=== PATIENT | female | born 1955 | race Caucasian/White ===

== ENCOUNTER 2016-10-03 09:49 | Day surgery (SDC) | payer MEDICARE ==
[2016-09-29 15:56] VITALS: BMI 49.2
[~2016-10-03 09:49] MED LIST: SODIUM CHLORIDE 0.9% 1,000 ML IV SCH
[2016-10-03 10:26] VITALS: TEMP 97.7
[2016-10-03 10:49] LABS: Glucose,Whole Blood 124 mg/dL (75-99)
[2016-10-03] MEDS ORDERED: MIDAZOLAM 2 MG/2 ML VIAL IVP ONE (12:18)
[2016-10-03] MEDS ORDERED: LIDOCAINE 2% INJ 20 MG/ML SQ ONE (12:20)
[2016-10-03] MEDS: ceFAZolin 2 GM in SODIUM CHLORIDE 0.9% 100 ML IVPB ONE ×2 (12:20→12:21)
--- NOTE | 2016-10-03 12:38 | P.PCN ---
Preoperative Diagnosis: Loop explant under sedation and local anesthesia. Loop was originally implanted 4 years back in the [facility] Patient was brought to the EP lab in a fasting state. Written informed consent was obtained prior to the procedure. The subcutaneous device was successfully explanted under local anesthesia. Preoperative antibiotics were administered. The wound was closed in layers and dressed per protocol. Result: Successful loop monitor explantation. Conscious sedation procedure Patient underwent EP procedure under conscious sedation/moderate sedation, monitoring of the level of consciousness and physiologic parameters including but not limited to vital signs and oxygenation. Patient tolerated the procedure well without any acute complications. Start time: 1218 Stop time: 1235 Condition: stable Disposition: same day
[2016-10-03 12:58] VITALS: RESP 16
[2016-10-03 14:28] VITALS: BP 106/56; PULSE 60
== END 2016-10-03 13:35 | disposition home or self-care (01) ==
LOC: CATHEP 09:49
PROVIDERS: ATTEND Internal Medicine Clinical Cardiac Electrophysiology
DX: I47.1 Supraventricular tachycardia (principal); I10 Essential (primary) hypertension; E78.2 Mixed hyperlipidemia; R00.1 Bradycardia, unspecified; E11.9 Type 2 diabetes mellitus without complications; Z79.84 Long term (current) use of oral hypoglycemic drugs; Z79.82 Long term (current) use of aspirin; Z79.1 Long term (current) use of non-steroidal anti-inflammatories (NSAID); Z79.899 Other long term (current) drug therapy
CPT/HCPCS: 33284; 99152; J2001; J2250; J0690

== ENCOUNTER → 2017-06-22 | Outpatient (CLI) | payer MEDICARE ==
[2017-06-21 14:11] VITALS: BMI 49.2
[2017-06-22 14:07] VITALS: BP 126/72; PULSE 61; RESP 18
--- NOTE | 2017-06-23 11:20 | P.HPIM ---
History of Present Illness H&P Date: 06/22/17 Chief Complaint: low back and right leg pain The patient is a 62-year-old female who presents today for chronic pain in low back with radiation to RLE. Patient states that pain is in primarily these areas and is of numbness/tingling quality, and began several years ago after patient fell on a trampoline at a young age, and she has had persistent back pain and problems since that time. Patient is currently prescribed no regular opioid medication, as prescribed by PCP/surgeon. Patient denies any adverse effects to medications. There are no signs of narcotic diversion/misuse/overuse and patient denies new- onset weakness, bowel/bladder incontinence, saddle anesthesia, or other signs or symptoms of cauda equina syndrome. Pain is improved by rest and medication and worsened by standing and walking long distances. Patient HAS NOT had surgery in the affected area. Patient HAS NOT had injections in the affected area previously. Patient HAS NOT had physical therapy recently. In terms of medications, patient has previously tried Tylenol, NSAIDs, tramadol , opioids. Review of systems is negative for chest pain, shortness of breath, visual changes, dizziness, seizures, fever, nausea/vomiting, suicidal or homicidal ideation, and is positive as indicated in HPI above. Allergies: Full list of medications reviewed in electronic record. Physical Exam: Vital Signs: reviewed in EMR General: well-developed, well-nourished, no acute distress HEENT: Normocephalic, atraumatic, no tenderness over occipital ridges. Neck: supple, trachea midline Pulm: respirations unlabored Abdomen: soft, nontender, nondistended, obese ROM flexion of lumbar spine: reduced ROM extension of lumbar spine: reduced Lumbar paravertebral tenderness: + Lumbar facet loading: bilateral, L > R Straight leg raise test: + R side SI joint tenderness: neg Foster's test: + R side Lower extremity: decreased strength due to pain Neurologic: CN II-XII grossly intact, no focal deficits Past Medical History Past Medical History: Heart Failure, Diabetes Mellitus, GERD/Reflux, Hyperlipidemia, Hypertension, Renal Disease, Thyroid Disorder Additional Past Medical History / Comment(s): See Dr Glaser H&P,kidney function 30%, HERNIA History of Any Multi-Drug Resistant Organisms: MRSA Date of last positivie culture/infection: approx 1996 or 1997 MDRO Source:: stomach area Past Surgical History: Adenoidectomy, Breast Surgery, Cholecystectomy, Heart Catheterization, Joint Replacement, Orthopedic Surgery, Tonsillectomy Additional Past Surgical History / Comment(s): ORIF rt wrist-hardware later removed,mult procedures to betsy legs for wounds/cellulitis,BILAT TKA, see Dr. Glaser's H&P. RT CTR, LT ELBOW TENDON SX, COLONOSCOPY, LOOP RECORDER INSERTED AND REMOVED, RT BREAST BX, CYST REMOVED FROM LT CHEEK, RT BUNIOMECTOMY , BILAT CATARACTS Past Anesthesia/Blood Transfusion Reactions: Previous Problems w/ Anesthesia Additional Past Anesthesia/Blood Transfusion Reaction / Comment(s): nightmares during anesthesia.no complications with prior blood transfusion Type of Cardiac Device: Loop Device Placement Date:: 2011 Smoking Status: Former smoker - Past Family History Mother Family Medical History: No Reported History Father Family Medical History: No Reported History Sister(s) Additional Family Medical History / Comment(s): niece had non-hodgkin's lymphoma. Medications and Allergies Home Medications Medication Instructions Recorded Confirmed Type Aspirin 81 mg PO DAILY 06/15/16 06/22/17 History Atorvastatin Calcium [Lipitor] 20 mg PO HS 06/15/16 06/22/17 History Carvedilol [Coreg] 3.125 mg PO BID 06/15/16 06/22/17 History Escitalopram Oxalate [Lexapro] 10 mg PO DAILY 06/15/16 06/22/17 History Furosemide [Lasix] 40 mg PO DAILY 06/15/16 06/22/17 History Levothyroxine Sodium [Synthroid] 150 mcg PO DAILY 06/15/16 06/22/17 History Losartan Potassium [Cozaar] 100 mg PO DAILY 06/15/16 06/22/17 History Pramipexole [Mirapex] 0.5 mg PO HS 06/15/16 06/22/17 History lamoTRIgine [LaMICtal] 200 mg PO DAILY 06/15/16 06/22/17 History Allopurinol [Zyloprim] 100 mg PO DAILY 06/21/17 06/22/17 History Escitalopram [Lexapro] 5 mg PO DAILY 06/21/17 06/22/17 History Insulin Glargine [Lantus] 14 units INJ HS 06/21/17 06/22/17 History Metolazone [Zaroxolyn] 5 mg PO DAILY 06/21/17 06/22/17 History Paricalcitol 2 mcg PO MOWEFR 06/21/17 06/22/17 History glipiZIDE [Glucotrol] 10 mg PO AC-BID 06/21/17 06/22/17 History Allergies Allergy/AdvReac Type Severity Reaction Status Date / Time ibuprofen [From Motrin] Allergy Swelling Verified 06/22/17 13:56 lisinopril Allergy Rash/Hives, Verified 06/22/17 13:56 swelling verapamil [From Calan] Allergy Rash/Hives, Verified 06/22/17 13:56 swelling Physical Exam Vitals: Vital Signs Pulse Resp BP Pulse Ox 06/22/17 13:59 61 18 126/72 97 Results Comments: MRI lumbar spine without contrast dated 05/03/2017 demonstrates severe degenerative disc disease at multiple levels in the lumbar spine including L3-L4 , L4-L5, and L5-S1. There is a small focal disc herniation centrally and paracentrally at the L5-S1 level with mild effacement of the thecal sac. At the L4-L5 level there is mild to moderate degenerative changes with diffuse disc circumferential bulging, facet arthropathy, and ligamentum flavum hypertrophy with borderline to mild AP canal stenosis. At the L5-S1 level there is also facet arthropathy noted; this is also true at the L3-L4 level which also has ligamentum flavum hypertrophy but no significant canal stenosis. Assessment and Plan (1) Obesity Current Visit: Yes Status: Chronic Code(s): E66.9 - OBESITY, UNSPECIFIED SNOMED Code(s): 038984791 (2) Lumbar spinal stenosis Current Visit: Yes Status: Chronic Code(s): M48.061 - SPINAL STENOSIS, LUMBAR REGION WITHOUT NEUROGENIC SAILAJA SNOMED Code(s): 86079409 (3) Lumbar facet arthropathy Current Visit: Yes Status: Chronic Code(s): M46.96 - UNSPECIFIED INFLAMMATORY SPONDYLOPATHY, LUMBAR REGION SNOMED Code(s): 456457099 Plan: 1. Opioid and psychological risk tools and scores were reviewed. Diagnoses, prognoses, and multiple treatment options including but not limited to physical therapy, interventional therapies, adjunct medical therapies, narcotic medication therapies, and surgery were discussed with the patient and all questions were answered to the patients satisfaction. 2. Opioid agreement: no opioids prescribed today 3. The patient was counseled extensively on tobacco abuse, body mass index, and exercise and the importance of smoking cessation, weight control, and regular exercise both in the context of chronic pain and also in terms of overall health. 4. Consultations: none 5. Interventional: LESI series L5-S1 6. Investigations: MAPS appropriate 7. Medications: none prescribed 8. Disposition: f/u for procedure as scheduled Time with Patient: Greater than 30
== END | disposition home or self-care (01) ==
LOC: PNWHC3 12:45
PROVIDERS: ATTEND Anesthesiology
DX: G89.29 Other chronic pain (principal); M54.9 Dorsalgia, unspecified; M48.061 Spinal stenosis, lumbar region without neurogenic claudication; M46.86 Other specified inflammatory spondylopathies, lumbar region; E66.9 Obesity, unspecified; Y93.44 Activity, trampolining; I11.0 Hypertensive heart disease with heart failure; I50.9 Heart failure, unspecified; E11.9 Type 2 diabetes mellitus without complications; K21.9 Gastro-esophageal reflux disease without esophagitis; E78.5 Hyperlipidemia, unspecified; E07.9 Disorder of thyroid, unspecified; Z79.1 Long term (current) use of non-steroidal anti-inflammatories (NSAID); Z79.899 Other long term (current) drug therapy; Z90.49 Acquired absence of other specified parts of digestive tract; Z79.891 Long term (current) use of opiate analgesic; Z98.61 Coronary angioplasty status; Z96.653 Presence of artificial knee joint, bilateral; Z87.891 Personal history of nicotine dependence; Z79.82 Long term (current) use of aspirin; Z79.4 Long term (current) use of insulin; Z79.84 Long term (current) use of oral hypoglycemic drugs; Z88.6 Allergy status to analgesic agent; Z88.8 Allergy status to other drugs, medicaments and biological substances; Z71.6 Tobacco abuse counseling
CPT/HCPCS: 99211

== ENCOUNTER → 2017-08-08 | Outpatient (CLI) | payer MEDICARE ==
[2017-08-08 14:21] LABS: Basophils % (A) 0 %; Eosinophils # (A) 0.1 k/uL (0-0.7); Eosinophils % (A) 2 %; HCT 36.2 % (34.0-46.0); Lymphocytes # (A) 1.7 k/uL (1.0-4.8); Lymphocytes % (A) 27 %; MCH 28.4 pg (25.0-35.0); MCHC 30.2 g/dL (31.0-37.0); Mean Platelet Volume 7.3; Monocytes # (A) 0.3 k/uL (0-1.0); Monocytes % (A) 4 %; Neutrophils # (A) 4.1 k/uL (1.3-7.7); Neutrophils % (A) 65 %; Platelet Count 262 k/uL (150-450); RBC 3.86 m/uL (3.80-5.40); RDW 13.3 % (11.5-15.5); WBC 6.4 k/uL (3.8-10.6)
[2017-08-08 14:35] LABS: Calcium 9.9 mg/dL (8.4-10.2); Magnesium 2.2 mg/dL (1.6-2.3); Phosphorus 4.2 mg/dL (2.5-4.5); Potassium 4.6 mmol/L (3.5-5.1)
[2017-08-08 17:47] LABS: Uric Acid 6.4 mg/dL (3.7-7.4)
[2017-08-08 19:20] LABS: Vitamin D 25 Hydroxy 60.6 ng/mL (30.0-100.0)
[2017-08-08 20:03] LABS: Parathyroid Hormone Intact 195.6 pg/mL (14.0-72.0)
== END | disposition home or self-care (01) ==
LOC: LABWHC1 13:09
PROVIDERS: ATTEND Family Medicine
DX: E79.0 Hyperuricemia without signs of inflammatory arthritis and tophaceous disease (principal); N18.3 Chronic kidney disease, stage 3 (moderate); E11.22 Type 2 diabetes mellitus with diabetic chronic kidney disease; E55.9 Vitamin D deficiency, unspecified; N25.81 Secondary hyperparathyroidism of renal origin
CPT/HCPCS: 36415; 80048; 82043; 82306; 82570; 83036; 83735; 83970; 84100; 84540; 84550; 85025

== ENCOUNTER 2017-08-12 08:34 | Emergency (ER) | payer MEDICARE ==
[2017-08-12 08:39] VITALS: BP 138/60; PULSE 65; RESP 18; TEMP 97.1
--- NOTE | 2017-08-12 09:33 | XR ---
EXAMINATION TYPE: XR Hip RT and AP Pelvis , 3 VIEWS DATE OF EXAM ORDERED: 08/12/2017 HISTORY: Pain. COMPARISON: None. FINDINGS: There are mild degenerative changes in the right hip. No fracture is seen. Osseous structu res about the pelvis are normal. There are degenerative changes in the lower lumbar spine. IMPRESSION: 1. NO ACUTE OSSEOUS LESION. 2. MILD DEGENERATIVE CHANGE.
[2017-08-12] MEDS ORDERED: MORPHINE SULFATE 4 MG/ML SYRINGE IM STA (09:47)
--- NOTE | 2017-08-12 09:49 | ED ---
General Adult HPI - General Chief complaint: Back Pain/Injury Stated complaint: RT SIDE HIP, LEG AND BACK PAIN Time Seen by Provider: 08/12/17 08:44 Source: patient, RN notes reviewed Mode of arrival: wheelchair Limitations: no limitations - History of Present Illness Initial comments: Patient 62-year-old female who presents emergency room today with a chief complaint of lower back pain, right hip pain radiating down the right leg. Patient doesn't that she's had symptoms similar to this in the past as post see pain management. She states there is a problem with her insurance and she did not get into pain management at the end of June which was supposed to. She denies any injury or trauma to the area. States she's had increased pain in the last few days. States that it is similar to symptoms that she's had in the past. Denies any bowel or bladder incontinence retention. Denies any saddle anesthesia. Patient states she tried [place] at home with little relief. Patient denies any recent fever, chills, shortness of breath, chest pain, abdominal pain , nausea or vomiting, dysuria or hematuria, constipation or diarrhea, headaches or visual changes, or any other complaints. - Related Data Home Medications Medication Instructions Recorded Confirmed Aspirin 81 mg PO DAILY 06/15/16 07/20/17 Atorvastatin Calcium [Lipitor] 20 mg PO HS 06/15/16 07/20/17 Carvedilol [Coreg] 3.125 mg PO BID 06/15/16 07/20/17 Furosemide [Lasix] 40 mg PO DAILY 06/15/16 07/20/17 Levothyroxine Sodium [Synthroid] 150 mcg PO DAILY 06/15/16 07/20/17 Losartan Potassium [Cozaar] 100 mg PO DAILY 06/15/16 07/20/17 Pramipexole [Mirapex] 0.5 mg PO HS 06/15/16 07/20/17 lamoTRIgine [LaMICtal] 200 mg PO DAILY 06/15/16 07/20/17 Allopurinol [Zyloprim] 100 mg PO DAILY 06/21/17 07/20/17 Escitalopram [Lexapro] 15 mg PO DAILY 06/21/17 07/20/17 Insulin Glargine [Lantus] 14 units INJ HS 06/21/17 07/20/17 Metolazone [Zaroxolyn] 5 mg PO DAILY 06/21/17 07/20/17 Paricalcitol 2 mcg PO MOWEFR 06/21/17 07/20/17 glipiZIDE [Glucotrol] 10 mg PO AC-BID 06/21/17 07/20/17 Allergies Allergy/AdvReac Type Severity Reaction Status Date / Time ibuprofen [From Motrin] Allergy Swelling Verified 08/12/17 08:35 lisinopril Allergy Rash/Hives, Verified 08/12/17 08:35 swelling verapamil [From Calan] Allergy Rash/Hives, Verified 08/12/17 08:35 swelling Review of Systems ROS Statement: Those systems with pertinent positive or pertinent negative responses have been documented in the HPI. ROS Other: All systems not noted in ROS Statement are negative. Past Medical History Past Medical History: Diabetes Mellitus, GERD/Reflux, Renal Disease, Thyroid Disorder Additional Past Medical History / Comment(s): See Dr Glaser H&P,kidney function 30%,steroid May 2016 History of Any Multi-Drug Resistant Organisms: MRSA Date of last positivie culture/infection: approx 1996 or 1997 MDRO Source:: stomach area Past Surgical History: Cholecystectomy, Joint Replacement, Orthopedic Surgery Additional Past Surgical History / Comment(s): ORIF rt wrist-hardware later removed,mult procedures to betsy legs for wounds/cellulitis,betsy knee replacement, see Dr. Glaser's H&P. Past Anesthesia/Blood Transfusion Reactions: Previous Problems w/ Anesthesia Additional Past Anesthesia/Blood Transfusion Reaction / Comment(s): nightmares during anesthesia.no complications with prior blood transfusion Type of Cardiac Device: Loop Device Placement Date:: 2011 Past Psychological History: Anxiety, Bipolar, Depression Smoking Status: Former smoker Past Alcohol Use History: None Reported Past Drug Use History: None Reported - Past Family History Mother Family Medical History: No Reported History Father Family Medical History: No Reported History Sister(s) Additional Family Medical History / Comment(s): niece had non-hodgkin's lymphoma. General Exam - General Exam Comments Initial Comments: General: The patient is awake and alert, in no distress, and does not appear acutely ill. Eye: Pupils are equal, round and reactive to light, extra-ocular movements are intact. No nystagmus. There is normal conjunctiva bilaterally. No signs of icterus. Ears, nose, mouth and throat: There are moist mucous membranes and no oral lesions. Neck: The neck is supple, there is no tenderness or JVD. Cardiovascular: There is a regular rate and rhythm. No murmur, rub or gallop is appreciated. Respiratory: Lungs are clear to auscultation, respirations are non-labored, breath sounds are equal. No wheezes, stridor, rales, or rhonchi. Musculoskeletal: Patient has normal appearance of the right hip no obvious deformity. No shortening or rotation. Does have mild tenderness over the lateral aspect. Strength 5/5. Sensation intact. Pulses equal bilaterally 2+. Neurological: A&O x 3. CN II-XII intact, There are no obvious motor or sensory deficits. Coordination appears grossly intact. Speech is normal. Skin: Skin is warm and dry and no rashes or lesions are noted. Psychiatric: Cooperative, appropriate mood & affect, normal judgment. Limitations: no limitations Course Vital Signs 08/12/17 08:35 Temperature 97.1 F L Pulse Rate 65 Respiratory 18 Rate Blood Pressure 138/60 O2 Sat by Pulse 99 Oximetry Medical Decision Making - Medical Decision Making X-rays reviewed does show degenerative changes. Patient's post follow-up pain management for this. She states this is not new symptoms today. There is no new injury or trauma. Patient given dose of pain medication here advised that she should continue her [place] at home and follow up with pain management or family doctor Monday. Disposition Clinical Impression: Lumbar radiculopathy Disposition: HOME SELF-CARE Condition: Good Instructions: Chronic Back Pain (ED) Additional Instructions: Please use medication as discussed. Please follow-up with family doctor in the next 2 days of symptoms have not improved. Please return to emergency room if the symptoms increase or worsen or for any other concerns. Referrals: Carlita Ramos MD [Primary Care Provider] - 1-2 days Time of Disposition: 09:49
== END 2017-08-12 10:16 | disposition home or self-care (01) ==
LOC: EC 08:34
DX: M54.16 Radiculopathy, lumbar region (principal); K21.9 Gastro-esophageal reflux disease without esophagitis; E07.9 Disorder of thyroid, unspecified; E11.22 Type 2 diabetes mellitus with diabetic chronic kidney disease; F31.9 Bipolar disorder, unspecified; F41.9 Anxiety disorder, unspecified; Z86.14 Personal history of Methicillin resistant Staphylococcus aureus infection; Z87.891 Personal history of nicotine dependence; Z79.82 Long term (current) use of aspirin; Z79.4 Long term (current) use of insulin; Z79.899 Other long term (current) drug therapy; Z88.6 Allergy status to analgesic agent; Z88.8 Allergy status to other drugs, medicaments and biological substances
CPT/HCPCS: 99283 ×2; 96372 ×2; 73502; J2270

== ENCOUNTER 2017-08-28 08:19 | Day surgery (SDC) | payer MEDICARE ==
[2017-08-22 15:28] VITALS: BMI 51.8
[~2017-08-28 08:19] MED LIST changes: +LACTATED RINGERS 1,000 ML IV SCH; -SODIUM CHLORIDE 0.9% 1,000 ML IV SCH
[2017-08-28 10:04] VITALS: TEMP 97.9
[2017-08-28] MEDS ORDERED: LIDOCAINE 1% 20 ML VIAL (10MG/ML) FOR IV START INTRADERMA ONE (10:10)
[2017-08-28 10:33] LABS: Glucose,Whole Blood 98 mg/dL (75-99)
--- NOTE | 2017-08-28 10:48 | P.PCN ---
Date of Procedure: 08/28/17 Procedure(s) Performed: PREOPERATIVE DIAGNOSIS: 1- Lumbar Degenerative Disc Diseases 2-Lumbar spondylosis with Facet arthropathy without myelopathy. 3-lumbar spinal stenosis. POSTOPERATIVE DIAGNOSIS: 1-Lumber Degenerative Disc Diseases 2-Lumbar spondylosis with Facet arthropathy without myelopathy. 3-lumbar spinal stenosis. PROCEDURE 1. Lumbar epidural steroid injection under fluoroscopic guidance at the L5-S1 level. 2. Lumbar epidurogram. ANESTHESIA: Local with 1% lidocaine 3 ml and , moderate sedation with intravenous Versed 2 mg ,and fentanyle 100 Mcg EBL: Minimal PROCEDURE INDICATION: The patient with low back pain and radiculitis symptoms unresponsive to conservative treatment. Fluoroscopy was used to optimize visualization of the needle placement and to maximize safety. PROCEDURE DESCRIPTION / TECHNIQUE: The patient was seen and identified in the preoperative area. Risks, benefits , complications including but not limited to infections ,bleeding ,allergic reaction to the medications ,nerve damage and not complete pain releife , and alternatives were discussed with the patient. The patient agreed to proceed with the procedure and signed the consent. IV was started, and vital signs were stable. Patient was taken to the OR and time out was completed. The patient was placed in the prone position on procedure table and a pillow was placed under the abdomen to reduce lumbar lordosis. The lumbosacral area was prepped and draped in the usual sterile fashion.ere closely monitored during the procedure. Conscious sedation was used during the procedure to decrease patients anxiety. Vital signs was monitered during the entire procedure. Using anterior-posterior fluoroscopy, the L5-S1 interlaminar space was identified and the skin over this site was marked and then infiltrated with 1% lidocaine subcutaneously. Subsequently, a 18-gauge 6 inches long ,Tuohy epidural needle was inserted and advanced toward the epidural space using the `` Loss of resistance technique and guided by AP and lateral fluoroscopy. The correct needle position in the epidural space was verified with the injection of 2 mL of the water soluble contrast dye Isovue 200 contrast and observing an excellent epidurogram with the epidural spread of the dye, after negative aspiration for blood and CSF and in the absence of paresthesias. Again after negative aspiration, a 6 ml mixture containing 80 mg Kenalog , and 2 ml of preservative free Normal Saline, and 2 ml of preservative free lidocaine 1% solution was injected and a washout of epidurogram was seen. Needle was withdrawn intact, skin was cleansed, and bandages were applied. COMPLICATIONS: None DISPOSITION / PLANS: The patient was placed in a supine position and transferred to the recovery area in a stable condition for observation. There was no evidence of lower extremity motor or sensory deficit after the procedure. Patient was discharged from the recovery room after meeting discharge criteria. Home discharge instructions were given to the patient by the staff. The patient was reexamined prior to discharge. The patient will schedule a follow up in the clinic in 2-4 weeks.
[2017-08-28] MEDS ORDERED: IV FLUID CONTINUATION 900 ML IV ONE (10:50)
[2017-08-28 11:02] LABS: Glucose,Whole Blood 104 mg/dL (75-99)
--- NOTE | 2017-08-28 11:02 | FL ---
EXAMINATION TYPE: FL guided pain mgmt statistic DATE OF EXAM: 08/28/2017 COMPARISON: NONE HISTORY: Back pain TECHNIQUE: Fluoroscopy. FINDINGS/IMPRESSION Fluoroscopic guidance was provided during procedure performed by Dr. Soto. A total of 7 seconds of fluoroscopic time was utilized during the procedure and 1 spot images was acqu ired demonstrating localization of the lower lumbar spine.
[2017-08-28 11:16] VITALS: BP 100/49; PULSE 61; RESP 18
== END 2017-08-28 11:55 | disposition home or self-care (01) ==
LOC: ORPAIN 08:19
PROVIDERS: ATTEND Specialist
DX: M51.16 Intervertebral disc disorders with radiculopathy, lumbar region (principal); M48.061 Spinal stenosis, lumbar region without neurogenic claudication; E11.9 Type 2 diabetes mellitus without complications; E66.01 Morbid (severe) obesity due to excess calories; E07.9 Disorder of thyroid, unspecified; Z79.1 Long term (current) use of non-steroidal anti-inflammatories (NSAID); Z79.899 Other long term (current) drug therapy; Z68.43 Body mass index [BMI] 50.0-59.9, adult; Z88.8 Allergy status to other drugs, medicaments and biological substances; Z88.6 Allergy status to analgesic agent
CPT/HCPCS: 62323; J2250; J3301; J3010; Q9966

== ENCOUNTER 2017-09-26 07:35 | Day surgery (SDC) | payer MEDICARE ==
[2017-09-20 15:02] VITALS: BMI 49.2
[2017-09-26 08:47] VITALS: RESP 16; TEMP 97.6
[2017-09-26] MEDS ORDERED: LACTATED RINGERS 1,000 ML IV ONE (08:47)
[2017-09-26] MEDS ORDERED: LIDOCAINE 1% 20 ML VIAL (10MG/ML) FOR IV START INTRADERMA ONE (08:47)
[2017-09-26 08:51] LABS: Glucose,Whole Blood 71 mg/dL (75-99)
--- NOTE | 2017-09-26 09:35 | P.PCN ---
Date of Procedure: 09/26/17 Procedure(s) Performed: PREOPERATIVE DIAGNOSIS: 1- Lumbar Degenerative Disc Diseases 2-Lumbar spondylosis with Facet arthropathy without myelopathy. 3-lumbar spinal stenosis. POSTOPERATIVE DIAGNOSIS: Same as preop diagnosis. PROCEDURE 1. Lumbar epidural steroid injection under fluoroscopic guidance at the L5-S1 level. 2. Lumbar epidurogram. ANESTHESIA: Local with 1% lidocaine 3 ml and , moderate sedation with intravenous Versed 2 mg ,and fentanyle 100 Mcg EBL: Minimal PROCEDURE INDICATION: The patient with low back pain and radiculitis symptoms unresponsive to conservative treatment. Fluoroscopy was used to optimize visualization of the needle placement and to maximize safety. PROCEDURE DESCRIPTION / TECHNIQUE: The patient was seen and identified in the preoperative area. Risks, benefits , complications including but not limited to infections ,bleeding ,allergic reaction to the medications ,nerve damage and not complete pain releife , and alternatives were discussed with the patient. The patient agreed to proceed with the procedure and signed the consent. IV was started, and vital signs were stable. Patient was taken to the OR and time out was completed. The patient was placed in the prone position on procedure table and a pillow was placed under the abdomen to reduce lumbar lordosis. The lumbosacral area was prepped and draped in the usual sterile fashion.ere closely monitored during the procedure. Conscious sedation was used during the procedure to decrease patients anxiety. Vital signs was monitered during the entire procedure. Using anterior-posterior fluoroscopy, the L5-S1 interlaminar space was identified and the skin over this site was marked and then infiltrated with 1% lidocaine subcutaneously. Subsequently, a 18 -gauge 6 inches long ,Tuohy epidural needle was inserted and advanced toward the epidural space using the `` Loss of resistance technique and guided by AP and lateral fluoroscopy. The correct needle position in the epidural space was verified with the injection of 2 mL of the water soluble contrast dye Isovue 200 contrast and observing an excellent epidurogram with the epidural spread of the dye, after negative aspiration for blood and CSF and in the absence of paresthesias. Again after negative aspiration, a 6 ml mixture containing 80 mg Kenalog , and 2 ml of preservative free Normal Saline, and 2 ml of preservative free lidocaine 1% solution was injected and a washout of epidurogram was seen. Needle was withdrawn intact, skin was cleansed, and bandages were applied. COMPLICATIONS: None DISPOSITION / PLANS: The patient was placed in a supine position and transferred to the recovery area in a stable condition for observation. There was no evidence of lower extremity motor or sensory deficit after the procedure. Patient was discharged from the recovery room after meeting discharge criteria. Home discharge instructions were given to the patient by the staff. The patient was reexamined prior to discharge. The patient will schedule a follow up in the clinic in 2-4 weeks.
[2017-09-26] MEDS ORDERED: IV FLUID CONTINUATION 1,000 ML IV ONE (09:39)
[2017-09-26 09:45] LABS: Glucose,Whole Blood 68 mg/dL (75-99)
[2017-09-26 09:59] VITALS: BP 115/71; PULSE 65
[2017-09-26 10:09] LABS: Glucose,Whole Blood 67 mg/dL (75-99)
[2017-09-26 10:35] LABS: Glucose,Whole Blood 117 mg/dL (75-99)
[2017-09-26] MEDS ORDERED: LACTATED RINGERS 1,000 ML IV SCH (10:50)
--- NOTE | 2017-09-26 11:11 | FL ---
EXAMINATION TYPE: FL guided pain mgmt statistic DATE OF EXAM: 09/26/2017 FLUOROSCOPY Fluoroscopy time of 1 seconds was used during lumbar epidural injection. 1 image/s document/s the pr stephen.
== END 2017-09-26 10:51 | disposition home or self-care (01) ==
LOC: ORPAIN 07:35
PROVIDERS: ATTEND Specialist
DX: M47.26 Other spondylosis with radiculopathy, lumbar region (principal); M51.16 Intervertebral disc disorders with radiculopathy, lumbar region; M48.061 Spinal stenosis, lumbar region without neurogenic claudication; I10 Essential (primary) hypertension; E11.9 Type 2 diabetes mellitus without complications; E03.9 Hypothyroidism, unspecified; Z88.6 Allergy status to analgesic agent; Z88.8 Allergy status to other drugs, medicaments and biological substances
CPT/HCPCS: 62323; J2250; J3301; J3010; Q9966

== ENCOUNTER 2017-10-19 08:05 | Day surgery (SDC) | payer MEDICARE ==
[2017-10-13 14:48] VITALS: BMI 49.2
[2017-10-19 08:43] VITALS: RESP 18; TEMP 97.8
[2017-10-19 09:03] LABS: Glucose,Whole Blood 156 mg/dL (75-99)
--- NOTE | 2017-10-19 09:45 | FL ---
EXAMINATION TYPE: FL guided pain mgmt statistic DATE OF EXAM: 10/19/2017 HISTORY: Pain 1 sec of fluoro. 1 image scanned.
[2017-10-19 10:01] VITALS: BP 110/70; PULSE 77
--- NOTE | 2017-10-26 13:50 | P.PCN ---
Date of Procedure: 10/19/17 Surgeon: Markos Greene Description of Procedure: PREOPERATIVE DIAGNOSIS: 1- Lumbar Degenerative Disc Diseases 2-Lumbar spondylosis with Facet arthropathy without myelopathy POSTOPERATIVE DIAGNOSIS: 1-Lumber Degenerative Disc Diseases 2-Lumbar spondylosis with Facet arthropathy without myelopathy PROCEDURE Lumbar epidural steroid injection under fluoroscopic guidance at the L5-S1 level. ANESTHESIA: Local with 1% lidocaine 3 ml and IV sedation with Versed 2 mg EBL: Minimal PROCEDURE INDICATION: The patient with low back pain and radiculitis symptoms unresponsive to conservative treatment. Fluoroscopy was used to optimize visualization of the needle placement and to maximize safety. PROCEDURE DESCRIPTION / TECHNIQUE: The patient was seen and identified in the preoperative area. Risks, benefits , complications including but not limited to infections ,bleeding ,allergic reaction to the medications ,nerve damage and not complete pain relief , and alternatives were discussed with the patient. The patient agreed to proceed with the procedure and signed the consent. IV was started, and vital signs were stable. Patient was taken to the OR and time out was completed. The patient was placed in the prone position on procedure table and a pillow was placed under the abdomen to reduce lumbar lordosis. The lumbosacral area was prepped and draped in the usual sterile fashion.ere closely monitored during the procedure. Conscious sedation was used during the procedure to decrease patients anxiety. Vital signs was monitered during the entire procedure. Using anterior-posterior fluoroscopy, the L5-S1 interlaminar space was identified and the skin over this site was marked and then infiltrated with 1% lidocaine subcutaneously. Subsequently, a 20-gauge Tuohy epidural needle was inserted and advanced toward the epidural space using the Loss of resistance technique and guided by AP and lateral fluoroscopy. The correct needle position in the epidural space was verified with the injection of contrast and observing an excellent epidurogram with the epidural spread of the dye, after negative aspiration for blood and CSF and in the absence of paresthesias. Again after negative aspiration, a 6 ml mixture containing 20 mg of Dexamethasone was injected and a washout of epidurogram was seen. Needle was withdrawn intact , skin was cleansed, and bandages were applied. COMPLICATIONS: None DISPOSITION / PLANS: The patient was placed in a supine position and transferred to the recovery area in a stable condition for observation. There was no evidence of lower extremity motor or sensory deficit after the procedure. Patient was discharged from the recovery room after meeting discharge criteria. Home discharge instructions were given to the patient by the staff. The patient was reexamined prior to discharge. The patient will schedule a follow up in the clinic in 2-4 weeks.
== END 2017-10-19 10:16 | disposition home or self-care (01) ==
LOC: ORPAIN 08:05
PROVIDERS: ATTEND Pain Medicine Pain Medicine
DX: M51.16 Intervertebral disc disorders with radiculopathy, lumbar region (principal); M47.816 Spondylosis without myelopathy or radiculopathy, lumbar region; E03.9 Hypothyroidism, unspecified; I10 Essential (primary) hypertension; M19.90 Unspecified osteoarthritis, unspecified site; F31.9 Bipolar disorder, unspecified; Z88.6 Allergy status to analgesic agent; Z88.8 Allergy status to other drugs, medicaments and biological substances
CPT/HCPCS: 62323; J1030

== ENCOUNTER → 2017-11-21 | Outpatient (CLI) | payer MEDICARE ==
--- NOTE | 2017-11-21 15:28 | XR ---
EXAMINATION TYPE: XR chest 2V DATE OF EXAM: 11/21/2017 COMPARISON: NONE HISTORY: Cough. TECHNIQUE: Frontal and lateral views of the chest are obtained. FINDINGS: There is chronic parenchymal changes without suspicious no focal air space opacity, pleura l effusion, or pneumothorax seen. The cardiac silhouette size is mildly enlarged with atheroscleroti c change in aortic knob. The osseous structures are demineralized. Cholecystectomy clips are noted. IMPRESSION: Chronic changes and mild cardiomegaly without acute pulmonary process.
== END | disposition home or self-care (01) ==
LOC: RADXRMAIN 15:06
PROVIDERS: ATTEND Family Medicine
DX: I51.7 Cardiomegaly (principal)
CPT/HCPCS: 71046

== ENCOUNTER → 2017-11-23 | Outpatient (CLI) | payer MEDICARE ==
[2017-11-23 13:25] VITALS: BP 114/58; PULSE 92; RESP 16
--- NOTE | 2017-11-23 14:14 | P.PN ---
Subjective Progress Note Date: 11/23/17 Principal diagnosis: No back pain This is a 62-year-old morbidly obese female with history of lower back pain with radiation to the lower extremities. The patient is doing much better after the lumbar epidural steroid injection series and that she just received. She does have neck pain with no radiation to the upper extremities. She denies any numbness or tingling in the upper or lower extremities. She denies any progressive weakness in the upper or lower extremities. Objective - Vital Signs Vital signs: Vital Signs Temp Pulse 92 11/23/17 13:13 Resp 16 11/23/17 13:13 BP 114/58 11/23/17 13:13 Pulse Ox Intake & Output 11/22/17 11/23/17 11/23/17 18:59 06:59 18:59 Weight 130.181 kg - Constitutional General appearance: Present: morbidly obese - EENT Eyes: Present: PERRLA - Respiratory Respiratory: bilateral: CTA - Cardiovascular Rhythm: regular Heart sounds: normal: S1, S2 - Neurologic Neurologic: Present: CNII-XII intact - Psychiatric Psychiatric: Present: A&O x's 3, appropriate affect, intact judgment & insight - Additional findings Additional findings: Neuro exam of the upper extremities showed normal and symmetrical muscle strength and normal biceps reflexes bilaterally absent triceps reflex bilaterally due to fat pad on the elbows probably. She has decreased range of motion of the cervical spine surgery to the left rotation. She has tenderness in the left paravertebral area of the cervical spine. Assessment and Plan Plan: This is a 62-year-old female with lumbar stenosis and lumbar spondylosis and that radiculopathy. She has morbid obesity and also cervical spondylosis without myelopathy. The patient is to continue using her medications and she takes Tylenol extra strength for her pain. We will see the patient 2 months from now for reevaluation for her neck pain which is under good control at this point.
== END | disposition home or self-care (01) ==
LOC: PNWHC3 13:00
PROVIDERS: ATTEND Anesthesiology
DX: M48.061 Spinal stenosis, lumbar region without neurogenic claudication (principal); M47.26 Other spondylosis with radiculopathy, lumbar region; M47.812 Spondylosis without myelopathy or radiculopathy, cervical region; E66.01 Morbid (severe) obesity due to excess calories
CPT/HCPCS: 99211

== ENCOUNTER → 2017-12-15 | Outpatient (CLI) | payer MEDICARE ==
--- NOTE | 2017-12-15 13:42 | US ---
EXAMINATION TYPE: US kidneys/renal and bladder DATE OF EXAM: 12/15/2017 COMPARISON: Prior renal ultrasound February 23, 2016 CLINICAL HISTORY: CKD Stage 4 N18.4. patient states 30% renal function EXAM MEASUREMENTS: Right Kidney: 9.2 x 4.3 x 4.5 cm Left Kidney: 9.8 x 3.7 x 6.0 cm Right Kidney: decreased cortical thickness Left Kidney: decreased cortical thickness Bladder: wnl Bilateral Jets seen: no, patient unable to hold bladder There is no evidence for hydronephrosis at this point in time. Cortical thinning bilaterally is prese nt. No nephrolithiasis is seen. No masses are identified. The urinary bladder is not greatly disten ded and thus suboptimally evaluated. Bilateral ureteral jets are not seen. IMPRESSION: No hydronephrosis is evident bilaterally. Findings consistent with chronic medical renal disease rede monstrated, cortical thinning with decreased size in both kidneys from prior exam.
== END | disposition home or self-care (01) ==
LOC: RADUSWWP 12:01
PROVIDERS: ATTEND Family Medicine
DX: N28.89 Other specified disorders of kidney and ureter (principal); N18.4 Chronic kidney disease, stage 4 (severe)
CPT/HCPCS: 76770

== ENCOUNTER 2018-07-09 17:38 | Observation (INO) | payer MEDICARE, OTHER ==
[2018-07-09] MEDS ORDERED: SODIUM CHLORIDE 0.9% 500 ML 500 ML IV STA (18:27)
--- NOTE | 2018-07-09 18:34 | ED ---
Weakness HPI - General Source: patient Mode of arrival: wheelchair Limitations: no limitations <Lynn Wisdom - Last Filed: 07/09/18 22:42> <Laxmi Deal - Last Filed: 07/10/18 04:26> - General Chief complaint: Weakness Stated complaint: weakness, confusion Time Seen by Provider: 07/09/18 18:04 - History of Present Illness Initial comments: 63-year-old female patient with past medical history significant for Diabetes mellitus, acid reflux, stage III renal failure, hypothyroid presents to the emergency department today for evaluation of generalized weakness. Patient states she has been feeling increasingly weak since this morning. States that she has had headaches for the last couple of days and feels that the top of her head feels numb. She denies any blurred or double vision with this. Denies any nausea or vomiting. She denies any chest pain, sweats, or dizziness. States he has been having some intermittent shortness of breath. She denies any cough or hemoptysis. Denies any wheezing. Patient denies any recent rash, abdominal pain, nausea, vomiting, diarrhea, constipation, back pain, hematuria, dysuria, urinary urgency, urinary frequency, visual changes, or any other complaints. (Lynn Wisdom) - Related Data Home Medications Medication Instructions Recorded Confirmed Atorvastatin Calcium [Lipitor] 20 mg PO HS 06/15/16 07/09/18 Carvedilol [Coreg] 3.125 mg PO BID 06/15/16 07/09/18 Furosemide [Lasix] 40 mg PO DAILY PRN 06/15/16 07/09/18 Levothyroxine Sodium [Synthroid] 150 mcg PO DAILY 06/15/16 07/09/18 Pramipexole [Mirapex] 1 mg PO HS 06/15/16 07/09/18 lamoTRIgine [LaMICtal] 200 mg PO DAILY 06/15/16 07/09/18 Allopurinol [Zyloprim] 100 mg PO DAILY 06/21/17 07/09/18 Escitalopram [Lexapro] 20 mg PO DAILY 06/21/17 07/09/18 Insulin Glargine [Lantus] 14 units SQ HS 06/21/17 07/09/18 Metolazone [Zaroxolyn] 5 mg PO DAILY 06/21/17 07/09/18 Paricalcitol 2 mcg PO DAILY 06/21/17 07/09/18 glipiZIDE [Glucotrol] 10 mg PO AC-BID 06/21/17 07/09/18 Ergocalciferol (Vitamin D2) 50,000 unit PO TH 08/22/17 07/09/18 [Vitamin D2] Albuterol Inhaler [Ventolin Hfa 1 - 2 puff INHALATION RT-QID PRN 07/09/18 Inhaler] Aspirin EC [Ecotrin Low Dose] 81 mg PO DAILY 07/09/18 07/09/18 Allergies Allergy/AdvReac Type Severity Reaction Status Date / Time ibuprofen [From Motrin] Allergy Swelling Verified 07/09/18 19:14 lisinopril Allergy Rash/Hives, Verified 07/09/18 19:14 swelling verapamil [From Calan] Allergy Rash/Hives, Verified 07/09/18 19:14 swelling Review of Systems ROS Other: All systems not noted in ROS Statement are negative. <Lynn Wisdom M - Last Filed: 07/09/18 22:42> ROS Other: All systems not noted in ROS Statement are negative. <Laxmi Deal - Last Filed: 07/10/18 04:26> ROS Statement: Those systems with pertinent positive or pertinent negative responses have been documented in the HPI. Past Medical History Past Medical History: Diabetes Mellitus, GERD/Reflux, Renal Disease, Thyroid Disorder Additional Past Medical History / Comment(s): Stage 3 kidney disease, CHF, recently fell and hit head went to ER and got checked out, everything ok. Fell today, did not hurt anything. History of Any Multi-Drug Resistant Organisms: MRSA Date of last positivie culture/infection: approx 1996 or 1997 MDRO Source:: stomach area Past Surgical History: Cardiac Ablation, Cholecystectomy, Joint Replacement, Orthopedic Surgery Additional Past Surgical History / Comment(s): ORIF rt wrist-hardware later removed, mult procedures to betsy legs for wounds/cellulitis, betsy knee replacement , bunionectomy, carpal tunnel, Loop removal, pain clinic procedure. Past Anesthesia/Blood Transfusion Reactions: Previous Problems w/ Anesthesia Additional Past Anesthesia/Blood Transfusion Reaction / Comment(s): Nightmares during anesthesia, no complications with prior blood transfusion. Type of Cardiac Device: Loop Device Placement Date:: 2011 Past Psychological History: Anxiety, Bipolar, Depression Smoking Status: Former smoker Past Alcohol Use History: None Reported Past Drug Use History: None Reported - Past Family History Mother Family Medical History: No Reported History Father Family Medical History: No Reported History Sister(s) Additional Family Medical History / Comment(s): niece had non-hodgkin's lymphoma. <AlyxLynn M - Last Filed: 07/09/18 22:42> General Exam Limitations: no limitations General appearance: alert, in no apparent distress, other (This is a well- developed, well-nourished adult female patient in no acute distress. Vital signs upon presentation are temperature 98.0F, pulse 70, respirations 18, blood pressure 139/79, pulse ox 99% on room air.) Eye exam: Present: normal appearance, PERRL, EOMI. Absent: scleral icterus, conjunctival injection, nystagmus, periorbital swelling ENT exam: Present: normal exam, normal oropharynx Respiratory exam: Present: normal lung sounds bilaterally. Absent: respiratory distress, wheezes, rales, rhonchi, stridor Cardiovascular Exam: Present: regular rate, normal rhythm, normal heart sounds. Absent: systolic murmur, diastolic murmur, rubs, gallop, clicks GI/Abdominal exam: Present: soft, normal bowel sounds. Absent: distended, tenderness, guarding, rebound, rigid Neurological exam: Present: alert, oriented X3, CN II-XII intact, other ( Strength in all 4 extremities is 4/5.) Psychiatric exam: Present: normal affect, normal mood Skin exam: Present: warm, dry, intact, normal color. Absent: rash <Lynn Wisdom M - Last Filed: 07/09/18 22:42> Vital Signs 07/09/18 07/09/18 07/09/18 17:49 21:13 21:49 Temperature 98 F Pulse Rate 70 62 Pulse Rate [ Left Pulse Oximetery] Respiratory 18 19 Rate Blood Pressure 139/79 144/71 Blood Pressure [Left Arm Sitting] O2 Sat by Pulse 99 97 Oximetry 07/09/18 07/10/18 23:35 00:34 Temperature 97.9 F Pulse Rate 68 Pulse Rate [ 68 Left Pulse Oximetery] Respiratory 18 18 Rate Blood Pressure 149/72 Blood Pressure 148/82 [Left Arm Sitting] O2 Sat by Pulse 97 98 Oximetry EKG Findings - EKG Comments: EKG Findings:: EKG obtained at 1853 shows normal sinus rhythm with a ventricular rate of 64, NE interval 178, QR hoahaoism 96, QT 442, QTc 455. No evidence of ST elevation or depression. <Lynn Wisdom - Last Filed: 07/09/18 22:42> Medical Decision Making - Lab Data Result diagrams: 07/09/18 18:42 07/09/18 18:42 - Radiology Data Radiology results: report reviewed, image reviewed <Lynn Wisdom - Last Filed: 07/09/18 22:42> - Lab Data Result diagrams: 07/09/18 18:42 07/09/18 18:42 <Laxmi Deal - Last Filed: 07/10/18 04:26> - Medical Decision Making 63-year-old female patient presents to the emergency department today for evaluation of generalized weakness and shortness of breath. Physical examination is relatively unremarkable. She is neurologically intact with no focal deficits. Lung sounds are clear and equal. Labs reviewed and did reveal evidence of mild urinary tract infection, this has been sent for culture. BNP was 1150, this is a new finding for her. We'll admit to the hospital for new onset congestive heart failure. We'll give a dose of Lasix here in the emergency department. Patient will be admitted to [facility] who covers for Dr. Ramos. (Lynn Wisdom) I was available for consultation in the emergency department. The history and physical exam were done by the midlevel provider. I was consulted for this patient's care. I reviewed the case with the midlevel provider and based on their presentation of the patient, I agree with the assessment, medical decision making and plan of care as documented. Patient care was discussed with Dr. Solomon of the [facility] who accepts admission. (Laxmi Deal) - Lab Data Lab Results 07/09/18 07/09/18 07/09/18 Range/Units 18:42 18:42 18:42 WBC 4.8 (3.8-10.6) k/uL RBC 4.17 (3.80-5.40) m/uL Hgb 12.1 (11.4-16.0) gm/dL Hct 39.2 (34.0-46.0) % MCV 94.0 (80.0-100.0) fL MCH 29.0 (25.0-35.0) pg MCHC 30.9 L (31.0-37.0) g/dL RDW 13.6 (11.5-15.5) % Plt Count 258 (150-450) k/uL Neutrophils % 58 % Lymphocytes % 33 % Monocytes % 5 % Eosinophils % 2 % Basophils % 1 % Neutrophils # 2.8 (1.3-7.7) k/uL Lymphocytes # 1.6 (1.0-4.8) k/uL Monocytes # 0.2 (0-1.0) k/uL Eosinophils # 0.1 (0-0.7) k/uL Basophils # 0.0 (0-0.2) k/uL PT (9.0-12.0) sec INR (<1.2) APTT (22.0-30.0) sec Sodium 140 (137-145) mmol/L Potassium 4.5 (3.5-5.1) mmol/L Chloride 100 (98-107) mmol/L Carbon Dioxide 32 H (22-30) mmol/L Anion Gap 8 mmol/L BUN 31 H (7-17) mg/dL Creatinine 1.48 H (0.52-1.04) mg/dL Est GFR (CKD-EPI)AfAm 43 (>60 ml/min/1.73 sqM) Est GFR (CKD-EPI)NonAf 37 (>60 ml/min/1.73 sqM) Glucose 286 H (74-99) mg/dL Plasma Lactic Acid Jatinder 1.2 (0.7-2.0) mmol/L Calcium 9.6 (8.4-10.2) mg/dL Total Bilirubin 0.8 (0.2-1.3) mg/dL AST 20 (14-36) U/L ALT 25 (9-52) U/L Alkaline Phosphatase 86 (38-126) U/L Total Creatine Kinase (30-135) U/L CK-MB (CK-2) (0.0-2.4) ng/mL CK-MB (CK-2) Rel Index Troponin I (0.000-0.034) ng/mL NT-Pro-B Natriuret Pep pg/mL Total Protein 5.9 L (6.3-8.2) g/dL Albumin 3.6 (3.5-5.0) g/dL TSH 0.224 L (0.465-4.680) mIU/L Free T4 1.63 (0.78-2.19) ng/dL Urine Color Urine Appearance (Clear) Urine pH (5.0-8.0) Ur Specific [place] (1.001-1.035) Urine Protein (Negative) Urine Glucose (UA) (Negative) Urine Ketones (Negative) Urine Blood (Negative) Urine Nitrite (Negative) Urine Bilirubin (Negative) Urine Urobilinogen (<2.0) mg/dL Ur Leukocyte Esterase (Negative) Urine RBC (0-5) /hpf Urine WBC (0-5) /hpf Ur Squamous Epith Cells (0-4) /hpf Urine Mucus (None) /hpf 07/09/18 07/09/18 07/09/18 Range/Units 18:42 18:42 18:42 WBC (3.8-10.6) k/uL RBC (3.80-5.40) m/uL Hgb (11.4-16.0) gm/dL Hct (34.0-46.0) % MCV (80.0-100.0) fL MCH (25.0-35.0) pg MCHC (31.0-37.0) g/dL RDW (11.5-15.5) % Plt Count (150-450) k/uL Neutrophils % % Lymphocytes % % Monocytes % % Eosinophils % % Basophils % % Neutrophils # (1.3-7.7) k/uL Lymphocytes # (1.0-4.8) k/uL Monocytes # (0-1.0) k/uL Eosinophils # (0-0.7) k/uL Basophils # (0-0.2) k/uL PT 10.2 (9.0-12.0) sec INR 0.9 (<1.2) APTT 22.4 (22.0-30.0) sec Sodium (137-145) mmol/L Potassium (3.5-5.1) mmol/L Chloride (98-107) mmol/L Carbon Dioxide (22-30) mmol/L Anion Gap mmol/L BUN (7-17) mg/dL Creatinine (0.52-1.04) mg/dL Est GFR (CKD-EPI)AfAm (>60 ml/min/1.73 sqM) Est GFR (CKD-EPI)NonAf (>60 ml/min/1.73 sqM) Glucose (74-99) mg/dL Plasma Lactic Acid Jatinder (0.7-2.0) mmol/L Calcium (8.4-10.2) mg/dL Total Bilirubin (0.2-1.3) mg/dL AST (14-36) U/L ALT (9-52) U/L Alkaline Phosphatase (38-126) U/L Total Creatine Kinase 40 (30-135) U/L CK-MB (CK-2) <0.2 (0.0-2.4) ng/mL CK-MB (CK-2) Rel Index Troponin I <0.012 (0.000-0.034) ng/mL NT-Pro-B Natriuret Pep pg/mL Total Protein (6.3-8.2) g/dL Albumin (3.5-5.0) g/dL TSH (0.465-4.680) mIU/L Free T4 (0.78-2.19) ng/dL Urine Color Yellow Urine Appearance Cloudy H (Clear) Urine pH 6.5 (5.0-8.0) Ur Specific [place] 1.022 (1.001-1.035) Urine Protein 1+ H (Negative) Urine Glucose (UA) Trace H (Negative) Urine Ketones Negative (Negative) Urine Blood Negative (Negative) Urine Nitrite Negative (Negative) Urine Bilirubin Negative (Negative) Urine Urobilinogen <2.0 (<2.0) mg/dL Ur Leukocyte Esterase Large H (Negative) Urine RBC 2 (0-5) /hpf Urine WBC 64 H (0-5) /hpf Ur Squamous Epith Cells 3 (0-4) /hpf Urine Mucus Rare H (None) /hpf 07/09/18 Range/Units 18:42 WBC (3.8-10.6) k/uL RBC (3.80-5.40) m/uL Hgb (11.4-16.0) gm/dL Hct (34.0-46.0) % MCV (80.0-100.0) fL MCH (25.0-35.0) pg MCHC (31.0-37.0) g/dL RDW (11.5-15.5) % Plt Count (150-450) k/uL Neutrophils % % Lymphocytes % % Monocytes % % Eosinophils % % Basophils % % Neutrophils # (1.3-7.7) k/uL Lymphocytes # (1.0-4.8) k/uL Monocytes # (0-1.0) k/uL Eosinophils # (0-0.7) k/uL Basophils # (0-0.2) k/uL PT (9.0-12.0) sec INR (<1.2) APTT (22.0-30.0) sec Sodium (137-145) mmol/L Potassium (3.5-5.1) mmol/L Chloride (98-107) mmol/L Carbon Dioxide (22-30) mmol/L Anion Gap mmol/L BUN (7-17) mg/dL Creatinine (0.52-1.04) mg/dL Est GFR (CKD-EPI)AfAm (>60 ml/min/1.73 sqM) Est GFR (CKD-EPI)NonAf (>60 ml/min/1.73 sqM) Glucose (74-99) mg/dL Plasma Lactic Acid Jatinder (0.7-2.0) mmol/L Calcium (8.4-10.2) mg/dL Total Bilirubin (0.2-1.3) mg/dL AST (14-36) U/L ALT (9-52) U/L Alkaline Phosphatase (38-126) U/L Total Creatine Kinase (30-135) U/L CK-MB (CK-2) (0.0-2.4) ng/mL CK-MB (CK-2) Rel Index Troponin I (0.000-0.034) ng/mL NT-Pro-B Natriuret Pep 1150 pg/mL Total Protein (6.3-8.2) g/dL Albumin (3.5-5.0) g/dL TSH (0.465-4.680) mIU/L Free T4 (0.78-2.19) ng/dL Urine Color Urine Appearance (Clear) Urine pH (5.0-8.0) Ur Specific [place] (1.001-1.035) Urine Protein (Negative) Urine Glucose (UA) (Negative) Urine Ketones (Negative) Urine Blood (Negative) Urine Nitrite (Negative) Urine Bilirubin (Negative) Urine Urobilinogen (<2.0) mg/dL Ur Leukocyte Esterase (Negative) Urine RBC (0-5) /hpf Urine WBC (0-5) /hpf Ur Squamous Epith Cells (0-4) /hpf Urine Mucus (None) /hpf - Radiology Data Two-view x-ray of the chest is obtained. Pressure in its entirety. Impression by Dr. Royal shows chronic parenchymal change in cardiomegaly with perhaps to mild central vascular congestion. (Lynn Wisdom) Disposition Decision to Admit Reason: Admit from [facility] Decision Date: 07/09/18 Decision Time: 22:36 <Lynn Wisdom - Last Filed: 07/09/18 22:42> <Laxmi Deal - Last Filed: 07/10/18 04:26> Clinical Impression: New onset of congestive heart failure, Urinary tract infection, Weakness Disposition: ADMITTED IP TO THIS [facility] Condition: Serious
[2018-07-09 19:34] LABS: Basophils % (A) 1 %; Eosinophils # (A) 0.1 k/uL (0-0.7); Eosinophils % (A) 2 %; HCT 39.2 % (34.0-46.0); HGB 12.1 gm/dL (11.4-16.0); Lymphocytes # (A) 1.6 k/uL (1.0-4.8); Lymphocytes % (A) 33 %; MCHC 30.9 g/dL (31.0-37.0); Mean Platelet Volume 6.5; Monocytes # (A) 0.2 k/uL (0-1.0); Monocytes % (A) 5 %; Neutrophils # (A) 2.8 k/uL (1.3-7.7); Neutrophils % (A) 58 %; Platelet Count 258 k/uL (150-450); RBC 4.17 m/uL (3.80-5.40); RDW 13.6 % (11.5-15.5); WBC 4.8 k/uL (3.8-10.6)
[2018-07-09 19:41] LABS: Albumin 3.6 g/dL (3.5-5.0); Calcium 9.6 mg/dL (8.4-10.2); Potassium 4.5 mmol/L (3.5-5.1); Total Bilirubin 0.8 mg/dL (0.2-1.3); Total Protein 5.9 g/dL (6.3-8.2)
[2018-07-09 19:42] LABS: Appearance,Urine Cloudy (Clear); Bilirubin,Urine Negative (Negative); Blood,Urine Negative (Negative); Color,Urine Yellow; Glucose,Urine (UA) Trace (Negative); Ketones,Urine Negative (Negative); Leukocyte Esterase,Urine Large (Negative); Mucus,Urine Rare /hpf; Nitrite,Urine Negative (Negative); PH, Urine 6.5 (5.0-8.0); Protein,Urine 1+ (Negative); RBC,Urine 2 /hpf (0-5); Specific Gravity,Urine 1.022 (1.001-1.035); Squamous Epithelial Cell,Urine 3 /hpf (0-4); Urobilinogen,Urine <2.0 mg/dL (<2.0); WBC,Urine 64 /hpf (0-5)
--- NOTE | 2018-07-09 19:46 | XR ---
EXAMINATION TYPE: XR chest 2V DATE OF EXAM: 07/09/2018 COMPARISON: Chest x-ray November 21, 2017. HISTORY: Weakness and confusion. TECHNIQUE: Frontal and lateral views of the chest are obtained. FINDINGS: There is chronic parenchymal change without suspicious focal air space opacity, pleural ef fusion, or pneumothorax seen. The cardiac silhouette size is enlarged with atherosclerotic thoracic aorta and possible new mild central vascular congestion. The osseous structures are intact. IMPRESSION: Chronic parenchymal change and cardiomegaly with perhaps new Mild central vascular conge stion, correlate clinically.
[2018-07-09 19:47] LABS: Creatine Kinase 40 U/L (30-135)
[2018-07-09 19:52] LABS: INR 0.9 (<1.2); Partial Thromboplastin Time 22.4 sec (22.0-30.0); Prothrombin Time 10.2 sec (9.0-12.0)
[2018-07-09 19:59] LABS: Creatine Kinase MB <0.2 ng/mL (0.0-2.4); Troponin I <0.012 ng/mL (0.000-0.034)
[2018-07-09 20:41] LABS: T4, Free (Free Thyroxine) 1.63 ng/dL (0.78-2.19)
[2018-07-09] MEDS ORDERED: NALOXONE 0.4 MG/ML 1 ML VIAL IV PRN (22:34)
[2018-07-09] MEDS ORDERED: FUROSEMIDE 10 MG/ML 4 ML VIAL IV STA (22:41)
--- NOTE | 2018-07-10 00:58 | P.HPIM ---
History of Present Illness H&P Date: 07/10/18 Patient is 63-year-old female with a PMH of diabetes mellitus, CHF, CKD stage 3 , hyperthyroidism, and GERD who presented to the ED for shortness of breath and lethargic. The patient notes that over the past few weeks, she has been feeling more fatigued and has been sleeping far more than usual. She also noted decreased exercise tolerance and feels short of breath with even minimal ambulation around the house. She also endorsed having to sleep in her couch, upright since she feels that laying flat makes her congested. She otherwise denied LE edema, dysuria, frequency, urgency, chest pain, nausea, vomiting, palpitations. She also denied dizziness, cough, fever, chills. The patient notes compliance with her Lasix and metolazone along with dietary restrictions. The patient underwent a comprehensive workup in the emergency room. Chest x- ray was consistent with pulmonary edema, with BNP 1150, troponin negative, WBC 4.8, hemoglobin 12.1, BUN 31, creatinine 1.48 (baseline 1.4-1.6). EKG showing normal sinus rhythm at 64 bpm. The patient is being admitted to the medicine service for acute CHF exacerbation and urinary tract infection. Review of Systems Pertinent positives and negatives as discussed in HPI, a complete review of systems was performed and all other systems are negative. Past Medical History Past Medical History: Diabetes Mellitus, GERD/Reflux, Renal Disease, Thyroid Disorder Additional Past Medical History / Comment(s): Stage 3 kidney disease, CHF, recently fell and hit head went to ER and got checked out, everything ok. Fell today, did not hurt anything. History of Any Multi-Drug Resistant Organisms: MRSA Date of last positivie culture/infection: approx 1996 or 1997 MDRO Source:: stomach area Past Surgical History: Cardiac Ablation, Cholecystectomy, Joint Replacement, Orthopedic Surgery Additional Past Surgical History / Comment(s): ORIF rt wrist-hardware later removed, mult procedures to betsy legs for wounds/cellulitis, betsy knee replacement , bunionectomy, carpal tunnel, Loop removal, pain clinic procedure. Past Anesthesia/Blood Transfusion Reactions: Previous Problems w/ Anesthesia Additional Past Anesthesia/Blood Transfusion Reaction / Comment(s): Nightmares during anesthesia, no complications with prior blood transfusion. Type of Cardiac Device: Loop Device Placement Date:: 2011 Past Psychological History: Anxiety, Bipolar, Depression Smoking Status: Former smoker Past Alcohol Use History: None Reported Past Drug Use History: None Reported - Past Family History Mother Family Medical History: No Reported History Father Family Medical History: No Reported History Sister(s) Additional Family Medical History / Comment(s): niece had non-hodgkin's lymphoma. Medications and Allergies Home Medications Medication Instructions Recorded Confirmed Type Atorvastatin Calcium [Lipitor] 20 mg PO HS 06/15/16 07/09/18 History Carvedilol [Coreg] 3.125 mg PO BID 06/15/16 07/09/18 History Furosemide [Lasix] 40 mg PO DAILY PRN 06/15/16 07/09/18 History Levothyroxine Sodium [Synthroid] 150 mcg PO DAILY 06/15/16 07/09/18 History Pramipexole [Mirapex] 1 mg PO HS 06/15/16 07/09/18 History lamoTRIgine [LaMICtal] 200 mg PO DAILY 06/15/16 07/09/18 History Allopurinol [Zyloprim] 100 mg PO DAILY 06/21/17 07/09/18 History Escitalopram [Lexapro] 20 mg PO DAILY 06/21/17 07/09/18 History Insulin Glargine [Lantus] 14 units SQ HS 06/21/17 07/09/18 History Metolazone [Zaroxolyn] 5 mg PO DAILY 06/21/17 07/09/18 History Paricalcitol 2 mcg PO DAILY 06/21/17 07/09/18 History glipiZIDE [Glucotrol] 10 mg PO AC-BID 06/21/17 07/09/18 History Ergocalciferol (Vitamin D2) 50,000 unit PO TH 08/22/17 07/09/18 History [Vitamin D2] Albuterol Inhaler [Ventolin Hfa 1 - 2 puff INHALATION RT-QID PRN 07/09/18 History Inhaler] Aspirin EC [Ecotrin Low Dose] 81 mg PO DAILY 07/09/18 07/09/18 History Allergies Allergy/AdvReac Type Severity Reaction Status Date / Time ibuprofen [From Motrin] Allergy Swelling Verified 07/09/18 19:14 lisinopril Allergy Rash/Hives, Verified 07/09/18 19:14 swelling verapamil [From Calan] Allergy Rash/Hives, Verified 07/09/18 19:14 swelling Physical Exam Vitals: Vital Signs Temp Pulse Resp BP Pulse Ox 07/09/18 23:35 68 18 149/72 97 07/09/18 21:49 144/71 07/09/18 21:13 62 19 97 07/09/18 17:49 98 F 70 18 139/79 99 Intake and Output 07/09/18 07/09/18 07/10/18 14:59 22:59 06:59 Other: Weight 122.47 kg General: non toxic, no distress, appears at stated age, morbidly obese Derm: no unusual rashes/lesions no unusual ecchymoses, warm, dry Head: atraumatic, normocephalic, symmetric Eyes: EOMI, no lid lag, anicteric sclera, pupils equal round reactive to light ENT: Nose and ears atraumatic, no thrush, no pharyngeal erythema Neck: No thyromegaly, no cervical lymphadenopathy, trachea midline, supple Mouth: no lip lesion, mucus membranes moist Cardiovascular: S1S2 reg, systolic murmur appreciated, positive posterior tibial pulse bilateral, no edema, capillary refill less than 2 seconds Lungs: Bibasilar rales, no rhonchi, no accessory muscle use Abdominal: soft, nontender to palpation, no guarding, no appreciable organomegaly, normal bowel sounds Ext: no gross muscle atrophy, muscle strength 5 out of 5 in all 4 extremities grossly, no contractures, trace LE edema betsy Neuro: CN II-XI grossly intact, light touch intact all 4 extremities, finger to nose within normal limits, Psych: Alert, oriented, appropriate affect Results CBC & Chem 7: 07/09/18 18:42 07/09/18 18:42 Labs: Abnormal Lab Results - Last 24 Hours (Table) 07/09/18 07/09/18 07/09/18 Range/Units 18:42 18:42 18:42 MCHC 30.9 L (31.0-37.0) g/dL Carbon Dioxide 32 H (22-30) mmol/L BUN 31 H (7-17) mg/dL Creatinine 1.48 H (0.52-1.04) mg/dL Glucose 286 H (74-99) mg/dL Total Protein 5.9 L (6.3-8.2) g/dL TSH 0.224 L (0.465-4.680) mIU/L Urine Appearance Cloudy H (Clear) Urine Protein 1+ H (Negative) Urine Glucose (UA) Trace H (Negative) Ur Leukocyte Esterase Large H (Negative) Urine WBC 64 H (0-5) /hpf Urine Mucus Rare H (None) /hpf Assessment and Plan Plan: Acute CHF exacerbation -Continue with Lasix IV push 40 mg every 12 hourly -Cardiology consult -Cardiac monitoring -Fluid restriction, daily weights, intake and output -Continue with home med metolazone UTI -Continue with ceftriaxone IV -F/u urine cultures CKD stage III -Avoid nephrotoxic agents Chronic conditions: Diabetes mellitus, hypothyroidism, hyperlipidemia, COPD -Lispro insulin sliding scale, with fingersticks, Lantus 10 units at bedtime -Continue with Synthroid -Continue with Lipitor DVT//GI prophylaxis -Heparin -No indication for GI prophylaxis The patient is admitted with an anticipated less than 2 midnight stay for evaluation of acute CHF exacerbation. CODE STATUS: Full code Discussed with: Patient Anticipated discharge date: 07/12/[address]: Home A total of 50 minutes was spent on the care of this complex patient more than 50 % of the time was spent in counseling and care coordination.
[2018-07-10 05:47] LABS: Glucose,Whole Blood 194 mg/dL (75-99)
[2018-07-10 06:40] LABS: HCT 37.2 % (34.0-46.0); MCH 30.5 pg (25.0-35.0); MCHC 32.3 g/dL (31.0-37.0); MCV 94.5 fL (80.0-100.0); Platelet Count 250 k/uL (150-450); RBC 3.94 m/uL (3.80-5.40); RDW 13.9 % (11.5-15.5); WBC 6.1 k/uL (3.8-10.6)
[2018-07-10] MEDS: LEVOTHYROXINE 50 MCG TAB PO SCH (06:44)
[2018-07-10] MEDS: CARVEDILOL 3.125 MG TAB PO SCH ×2 (06:44→17:06)
[2018-07-10] MEDS: INSULIN ASPART (NovoLOG) 100 UNIT/ML VIAL SQ SCH ×4 (06:52→21:00)
[2018-07-10 06:54] LABS: Calcium 9.3 mg/dL (8.4-10.2); Potassium 3.8 mmol/L (3.5-5.1)
[2018-07-10] MEDS ORDERED: INSULIN ASPART (NovoLOG) 100 UNIT/ML VIAL SQ SCH (07:30)
--- NOTE | 2018-07-10 09:28 | P.CRDCN ---
History of Present Illness Consult date: 07/10/18 Requesting physician: Tin Solomon Consult reason: shortness of breath Chief complaint: Weakness and shortness of breath History of present illness: This is a 63-year-old female with history of diabetes, hypertension, hyperlipidemia, renal insufficiency, history of paroxysmal SVT, who has followed with Dr. Mcadams in the office although she states it has been quite sometime since he has seen him last. She presents to the hospital with symptoms of weakness and shortness of breath of one day duration. She states that yesterday morning her blood sugar was in the range of 58, she took her dog outside briefly, came back into her apartment and states that her legs and arms were extremely weak, he felt a weakness sensation in her head, and had an episode of shortness of breath. The day prior, she states that she was overall feeling quite well. Blood pressure on arrival here 140/70 with a heart rate in the 60s, 97% on room air. White blood cell count 4.8 on admission, 6.1 this morning, platelet count 258 and 250. Sodium 141, potassium 3.8, BUN 34 and creatinine 1.5. Troponin 0.012, BNP [id number]. TSH 0.224 with a free T4 of 1.6 , positive UTI. At the time of my examination this morning she sitting up in her chair at bedside, breathing is stable, Past Medical History Past Medical History: Diabetes Mellitus, GERD/Reflux, Renal Disease, Thyroid Disorder Additional Past Medical History / Comment(s): Stage 3 kidney disease, CHF, recently fell and hit head went to ER and got checked out, everything ok. Fell today, did not hurt anything. History of Any Multi-Drug Resistant Organisms: MRSA Date of last positivie culture/infection: approx 1996 or 1997 MDRO Source:: stomach area Past Surgical History: Cardiac Ablation, Cholecystectomy, Joint Replacement, Orthopedic Surgery Additional Past Surgical History / Comment(s): ORIF rt wrist-hardware later removed, mult procedures to betsy legs for wounds/cellulitis, betsy knee replacement , bunionectomy, carpal tunnel, Loop removal, pain clinic procedure. Past Anesthesia/Blood Transfusion Reactions: Previous Problems w/ Anesthesia Additional Past Anesthesia/Blood Transfusion Reaction / Comment(s): Nightmares during anesthesia, no complications with prior blood transfusion. Type of Cardiac Device: Loop Device Placement Date:: 2011 Past Psychological History: Anxiety, Bipolar, Depression Smoking Status: Former smoker Past Alcohol Use History: None Reported Past Drug Use History: None Reported - Past Family History Mother Family Medical History: No Reported History Father Family Medical History: No Reported History Sister(s) Additional Family Medical History / Comment(s): niece had non-hodgkin's lymphoma. Medications and Allergies Home Medications Medication Instructions Recorded Confirmed Type Atorvastatin Calcium [Lipitor] 20 mg PO HS 06/15/16 07/09/18 History Carvedilol [Coreg] 3.125 mg PO BID 06/15/16 07/09/18 History Furosemide [Lasix] 40 mg PO DAILY PRN 06/15/16 07/09/18 History Levothyroxine Sodium [Synthroid] 150 mcg PO DAILY 06/15/16 07/09/18 History Pramipexole [Mirapex] 1 mg PO HS 06/15/16 07/09/18 History lamoTRIgine [LaMICtal] 200 mg PO DAILY 06/15/16 07/09/18 History Allopurinol [Zyloprim] 100 mg PO DAILY 06/21/17 07/09/18 History Escitalopram [Lexapro] 20 mg PO DAILY 06/21/17 07/09/18 History Insulin Glargine [Lantus] 14 units SQ HS 06/21/17 07/09/18 History Metolazone [Zaroxolyn] 5 mg PO DAILY 06/21/17 07/09/18 History Paricalcitol 2 mcg PO DAILY 06/21/17 07/09/18 History glipiZIDE [Glucotrol] 10 mg PO AC-BID 06/21/17 07/09/18 History Ergocalciferol (Vitamin D2) 50,000 unit PO TH 08/22/17 07/09/18 History [Vitamin D2] Albuterol Inhaler [Ventolin Hfa 1 - 2 puff INHALATION RT-QID PRN 07/09/18 History Inhaler] Aspirin EC [Ecotrin Low Dose] 81 mg PO DAILY 07/09/18 07/09/18 History Allergies Allergy/AdvReac Type Severity Reaction Status Date / Time ibuprofen [From Motrin] Allergy Swelling Verified 07/09/18 19:14 lisinopril Allergy Rash/Hives, Verified 07/09/18 19:14 swelling verapamil [From Calan] Allergy Rash/Hives, Verified 07/09/18 19:14 swelling Physical Exam Vitals: Vital Signs Temp Pulse Pulse Resp BP BP Pulse Ox 07/10/18 03:28 97.0 F L 69 18 140/78 97 07/10/18 01:46 18 07/10/18 00:45 19 07/10/18 00:34 97.9 F 68 18 148/82 98 07/09/18 23:35 68 18 149/72 97 07/09/18 21:49 144/71 07/09/18 21:13 62 19 97 07/09/18 17:49 98 F 70 18 139/79 99 Intake and Output 07/09/18 07/10/18 07/10/18 22:59 06:59 14:59 Intake Total 100 120 Output Total 2200 Balance -2100 120 Intake: Intake, IV Titration 100 Amount cefTRIAXone 1 gm In 100 Sodium Chloride 0.9% 50 ml @ 100 mls/hr IVPB Q24H [facility] Rx#:[id number] Oral 120 Output: Urine 2200 Other: Voiding Method Toilet Weight 122.47 kg 122.5 kg PHYSICAL EXAMINATION: GENERAL: 63-year-old female in no acute distress at the time of my examination HEENT: Head is atraumatic, normocephalic. Pupils equal, round. Sclera anicteric. Conjunctiva are clear. Mucous membranes of the mouth are moist. Neck is supple. There is no elevated jugular venous pressure. No carotid bruit is heard. HEART EXAMINATION: Heart S1, S2 normal. No murmur or gallop heard. CHEST EXAMINATION: Lungs are clear to auscultation and precussion. No chest wall tenderness is noted on palpation or with deep breathing. ABDOMEN: Soft, obese, nontender. Bowel sounds are heard. No organomegaly noted. EXTREMITIES: 2+ peripheral pulses with trace evidence of peripheral edema and no calf tenderness noted. NEUROLOGIC patient is awake, alert and oriented 3. . Results 07/10/18 05:44 07/10/18 05:44 Cardiac Enzymes 07/09/18 07/09/18 Range/Units 18:42 18:42 AST 20 (14-36) U/L CK-MB (CK-2) <0.2 (0.0-2.4) ng/mL Troponin I <0.012 (0.000-0.034) ng/mL Coagulation 07/09/18 Range/Units 18:42 PT 10.2 (9.0-12.0) sec APTT 22.4 (22.0-30.0) sec CBC 07/09/18 07/10/18 Range/Units 18:42 05:44 WBC 4.8 6.1 (3.8-10.6) k/uL RBC 4.17 3.94 (3.80-5.40) m/uL Hgb 12.1 12.0 (11.4-16.0) gm/dL Hct 39.2 37.2 (34.0-46.0) % Plt Count 258 250 (150-450) k/uL Comprehensive Metabolic Panel 07/09/18 07/10/18 Range/Units 18:42 05:44 Sodium 140 141 (137-145) mmol/L Potassium 4.5 3.8 (3.5-5.1) mmol/L Chloride 100 100 (98-107) mmol/L Carbon Dioxide 32 H 33 H (22-30) mmol/L BUN 31 H 34 H (7-17) mg/dL Creatinine 1.48 H 1.50 H (0.52-1.04) mg/dL Glucose 286 H 205 H (74-99) mg/dL Calcium 9.6 9.3 (8.4-10.2) mg/dL AST 20 (14-36) U/L ALT 25 (9-52) U/L Alkaline Phosphatase 86 (38-126) U/L Total Protein 5.9 L (6.3-8.2) g/dL Albumin 3.6 (3.5-5.0) g/dL Current Medications Generic Name Dose Route Start Last Admin Trade Name Freq PRN Reason Stop Dose Admin Allopurinol 100 mg 07/10/18 09:00 Zyloprim PO DAILY [facility] Aspirin 81 mg 07/10/18 09:00 Aspirin PO DAILY [facility] Atorvastatin Calcium 20 mg 07/10/18 21:00 Lipitor PO HS [facility] Carvedilol 3.125 mg 07/10/18 07:30 07/10/18 06:44 Coreg PO 3.125 mg BID-W/MEALS [facility] Administration Ergocalciferol 50,000 unit 07/12/18 09:00 Vitamin D2 PO TH [facility] Escitalopram Oxalate 20 mg 07/10/18 09:00 Lexapro PO DAILY [facility] Furosemide 40 mg 07/10/18 09:00 Lasix IV Q12HR [facility] Heparin Sodium (Porcine) 5,000 unit 07/10/18 08:00 Heparin SQ Q8HR [facility] Ceftriaxone Sodium 1 gm/ 50 mls @ 100 mls/hr 07/10/18 23:00 Sodium Chloride IVPB Q24H [facility] Insulin Aspart 0 unit 07/10/18 07:30 07/10/18 06:52 Novolog SQ Not Given ACHS [facility] Protocol Insulin Detemir 10 unit 07/10/18 21:00 Levemir SQ HS [facility] Lamotrigine 200 mg 07/10/18 09:00 Lamictal PO DAILY [facility] Levothyroxine Sodium 150 mcg 07/10/18 06:30 07/10/18 06:44 Synthroid PO 150 mcg DAILY@0630 [facility] Administration Metolazone 5 mg 07/10/18 09:00 Zaroxolyn PO DAILY [facility] Naloxone HCl 0.2 mg 07/09/18 22:34 Narcan IV Q2M PRN Opioid Reversal Pramipexole Dihydrochloride 1 mg 07/10/18 21:00 Mirapex PO HS [facility] Intake and Output 07/09/18 07/10/18 07/10/18 22:59 06:59 14:59 Intake Total 100 120 Output Total 2200 Balance -2100 120 Intake: Intake, IV Titration 100 Amount cefTRIAXone 1 gm In 100 Sodium Chloride 0.9% 50 ml @ 100 mls/hr IVPB Q24H [facility] Rx#:[id number] Oral 120 Output: Urine 2200 Other: Voiding Method Toilet Weight 122.47 kg 122.5 kg 07/10/18 05:44 07/10/18 05:44 EKG Interpretations (text) EKG shows normal sinus rhythm with no acute changes. Assessment and Plan Plan: Assessment and plan #1 symptoms of weakness, could be related to UTI. Patient's blood sugar earlier that morning was also in the range of 50. Could be secondary to hypoglycemia. #2 shortness of breath, patient denies any PND or orthopnea. No new peripheral edema. BNP level 1150. Chest x-ray does show new mild central vascular congestion. #3 diabetes #4 hypertension #5 hyperlipidemia #6 obesity #7 paroxysmal supraventricular tachycardia #8 hypothyroidism #9 UTI #10 acute on chronic renal insufficiency Plan We will order an echocardiogram with Doppler study. Continue IV Lasix 40 mg twice a day. Continue Coreg, baby aspirin, Lipitor, patient currently not on an EBENEZER inhibitor because of abnormal renal function. Monitor intake and output along with daily weights and daily lytes BUN and creatinine. Further recommendations to follow. DNP note has been reviewed, I agree with a documented findings and plan of care. Patient was seen and examined.
[2018-07-10] MEDS: ESCITALOPRAM 5 MG TAB PO SCH (09:56)
[2018-07-10] MEDS: lamoTRIgine 100 MG TAB PO SCH (09:57)
[2018-07-10] MEDS: HEPARIN SODIUM,PORCINE 5,000 UNIT/ML 1 ML VIAL SQ SCH ×3 (09:57→23:59)
[2018-07-10] MEDS: ALLOPURINOL 100 MG TAB PO SCH (09:57)
[2018-07-10] MEDS: FUROSEMIDE 10 MG/ML 4 ML VIAL IV SCH ×2 (09:57→20:19)
[2018-07-10] MEDS: ASPIRIN 81 MG PO SCH (09:57)
[2018-07-10] MEDS: METOLAZONE 5 MG TAB PO SCH (10:01)
[2018-07-10 11:49] LABS: Glucose,Whole Blood 147 mg/dL (75-99)
--- NOTE | 2018-07-10 11:52 | ECHOF ---
Referral Reason:chf MEASUREMENTS -------- HEIGHT: 162.6 cm WEIGHT: 122.5 kg BP: 140/78 IVSd: 1.2 cm (0.6 - 1.1) LVIDd: 4.4 cm (3.9 - 5.3) LVPWd: 1.2 cm (0.6 - 1.1) IVSs: 1.8 cm LVIDs: 1.9 cm LVPWs: 2.0 cm LAESV Index (A-L): 26.23 ml/m Ao Diam: 2.5 cm (2.0 - 3.7) AV Cusp: 1.7 cm (1.5 - 2.6) LA Diam: 3.2 cm (2.7 - 3.8) MV EXCURSION: 12.495 mm (> 18.000) MV EF SLOPE: 39 mm/s (70 - 150) EPSS: 0.7 cm MV E Rolando: 0.87 m/s MV DecT: 177 ms MV A Rolando: 1.02 m/s MV E/A Ratio: 0.85 RAP: 5.00 mmHg RVSP: 14.52 mmHg FINDINGS -------- Sinus rhythm. This was a technically difficult study with suboptimal views. The left ventricular size is normal. There is mild concentric left ventricular hypertrophy. Overa ll left ventricular systolic function is normal with, an EF between 55 - 60 %. The right ventricle is normal in size and function. Normal LA size by volume 22+/-6 ml/m2. The right atrium is normal in size. Lumason used The aortic valve is trileaflet and appears structurally normal. The mitral valve leaflets are mildly thickened. Mild mitral annular calcification present. There is trace mitral regurgitation. Trace tricuspid regurgitation present. The right ventricular systolic pressure, as measured by Dopp ler, is 14.52mmHg. Pulmonic valve appears structurally normal. The aortic root size is normal. The pericardium is normal. CONCLUSIONS -------- 1. Sinus rhythm. 2. This was a technically difficult study with suboptimal views. 3. The left ventricular size is normal. 4. There is mild concentric left ventricular hypertrophy. 5. Overall left ventricular systolic function is normal with, an EF between 55 - 60 %. 6. The right ventricle is normal in size and function. 7. Normal LA size by volume 22+/-6 ml/m2. 8. The right atrium is normal in size. 9. Lumason used 10. The aortic valve is trileaflet and appears structurally normal. 11. The mitral valve leaflets are mildly thickened. 12. Mild mitral annular calcification present. 13. There is trace mitral regurgitation. 14. Trace tricuspid regurgitation present. 15. The right ventricular systolic pressure, as measured by Doppler, is 14.52mmHg. 16. Pulmonic valve appears structurally normal. 17. The aortic root size is normal. 18. The pericardium is normal. CONSULTING UTILITY FORESTER: Chikis Campbell RDCS
--- NOTE | 2018-07-10 12:15 | P.PN ---
Progress Note - Text Progress Note Date: 07/10/18 Please refer to H&P for the full note. 63-year-old female with PMH of diabetes mellitus, CHF, CKG, hyperthyroidism and GERD presents the ED for shortness of breath and generalized weakness. She is admitted for CHF exacerbation, cardiology on consult. Patient was seen and examined. No acute events overnight. Patient reports great improvement in her breathing. She is concerned about her pet dog that is at home. She denies any chest pain or palpitations. No nausea or vomiting. No fever or chills. Patient is requesting to go home. She is admitted for acute CHF exacerbation. Also found to have a UTI on urinalysis. Will continue diuresis with Lasix 40 IV twice a day and metolazone. Resume beta osiel for CHF. No EBENEZER inhibitor due to ALLERGY. Continue IV ceftriaxone for treatment of UTI. Will start insulin along with sliding scale for diabetes mellitus. Resume Synthroid for hypothyroidism. We' ll continue IV diuresis. She can probably be transitioned to Lasix by mouth tomorrow and possibly discharged in 1-2 days.
[2018-07-10 15:27] LABS: Hemoglobin A1C 7.7 % (4.0-6.0)
[2018-07-10 15:37] VITALS: BMI 46.3
[2018-07-10 16:43] LABS: Glucose,Whole Blood 165 mg/dL (75-99)
[2018-07-10 20:31] VITALS: RESP 18
[2018-07-10 20:36] LABS: Glucose,Whole Blood 202 mg/dL (75-99)
[2018-07-10] MEDS ORDERED: INSULIN DETEMIR (LEVEMIR) 100 UNIT/ML SYR SQ SCH (21:00)
[2018-07-10] MEDS ORDERED: ATORVASTATIN 20 MG TAB PO SCH (21:00)
[2018-07-10] MEDS ORDERED: PRAMIPEXOLE 0.5 MG TAB PO SCH (21:00)
[2018-07-10] MEDS ORDERED: PRAMIPEXOLE 0.25 MG TAB PO STA (21:17)
[2018-07-10] MEDS: glipiZIDE 10 MG TAB PO SCH (21:25)
[2018-07-11 05:54] LABS: Glucose,Whole Blood 179 mg/dL (75-99)
[2018-07-11 06:07] LABS: Calcium 9.8 mg/dL (8.4-10.2); Potassium 3.5 mmol/L (3.5-5.1)
[2018-07-11] MEDS: LEVOTHYROXINE 50 MCG TAB PO SCH (06:38)
[2018-07-11] MEDS: CARVEDILOL 3.125 MG TAB PO SCH (06:38)
[2018-07-11] MEDS: glipiZIDE 10 MG TAB PO SCH (06:38)
[2018-07-11] MEDS: INSULIN ASPART (NovoLOG) 100 UNIT/ML VIAL SQ SCH ×2 (06:39→12:16)
[2018-07-11] MEDS: ALLOPURINOL 100 MG TAB PO SCH (08:27)
[2018-07-11] MEDS: ESCITALOPRAM 5 MG TAB PO SCH (08:27)
[2018-07-11] MEDS: ASPIRIN 81 MG PO SCH (08:27)
[2018-07-11] MEDS: HEPARIN SODIUM,PORCINE 5,000 UNIT/ML 1 ML VIAL SQ SCH (08:28)
[2018-07-11] MEDS: METOLAZONE 5 MG TAB PO SCH (08:28)
[2018-07-11] MEDS: lamoTRIgine 100 MG TAB PO SCH (08:28)
[2018-07-11] MEDS: FUROSEMIDE 10 MG/ML 4 ML VIAL IV SCH (08:28)
[2018-07-11 08:44] VITALS: BP 119/70; PULSE 80; TEMP 97.6
[2018-07-11] MEDS ORDERED: ALBUTEROL NEBULIZED 2.5 MG/3 ML INHALATION PRN (10:53)
--- NOTE | 2018-07-11 10:56 | P.DS ---
Providers Date of admission: 07/10/18 00:24 Expected date of discharge: 07/11/18 Attending physician: Tin Solomon MD Consults: 07/09/18 22:34 Consult Physician Routine Consulting Provider: [facility] Consult Reason/Comments: CHF Do you want consulting provider notified?: Yes Primary care physician: Carlita Ramos MD Hospital Course: Patient is 63-year-old female with a PMH of diabetes mellitus, CHF, CKD stage 3 , hyperthyroidism, and GERD who presented to the ED for shortness of breath and lethargic. The patient notes that over the past few weeks, she has been feeling more fatigued and has been sleeping far more than usual. She also noted decreased exercise tolerance and feels short of breath with even minimal ambulation around the house. She also endorsed having to sleep in her couch, upright since she feels that laying flat makes her congested. She otherwise denied LE edema, dysuria, frequency, urgency, chest pain, nausea, vomiting, palpitations. She also denied dizziness, cough, fever, chills. The patient notes compliance with her Lasix and metolazone along with dietary restrictions. The patient underwent a comprehensive workup in the emergency room. Chest x- ray was consistent with pulmonary edema, with BNP 1150, troponin negative, WBC 4.8, hemoglobin 12.1, BUN 31, creatinine 1.48 (baseline 1.4-1.6). EKG showing normal sinus rhythm at 64 bpm. The patient is being admitted to the medicine service for acute CHF exacerbation and urinary tract infection. With regard to her CHF exacerbation, patient was started on Lasix 40 IV twice a day. Patient was placed on fluid restriction, daily weights with strict intake and outputs. Her home medication of Coreg, Metolazone was resumed. EBENEZER inhibitor was held due to elevation in creatinine. Cardiology was consulted which recommended echocardiogram. Echocardiogram showed EF of 55-60% with mild LVH. Patient was transitioned to oral Lasix in preparation for discharge. She was also initially treated with IV ceftriaxone for a UTI. Patient had no urinary complaints throughout her admission. Urine cultures grew out greater than 100,000 normal yoko. Ceftriaxone was discontinued prior to discharge. Patient is a examined prior to discharge. No acute events overnight. Patient reports great improvement in her breathing. She denies any shortness of breath , chest pain or palpitations. No nausea or vomiting. No dysuria. Patient is looking for to going home, misses her dog. General: [non toxic], [no distress], [appears at stated age] Derm: [warm], [dry] Head: [atraumatic], [normocephalic], [symmetric] Eyes: [EOMI], [no lid lag], [anicteric sclera] Mouth: [no lip lesion], [mucus membranes moist] Cardiovascular: [S1S2 reg], [no murmur], [positive DP pulse bilateral] Lungs: [CTA bilateral], [no rhonchi, no rales] , [no accessory muscle use] Abdominal: [soft], [ nontender to palpation], [no guarding], [no appreciable organomegaly] Ext: [no gross muscle atrophy], [no edema], [no contractures] Neuro: [ CN II-XI grossly intact], [no focal neuro deficits] Psych: [Alert], [oriented], [appropriate affect] Assessment and Plan 1. CHF exacerbation, diastolic with EF of 55-60% 2. Asymptomatic bacteruria 3. CKD III 4. Diabetes Mellitus 5. Hypothyroidism 6. COPD 7. DVT and GI Prophylaxis 1. BNP 1150, chest x-ray showing signs of pulmonary vascular congestion. Has lost about 7 kg since admission. Will transition from Lasix IV to 40 mg by mouth daily. Continue coreg and Metalozone. Continue aspirin and Lipitor. Holding EBENEZER inhibitor due to elevated creatinine. Telemetry monitoring. Daily weights. Strict ins and outs. Will follow cardiology recommendations. 2. Urinalysis shows large leukocyte esterase. Urine culture grew out 100,000 normal yoko. Patient is asymptomatic. Will discontinue antibiotics. 3. Creatinine increased from 1.48-1.80. Likely due to Lasix use. Appears stable from previous blood draws in 2017 and 2018. 4. [id number] care glucose 179. Continue glipizide. Continue Levemir 10 units at bedtime. Hypoglycemic precautions. Regular Accu-Cheks. 5. Stable. Continue Synthroid. 6. Stable. O2 per nasal cannula to maintain an oxygen saturation greater than 92%. 7. SCD boots only. Patient diuresing well. Transitioned from IV Lasix to by mouth. Likely discharge today pending cardiology clearance. Pertinent Studies: Chest x-ray Echocardiogram Patient Condition at Discharge: Stable Plan - Discharge Summary New Discharge Prescriptions: Continue Levothyroxine Sodium [Synthroid] 150 mcg PO DAILY lamoTRIgine [LaMICtal] 200 mg PO DAILY Carvedilol [Coreg] 3.125 mg PO BID Pramipexole [Mirapex] 1 mg PO HS Atorvastatin Calcium [Lipitor] 20 mg PO HS Metolazone [Zaroxolyn] 5 mg PO DAILY glipiZIDE [Glucotrol] 10 mg PO AC-BID Escitalopram [Lexapro] 20 mg PO DAILY Allopurinol [Zyloprim] 100 mg PO DAILY Paricalcitol 2 mcg PO DAILY Insulin Glargine [Lantus] 14 units SQ HS Ergocalciferol (Vitamin D2) [Vitamin D2] 50,000 unit PO TH Aspirin EC [Ecotrin Low Dose] 81 mg PO DAILY Albuterol Inhaler [Ventolin Hfa Inhaler] 1 - 2 puff INHALATION RT-QID PRN PRN Reason: Shortness Of Breath Furosemide [Lasix] 40 mg PO DAILY PRN #30 tab PRN Reason: Edema Discharge Medication List Atorvastatin Calcium [Lipitor] 20 mg PO HS 06/15/16 [History] Carvedilol [Coreg] 3.125 mg PO BID 06/15/16 [History] Levothyroxine Sodium [Synthroid] 150 mcg PO DAILY 06/15/16 [History] Pramipexole [Mirapex] 1 mg PO HS 06/15/16 [History] lamoTRIgine [LaMICtal] 200 mg PO DAILY 06/15/16 [History] Allopurinol [Zyloprim] 100 mg PO DAILY 06/21/17 [History] Escitalopram [Lexapro] 20 mg PO DAILY 06/21/17 [History] Insulin Glargine [Lantus] 14 units SQ HS 06/21/17 [History] Metolazone [Zaroxolyn] 5 mg PO DAILY 06/21/17 [History] Paricalcitol 2 mcg PO DAILY 06/21/17 [History] glipiZIDE [Glucotrol] 10 mg PO AC-BID 06/21/17 [History] Ergocalciferol (Vitamin D2) [Vitamin D2] 50,000 unit PO TH 08/22/17 [History] Albuterol Inhaler [Ventolin Hfa Inhaler] 1 - 2 puff INHALATION RT-QID PRN [History] Aspirin EC [Ecotrin Low Dose] 81 mg PO DAILY 07/09/18 [History] Furosemide [Lasix] 40 mg PO DAILY PRN #30 tab 07/11/18 [Rx] Follow up Appointment(s)/Referral(s): Carlita Ramos MD [Primary Care Provider] - 1-2 days (Spoke to corporate receptionist. Office will call with appointment time) Evelyn Hobbs MD [STAFF PHYSICIAN] - 1 Week Activity/Diet/Wound Care/Special Instructions: Diet: Low-salt and heart healthy Please take all medications as advised. Please follow-up with her primary care provider within 1-2 days of discharge. Please follow-up with your script supervisor with the appointment given to you. Discharge Disposition: HOME SELF-CARE
[2018-07-11 11:38] LABS: Glucose,Whole Blood 224 mg/dL (75-99)
--- NOTE | 2018-07-11 14:58 | P.PN ---
Subjective Progress Note Date: 07/11/18 This is a 63-year-old female with history of diabetes, hypertension, hyperlipidemia, renal insufficiency, history of paroxysmal SVT, who has followed with Dr. Mcadams in the office although she states it has been quite sometime since he has seen him last. She presents to the hospital with symptoms of weakness and shortness of breath of one day duration. She states that yesterday morning her blood sugar was in the range of 58, she took her dog outside briefly, came back into her apartment and states that her legs and arms were extremely weak, he felt a weakness sensation in her head, and had an episode of shortness of breath. The day prior, she states that she was overall feeling quite well. Blood pressure on arrival here 140/70 with a heart rate in the 60s, 97% on room air. White blood cell count 4.8 on admission, 6.1 this morning, platelet count 258 and 250. Sodium 141, potassium 3.8, BUN 34 and creatinine 1.5. Troponin 0.012, BNP [id number]. TSH 0.224 with a free T4 of 1.6 , positive UTI. At the time of my examination this morning she sitting up in her chair at bedside, breathing is stable. 07/11/2018 Patient was seen and examined this morning, breathing is overall stable. Hemodynamically she is stable. We will discontinue the IV Lasix today, creatinine is 1.8 up from 1.5 yesterday. Echocardiogram with Doppler study revealed an ejection fraction of 55-60 Objective - Vital Signs Vital signs: Vital Signs Temp 97.6 F 07/11/18 08:00 Pulse 80 07/11/18 08:00 Resp 18 07/11/18 08:00 BP 119/70 07/11/18 08:00 Pulse Ox 93 L 07/11/18 08:00 Intake & Output 07/10/18 07/11/18 07/11/18 18:59 06:59 18:59 Intake Total 342 360 Output Total 2900 1200 Balance -2558 -1200 360 Weight 122.5 kg 115.3 kg Intake: Oral 342 360 Output: Urine 2900 1200 Other: Voiding Method Toilet Toilet # Voids 2 2 # Bowel Movements 2 - Exam PHYSICAL EXAMINATION: GENERAL: 63-year-old female in no acute distress at the time of my examination HEENT: Head is atraumatic, normocephalic. Pupils equal, round. Sclera anicteric. Conjunctiva are clear. Mucous membranes of the mouth are moist. Neck is supple. There is no elevated jugular venous pressure. No carotid bruit is heard. HEART EXAMINATION: Heart S1, S2 normal. No murmur or gallop heard. CHEST EXAMINATION: Lungs are clear to auscultation and precussion. No chest wall tenderness is noted on palpation or with deep breathing. ABDOMEN: Soft, obese, nontender. Bowel sounds are heard. No organomegaly noted. EXTREMITIES: 2+ peripheral pulses with trace evidence of peripheral edema and no calf tenderness noted. NEUROLOGIC patient is awake, alert and oriented 3. . - Labs CBC & Chem 7: 07/10/18 05:44 07/11/18 04:53 Labs: Abnormal Lab Results - Last 24 Hours (Table) 07/10/18 07/10/18 07/10/18 Range/Units 05:44 16:41 20:31 Chloride (98-107) mmol/L Carbon Dioxide (22-30) mmol/L BUN (7-17) mg/dL Creatinine (0.52-1.04) mg/dL Glucose (74-99) mg/dL POC Glucose (mg/dL) 165 H 202 H (75-99) mg/dL Hemoglobin A1c 7.7 H (4.0-6.0) % 07/11/18 07/11/18 07/11/18 Range/Units 04:53 05:53 11:36 Chloride 95 L (98-107) mmol/L Carbon Dioxide 31 H (22-30) mmol/L BUN 43 H (7-17) mg/dL Creatinine 1.80 H (0.52-1.04) mg/dL Glucose 203 H (74-99) mg/dL POC Glucose (mg/dL) 179 H 224 H (75-99) mg/dL Hemoglobin A1c (4.0-6.0) % Microbiology - Last 24 Hours (Table) 07/09/18 18:42 Urine Culture - Final Urine,Voided Assessment and Plan Plan: Assessment and plan #1 symptoms of weakness, could be related to UTI. Patient's blood sugar earlier that morning was also in the range of 50. Could be secondary to hypoglycemia. #2 shortness of breath, patient denies any PND or orthopnea. No new peripheral edema. BNP level 1150. Chest x-ray does show new mild central vascular congestion. #3 diabetes #4 hypertension #5 hyperlipidemia #6 obesity #7 paroxysmal supraventricular tachycardia #8 hypothyroidism #9 UTI #10 acute on chronic renal insufficiency Plan From cardiology's perspective, we will discontinue IV Lasix and global director air and climate change to by mouth Lasix today. Patient may be able to be discharged home today from our perspective, we will make a follow-up appointment in the office post discharge. DNP note has been reviewed, I agree with a documented findings and plan of care. Patient was seen and examined.
[2018-07-11] MEDS ORDERED: FUROSEMIDE 40 MG TAB PO SCH (16:00)
[2018-07-12] MEDS ORDERED: ERGOCALCIFEROL 50,000 UNIT CAP PO SCH (09:00)
== END 2018-07-11 13:06 | disposition home or self-care (01) ==
LOC: EC 17:38 → 3SCARD 07-10 00:24
PROVIDERS: ADMIT Internal Medicine; ATTEND Internal Medicine
DX: I13.0 Hypertensive heart and chronic kidney disease with heart failure and stage 1 through stage 4 chronic kidney disease, or unspecified chronic kidney disease (principal); I50.33 Acute on chronic diastolic (congestive) heart failure; N18.3 Chronic kidney disease, stage 3 (moderate); E11.22 Type 2 diabetes mellitus with diabetic chronic kidney disease; N39.0 Urinary tract infection, site not specified; Z86.14 Personal history of Methicillin resistant Staphylococcus aureus infection; E03.9 Hypothyroidism, unspecified; E66.9 Obesity, unspecified; Z68.41 Body mass index [BMI] 40.0-44.9, adult; E78.5 Hyperlipidemia, unspecified; I47.1 Supraventricular tachycardia; J44.9 Chronic obstructive pulmonary disease, unspecified; K21.9 Gastro-esophageal reflux disease without esophagitis; Z96.653 Presence of artificial knee joint, bilateral; F31.9 Bipolar disorder, unspecified; F41.9 Anxiety disorder, unspecified; Z87.891 Personal history of nicotine dependence; Z79.82 Long term (current) use of aspirin; Z79.890 Hormone replacement therapy; Z79.899 Other long term (current) drug therapy; Z79.4 Long term (current) use of insulin; Z90.49 Acquired absence of other specified parts of digestive tract
CPT/HCPCS: 96376 ×2; 96366; 96372 ×2; 96361; 96365; 96375; 99285; 36415; 93005; 84439; 83880; 80053; 80048 ×2; 84443; 82550; 82553; 83605; 84484; 85025; 85027; 85610; 85730; 81001; 87086; 83036; 71046; G0378 ×2; C8929; J1644 ×2; J1940 ×3; J0696 ×2; Q9950; 93306

== ENCOUNTER → 2018-10-11 | Outpatient (CLI) | payer MEDICARE, OTHER ==
[2018-10-11 10:00] LABS: Basophils % (A) 1 %; Eosinophils # (A) 0.1 k/uL (0-0.7); Eosinophils % (A) 2 %; HCT 39.7 % (34.0-46.0); HGB 12.7 gm/dL (11.4-16.0); Lymphocytes # (A) 1.6 k/uL (1.0-4.8); Lymphocytes % (A) 33 %; MCH 29.9 pg (25.0-35.0); MCHC 31.9 g/dL (31.0-37.0); MCV 93.6 fL (80.0-100.0); Mean Platelet Volume 7.2; Monocytes # (A) 0.3 k/uL (0-1.0); Monocytes % (A) 6 %; Neutrophils # (A) 2.8 k/uL (1.3-7.7); Neutrophils % (A) 56 %; Platelet Count 227 k/uL (150-450); RBC 4.24 m/uL (3.80-5.40); RDW 14.4 % (11.5-15.5); WBC 4.9 k/uL (3.8-10.6)
[2018-10-11 10:20] LABS: Potassium 4.5 mmol/L (3.5-5.1)
== END | disposition home or self-care (01) ==
LOC: LABPAT 09:26
PROVIDERS: ATTEND Orthopaedic Surgery
DX: Z01.812 Encounter for preprocedural laboratory examination (principal); G56.02 Carpal tunnel syndrome, left upper limb
CPT/HCPCS: 36415; 80051; 85025

== ENCOUNTER 2018-10-19 06:31 | Day surgery (SDC) | payer MEDICARE, OTHER ==
[2018-10-16 16:25] VITALS: BMI 43.7
--- NOTE | 2018-10-18 11:14 | HP ---
HISTORY AND PHYSICAL CHIEF COMPLAINT: Left hand pain and numbness. HISTORY OF PRESENT ILLNESS: The patient is a 63-year-old, right-hand dominant, retired female who presents with left hand pain and numbness for the past 10 years. This has worsened recently. She is having numbness in addition to night symptoms and difficulty with gripping and grasping. She has tried bracing and medications for this. PAST MEDICAL HISTORY: Significant for arthritis, depression, diverticulitis, hypercholesterolemia, hypertension, hypothyroidism, renal disease. PAST SURGICAL HISTORY: Significant for bilateral total knee arthroplasty in addition to previous right wrist surgery. CURRENT MEDICATIONS: Allopurinol, Atorvastatin, aspirin, glipizide, Carvedilol, Lexapro and levothyroxine. ALLERGIES: SHE NOTES ALLERGIES TO LISINOPRIL AND CALAN. FAMILY HISTORY: Significant for heart disease and cancer. SOCIAL HISTORY: Negative for current tobacco or alcohol use. REVIEW OF SYSTEMS: Sixteen point review of systems otherwise reviewed and is noncontributory. PHYSICAL EXAMINATION: On examination, the patient is approximately 5 foot 4, 270 pounds of endomorphic habitus. HEENT exam is nonfocal. NECK: Supple. EXTREMITIES: She is nontender about the left shoulder and elbow. On examination of her left wrist, she has a positive carpal tunnel compression test. APB strength 5- over 5. She has mild thenar wasting. Light touch is diminished diffusely throughout the left digits. EMG report 09/13/2018 showed severe left carpal tunnel syndrome. IMPRESSION: 1. Left severe carpal tunnel syndrome-symptomatic. 2. Diabetes. RECOMMENDATIONS: I talked to the patient at length regarding her condition along with treatment options. At this point, she is quite symptomatic despite conservative measures. After thorough discussion, she opted to proceed with surgery. We will plan to proceed with left carpal tunnel release. We will likely perform that utilizing local anesthetic and IV sedation. Risks and benefits were discussed at length in layman's terms. MMODL / IJN: [id number] /
[~2018-10-19 06:31] MED LIST changes: +DEXAMETHASONE SOD PHOSPHATE 10 MG/ML 1 ML VIAL IV ONE; +HYDROmorphone 0.5 MG/0.5 ML SYRINGE IVP PRN; +MIDAZOLAM 2 MG/2 ML VIAL IV PRN; +ONDANSETRON 4 MG/2 ML VIAL IVP ONE; +ceFAZolin 3 GM in SODIUM CHLORIDE 0.9% 100 ML IVPB ONE
[2018-10-19 07:05] VITALS: TEMP 97.8
[2018-10-19 07:07] LABS: Glucose,Whole Blood 145 mg/dL (75-99)
[2018-10-19] MEDS ORDERED: PROPOFOL 10 MG/ML 20 ML VIAL IV ONE (07:49)
[2018-10-19] MEDS ORDERED: fentaNYL (PF) 50 MCG/ML 2 ML AMP ONE (07:49)
[2018-10-19] MEDS ORDERED: LIDOCAINE 1% INJ 10MG/ML (20 ML MDV) ONE (07:49)
[2018-10-19] MEDS ORDERED: MIDAZOLAM 2 MG/2 ML VIAL ONE (07:49)
[2018-10-19] MEDS ORDERED: BUPIVACAINE (PF) 0.25% 30 ML VIAL SQ ONE (08:00)
--- NOTE | 2018-10-19 08:21 | P.OP ---
Date of Procedure: 10/19/18 Preoperative Diagnosis: Symptomatic left carpal tunnel syndrome Postoperative Diagnosis: Same Procedure(s) Performed: Left carpal tunnel release Anesthesia: MAC, local Surgeon: Jerald Bernardo Estimated Blood Loss (ml): 1 Pathology: none sent Condition: stable Disposition: PACU Indications for Procedure: The patient's a 63-year-old female presents with progressive left hand pain and numbness secondary to carpal tunnel syndrome despite conservative measures. A discussion of the risks and benefits of operative intervention versus continued conservative measures was made with patient. She opted to proceed with surgery. Operative risks to include infection, neurovascular injury, development of blood clots, possible recurrence of symptoms, possible incomplete resolution of symptoms, and possible need for subsequent procedures was discussed. Informed consent was obtained. Operative Findings: As below Description of Procedure: The patient was brought to the operating room, and after induction of IV sedation the left upper extremity was prepped and draped in normal fashion. The proposed incision site was outlined skin marker in line with the radial aspect the fourth ray extending from the volar wrist crease distally 2-1/2 cm. One quarter percent plain Marcaine was injected into the proposed incision site. 9 mL was utilized. The tourniquet was inflated to 250 mmHg. The skin incision was then made. The skin was incised sharply. Subcutaneous tissues were divided sharply the superficial palmar fascia was identified and split in line with the skin incision. The transverse carpal ligament was identified and transected under direct visualization distally to level the palmar fat pad. Proximal was taken level of the volar wrist crease. A plane above and below the transverse carpal ligament was then bluntly developed with tenotomies. The confluence of the distal forearm fascia and the transverse carpal ligament was then transected under direct visualization proximally with the tines pointed in the ulnar direction. I felt this was adequate proximal release. Neural lysis was not performed. The wound was irrigated with normal saline. Electrocautery was used for hemostasis. The skin was reapproximated with simple 3-0 nylon sutures. A sterile dressing was applied. The tourniquet was deflated with less than 15 minutes total tourniquet time. Patient was awoken from sedation and transferred to the recovery room in good condition. Blood loss was estimated 1 mL. No complications were incurred. Sponge and needle counts were correct at the end the case.
[2018-10-19 08:42] VITALS: BP 124/78; PULSE 68; RESP 18
== END 2018-10-19 08:52 | disposition home or self-care (01) ==
LOC: OR 06:31
PROVIDERS: ATTEND Orthopaedic Surgery
DX: G56.02 Carpal tunnel syndrome, left upper limb (principal); M19.90 Unspecified osteoarthritis, unspecified site; F32.9 Major depressive disorder, single episode, unspecified; E78.00 Pure hypercholesterolemia, unspecified; E03.9 Hypothyroidism, unspecified; E78.5 Hyperlipidemia, unspecified; I12.9 Hypertensive chronic kidney disease with stage 1 through stage 4 chronic kidney disease, or unspecified chronic kidney disease; E11.22 Type 2 diabetes mellitus with diabetic chronic kidney disease; N18.3 Chronic kidney disease, stage 3 (moderate); Z82.49 Family history of ischemic heart disease and other diseases of the circulatory system; Z79.84 Long term (current) use of oral hypoglycemic drugs; Z79.82 Long term (current) use of aspirin; Z79.890 Hormone replacement therapy; Z79.899 Other long term (current) drug therapy; Z88.8 Allergy status to other drugs, medicaments and biological substances; Z88.6 Allergy status to analgesic agent
CPT/HCPCS: 64721; J2250; J0690; J2405; J2001; J3010; J2704

== ENCOUNTER 2018-12-25 00:04 | Emergency (ER) | payer MEDICARE, OTHER ==
[2018-12-25] MEDS ORDERED: IPRATROPIUM-ALBUTEROL 3 ML NEB INHALATION STA (00:10)
--- NOTE | 2018-12-25 00:15 | ED ---
SOB HPI <Jonnie Christopher - Last Filed: 12/25/18 02:54> - General Source: patient, EMS, RN notes reviewed, old records reviewed Mode of arrival: EMS - History of Present Illness MD Complaint: shortness of breath <Ernesto Rodriguez - Last Filed: 12/27/18 11:10> - General Stated Complaint: SOB Time Seen by Provider: 12/25/18 00:04 - History of Present Illness Initial Comments: This is a 63-year-old female presents by EMS with complaints of shortness of breath. This occurred while she was watching a baseball game and she states she started hyperventilating and was very short of breath. She initially a satur ation is 92% on room air she was given a breathing treatment and oxygen is now up to 96 and 98%. She denies any overt chest pain but did later state that she had a strange sensation in her lower mid sternal region and she did have occasional PVCs on the monitor. No fevers chills nausea vomiting sweats she does states she has chronic swelling to her lower extremities she does have foot pain also. This is chronic. (Ernesto Rodriguez) - Related Data Home Medications Medication Instructions Recorded Confirmed Atorvastatin Calcium [Lipitor] 20 mg PO HS 06/15/16 10/16/18 Carvedilol [Coreg] 3.125 mg PO BID 06/15/16 10/16/18 Levothyroxine Sodium [Synthroid] 150 mcg PO QAM 06/15/16 10/16/18 Pramipexole [Mirapex] 1 mg PO HS 06/15/16 10/16/18 lamoTRIgine [LaMICtal] 200 mg PO QAM 06/15/16 10/16/18 Allopurinol [Zyloprim] 100 mg PO BID 06/21/17 10/16/18 Escitalopram [Lexapro] 20 mg PO QAM 06/21/17 10/16/18 Insulin Glargine [Lantus] 10 units SQ HS 06/21/17 10/19/18 Paricalcitol 2 mcg PO DAILY 06/21/17 10/16/18 glipiZIDE [Glucotrol] 10 mg PO AC-BID 06/21/17 10/16/18 Ergocalciferol (Vitamin D2) 50,000 unit PO TH 08/22/17 10/16/18 [Vitamin D2] Albuterol Inhaler [Ventolin Hfa 2 puff INHALATION RT-QID PRN 07/09/18 10/16/18 Inhaler] Aspirin EC [Ecotrin Low Dose] 81 mg PO DAILY 07/09/18 10/16/18 Furosemide [Lasix] 40 mg PO QAM 10/16/18 10/16/18 Vitamin C/Biotin [Hair, Skin and 1 tab PO DAILY 10/16/18 10/16/18 Nails] Previous Rx's Medication Instructions Recorded Acetaminophen-Codeine 300-30mg 1 tab PO Q6H PRN 3 Days #12 tablet 10/19/18 [Tylenol w/codeine #3] Allergies Allergy/AdvReac Type Severity Reaction Status Date / Time ibuprofen [From Motrin] Allergy Swelling Verified 12/25/18 00:35 lisinopril Allergy Rash/Hives, Verified 12/25/18 00:35 swelling verapamil [From Calan] Allergy Rash/Hives, Verified 12/25/18 00:35 swelling Review of Systems ROS Other: All systems not noted in ROS Statement are negative. <Jonnie Christopher - Last Filed: 12/25/18 02:54> ROS Other: All systems not noted in ROS Statement are negative. <Ernesto Rodriguez - Last Filed: 12/27/18 11:10> ROS Statement: Those systems with pertinent positive or pertinent negative responses have been documented in the HPI. Past Medical History Past Medical History: Diabetes Mellitus, GERD/Reflux, Renal Disease, Thyroid Disorder Additional Past Medical History / Comment(s): Stage 3 kidney disease, CHF, recently fell and hit head went to ER and got checked out, everything ok. History of Any Multi-Drug Resistant Organisms: MRSA Date of last positivie culture/infection: approx 1996 or 1997 MDRO Source:: stomach area Past Surgical History: Cardiac Ablation, Cholecystectomy, Joint Replacement, Orthopedic Surgery Additional Past Surgical History / Comment(s): ORIF rt wrist-hardware later removed, mult procedures to betsy legs for wounds/cellulitis, betsy knee replacement, bunionectomy, carpal tunnel, Loop removal, pain clinic procedure. Past Anesthesia/Blood Transfusion Reactions: Previous Problems w/ Anesthesia Additional Past Anesthesia/Blood Transfusion Reaction / Comment(s): Nightmares during anesthesia, no complications with prior blood transfusion. Type of Cardiac Device: Loop Device Placement Date:: 2011 Smoking Status: Former smoker - Past Family History Mother Family Medical History: No Reported History Father Family Medical History: No Reported History Sister(s) Family Medical History: No Reported History Additional Family Medical History / Comment(s): niece had non-hodgkin's lymphoma. <Ernesto Rodriguez - Last Filed: 12/27/18 11:10> General Exam General appearance: alert, anxious Head exam: Present: atraumatic, normocephalic, normal inspection Eye exam: Present: normal appearance, PERRL, EOMI. Absent: scleral icterus, conjunctival injection, periorbital swelling ENT exam: Present: normal exam, mucous membranes moist Neck exam: Present: normal inspection. Absent: tenderness, meningismus, lymphadenopathy Respiratory exam: Present: normal lung sounds bilaterally, decreased breath sounds. Absent: respiratory distress, wheezes, rales, rhonchi, stridor Cardiovascular Exam: Present: regular rate, normal rhythm, normal heart sounds. Absent: systolic murmur, diastolic murmur, rubs, gallop, clicks GI/Abdominal exam: Present: soft, normal bowel sounds. Absent: distended, tenderness, guarding, rebound, rigid Extremities exam: Present: normal inspection, full ROM, normal capillary refill, other (Some evidence of lymphedema noted ankle or foot edema). Absent: tenderness, joint swelling, calf tenderness Back exam: Present: normal inspection Neurological exam: Present: alert, oriented X3, CN II-XII intact Psychiatric exam: Present: normal affect, normal mood Skin exam: Present: warm, dry, intact, normal color. Absent: rash <Ernesto Rodriguez - Last Filed: 12/27/18 11:10> - General Exam Comments Initial Comments: This a well-developed well-nourished awake alert oriented 3 female she is co ughing upon arrival (Ernesto Rordiguez) Course <Ernesto Rodriguez - Last Filed: 12/27/18 11:10> Vital Signs 12/25/18 12/25/18 12/25/18 00:31 01:37 01:47 Temperature 97.9 F Pulse Rate 61 60 64 Respiratory 19 Rate Blood Pressure 168/93 O2 Sat by Pulse 98 Oximetry 12/25/18 03:24 Temperature 98 F Pulse Rate 64 Respiratory 18 Rate Blood Pressure 168/93 O2 Sat by Pulse 100 Oximetry - Reevaluation(s) Reevaluation #1: 12/25/18 00:56 Is referred to the triage nursing note for the actual events as the patient withheld them initially. (Ernesto Rodriguez) Reevaluation #2: 12/25/18 01:03 Patient states she's feeling better but still have some cough and some strange sensation to her lower mid sternum. The workup is proceeding I will send patient to Dr. Fuentes Astorga will make the final disposition. (Ernesto Rodriguez) Medical Decision Making - Lab Data Result diagrams: 12/25/18 01:30 12/25/18 01:30 <Jonnie Christopher - Last Filed: 12/25/18 02:54> - Lab Data Result diagrams: 12/25/18 01:30 12/25/18 01:30 - EKG Data -: EKG Interpreted by [facility] EKG shows normal: sinus rhythm (Sinus rhythm of 70 and appear interval 180 QRS duration 12 QT since QTC 414/471 LVH) <Ernesto Rodriguez - Last Filed: 12/27/18 11:10> - Lab Data Lab Results 12/25/18 12/25/18 12/25/18 Range/Units 01:30 01:30 01:30 WBC 7.6 (3.8-10.6) k/uL RBC 4.45 (3.80-5.40) m/uL Hgb 12.9 (11.4-16.0) gm/dL Hct 41.5 (34.0-46.0) % MCV 93.3 (80.0-100.0) fL MCH 29.1 (25.0-35.0) pg MCHC 31.2 (31.0-37.0) g/dL RDW 13.5 (11.5-15.5) % Plt Count 228 (150-450) k/uL Neutrophils % 62 % Lymphocytes % 29 % Monocytes % 4 % Eosinophils % 3 % Basophils % 1 % Neutrophils # 4.7 (1.3-7.7) k/uL Lymphocytes # 2.2 (1.0-4.8) k/uL Monocytes # 0.3 (0-1.0) k/uL Eosinophils # 0.2 (0-0.7) k/uL Basophils # 0.0 (0-0.2) k/uL PT 9.5 (9.0-12.0) sec INR 0.9 (<1.2) APTT 21.5 L (22.0-30.0) sec Sodium 134 L (137-145) mmol/L Potassium 3.5 (3.5-5.1) mmol/L Chloride 101 (98-107) mmol/L Carbon Dioxide 29 (22-30) mmol/L Anion Gap 4 mmol/L BUN 37 H (7-17) mg/dL Creatinine 1.54 H (0.52-1.04) mg/dL Est GFR (CKD-EPI)AfAm 41 (>60 ml/min/1.73 sqM) Est GFR (CKD-EPI)NonAf 35 (>60 ml/min/1.73 sqM) Glucose 193 H (74-99) mg/dL Calcium 10.0 (8.4-10.2) mg/dL Magnesium 1.8 (1.6-2.3) mg/dL Total Bilirubin 0.6 (0.2-1.3) mg/dL AST 29 (14-36) U/L ALT 18 (9-52) U/L Alkaline Phosphatase 118 (38-126) U/L Creatine Kinase 110 (30-135) U/L Troponin I (0.000-0.034) ng/mL NT-Pro-B Natriuret Pep pg/mL Total Protein 7.2 (6.3-8.2) g/dL Albumin 4.5 (3.5-5.0) g/dL 12/25/18 12/25/18 Range/Units 01:30 01:30 WBC (3.8-10.6) k/uL RBC (3.80-5.40) m/uL Hgb (11.4-16.0) gm/dL Hct (34.0-46.0) % MCV (80.0-100.0) fL MCH (25.0-35.0) pg MCHC (31.0-37.0) g/dL RDW (11.5-15.5) % Plt Count (150-450) k/uL Neutrophils % % Lymphocytes % % Monocytes % % Eosinophils % % Basophils % % Neutrophils # (1.3-7.7) k/uL Lymphocytes # (1.0-4.8) k/uL Monocytes # (0-1.0) k/uL Eosinophils # (0-0.7) k/uL Basophils # (0-0.2) k/uL PT (9.0-12.0) sec INR (<1.2) APTT (22.0-30.0) sec Sodium (137-145) mmol/L Potassium (3.5-5.1) mmol/L Chloride (98-107) mmol/L Carbon Dioxide (22-30) mmol/L Anion Gap mmol/L BUN (7-17) mg/dL Creatinine (0.52-1.04) mg/dL Est GFR (CKD-EPI)AfAm (>60 ml/min/1.73 sqM) Est GFR (CKD-EPI)NonAf (>60 ml/min/1.73 sqM) Glucose (74-99) mg/dL Calcium (8.4-10.2) mg/dL Magnesium (1.6-2.3) mg/dL Total Bilirubin (0.2-1.3) mg/dL AST (14-36) U/L ALT (9-52) U/L Alkaline Phosphatase (38-126) U/L Creatine Kinase (30-135) U/L Troponin I <0.012 (0.000-0.034) ng/mL NT-Pro-B Natriuret Pep 931 pg/mL Total Protein (6.3-8.2) g/dL Albumin (3.5-5.0) g/dL Disposition <oJnnie Christopher - Last Filed: 12/25/18 02:54> Is patient prescribed a controlled substance at d/c from ED?: No <Ernesto Rodriguez - Last Filed: 12/27/18 11:10> Clinical Impression: Chest pain Disposition: HOME SELF-CARE Condition: Good Instructions (If sedation given, give patient instructions): Chest Pain (ED) Referrals: Carlita Ramos MD [Primary Care Provider] - 1-2 days
[2018-12-25 00:37] VITALS: BP 168/93
--- NOTE | 2018-12-25 01:26 | XR ---
EXAM: XR Chest, 2 Views CLINICAL HISTORY: ITS.REASON XR Reason: difficulty breathing TECHNIQUE: Frontal and lateral views of the chest. COMPARISON: 07/09/18 IMPRESSION: Cardiomegaly. Chronic parenchymal changes. Query mild vascular congestion. No pleural effusion.
[2018-12-25 01:48] VITALS: PULSE 64
[2018-12-25 01:54] LABS: Basophils % (A) 1 %; Eosinophils # (A) 0.2 k/uL (0-0.7); Eosinophils % (A) 3 %; HCT 41.5 % (34.0-46.0); HGB 12.9 gm/dL (11.4-16.0); Lymphocytes # (A) 2.2 k/uL (1.0-4.8); Lymphocytes % (A) 29 %; MCH 29.1 pg (25.0-35.0); MCHC 31.2 g/dL (31.0-37.0); MCV 93.3 fL (80.0-100.0); Mean Platelet Volume 6.8; Monocytes # (A) 0.3 k/uL (0-1.0); Monocytes % (A) 4 %; Neutrophils # (A) 4.7 k/uL (1.3-7.7); Neutrophils % (A) 62 %; Platelet Count 228 k/uL (150-450); RBC 4.45 m/uL (3.80-5.40); RDW 13.5 % (11.5-15.5); WBC 7.6 k/uL (3.8-10.6)
[2018-12-25 02:04] LABS: Albumin 4.5 g/dL (3.5-5.0); Magnesium 1.8 mg/dL (1.6-2.3); Potassium 3.5 mmol/L (3.5-5.1); Total Bilirubin 0.6 mg/dL (0.2-1.3); Total Protein 7.2 g/dL (6.3-8.2)
[2018-12-25 02:09] LABS: INR 0.9 (<1.2); Prothrombin Time 9.5 sec (9.0-12.0)
[2018-12-25 02:57] LABS: Partial Thromboplastin Time 21.5 sec (22.0-30.0)
[2018-12-25 03:25] VITALS: RESP 18; TEMP 98
== END 2018-12-25 03:26 | disposition home or self-care (01) ==
LOC: EC 00:04
DX: R07.9 Chest pain, unspecified (principal); R06.02 Shortness of breath; M79.89 Other specified soft tissue disorders; E11.22 Type 2 diabetes mellitus with diabetic chronic kidney disease; N18.3 Chronic kidney disease, stage 3 (moderate); I50.9 Heart failure, unspecified; Z87.891 Personal history of nicotine dependence; Z86.14 Personal history of Methicillin resistant Staphylococcus aureus infection; K21.9 Gastro-esophageal reflux disease without esophagitis; Z79.84 Long term (current) use of oral hypoglycemic drugs; Z79.890 Hormone replacement therapy; Z79.82 Long term (current) use of aspirin; Z79.899 Other long term (current) drug therapy; Z88.6 Allergy status to analgesic agent; Z88.8 Allergy status to other drugs, medicaments and biological substances; Z96.653 Presence of artificial knee joint, bilateral
CPT/HCPCS: 36415; 71046; 80053; 82550; 83735; 83880; 84484; 85025; 85610; 85730; 93005; 94640; 99285

== ENCOUNTER 2019-01-13 07:59 | Emergency (ER) | payer MEDICARE, OTHER ==
--- NOTE | 2019-01-13 08:47 | ED ---
General Adult HPI - General Chief complaint: Extremity Problem,Nontraumatic Stated complaint: legs and feet swelling and piedad Time Seen by Provider: 01/13/19 08:10 Source: patient, RN notes reviewed, old records reviewed Mode of arrival: wheelchair Limitations: no limitations - History of Present Illness Initial comments: 63-year-old female patient past medical history significant for type 2 diabetes, CK ED stage III, CHF presents to ED with chief complaint of lower extremity edema for 2 weeks, mild shortness of breath with exertion. Patient reports that she has been in contact with her psychiatry resident Dr. Mcadams and has increased her daily Lasix from 40 to 80 per day. Patient reports that she still has the persistent lower extremity edema as well as shortness of breath with exertion. Denies any chest pain. Denies any lung disease, never smoker. Denies all other complaints at this time. Systemic: Pt denies fatigue, fever/chills, rash. Pt denies weakness, night sweats, weight loss. Neuro: Pt denies headache, visual disturbances, syncope or pre-syncope. HEENT: Pt denies ocular discharge or irritation, otalgia, rhinorrhea, pharyngitis or notable lymphadenopathy. Cardiopulmonary: Pt denies chest pain, SOB, heart palpitations, dyspnea on ex ertion. Abdominal/GI: Pt denies abdominal pain, n/v/d. : Pt denies dysuria, burning w/ urination, frequency/urgency. Denies new onset urinary or bowel incontinence. MSK: Pt denies myalgia, loss of strength or function in extremities. Neuro: Pt denies new onset weakness, paresthesias. - Related Data Home Medications Medication Instructions Recorded Confirmed Atorvastatin Calcium [Lipitor] 20 mg PO HS 06/15/16 01/13/19 Carvedilol [Coreg] 3.125 mg PO BID 06/15/16 01/13/19 Levothyroxine Sodium [Synthroid] 150 mcg PO QAM 06/15/16 01/13/19 Pramipexole [Mirapex] 1 mg PO HS 06/15/16 01/13/19 lamoTRIgine [LaMICtal] 200 mg PO QAM 06/15/16 01/13/19 Allopurinol [Zyloprim] 100 mg PO BID 06/21/17 01/13/19 Escitalopram [Lexapro] 20 mg PO QAM 06/21/17 01/13/19 Insulin Glargine [Lantus] 15 units SQ HS 06/21/17 01/13/19 Paricalcitol 2 mcg PO DAILY 06/21/17 01/13/19 glipiZIDE [Glucotrol] 10 mg PO AC-BID 06/21/17 01/13/19 Ergocalciferol (Vitamin D2) 50,000 unit PO TH 08/22/17 01/13/19 [Vitamin D2] Albuterol Inhaler [Ventolin Hfa 2 puff INHALATION RT-QID PRN 07/09/18 01/13/19 Inhaler] Aspirin EC [Ecotrin Low Dose] 81 mg PO DAILY 07/09/18 01/13/19 Furosemide [Lasix] 40 mg PO QAM 10/16/18 01/13/19 Vitamin C/Biotin [Hair, Skin and 1 tab PO DAILY 10/16/18 01/13/19 Nails] Allergies Allergy/AdvReac Type Severity Reaction Status Date / Time ibuprofen [From Motrin] Allergy Swelling Verified 01/13/19 08:23 lisinopril Allergy Rash/Hives, Verified 01/13/19 08:23 swelling verapamil [From Calan] Allergy Rash/Hives, Verified 01/13/19 08:23 swelling Review of Systems ROS Statement: Those systems with pertinent positive or pertinent negative responses have been documented in the HPI. ROS Other: All systems not noted in ROS Statement are negative. Past Medical History Past Medical History: Diabetes Mellitus, GERD/Reflux, Renal Disease, Thyroid D isorder Additional Past Medical History / Comment(s): Stage 3 kidney disease, CHF, recently fell and hit head went to ER and got checked out, everything ok. History of Any Multi-Drug Resistant Organisms: MRSA Date of last positivie culture/infection: approx 1996 or 1997 MDRO Source:: stomach area Past Surgical History: Cardiac Ablation, Cholecystectomy, Joint Replacement, Orthopedic Surgery Additional Past Surgical History / Comment(s): ORIF rt wrist-hardware later removed, mult procedures to betsy legs for wounds/cellulitis, betsy knee replacemen t, bunionectomy, carpal tunnel, Loop removal, pain clinic procedure. Past Anesthesia/Blood Transfusion Reactions: Previous Problems w/ Anesthesia Additional Past Anesthesia/Blood Transfusion Reaction / Comment(s): Nightmares during anesthesia, no complications with prior blood transfusion. Type of Cardiac Device: Loop Device Placement Date:: 2011 Past Psychological History: Anxiety, Bipolar, Depression Smoking Status: Former smoker Past Alcohol Use History: None Reported Past Drug Use History: None Reported - Past Family History Mother Family Medical History: No Reported History Father Family Medical History: No Reported History Sister(s) Family Medical History: No Reported History Additional Family Medical History / Comment(s): niece had non-hodgkin's lymphoma. General Exam - General Exam Comments Initial Comments: Constitutional: NAD, AOX3, Pt has pleasant affect. HEENT: NC/AT, trachea midline, neck supple, no lymphadenopathy. Posterior pharynx non erythematous, without exudates. External ears appear normal, without discharge. Mucous membranes moist. Eyes PERRLA, EOM intact. There is no scleral icterus. No pallor noted. Cardiopulmonary: RRR, no murmurs, rubs or gallops, no JVD noted. Lungs CTAB. +3 lower extremity edema. Abdominal exam: Abdomen soft and non-distended. Abdomen non-tender to palpation in all 4 quadrants. Bowel sounds active in LLQ. No hepatosplenomegaly. No ecchymosis Neuro: CN II-XII grossly intact. No nuchal rigidity. No raccon eyes, no oakley sign, no hemotympanum. No cervical spinal tenderness. MSK: No posterior calf tenderness bilaterally, homans sign negative bilaterally. Posterior tibialis and radial pulse +2 bilaterally. Sensation intact in upper and lower extremities. Full active ROM in upper and lower extremities, 5/5 stregnth. Limitations: no limitations Course Vital Signs 01/13/19 01/13/19 01/13/19 08:02 09:00 09:30 Temperature 98.0 F Pulse Rate 72 60 58 L Respiratory 18 17 17 Rate Blood Pressure 144/52 148/76 143/69 O2 Sat by Pulse 97 97 94 L Oximetry Medical Decision Making - Medical Decision Making 63-year-old female patient past medical history significant for type 2 diabetes, CK ED stage III, CHF presents to ED with chief complaint of lower extremity edema for 2 weeks, mild shortness of breath with exertion. Patient reports that she has been in contact with her psychiatry resident Dr. Mcadams and has increased her daily Lasix from 40 to 80 per day. Patient reports that she still has the persistent lower extremity edema as well as shortness of breath with exertion. Denies any chest pain. Denies any lung disease, never smoker. Denies all other complaints at this time. Patient vital signs stable, afebrile. Physical exam displayed lower extremity edema. Rest x-ray displayed mild cardiomegaly, no CHF. Laboratory investigations non-impressive. Troponin negative. EKG nonischemic. BNP at baseline for patient. Patient will be given home dose of Lasix IV. Will discharge, follow-up with primary care provider and psychiatry resident tomorrow. Return to ER if condition worsens. Case discussed with Dr. Dias. - Lab Data Result diagrams: 01/13/19 08:35 01/13/19 08:35 Lab Results 01/13/19 01/13/19 01/13/19 Range/Units 08:35 08:35 08:35 WBC 4.5 (3.8-10.6) k/uL RBC 3.65 L (3.80-5.40) m/uL Hgb 10.8 L (11.4-16.0) gm/dL Hct 34.3 (34.0-46.0) % MCV 94.0 (80.0-100.0) fL MCH 29.7 (25.0-35.0) pg MCHC 31.7 (31.0-37.0) g/dL RDW 14.5 (11.5-15.5) % Plt Count 223 (150-450) k/uL Neutrophils % 53 % Lymphocytes % 33 % Monocytes % 7 % Eosinophils % 4 % Basophils % 1 % Neutrophils # 2.4 (1.3-7.7) k/uL Lymphocytes # 1.5 (1.0-4.8) k/uL Monocytes # 0.3 (0-1.0) k/uL Eosinophils # 0.2 (0-0.7) k/uL Basophils # 0.0 (0-0.2) k/uL PT (9.0-12.0) sec INR (<1.2) APTT (22.0-30.0) sec Sodium 139 (137-145) mmol/L Potassium 3.9 (3.5-5.1) mmol/L Chloride 103 (98-107) mmol/L Carbon Dioxide 29 (22-30) mmol/L Anion Gap 7 mmol/L BUN 31 H (7-17) mg/dL Creatinine 1.41 H (0.52-1.04) mg/dL Est GFR (CKD-EPI)AfAm 45 (>60 ml/min/1.73 sqM) Est GFR (CKD-EPI)NonAf 39 (>60 ml/min/1.73 sqM) Glucose 218 H (74-99) mg/dL Calcium 9.7 (8.4-10.2) mg/dL Magnesium 2.1 (1.6-2.3) mg/dL Total Bilirubin 0.7 (0.2-1.3) mg/dL AST 18 (14-36) U/L ALT 20 (9-52) U/L Alkaline Phosphatase 94 (38-126) U/L Troponin I (0.000-0.034) ng/mL NT-Pro-B Natriuret Pep 780 pg/mL Total Protein 5.9 L (6.3-8.2) g/dL Albumin 3.7 (3.5-5.0) g/dL 01/13/19 01/13/19 Range/Units 08:35 08:35 WBC (3.8-10.6) k/uL RBC (3.80-5.40) m/uL Hgb (11.4-16.0) gm/dL Hct (34.0-46.0) % MCV (80.0-100.0) fL MCH (25.0-35.0) pg MCHC (31.0-37.0) g/dL RDW (11.5-15.5) % Plt Count (150-450) k/uL Neutrophils % % Lymphocytes % % Monocytes % % Eosinophils % % Basophils % % Neutrophils # (1.3-7.7) k/uL Lymphocytes # (1.0-4.8) k/uL Monocytes # (0-1.0) k/uL Eosinophils # (0-0.7) k/uL Basophils # (0-0.2) k/uL PT 10.1 (9.0-12.0) sec INR 0.9 (<1.2) APTT 23.2 (22.0-30.0) sec Sodium (137-145) mmol/L Potassium (3.5-5.1) mmol/L Chloride (98-107) mmol/L Carbon Dioxide (22-30) mmol/L Anion Gap mmol/L BUN (7-17) mg/dL Creatinine (0.52-1.04) mg/dL Est GFR (CKD-EPI)AfAm (>60 ml/min/1.73 sqM) Est GFR (CKD-EPI)NonAf (>60 ml/min/1.73 sqM) Glucose (74-99) mg/dL Calcium (8.4-10.2) mg/dL Magnesium (1.6-2.3) mg/dL Total Bilirubin (0.2-1.3) mg/dL AST (14-36) U/L ALT (9-52) U/L Alkaline Phosphatase (38-126) U/L Troponin I <0.012 (0.000-0.034) ng/mL NT-Pro-B Natriuret Pep pg/mL Total Protein (6.3-8.2) g/dL Albumin (3.5-5.0) g/dL Disposition Clinical Impression: CHF (congestive heart failure), Lower extremity edema Disposition: HOME SELF-CARE Condition: Stable Instructions (If sedation given, give patient instructions): Low-Sodium Diet (ED), Leg Edema (ED) Additional Instructions: Patient to adhere to previously discussed treatment plan and will take medication(s) as directed. Patient to follow up with PCP in 1-2 days. Patient to return to ED if symptoms do not improve. Follow-up with primary care provider and psychiatry resident tomorrow. Continue taking Lasix as directed by psychiatry resident. Is patient prescribed a controlled substance at d/c from ED?: No Referrals: Carlita Ramos MD [Primary Care Provider] - 1-2 days Rg Mcadams MD [STAFF PHYSICIAN] - 1-2 days
--- NOTE | 2019-01-13 09:04 | XR ---
EXAMINATION TYPE: XR chest 2V DATE OF EXAM: 01/13/2019 HISTORY: Chest Pain. REFERENCE: Previous study dated 12/25/2018. FINDINGS: The heart is mildly enlarged. The lungs are clear. Pleural spaces are clear. IMPRESSION: MILD CARDIOMEGALY.
[2019-01-13 09:07] LABS: Basophils % (A) 1 %; Eosinophils # (A) 0.2 k/uL (0-0.7); Eosinophils % (A) 4 %; HCT 34.3 % (34.0-46.0); HGB 10.8 gm/dL (11.4-16.0); Lymphocytes # (A) 1.5 k/uL (1.0-4.8); Lymphocytes % (A) 33 %; MCH 29.7 pg (25.0-35.0); MCHC 31.7 g/dL (31.0-37.0); Mean Platelet Volume 7.4; Monocytes # (A) 0.3 k/uL (0-1.0); Monocytes % (A) 7 %; Neutrophils # (A) 2.4 k/uL (1.3-7.7); Neutrophils % (A) 53 %; Platelet Count 223 k/uL (150-450); RBC 3.65 m/uL (3.80-5.40); RDW 14.5 % (11.5-15.5); WBC 4.5 k/uL (3.8-10.6)
[2019-01-13 09:08] LABS: Albumin 3.7 g/dL (3.5-5.0); Calcium 9.7 mg/dL (8.4-10.2); Magnesium 2.1 mg/dL (1.6-2.3); Potassium 3.9 mmol/L (3.5-5.1); Total Bilirubin 0.7 mg/dL (0.2-1.3); Total Protein 5.9 g/dL (6.3-8.2)
[2019-01-13 09:10] LABS: INR 0.9 (<1.2); Partial Thromboplastin Time 23.2 sec (22.0-30.0); Prothrombin Time 10.1 sec (9.0-12.0)
[2019-01-13] MEDS ORDERED: FUROSEMIDE 10 MG/ML 4 ML VIAL IV STA (09:51)
[2019-01-13 10:32] VITALS: BP 169/77; PULSE 56; RESP 18; TEMP 98.6
== END 2019-01-13 10:31 | disposition home or self-care (01) ==
LOC: EC 07:59
DX: I13.0 Hypertensive heart and chronic kidney disease with heart failure and stage 1 through stage 4 chronic kidney disease, or unspecified chronic kidney disease (principal); I50.9 Heart failure, unspecified; N18.3 Chronic kidney disease, stage 3 (moderate); E11.22 Type 2 diabetes mellitus with diabetic chronic kidney disease; E07.9 Disorder of thyroid, unspecified; F31.9 Bipolar disorder, unspecified; F41.9 Anxiety disorder, unspecified; Z87.891 Personal history of nicotine dependence; Z88.6 Allergy status to analgesic agent; Z88.8 Allergy status to other drugs, medicaments and biological substances; Z79.4 Long term (current) use of insulin; Z79.82 Long term (current) use of aspirin; Z79.890 Hormone replacement therapy; Z79.899 Other long term (current) drug therapy; Z86.14 Personal history of Methicillin resistant Staphylococcus aureus infection; Z96.653 Presence of artificial knee joint, bilateral; Z98.890 Other specified postprocedural states
CPT/HCPCS: 36415; 93005; 83880; 80053; 83735; 84484; 85025; 85610; 85730; 71046; 99285; 96374; J1940

== ENCOUNTER 2019-04-03 19:06 | Emergency (ER) | payer MEDICARE, OTHER ==
[2019-04-03 19:16] VITALS: TEMP 98
[2019-04-03] MEDS ORDERED: HYDROmorphone 1 MG/ML 1 ML SYRINGE IVP STA (19:43)
--- NOTE | 2019-04-03 19:46 | ED ---
General Adult HPI - General Chief complaint: Extremity Problem,Nontraumatic Stated complaint: feet pain Time Seen by Provider: 04/03/19 19:20 Source: patient, RN notes reviewed Mode of arrival: wheelchair Limitations: no limitations - History of Present Illness Initial comments: Patient is a pleasant 64-year-old female presenting to the emergency Department with bilateral foot pain. Onset of symptoms was several months ago. Discomfort is persistent. Discomfort is not necessarily worse with ambulation. Patient occasionally noticed some swelling. 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 Patient is scheduled to see a neurologist however appointment is not for almost 2 weeks. No fevers. Patient has not n oticed any redness. Patient has had x-rays which showed only mild arthritis. Patient states discomfort is steady and severe. - Related Data Home Medications Medication Instructions Recorded Confirmed Atorvastatin Calcium [Lipitor] 20 mg PO HS 06/15/16 04/03/19 Carvedilol [Coreg] 3.125 mg PO BID 06/15/16 04/03/19 Levothyroxine Sodium [Synthroid] 150 mcg PO DAILY 06/15/16 04/03/19 lamoTRIgine [LaMICtal] 200 mg PO DAILY 06/15/16 04/03/19 Allopurinol [Zyloprim] 200 mg PO DAILY 06/21/17 04/03/19 Insulin Glargine [Lantus] 15 units SQ HS 06/21/17 04/03/19 Paricalcitol 2 mcg PO DAILY 06/21/17 04/03/19 glipiZIDE [Glucotrol] 10 mg PO AC-BID 06/21/17 04/03/19 Ergocalciferol (Vitamin D2) 50,000 unit PO TH 08/22/17 04/03/19 [Vitamin D2] Albuterol Inhaler [Ventolin Hfa 2 puff INHALATION RT-QID PRN 07/09/18 04/03/19 Inhaler] Aspirin EC [Ecotrin Low Dose] 81 mg PO DAILY 07/09/18 04/03/19 Vitamin C/Biotin [Hair, Skin and 2 tab PO DAILY 10/16/18 04/03/19 Nails] Escitalopram [Lexapro] 20 mg PO DAILY 04/03/19 04/03/19 Furosemide [Lasix] 80 mg PO DAILY 04/03/19 04/03/19 Pramipexole [Mirapex] 1 mg PO HS 04/03/19 04/03/19 Previous Rx's Medication Instructions Recorded Naproxen 375 mg PO BID #30 tablet 04/03/19 Allergies Allergy/AdvReac Type Severity Reaction Status Date / Time ibuprofen [From Motrin] Allergy Swelling Verified 04/03/19 19:57 lisinopril Allergy Rash/Hives, Verified 04/03/19 19:57 swelling verapamil [From Calan] Allergy Rash/Hives, Verified 04/03/19 19:57 swelling metformin AdvReac Nausea & Verified 04/03/19 19:57 Vomiting & Diarrhea Review of Systems ROS Statement: Those systems with pertinent positive or pertinent negative responses have been documented in the HPI. ROS Other: All systems not noted in ROS Statement are negative. Constitutional: Denies: fever Eyes: Denies: eye pain ENT: Denies: ear pain Respiratory: Denies: cough Cardiovascular: Denies: chest pain Endocrine: Denies: fatigue Gastrointestinal: Denies: abdominal pain Genitourinary: Denies: dysuria Musculoskeletal: Reports: as per HPI. Denies: back pain Skin: Denies: rash Neurological: Denies: headache Past Medical History Past Medical History: Coronary Artery Disease (CAD), Heart Failure, Diabetes Mellitus, GERD/Reflux, Renal Disease, Thyroid Disorder Additional Past Medical History / Comment(s): Stage 3 kidney disease, CHF, recently fell and hit head went to ER and got checked out, everything ok. History of Any Multi-Drug Resistant Organisms: MRSA Date of last positivie culture/infection: approx 1996 or 1997 MDRO Source:: stomach area Past Surgical History: Cardiac Ablation, Cholecystectomy, Joint Replacement, Orthopedic Surgery Additional Past Surgical History / Comment(s): ORIF rt wrist-hardware later removed, mult procedures to betsy legs for wounds/cellulitis, betsy knee replacement, bunionectomy, carpal tunnel, Loop removal, pain clinic procedure. Past Anesthesia/Blood Transfusion Reactions: Previous Problems w/ Anesthesia Additional Past Anesthesia/Blood Transfusion Reaction / Comment(s): Nightmares during anesthesia, no complications with prior blood transfusion. Type of Cardiac Device: Loop Device Placement Date:: 2011 Past Psychological History: Anxiety, Bipolar, Depression Smoking Status: Former smoker Past Alcohol Use History: None Reported Past Drug Use History: None Reported - Past Family History Mother Family Medical History: No Reported History Father Family Medical History: No Reported History Sister(s) Family Medical History: No Reported History Additional Family Medical History / Comment(s): niece had non-hodgkin's lymphoma. General Exam Limitations: no limitations General appearance: alert, in no apparent distress, obese Head exam: Present: normocephalic Eye exam: Present: normal appearance Neck exam: Present: normal inspection Respiratory exam: Present: normal lung sounds bilaterally Cardiovascular Exam: Present: regular rate, normal rhythm GI/Abdominal exam: Present: soft. Absent: tenderness Extremities exam: Present: other (Bilateral proximal dorsal feet with moderate tenderness to palpation. No erythema or warmth. There may be some minimal edema. Distally the toes are neurovascularly intact. Pedal pulses are intact.). Absent: calf tenderness Neurological exam: Present: alert Psychiatric exam: Present: normal affect, normal mood Skin exam: Present: normal color. Absent: rash, erythema Course Vital Signs 04/03/19 19:11 Temperature 98.0 F Pulse Rate 73 Respiratory 20 Rate Blood Pressure 150/61 O2 Sat by Pulse 99 Oximetry Medical Decision Making - Medical Decision Making Patient reevaluated and updated. Patient has some improvement following medication. Patient is receptive to Toradol. Patient states she has had some facial swelling previously with ibuprofen however can take Aleve without difficulty. Patient will take Aleve. Patient is advised follow-up with orthopedic doctor, Dr. Alegria as well as rheumatology and as well as neurology as planned and as well as her primary care physician. - Lab Data Lab Results 04/03/19 04/03/19 Range/Units 20:13 20:13 ESR 32 H (0-20) mm/hr Uric Acid 5.0 (3.7-7.4) mg/dL C-Reactive Protein <5.0 (<10.0) mg/L Disposition Clinical Impression: Foot pain Disposition: HOME SELF-CARE Condition: Stable Instructions (If sedation given, give patient instructions): Arthralgia (ED) Additional Instructions: Please follow-up with primary care physician in the next couple days for recheck. Please also follow-up with your orthopedic doctor as well as neurology as scheduled. Please also consider rheumatology follow-up. Aleve as needed for pain. Return for increased pain, swelling, redness, fever, worsening symptoms or other concerns. Prescription sent to [facility]. Prescriptions: Naproxen 375 mg PO BID #30 tablet Is patient prescribed a controlled substance at d/c from ED?: No Referrals: John Rodriguez [Primary Care Provider] - 1-2 days Jerald Bernardo MD [STAFF PHYSICIAN] - 1-2 days Hudson Tse DO [STAFF PHYSICIAN] - 1-2 days Time of Disposition: 21:35
[2019-04-03 20:35] LABS: C Reactive Protein <5.0 mg/L (<10.0)
[2019-04-03] MEDS ORDERED: ACET/COD 300 MG/30 MG STARTER PACK 6 TAB BTL PO STA (21:33)
[2019-04-03] MEDS ORDERED: KETOROLAC 30 MG/ML 1 ML VIAL IVP STA (21:33)
[2019-04-03 21:59] VITALS: BP 136/71; PULSE 75; RESP 16
[2019-04-04 03:12] LABS: Rheumatoid Factor, Qnt 5 IU/mL (0-15)
== END 2019-04-03 21:59 | disposition home or self-care (01) ==
LOC: EC 19:06
DX: M79.671 Pain in right foot (principal); M79.672 Pain in left foot; I25.10 Atherosclerotic heart disease of native coronary artery without angina pectoris; E11.9 Type 2 diabetes mellitus without complications; I50.9 Heart failure, unspecified; K21.9 Gastro-esophageal reflux disease without esophagitis; F41.9 Anxiety disorder, unspecified; F31.9 Bipolar disorder, unspecified; E07.9 Disorder of thyroid, unspecified; Z79.02 Long term (current) use of antithrombotics/antiplatelets; Z79.890 Hormone replacement therapy; Z79.4 Long term (current) use of insulin; Z79.899 Other long term (current) drug therapy; Z79.82 Long term (current) use of aspirin; Z88.6 Allergy status to analgesic agent; Z88.8 Allergy status to other drugs, medicaments and biological substances; Z96.653 Presence of artificial knee joint, bilateral; Z87.891 Personal history of nicotine dependence
CPT/HCPCS: 36415; 85652; 84550; 86140; 86431; 99283; 96374; J1170

== ENCOUNTER → 2019-05-27 | Outpatient (CLI) | payer MEDICARE, OTHER ==
--- NOTE | 2019-05-27 23:02 | BD ---
EXAMINATION TYPE: Axial Bone Density DATE OF EXAM: 05/27/2019 COMPARISON: NONE CLINICAL HISTORY: 64 YR OLD FEMALE ....ICD-10 CODE: Z78.0 POST MENOPAUSAL Height: 63.2 Weight: 256 FRAX RISK QUESTIONS: History of Fracture in Adulthood: YES Secondary Osteoporosis: YES 1. Type 1 Diabetes: YES 3. Menopause before 45: YES, 40-41 YRS OLD RISK FACTORS HISTORY OF: History of Wrist Fracture: BILAT WRIST > 50 YRS OLD Surgery to RT WRIST SURGICAL REPAIR Family History of Osteoporosis: YES, HER MOTHER NO HIP FX Postmenopausal woman: YES AT AGE 40-41 YRS OLD Lost more than 2 inches in height since high school: YES Frequent falls: USES CANE Hyperparathyroidism: NO Adrenal Insufficiency: NO MEDICATIONS: Prednisone or other steroids: INHALER FOR SOB, FOR SOB, AND CHF Thyroid Medications: YES, GENERIC SYNTHROID, FOR ABOUT 30 YRS Additional Medications: BP MEDS, ANTI ANXIETY AND BIPOLAR MED, ORAL DIABETIC MEDS, INSULIN, STATIN FO R CHOLESTEROL, VIT D Additional History: BILAT TKRs, RENAL FAILURE, CHF, OSTEOARTHRITIS EXAM MEASUREMENTS: Bone mineral densitometry was performed using the [employer] System. Bone mineral density as measured about the Lumbar spine is: ----- L1-L4(G/cm2): 1.250 T Score Values are as follows: ----- L1: -0.9 ----- L2: 0.7 ----- L3: 0.2 ----- L4: 1.7 ----- L1-L4: 0.6 Bone mineral density FIRST DEXA STUDY AT [facility] Bone mineral density about the R hip (g/cm2): 0.814 Bone mineral density about the L hip (g/cm2): 0.889 T Score values are as follows: -----R Neck: -0.9 -----L Neck: -1.1 -----R Total: -1.5 -----L Total: -0.9 Bone mineral density FIRST DEXA STUDY AT [facility] FRAX%s: THERE IS A 18.4% CHANCE FOR A MAJOR OSTEOPOROTIC FX AND A 1.7% FOR HIP......PROBABILITY FOR FX IN 10 YRS TIME IMPRESSION: Osteopenia (T Score between -2.5 and -1) femoral neck level in the left hip. There is slightly increased risk of fracture and the patient may be considered for treatment. Re-Screen 2-5 years. NOTE: T-SCORE=SD OF THE YOUNG ADULT MEAN.
--- NOTE | 2019-05-30 10:52 | MM ---
Reason for exam: screening (asymptomatic). History: Patient is postmenopausal and is nulliparous. Benign excisional biopsy of the left breast. Physical Findings: A clinical breast exam by your physician is recommended on an annual basis and results should be correlated with mammographic findings. MG 3D Screening Mammo W/Cad Bilateral CC, MLO, and XCCL view(s) were taken. There are scattered fibroglandular densities. Finding: There are typically benign vascular, dystrophic, round calcifications in both breasts. Previous mammotome biopsy in the right breast. There is no discrete abnormality. ASSESSMENT: Benign, BI-RAD 2 RECOMMENDATION: Routine screening mammogram of both breasts in 1 year.
== END | disposition home or self-care (01) ==
LOC: RADMAMWWP 14:34
PROVIDERS: ATTEND Family Medicine
DX: Z12.31 Encounter for screening mammogram for malignant neoplasm of breast (principal); M85.851 Other specified disorders of bone density and structure, right thigh; M85.852 Other specified disorders of bone density and structure, left thigh; Z78.0 Asymptomatic menopausal state
CPT/HCPCS: 77063; 77067; 77080

== ENCOUNTER → 2019-05-27 | Outpatient (CLI) | payer MEDICARE, OTHER ==
[2019-05-28 00:34] LABS: African American GFR (CKD) 35.8 (60.0-200.0); BUN/Creat Ratio 24.12 Ratio (12.00-20.00); Calcium 9.6 mg/dL (8.7-10.3); Magnesium 1.9 mg/dL (1.5-2.4); Non-African American GFR(CKD) 30.9 (60.0-200.0); Potassium 3.8 mmol/L (3.5-5.5)
== END | disposition home or self-care (01) ==
LOC: LABWHC1 14:32
PROVIDERS: ATTEND Nurse Practitioner
DX: N18.3 Chronic kidney disease, stage 3 (moderate) (principal)
CPT/HCPCS: 36415; 80048; 82306; 83735

== ENCOUNTER → 2019-06-24 | Outpatient (CLI) | payer MEDICARE, OTHER ==
[2019-06-24 14:18] LABS: Basophils % (A) 0 %; Eosinophils # (A) 0.2 k/uL (0-0.7); Eosinophils % (A) 3 %; HCT 41.2 % (34.0-46.0); HGB 12.9 gm/dL (11.4-16.0); Lymphocytes # (A) 2.6 k/uL (1.0-4.8); Lymphocytes % (A) 39 %; MCH 29.6 pg (25.0-35.0); MCHC 31.2 g/dL (31.0-37.0); MCV 94.8 fL (80.0-100.0); Mean Platelet Volume 7.5; Monocytes # (A) 0.3 k/uL (0-1.0); Monocytes % (A) 4 %; Neutrophils # (A) 3.4 k/uL (1.3-7.7); Neutrophils % (A) 51 %; Platelet Count 268 k/uL (150-450); RBC 4.34 m/uL (3.80-5.40); RDW 13.1 % (11.5-15.5); WBC 6.6 k/uL (3.8-10.6)
[2019-06-24 19:12] LABS: African American GFR (CKD) 45.3 (60.0-200.0); Albumin 4.3 g/dL (3.80-4.90); Albumin/Globulin Ratio 2.39 (1.60-3.17); Anion Gap 6.7 mmol/L (4.00-12.00); BUN/Creat Ratio 29.29 Ratio (12.00-20.00); Calcium 10.1 mg/dL (8.7-10.3); Carbon Dioxide 35.3 mmol/L (21.6-31.8); Globulin 1.8 g/dL (1.6-3.3); Non-African American GFR(CKD) 39.1 (60.0-200.0); Potassium 4.7 mmol/L (3.5-5.5); Total Bilirubin 0.5 mg/dL (0.3-1.2); Total Protein 6.1 g/dL (6.2-8.2)
[2019-06-24 20:00] LABS: Hemoglobin A1C 7.7 % (4.0-6.0)
== END | disposition home or self-care (01) ==
LOC: LABWHC1 13:34
PROVIDERS: ATTEND Family Medicine
DX: R06.02 Shortness of breath (principal); E11.9 Type 2 diabetes mellitus without complications; E55.9 Vitamin D deficiency, unspecified; E03.9 Hypothyroidism, unspecified
CPT/HCPCS: 36415; 80053; 82306; 83036; 84439; 84443; 85025

== ENCOUNTER → 2019-06-28 | Outpatient (CLI) | payer MEDICARE, OTHER ==
--- NOTE | 2019-06-28 19:28 | ECHOF ---
Referral Reason:R06.02 Shortness of breath at rest MEASUREMENTS -------- HEIGHT: 162.6 cm WEIGHT: 119.3 kg BP: RVIDd: 2.5 cm (< 3.3) IVSd: 1.3 cm (0.6 - 1.1) LVIDd: 4.3 cm (3.9 - 5.3) LVPWd: 1.3 cm (0.6 - 1.1) IVSs: 2.0 cm LVIDs: 2.5 cm LVPWs: 2.1 cm LAESV Index (A-L): 41.45 ml/m Ao Diam: 2.5 cm (2.0 - 3.7) AV Cusp: 1.7 cm (1.5 - 2.6) LA Diam: 3.8 cm (2.7 - 3.8) MV EXCURSION: 10.412 mm (> 18.000) MV EF SLOPE: 62 mm/s (70 - 150) EPSS: 2.5 cm MV E Rolando: 1.24 m/s MV DecT: 247 ms MV A Rolando: 1.33 m/s MV E/A Ratio: 0.93 RAP: 5.00 mmHg RVSP: 12.42 mmHg TAPSE: 23.82 mm FINDINGS -------- Sinus rhythm. This was a technically good study. The left ventricular size is normal. There is mild concentric left ventricular hypertrophy. Overa ll left ventricular systolic function is normal with, an EF between 55 - 60 %. Increased LAP Grade 2 Diastolic Dysfunction. The right ventricle is normal in size. LA is severely dilated >40 ml/m2 The right atrial size is normal. The aortic valve is trileaflet and appears structurally normal. The mitral valve is normal. The mitral valve leaflets are mildly thickened. Mild mitral regurgita tion is present. The tricuspid valve appears structurally normal. Mild tricuspid regurgitation present. Right vent ricular systolic pressure is normal at < 35 mmHg. There is no pulmonic regurgitation present. The aortic root size is normal. Normal inferior vena cava with normal inspiratory collapse consistent with estimated right atrial pre ssure of 5 mmHg. There is no pericardial effusion. CONCLUSIONS -------- 1. Sinus rhythm. 2. This was a technically good study. 3. The left ventricular size is normal. 4. There is mild concentric left ventricular hypertrophy. 5. Overall left ventricular systolic function is normal with, an EF between 55 - 60 %. 6. Increased LAP Grade 2 Diastolic Dysfunction. 7. The right ventricle is normal in size. 8. LA is severely dilated >40 ml/m2 9. The right atrial size is normal. 10. The aortic valve is trileaflet and appears structurally normal. 11. The mitral valve is normal. 12. The mitral valve leaflets are mildly thickened. 13. Mild mitral regurgitation is present. 14. The tricuspid valve appears structurally normal. 15. Mild tricuspid regurgitation present. 16. Right ventricular systolic pressure is normal at < 35 mmHg. 17. There is no pulmonic regurgitation present. 18. The aortic root size is normal. 19. Normal inferior vena cava with normal inspiratory collapse consistent with estimated right atrial pressure of 5 mmHg. 20. There is no pericardial effusion. POLICY WRITER SALES: Chikis Campbell RDCS
== END | disposition home or self-care (01) ==
LOC: RADECHMAIN 14:46
PROVIDERS: ATTEND Family Medicine
DX: I08.1 Rheumatic disorders of both mitral and tricuspid valves (principal); R55 Syncope and collapse
CPT/HCPCS: 93306

== ENCOUNTER → 2019-07-16 | Outpatient (CLI) | payer MEDICARE, OTHER ==
--- NOTE | 2019-07-17 02:32 | CONS ---
CONSULTATION This is a consultation note for sleep apnea. This is a 64-year-old female patient who was referred to me for sleep apnea evaluation. Nevertheless, her story is more complicated than that. The patient tells me that she cannot sleep well and she cannot keep herself asleep for extended period of time. Since she has retired, she is unable to achieve more than 3-4 hours of sleep per night. For example, she goes to bed between 3-4 am and she gets out of bed at around 8-9 am in the morning. She sleeps in her chair in the living room. She watches TV throughout the night. She is very much drowsy and sleepy during the day and she takes at least 10 naps and these naps last from 10 minutes and sometimes up to 30 minutes. She has developed this sleep schedule since she retired. 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 She used to work in [place], [place] and she has been living in [place] for the past several years. She does note she also has been told to quit breathing at nighttime whenever sleeping by friends and family members. She is having trouble with tiredness and sleepiness during the day and for that reason she is taking several naps. She is falling asleep during the day. She is worrying about her sleep and she is having problems with concentration and memory. She is diabetic and she has peripheral neuropathy and restless legs syndrome for which she is on Mirapex 1 mg at bedtime. Note that her symptoms seem to be active. She also has history of chronic depression bipolar disorder, maintained on Lexapro and ( ). Her weight is at 267 which has essentially dropped over the years. No nighttime chest pain or shortness of breath. She has poor sleep hygiene measures, she watches TV all the time, she does not exercise, she eats late and she sometimes sleep talks. PAST MEDICAL HISTORY: 1. Diabetes mellitus. 2. Hypothyroidism. 3. CHF. 4. Gout/hyperuricemia. 5. Depression. 6. Bipolar disorder. 7. RLS. 8. Hyperlipidemia. 9. Obesity. PAST SURGICAL HISTORY: Includes cholecystectomy, bilateral knee replacement, carpal tunnel release in both hands, bunion removal and wrist surgery on the right. DRUG ALLERGIES: CALAN, MOTRIN, LISINOPRIL. OUTPATIENT MEDICATION: List includes Mirapex 1 mg at bedtime, the patient takes Lexapro 20 mg p.o. daily, vitamin D two 50,000 units once a week, Allopurinol 100 mg 2 tablets a day, lamotrigine 12 mg p.o. daily, levothyroxine 137 mcg p.o. daily, Lasix 80 mg p.o. daily, baby aspirin 81 mg p.o. 2 tablets a day, glipizide 10 mg p.o. twice a day, Coreg 3.125 mg twice a day, atorvastatin 20 mg p.o. daily, Lantus 17 units daily and albuterol rescue inhaler on a as needed basis. SOCIAL HISTORY: She is an ex-smoker. No history of alcohol, no history of IV drugs. FAMILY HISTORY: Negative for sleep apnea. REVIEW OF SYSTEMS: Fourteen-point review of system was done. Positive findings are mentioned in History of Present Illness. Her current [place] score is 21. She seems to be quite drowsy and sleepy during the day. She takes multiple naps. Unable to keep herself asleep. No unusual movements or behaviors during the night waking her up from sleep or during sleep. No excessive utilization of caffeinated beverages or alcohol. No history of head trauma. No history of any substance abuse. PHYSICAL EXAMINATION: BP is 154/69, pulse 64, respirations 16, temp 97.6, saturation 98% on room air. Height is 5 feet 4 inches, weight 267 and BMI of 46.3. Wixom score 21. Neck size 15. GENERAL: Appears calm, comfortable. HEAD: Atraumatic, normocephalic. NECK: Supple. No JVD. No goiter or neck masses. Mallampati class IV. LUNGS: Clear to auscultation. HEART: Heart sounds are regular rate and rhythm. Normal S1, S2. No murmurs. ABDOMEN: Soft, nontender. No organomegaly. EXTREMITIES: No edema. No cyanosis or clubbing. NEUROLOGIC: Awake and alert. There are no focal neurological deficits. Psychiatrically, positive for chronic depression and bipolar disorder. IMPRESSION: 1. Chronic hypersomnia for an Wixom score of 21. The patient's chronic hypersomnia is multifactorial. Possibilities for now are the following: A. Poor sleep hygiene measures. B. Delayed sleep phase syndrome. C. Possible obstructive sleep apnea. D. Possible periodic limb movements/restless leg syndrome. Note that the patient has multiple medical problems and comorbidities including her psychiatric history which probably is affecting her ability to maintain sleep. 2. Obesity with a BMI of 46.3. 3. Diabetes mellitus. 4. Peripheral neuropathy. 5. Restless leg syndrome. 6. Congestive heart failure. 7. Hypothyroidism. 8. Hyperuricemia. 9. Chronic depression and bipolar disorder. 10.Hyperlipidemia. PLAN: 1. I had a lengthy discussion with the patient about sleep hygiene measures. 2. Had a lengthy discussion with the patient about regulating her sleep-wake cycle and going to bed earlier times waking up earlier during the day and trying to consolidate her sleep hours mainly at bedtime, eliminating all naps during the day. 3. Continue Mirapex for now. 4. Continue psychiatric medication. 5. Obtain a polysomnogram to rule out the possibility of obstructive sleep apnea and restless legs syndrome causing her sleep fragmentation. 6. We will make further recommendations accordingly. Weight loss is helpful. Strongly encouraged sleep hygiene measures improvement to improve her sleep quality in general. We will continue to follow. MMYOELL / IJN: [id number] /
== END | disposition home or self-care (01) ==
LOC: SLEEP 14:43
PROVIDERS: ATTEND Internal Medicine Critical Care Medicine
DX: E66.01 Morbid (severe) obesity due to excess calories (principal); Z68.42 Body mass index [BMI] 45.0-49.9, adult; E11.42 Type 2 diabetes mellitus with diabetic polyneuropathy; G25.81 Restless legs syndrome; I50.9 Heart failure, unspecified; E03.9 Hypothyroidism, unspecified; E79.0 Hyperuricemia without signs of inflammatory arthritis and tophaceous disease; F32.9 Major depressive disorder, single episode, unspecified; E78.5 Hyperlipidemia, unspecified; Z87.891 Personal history of nicotine dependence; Z79.82 Long term (current) use of aspirin; Z79.84 Long term (current) use of oral hypoglycemic drugs; Z79.899 Other long term (current) drug therapy; Z88.6 Allergy status to analgesic agent; Z88.8 Allergy status to other drugs, medicaments and biological substances
CPT/HCPCS: 99211

== ENCOUNTER → 2019-11-25 | Outpatient (CLI) | payer MEDICARE, OTHER ==
--- NOTE | 2019-11-25 10:13 | XR ---
Lumbar spine HISTORY: Low back pain and sciatica 3 views of the lumbar spine No comparisons Lumbar vertebral bodies show preserved height and alignment. There is loss of bone mineralization. Lo ss of disc height present at intervertebral levels L3-4, L4-5, L5-S1. There is associated spondylosis . Sclerosis in the posterior elements is consistent with facet arthropathy. Atherosclerotic vascular calcifications present in the distribution of the aortic iliac vessels. Surgical clips present right upper quadrant. IMPRESSION: Degenerative disc disease, facet arthropathy, osteopenia or osteoporosis.
== END | disposition home or self-care (01) ==
LOC: RADXRMAIN 07:24
PROVIDERS: ATTEND Family Medicine
DX: M51.16 Intervertebral disc disorders with radiculopathy, lumbar region (principal); M46.96 Unspecified inflammatory spondylopathy, lumbar region; M85.88 Other specified disorders of bone density and structure, other site
CPT/HCPCS: 72100

== ENCOUNTER 2020-04-06 16:16 | Emergency (ER) | payer MEDICARE, OTHER ==
[2020-04-06 16:55] VITALS: PULSE 59; RESP 20
[2020-04-06 18:24] LABS: Basophils % (A) 1 %; Eosinophils # (A) 0.3 k/uL (0-0.7); Eosinophils % (A) 5 %; HCT 38.1 % (34.0-46.0); HGB 12.6 gm/dL (11.4-16.0); Lymphocytes # (A) 2.2 k/uL (1.0-4.8); Lymphocytes % (A) 34 %; MCH 31.1 pg (25.0-35.0); MCV 94.3 fL (80.0-100.0); Mean Platelet Volume 7.2; Monocytes # (A) 0.3 k/uL (0-1.0); Monocytes % (A) 5 %; Neutrophils # (A) 3.4 k/uL (1.3-7.7); Neutrophils % (A) 54 %; Platelet Count 220 k/uL (150-450); RBC 4.04 m/uL (3.80-5.40); RDW 13.4 % (11.5-15.5); WBC 6.3 k/uL (3.8-10.6)
[2020-04-06 18:26] LABS: Appearance,Urine Clear (Clear); Bilirubin,Urine Negative (Negative); Blood,Urine Negative (Negative); Color,Urine Colorless; Glucose,Urine (UA) Negative (Negative); Hyaline Casts,Urine 1 /lpf (0-2); Ketones,Urine Negative (Negative); Leukocyte Esterase,Urine Moderate (Negative); Mucus,Urine Rare /hpf; Nitrite,Urine Negative (Negative); PH, Urine 6.5 (5.0-8.0); Protein,Urine Negative (Negative); RBC,Urine <1 /hpf (0-5); Specific Gravity,Urine 1.007 (1.001-1.035); Squamous Epithelial Cell,Urine <1 /hpf (0-4); Urobilinogen,Urine <2.0 mg/dL (<2.0); WBC,Urine 8 /hpf (0-5)
[2020-04-06 18:36] LABS: Albumin 3.7 g/dL (3.5-5.0); Calcium 9.7 mg/dL (8.4-10.2); Magnesium 2.1 mg/dL (1.6-2.3); Potassium 4.2 mmol/L (3.5-5.1); Total Bilirubin 0.7 mg/dL (0.2-1.3); Total Protein 6.3 g/dL (6.3-8.2)
--- NOTE | 2020-04-06 18:52 | XR ---
EXAMINATION TYPE: XR chest 2V DATE OF EXAM: 04/06/2020 COMPARISON: 01/13/2019 HISTORY: Chest pain TECHNIQUE: FINDINGS: Heart and mediastinum are normal. Lungs are clear of infiltrate. There is no heart failure. There are chest leads. Costophrenic angles are clear. IMPRESSION: No active cardiopulmonary disease. No adverse change.
--- NOTE | 2020-04-06 19:40 | ED ---
Nausea/Vomiting/Diarrhea HPI - General Chief complaint: Nausea/Vomiting/Diarrhea Stated complaint: sob/chest pain/abd pain Time Seen by Provider: 04/06/20 17:42 Source: patient Mode of arrival: ambulatory Limitations: no limitations - History of Present Illness Initial comments: 65-year-old female patient presents to the emergency department today for ev aluation of nausea, diarrhea and mild chest pain. Patient states that she had a short period of mild discomfort to the left chest. States it resolved quickly and she had no further episodes the rest of the day. States she is having some mild shortness of breath with this. Denies any vomiting. Denies any hematochezia or melena. Denies fever or chills. Patient denies any recent rash, cough, shortness of breath, back pain, numbness, tingling, dizziness, weakness, hematuria, dysuria, urinary urgency, urinary frequency, headache, visual changes, or any other complaints. - Related Data Home Medications Medication Instructions Recorded Confirmed Atorvastatin Calcium [Lipitor] 20 mg PO HS 06/15/16 04/06/20 Carvedilol [Coreg] 3.125 mg PO BID 06/15/16 04/06/20 lamoTRIgine [LaMICtal] 200 mg PO DAILY 06/15/16 04/06/20 Insulin Glargine [Lantus] 20 units SQ HS 06/21/17 04/06/20 allopurinoL [Zyloprim] 100 mg PO BID 06/21/17 04/06/20 glipiZIDE [Glucotrol] 10 mg PO AC-BID 06/21/17 04/06/20 paricalcitoL [Paricalcitol] 2 mcg PO DAILY 06/21/17 04/06/20 Ergocalciferol (Vitamin D2) 50,000 unit PO TH 08/22/17 04/06/20 [Vitamin D2] Aspirin EC [Ecotrin Low Dose] 162 mg PO DAILY 07/09/18 04/06/20 Escitalopram [Lexapro] 20 mg PO DAILY 04/03/19 04/06/20 Furosemide [Lasix] 80 mg PO DAILY 04/03/19 04/06/20 Pramipexole [Mirapex] 1 mg PO HS 04/03/19 04/06/20 Albuterol Inhaler [Ventolin Hfa 2 puff INHALATION RT-Q6H PRN 04/06/20 04/06/20 Inhaler] Levothyroxine Sodium [Synthroid] 137 mcg PO DAILY 04/06/20 04/06/20 Losartan Potassium [Cozaar] 100 mg PO DAILY 04/06/20 04/06/20 Previous Rx's Medication Instructions Recorded Ondansetron [Zofran ODT] 4 mg PO Q8HR PRN #10 tab 04/06/20 Allergies Allergy/AdvReac Type Severity Reaction Status Date / Time ibuprofen [From Motrin] Allergy Swelling Verified 04/06/20 19:18 lisinopril Allergy Rash/Hives, Verified 04/06/20 19:18 swelling verapamil [From Calan] Allergy Rash/Hives, Verified 04/06/20 19:18 swelling metformin AdvReac Nausea & Verified 04/06/20 19:18 Vomiting & Diarrhea Review of Systems ROS Statement: Those systems with pertinent positive or pertinent negative responses have been documented in the HPI. ROS Other: All systems not noted in ROS Statement are negative. Past Medical History Past Medical History: Coronary Artery Disease (CAD), Heart Failure, Diabetes Mellitus, GERD/Reflux, Renal Disease, Thyroid Disorder Additional Past Medical History / Comment(s): Stage 3 kidney disease, CHF, recently fell and hit head went to ER and got checked out, everything ok. History of Any Multi-Drug Resistant Organisms: MRSA Date of last positivie culture/infection: approx 1996 or 1997 MDRO Source:: stomach area Past Surgical History: Cardiac Ablation, Cholecystectomy, Joint Replacement, Orthopedic Surgery Additional Past Surgical History / Comment(s): ORIF rt wrist-hardware later removed, mult procedures to betsy legs for wounds/cellulitis, betsy knee replacement, bunionectomy, carpal tunnel, Loop removal, pain clinic procedure. Past Anesthesia/Blood Transfusion Reactions: Previous Problems w/ Anesthesia Additional Past Anesthesia/Blood Transfusion Reaction / Comment(s): Nightmares during anesthesia, no complications with prior blood transfusion. Type of Cardiac Device: Loop Device Placement Date:: 2011 Past Psychological History: Anxiety, Bipolar, Depression Past Alcohol Use History: None Reported Past Drug Use History: None Reported - Past Family History Mother Family Medical History: No Reported History Father Family Medical History: No Reported History Sister(s) Family Medical History: No Reported History Additional Family Medical History / Comment(s): niece had non-hodgkin's lymphoma. General Exam Limitations: no limitations General appearance: alert, in no apparent distress, other (This is a well-develo ped, well-nourished adult female patient in no acute distress. Vital signs upon presentation are temperature 98.5F, pulse 59, respirations 20, blood pressure 141/70, pulse ox 96% on room air.) ENT exam: Present: normal exam, normal oropharynx, mucous membranes moist Respiratory exam: Present: normal lung sounds bilaterally. Absent: respiratory distress, wheezes, rales, rhonchi, stridor Cardiovascular Exam: Present: regular rate, normal rhythm, normal heart sounds. Absent: systolic murmur, diastolic murmur, rubs, gallop, clicks GI/Abdominal exam: Present: soft, normal bowel sounds. Absent: distended, tenderness, guarding, rebound, rigid Neurological exam: Present: alert, oriented X3, CN II-XII intact Psychiatric exam: Present: normal affect, normal mood Skin exam: Present: warm, dry, intact, normal color. Absent: rash Course Vital Signs 04/06/20 04/06/20 16:52 20:06 Temperature 98.5 F 98.6 F Pulse Rate 59 L 59 L Respiratory 20 20 Rate Blood Pressure 141/70 115/59 O2 Sat by Pulse 96 98 Oximetry Medical Decision Making - Medical Decision Making 65-year-old female patient presented to the emergency department today for evaluation of mild shortness of breath, nausea, diarrhea. She did report one episode of chest pain earlier today which resolved and did not return. Physical examination revealed soft nontender abdomen. Lungs are clear to auscultation with good air movement. Labs reviewed and are unremarkable. Kidney function is stable from previous. EKG showed normal sinus rhythm. Troponin was negative. COVID-19 was negative. I did discuss findings results with the patient. She is comfortable being discharged home at this time with medication for nausea control. She is instructed to follow up with her primary care physician for recheck in 1-2 days. Return parameters were discussed in detail. She verbalizes understanding and agrees with this plan. - Lab Data Result diagrams: 04/06/20 17:57 04/06/20 17:57 Lab Results 04/06/20 04/06/20 04/06/20 Range/Units 17:57 17:57 17:57 WBC 6.3 (3.8-10.6) k/uL RBC 4.04 (3.80-5.40) m/uL Hgb 12.6 (11.4-16.0) gm/dL Hct 38.1 (34.0-46.0) % MCV 94.3 (80.0-100.0) fL MCH 31.1 (25.0-35.0) pg MCHC 33.0 (31.0-37.0) g/dL RDW 13.4 (11.5-15.5) % Plt Count 220 (150-450) k/uL Neutrophils % 54 % Lymphocytes % 34 % Monocytes % 5 % Eosinophils % 5 % Basophils % 1 % Neutrophils # 3.4 (1.3-7.7) k/uL Lymphocytes # 2.2 (1.0-4.8) k/uL Monocytes # 0.3 (0-1.0) k/uL Eosinophils # 0.3 (0-0.7) k/uL Basophils # 0.0 (0-0.2) k/uL Sodium 139 (137-145) mmol/L Potassium 4.2 (3.5-5.1) mmol/L Chloride 103 (98-107) mmol/L Carbon Dioxide 30 (22-30) mmol/L Anion Gap 6 mmol/L BUN 50 H (7-17) mg/dL Creatinine 1.73 H (0.52-1.04) mg/dL Est GFR (CKD-EPI)AfAm 35 (>60 ml/min/1.73 sqM) Est GFR (CKD-EPI)NonAf 30 (>60 ml/min/1.73 sqM) Glucose 114 H (74-99) mg/dL Calcium 9.7 (8.4-10.2) mg/dL Magnesium 2.1 (1.6-2.3) mg/dL Total Bilirubin 0.7 (0.2-1.3) mg/dL AST 27 (14-36) U/L ALT 16 (4-34) U/L Alkaline Phosphatase 99 (38-126) U/L Troponin I (0.000-0.034) ng/mL Total Protein 6.3 (6.3-8.2) g/dL Albumin 3.7 (3.5-5.0) g/dL Lipase 129 (23-300) U/L Urine Color Colorless Urine Appearance Clear (Clear) Urine pH 6.5 (5.0-8.0) Ur Specific [place] 1.007 (1.001-1.035) Urine Protein Negative (Negative) Urine Glucose (UA) Negative (Negative) Urine Ketones Negative (Negative) Urine Blood Negative (Negative) Urine Nitrite Negative (Negative) Urine Bilirubin Negative (Negative) Urine Urobilinogen <2.0 (<2.0) mg/dL Ur Leukocyte Esterase Moderate H (Negative) Urine RBC <1 (0-5) /hpf Urine WBC 8 H (0-5) /hpf Ur Squamous Epith Cells <1 (0-4) /hpf Hyaline Casts 1 (0-2) /lpf Urine Mucus Rare H (None) /hpf Coronavirus (PCR) (Not Detectd) 04/06/20 04/06/20 Range/Units 17:57 19:02 WBC (3.8-10.6) k/uL RBC (3.80-5.40) m/uL Hgb (11.4-16.0) gm/dL Hct (34.0-46.0) % MCV (80.0-100.0) fL MCH (25.0-35.0) pg MCHC (31.0-37.0) g/dL RDW (11.5-15.5) % Plt Count (150-450) k/uL Neutrophils % % Lymphocytes % % Monocytes % % Eosinophils % % Basophils % % Neutrophils # (1.3-7.7) k/uL Lymphocytes # (1.0-4.8) k/uL Monocytes # (0-1.0) k/uL Eosinophils # (0-0.7) k/uL Basophils # (0-0.2) k/uL Sodium (137-145) mmol/L Potassium (3.5-5.1) mmol/L Chloride (98-107) mmol/L Carbon Dioxide (22-30) mmol/L Anion Gap mmol/L BUN (7-17) mg/dL Creatinine (0.52-1.04) mg/dL Est GFR (CKD-EPI)AfAm (>60 ml/min/1.73 sqM) Est GFR (CKD-EPI)NonAf (>60 ml/min/1.73 sqM) Glucose (74-99) mg/dL Calcium (8.4-10.2) mg/dL Magnesium (1.6-2.3) mg/dL Total Bilirubin (0.2-1.3) mg/dL AST (14-36) U/L ALT (4-34) U/L Alkaline Phosphatase (38-126) U/L Troponin I <0.012 (0.000-0.034) ng/mL Total Protein (6.3-8.2) g/dL Albumin (3.5-5.0) g/dL Lipase (23-300) U/L Urine Color Urine Appearance (Clear) Urine pH (5.0-8.0) Ur Specific [place] (1.001-1.035) Urine Protein (Negative) Urine Glucose (UA) (Negative) Urine Ketones (Negative) Urine Blood (Negative) Urine Nitrite (Negative) Urine Bilirubin (Negative) Urine Urobilinogen (<2.0) mg/dL Ur Leukocyte Esterase (Negative) Urine RBC (0-5) /hpf Urine WBC (0-5) /hpf Ur Squamous Epith Cells (0-4) /hpf Hyaline Casts (0-2) /lpf Urine Mucus (None) /hpf Coronavirus (PCR) Not Detected (Not Detectd) - EKG Data -: EKG Interpreted by Me EKG Comments: EKG obtained at 1756 shows sinus bradycardia with a ventricular rate of 54, DC interval 172, QRS duration 98, QT 458, QTC 434. No evidence of ST elevation or depression. - Radiology Data Radiology results: report reviewed, image reviewed Two-view x-ray of the chest is obtained. Report was reviewed in its entirety. Impression by Dr. Berg shows no active cardiopulmonary disease. No adverse change. Disposition Clinical Impression: Diarrhea, Shortness of breath, Nausea Disposition: HOME SELF-CARE Condition: Good Instructions (If sedation given, give patient instructions): Acute Nausea and Vomiting (ED), Acute Diarrhea (ED), Shortness of Breath (ED) Additional Instructions: Take medication as directed. Follow up with your primary care physician for recheck in 1-2 days. Return to the emergency department for any new, worsening, or concerning symptoms. Prescriptions: Ondansetron [Zofran ODT] 4 mg PO Q8HR PRN #10 tab PRN Reason: Nausea Is patient prescribed a controlled substance at d/c from ED?: No Referrals: John Rodriguez [Primary Care Provider] - 1-2 days Time of Disposition: 19:53
[2020-04-06] MEDS ORDERED: ONDANSETRON ODT 4 MG TAB PO STA (19:50)
[2020-04-06 20:07] VITALS: BP 115/59; TEMP 98.6
== END 2020-04-06 20:10 | disposition home or self-care (01) ==
LOC: EC 16:16
DX: R06.02 Shortness of breath (principal); R11.0 Nausea; R19.7 Diarrhea, unspecified; E11.22 Type 2 diabetes mellitus with diabetic chronic kidney disease; N18.30 Chronic kidney disease, stage 3 unspecified; I50.9 Heart failure, unspecified; E07.9 Disorder of thyroid, unspecified; F41.9 Anxiety disorder, unspecified; F32.9 Major depressive disorder, single episode, unspecified; Z79.899 Other long term (current) drug therapy; Z79.4 Long term (current) use of insulin; Z79.82 Long term (current) use of aspirin; Z88.6 Allergy status to analgesic agent; Z88.8 Allergy status to other drugs, medicaments and biological substances; Z96.653 Presence of artificial knee joint, bilateral; Z20.828 Contact with and (suspected) exposure to other viral communicable diseases
CPT/HCPCS: 36415; 71046; 80053; 81001; 83690; 83735; 84484; 85025; 87635; 93005; 99285

== ENCOUNTER → 2020-07-24 | Outpatient (CLI) | payer MEDICARE, OTHER ==
--- NOTE | 2020-07-24 12:59 | XR ---
EXAMINATION TYPE: XR chest 2V DATE OF EXAM: 07/24/2020 COMPARISON: 04/06/2020 HISTORY: Shortness of breath TECHNIQUE: Frontal and lateral views of the chest are obtained. FINDINGS: Scattered senescent parenchymal changes noted. Hyperinflation compatible with COPD. No evidence for infiltrate. No evidence for atelectasis. Heart size is stable. Mediastinal structures are stable and grossly unremarkable. No evidence for hilar prominence. Degenerative changes dorsal spine. IMPRESSION: 1. No evidence for acute pulmonary disease.
== END | disposition home or self-care (01) ==
LOC: RADXRMAIN 12:39
PROVIDERS: ATTEND Family Medicine
DX: R06.02 Shortness of breath (principal); R05 Cough; R42 Dizziness and giddiness; R53.83 Other fatigue
CPT/HCPCS: 71046

== ENCOUNTER 2020-07-29 15:11 | Observation (INO) | payer MEDICARE, OTHER ==
[2020-07-29] MEDS ORDERED: ASPIRIN 81 MG PO STA (15:36)
[2020-07-29] MEDS ORDERED: NITROGLYCERIN OINT 1 INCH/GM PACKET TOPICAL STA (15:36)
--- NOTE | 2020-07-29 15:39 | ED ---
General Adult HPI - General Chief complaint: Chest Pain Stated complaint: chest pain/dizziness Time Seen by Provider: 07/29/20 15:15 Source: patient, RN notes reviewed, old records reviewed Mode of arrival: wheelchair Limitations: no limitations - History of Present Illness Initial comments: This is a 65-year-old female presents emergency Department complaining of having been dizzy this morning with some left arm pain and then it progressed and some left chest pain. The chest pain occurred while she is at her doctor's office she did EKG gave her aspirin center to the emergency department. Patient states she is currently symptom-free. Patient states this chest pain happened twice now in the last 2 weeks in the arm discomfort is been going on and off for the last month. Patient states that usually she rests and the symptoms go away. Patient denies any recent fever chills or cough. Patient states she had no increased shortness of breath today she denies any diaphoretic episodes. Patient denies abdominal pain patient denies nausea vomiting diarrhea. Patient denies headache patient denies numbness weakness. Patient denies any swelling to the legs or calf tenderness. - Related Data Home Medications Medication Instructions Recorded Confirmed Atorvastatin Calcium [Lipitor] 20 mg PO HS 06/15/16 04/06/20 Carvedilol [Coreg] 3.125 mg PO BID 06/15/16 04/06/20 lamoTRIgine [LaMICtal] 200 mg PO DAILY 06/15/16 04/06/20 Insulin Glargine [Lantus] 20 units SQ HS 06/21/17 04/06/20 allopurinoL [Zyloprim] 100 mg PO BID 06/21/17 04/06/20 glipiZIDE [Glucotrol] 10 mg PO AC-BID 06/21/17 04/06/20 paricalcitoL [Paricalcitol] 2 mcg PO DAILY 06/21/17 04/06/20 Ergocalciferol (Vitamin D2) 50,000 unit PO TH 08/22/17 04/06/20 [Vitamin D2] Aspirin EC [Ecotrin Low Dose] 162 mg PO DAILY 07/09/18 04/06/20 Escitalopram [Lexapro] 20 mg PO DAILY 04/03/19 04/06/20 Furosemide [Lasix] 80 mg PO DAILY 04/03/19 04/06/20 Pramipexole [Mirapex] 1 mg PO HS 04/03/19 04/06/20 Albuterol Inhaler [Ventolin Hfa 2 puff INHALATION RT-Q6H PRN 04/06/20 04/06/20 Inhaler] Levothyroxine Sodium [Synthroid] 137 mcg PO DAILY 04/06/20 04/06/20 Losartan Potassium [Cozaar] 100 mg PO DAILY 04/06/20 04/06/20 Previous Rx's Medication Instructions Recorded Ondansetron [Zofran ODT] 4 mg PO Q8HR PRN #10 tab 04/06/20 Allergies Allergy/AdvReac Type Severity Reaction Status Date / Time ibuprofen [From Motrin] Allergy Swelling Verified 07/29/20 15:18 lisinopril Allergy Rash/Hives, Verified 07/29/20 15:18 swelling verapamil [From Calan] Allergy Rash/Hives, Verified 07/29/20 15:18 swelling metformin AdvReac Nausea & Verified 07/29/20 15:18 Vomiting & Diarrhea Review of Systems ROS Statement: Those systems with pertinent positive or pertinent negative responses have been documented in the HPI. ROS Other: All systems not noted in ROS Statement are negative. Past Medical History Past Medical History: Coronary Artery Disease (CAD), Heart Failure, Diabetes Mellitus, GERD/Reflux, Renal Disease, Thyroid Disorder Additional Past Medical History / Comment(s): Stage 3 kidney disease, CHF, recently fell and hit head went to ER and got checked out, everything ok. History of Any Multi-Drug Resistant Organisms: MRSA Date of last positivie culture/infection: approx 1996 or 1997 MDRO Source:: stomach area Past Surgical History: Cardiac Ablation, Cholecystectomy, Joint Replacement, Orthopedic Surgery Additional Past Surgical History / Comment(s): ORIF rt wrist-hardware later removed, mult procedures to betsy legs for wounds/cellulitis, betsy knee replacement, bunionectomy, carpal tunnel, Loop removal, pain clinic procedure. Past Anesthesia/Blood Transfusion Reactions: Previous Problems w/ Anesthesia Additional Past Anesthesia/Blood Transfusion Reaction / Comment(s): Nightmares during anesthesia, no complications with prior blood transfusion. Type of Cardiac Device: Loop Device Placement Date:: 2011 Past Psychological History: Anxiety, Bipolar, Depression Smoking Status: Never smoker Past Alcohol Use History: None Reported Past Drug Use History: None Reported - Past Family History Mother Family Medical History: No Reported History Father Family Medical History: No Reported History Sister(s) Family Medical History: No Reported History Additional Family Medical History / Comment(s): niece had non-hodgkin's lymphoma. General Exam - General Exam Comments Initial Comments: GENERAL: Patient is well-developed and well-nourished. Patient is nontoxic and well- hydrated and is in mild distress. ENT: Neck is soft and supple. No significant lymphadenopathy is noted. Oropharynx is clear. Moist mucous membranes. Neck has full range of motion without eliciting any pain. EYES: The sclera were anicteric and conjunctiva were pink and moist. Extraocular movements were intact and pupils were equal round and reactive to light. Eyelids were unremarkable. PULMONARY: Unlabored respirations. Good breath sounds bilaterally. No audible rales rhonchi or wheezing was noted. CARDIOVASCULAR: There is a regular rate and rhythm without any murmurs gallops or rubs. ABDOMEN: Soft and nontender with normal bowel sounds. Patient is morbidly obese SKIN: Skin is clear with no lesions or rashes and otherwise unremarkable. NEUROLOGIC: Patient is alert and oriented x3. Cranial nerves II through XII are grossly intact. Motor and sensory are also intact. Normal speech, volume and content. Symmetrical smile. MUSCULOSKELETAL: Normal extremities with adequate strength and full range of motion. LYMPHATICS: No significant lymphadenopathy is noted PSYCHIATRIC: Normal psychiatric evaluation. Limitations: no limitations Course Vital Signs 07/29/20 15:14 Temperature 99.3 F Pulse Rate 81 Respiratory 18 Rate Blood Pressure 187/84 O2 Sat by Pulse 96 Oximetry Medical Decision Making - Medical Decision Making EKG shows normal sinus rhythm at 67 bpm MS interval 176 QRS is 96 Q-T intervals 408 QTC is 431 per patient's EKG shows no ST segment elevation or depression. Chest x-ray shows no acute abnormality Patient is chest pain free throughout her ED course. I spoke with some physicians agreed to admit the patient admitted the patient wrote admitting orders. - Lab Data Result diagrams: 07/29/20 15:44 07/29/20 15:44 Lab Results 07/29/20 07/29/20 07/29/20 Range/Units 15:44 15:44 15:44 WBC 8.5 (3.8-10.6) k/uL RBC 4.16 (3.80-5.40) m/uL Hgb 12.4 (11.4-16.0) gm/dL Hct 38.6 (34.0-46.0) % MCV 92.8 (80.0-100.0) fL MCH 29.8 (25.0-35.0) pg MCHC 32.2 (31.0-37.0) g/dL RDW 13.7 (11.5-15.5) % Plt Count 246 (150-450) k/uL MPV 7.1 Neutrophils % 59 % Lymphocytes % 29 % Monocytes % 5 % Eosinophils % 4 % Basophils % 1 % Neutrophils # 5.0 (1.3-7.7) k/uL Lymphocytes # 2.5 (1.0-4.8) k/uL Monocytes # 0.5 (0-1.0) k/uL Eosinophils # 0.3 (0-0.7) k/uL Basophils # 0.1 (0-0.2) k/uL PT 9.7 (9.0-12.0) sec INR 0.9 (<1.2) APTT 20.7 L (22.0-30.0) sec Sodium 138 (137-145) mmol/L Potassium 4.1 (3.5-5.1) mmol/L Chloride 101 (98-107) mmol/L Carbon Dioxide 26 (22-30) mmol/L Anion Gap 11 mmol/L BUN 56 H (7-17) mg/dL Creatinine 1.84 H (0.52-1.04) mg/dL Est GFR (CKD-EPI)AfAm 32 (>60 ml/min/1.73 sqM) Est GFR (CKD-EPI)NonAf 28 (>60 ml/min/1.73 sqM) Glucose 124 H (74-99) mg/dL Calcium 9.7 (8.4-10.2) mg/dL Magnesium 1.8 (1.6-2.3) mg/dL Total Bilirubin 0.6 (0.2-1.3) mg/dL AST 33 (14-36) U/L ALT 29 (4-34) U/L Alkaline Phosphatase 117 (38-126) U/L Troponin I (0.000-0.034) ng/mL Total Protein 6.7 (6.3-8.2) g/dL Albumin 4.1 (3.5-5.0) g/dL 07/29/20 Range/Units 15:44 WBC (3.8-10.6) k/uL RBC (3.80-5.40) m/uL Hgb (11.4-16.0) gm/dL Hct (34.0-46.0) % MCV (80.0-100.0) fL MCH (25.0-35.0) pg MCHC (31.0-37.0) g/dL RDW (11.5-15.5) % Plt Count (150-450) k/uL MPV Neutrophils % % Lymphocytes % % Monocytes % % Eosinophils % % Basophils % % Neutrophils # (1.3-7.7) k/uL Lymphocytes # (1.0-4.8) k/uL Monocytes # (0-1.0) k/uL Eosinophils # (0-0.7) k/uL Basophils # (0-0.2) k/uL PT (9.0-12.0) sec INR (<1.2) APTT (22.0-30.0) sec Sodium (137-145) mmol/L Potassium (3.5-5.1) mmol/L Chloride (98-107) mmol/L Carbon Dioxide (22-30) mmol/L Anion Gap mmol/L BUN (7-17) mg/dL Creatinine (0.52-1.04) mg/dL Est GFR (CKD-EPI)AfAm (>60 ml/min/1.73 sqM) Est GFR (CKD-EPI)NonAf (>60 ml/min/1.73 sqM) Glucose (74-99) mg/dL Calcium (8.4-10.2) mg/dL Magnesium (1.6-2.3) mg/dL Total Bilirubin (0.2-1.3) mg/dL AST (14-36) U/L ALT (4-34) U/L Alkaline Phosphatase (38-126) U/L Troponin I <0.012 (0.000-0.034) ng/mL Total Protein (6.3-8.2) g/dL Albumin (3.5-5.0) g/dL Disposition Clinical Impression: Chest pain, Lightheaded Disposition: ADMITTED IP TO THIS [facility] Referrals: John Rodriguez [Primary Care Provider] - 1-2 days Time of Disposition: 16:44
[2020-07-29 16:04] LABS: Basophils # (A) 0.1 k/uL (0-0.2); Basophils % (A) 1 %; Eosinophils # (A) 0.3 k/uL (0-0.7); Eosinophils % (A) 4 %; HCT 38.6 % (34.0-46.0); HGB 12.4 gm/dL (11.4-16.0); Lymphocytes # (A) 2.5 k/uL (1.0-4.8); Lymphocytes % (A) 29 %; MCH 29.8 pg (25.0-35.0); MCHC 32.2 g/dL (31.0-37.0); MCV 92.8 fL (80.0-100.0); Mean Platelet Volume 7.1; Monocytes # (A) 0.5 k/uL (0-1.0); Monocytes % (A) 5 %; Neutrophils % (A) 59 %; Platelet Count 246 k/uL (150-450); RBC 4.16 m/uL (3.80-5.40); RDW 13.7 % (11.5-15.5); WBC 8.5 k/uL (3.8-10.6)
[2020-07-29 16:11] LABS: INR 0.9 (<1.2); Prothrombin Time 9.7 sec (9.0-12.0)
[2020-07-29 16:13] LABS: Albumin 4.1 g/dL (3.5-5.0); Calcium 9.7 mg/dL (8.4-10.2); Magnesium 1.8 mg/dL (1.6-2.3); Total Bilirubin 0.6 mg/dL (0.2-1.3); Total Protein 6.7 g/dL (6.3-8.2)
--- NOTE | 2020-07-29 16:17 | XR ---
EXAMINATION TYPE: XR chest 2V DATE OF EXAM: 07/29/2020 COMPARISON: 07/24/2020 INDICATION: Chest pain CHF renal failure TECHNIQUE: Frontal and lateral views of the chest are obtained. FINDINGS: The heart size is normal. The pulmonary vasculature is mildly prominent on right. The lungs are clear. IMPRESSION: 1. Mild vascular prominence more evident on the right.
[2020-07-29 16:24] LABS: Potassium 4.1 mmol/L (3.5-5.1)
[2020-07-29 16:30] LABS: Partial Thromboplastin Time 20.7 sec (22.0-30.0)
[2020-07-29] MEDS ORDERED: NITROGLYCERIN SL TABS 0.4 MG TAB SUBLINGUAL PRN (16:44)
[2020-07-29 20:11] LABS: Glucose,Whole Blood 262 mg/dL (75-99)
[2020-07-29] MEDS ORDERED: ALBUTEROL NEBULIZED 2.5 MG/3 ML INHALATION PRN (20:36)
--- NOTE | 2020-07-29 20:38 | P.HPIM ---
History of Present Illness H&P Date: 07/29/20 The patient is a 63-year-old female with a PMH of diastolic CHF, chronic kidney disease stage III, type II DM, and hypothyroidism who presented to the emergency room with complaints of dizziness and chest discomfort. The patient reports that over the past 2 months, she has had roughly 5-6 episodes of sudden onset of dizziness. She describes it as lightheadedness, brought on when she either stands up or if she has been standing for a while, with associated nausea. Denied associated palpitations, shortness of breath, diaphoresis. She notes that today she was at her PMDs office when she tried to get up from her chair to go to the exam table when she suddenly became lightheaded and pale. During this episode however, she also experienced a left upper chest pressure-like discomfort, nonradiating, 5 out of 10, nonpleuritic, which lasted for 1-2 minutes. She denied experiencing shortness of breath or palpitations during this episode. She also reports that over the past 3 months, she has had gradually worsening exercise tolerance where she is now feeling short of breath with minimal exertion. She denied lower extremity edema, orthopnea, or PND. Endorsed that chronic nonproductive cough. Denied fever, abdominal pain, diarrhea, visual disturbances. In the emergency room, chest x-ray revealed mild vascular prominence more evident on the right with EKG showing normal sinus rhythm at 67 bpm along with no acute ischemic ST/T-wave changes noted as reviewed by me. Laboratory evalu ation was remarkable for troponin less than 0.012, BUN 56, creatinine 1.84. Patient was admitted to the medicine service for further management of chest discomfort with cardiology on consult. Review of Systems Pertinent positives and negatives as discussed in HPI, a complete review of systems was performed and all other systems are negative. Past Medical History Past Medical History: Coronary Artery Disease (CAD), Heart Failure, Diabetes Mellitus, GERD/Reflux, Renal Disease, Thyroid Disorder Additional Past Medical History / Comment(s): Stage 3 kidney disease, CHF, recently fell and hit head went to ER and got checked out, everything ok. History of Any Multi-Drug Resistant Organisms: MRSA Date of last positivie culture/infection: approx 1996 or 1997 MDRO Source:: stomach area Past Surgical History: Cardiac Ablation, Cholecystectomy, Joint Replacement, Orthopedic Surgery Additional Past Surgical History / Comment(s): ORIF rt wrist-hardware later removed, mult procedures to betsy legs for wounds/cellulitis, betsy knee replacement, bunionectomy, carpal tunnel, Loop removal, pain clinic procedure. Past Anesthesia/Blood Transfusion Reactions: Previous Problems w/ Anesthesia Additional Past Anesthesia/Blood Transfusion Reaction / Comment(s): Nightmares during anesthesia, no complications with prior blood transfusion. Type of Cardiac Device: Loop Device Placement Date:: 2011 Past Psychological History: Anxiety, Bipolar, Depression Smoking Status: Never smoker Past Alcohol Use History: None Reported Past Drug Use History: None Reported - Past Family History Mother Family Medical History: No Reported History Father Family Medical History: No Reported History Sister(s) Family Medical History: No Reported History Additional Family Medical History / Comment(s): niece had non-hodgkin's lymphoma. Medications and Allergies Home Medications Medication Instructions Recorded Confirmed Type Atorvastatin Calcium [Lipitor] 20 mg PO HS 06/15/16 07/29/20 History Carvedilol [Coreg] 3.125 mg PO BID 06/15/16 07/29/20 History lamoTRIgine [LaMICtal] 200 mg PO DAILY 06/15/16 07/29/20 History Insulin Glargine [Lantus] 23 units SQ HS 06/21/17 07/29/20 History allopurinoL [Zyloprim] 200 mg PO DAILY 06/21/17 07/29/20 History glipiZIDE [Glucotrol] 10 mg PO AC-BID 06/21/17 07/29/20 History paricalcitoL [Paricalcitol] 2 mcg PO DAILY 06/21/17 07/29/20 History Ergocalciferol (Vitamin D2) 50,000 unit PO TH 08/22/17 07/29/20 History [Vitamin D2] Aspirin EC [Ecotrin Low Dose] 162 mg PO DAILY 07/09/18 07/29/20 History Escitalopram [Lexapro] 20 mg PO DAILY 04/03/19 07/29/20 History Furosemide [Lasix] 80 mg PO DAILY 04/03/19 07/29/20 History Pramipexole [Mirapex] 1 mg PO HS 04/03/19 07/29/20 History Albuterol Inhaler [Ventolin Hfa 2 puff INHALATION RT-Q4H PRN 04/06/20 07/29/20 History Inhaler] Levothyroxine Sodium [Synthroid] 137 mcg PO DAILY 04/06/20 07/29/20 History Losartan Potassium [Cozaar] 100 mg PO DAILY 04/06/20 07/29/20 History Ondansetron [Zofran ODT] 4 mg PO Q8HR PRN #10 tab 04/06/20 07/29/20 Rx Fluticasone Nasal [place] [Flonase 1 spray EA NOSTRIL DAILY PRN 07/29/20 07/29/20 History Nasal [place]] Loratadine [Claritin] 10 mg PO DAILY PRN 07/29/20 07/29/20 History Nitroglycerin 0.1MG/Hr Patch 1 patch TRANSDERM DAILY 07/29/20 07/29/20 History [Nitro-Dur 0.1MG/Hr Patch] Vitamin C/Biotin [Hair, Skin and 2 tab PO DAILY 07/29/20 07/29/20 History Nails] Allergies Allergy/AdvReac Type Severity Reaction Status Date / Time ibuprofen [From Motrin] Allergy Swelling Verified 07/29/20 17:00 lisinopril Allergy Rash/Hives, Verified 07/29/20 17:00 swelling verapamil [From Calan] Allergy Rash/Hives, Verified 07/29/20 17:00 swelling metformin AdvReac Nausea & Verified 07/29/20 17:00 Vomiting & Diarrhea Physical Exam Vitals: Vital Signs Temp Pulse Pulse Resp BP BP Pulse Ox 07/29/20 18:18 97.5 F L 79 16 163/68 99 07/29/20 17:18 90 18 167/80 100 07/29/20 15:14 99.3 F 81 18 187/84 96 Intake and Output 07/29/20 07/29/20 07/29/20 06:59 14:59 22:59 Other: Weight 135.624 kg General: non toxic, no distress, appears at stated age, severely obese Derm: no unusual rashes/lesions no unusual ecchymoses, warm, dry Head: atraumatic, normocephalic, symmetric Eyes: EOMI, no lid lag, anicteric sclera, pupils equal round reactive to light ENT: Nose and ears atraumatic, no thrush, no pharyngeal erythema Neck: No thyromegaly, no cervical lymphadenopathy, trachea midline, supple Mouth: no lip lesion, mucus membranes moist Cardiovascular: S1S2 reg, no murmur, positive posterior tibial pulse bilateral, no edema, capillary refill less than 2 seconds Lungs: Bibasilar rales, no rhonchi or wheezing, no accessory muscle use Abdominal: soft, nontender to palpation, no guarding, no appreciable organomegaly, normal bowel sounds Ext: no gross muscle atrophy, muscle strength 5 out of 5 in all 4 extremities grossly, no contractures, Neuro: CN II-XI grossly intact, light touch intact all 4 extremities, finger to nose within normal limits, Psych: Alert, oriented, appropriate affect Results CBC & Chem 7: 07/29/20 15:44 07/29/20 15:44 Labs: Abnormal Lab Results - Last 24 Hours (Table) 07/29/20 07/29/20 07/29/20 Range/Units 15:44 15:44 20:10 APTT 20.7 L (22.0-30.0) sec BUN 56 H (7-17) mg/dL Creatinine 1.84 H (0.52-1.04) mg/dL Glucose 124 H (74-99) mg/dL POC Glucose (mg/dL) 262 H (75-99) mg/dL Assessment and Plan Plan: Near syncope with chest discomfort -Obtain orthostatics -Fall precautions -Cardiac monitoring -Cardiology consulted -Trend troponin -Echocardiogram -Continue with aspirin Chronic conditions: Type II DM, chronic kidney disease, diastolic CHF, hypertension, hypothyroidism, hyperlipidemia -Continue with home medications -Levemir 20 U qhs (takes 23 U Latus at home) -Insulin sliding scale and blood glucose monitoring -Check A1c -Hold oral hypoglycemics DVT prophylaxis -Heparin The patient is admitted with an anticipated less than 2 midnight stay for evaluation of near syncope CODE STATUS: Full Code Discussed with: Patient Anticipated discharge date: in am Anticipated discharge place: home A total of 35 minutes was spent on the care of this complex patient more than 50% of the time was spent in counseling and care coordination.
[2020-07-29] MEDS ORDERED: INSULIN DETEMIR (LEVEMIR) 100 UNIT/ML SYR SQ SCH (21:00)
[2020-07-29] MEDS ORDERED: ATORVASTATIN 20 MG TAB PO SCH (21:00)
[2020-07-29] MEDS: INSULIN ASPART (NovoLOG) 100 UNIT/ML VIAL SQ SCH (21:13)
[2020-07-29] MEDS: carvediloL 3.125 MG TAB PO SCH (21:13)
[2020-07-29] MEDS ORDERED: PRAMIPEXOLE 1 MG TAB PO SCH (23:30)
[2020-07-29] MEDS ORDERED: ARIPiprazole 2 MG TAB PO SCH (23:45)
[2020-07-29] MEDS: HEPARIN SODIUM,PORCINE 5,000 UNIT/ML 1 ML VIAL SQ SCH (23:46)
[2020-07-29] MEDS: NITROGLYCERIN OINT 1 INCH/GM PACKET TOPICAL SCH (23:49)
[2020-07-30] MEDS ORDERED: ARIPiprazole 5 MG TAB PO STA (00:06)
[2020-07-30] MEDS: HEPARIN SODIUM,PORCINE 5,000 UNIT/ML 1 ML VIAL SQ SCH ×3 (00:09→08:57)
[2020-07-30] MEDS ORDERED: ACETAMINOPHEN TAB 325 MG TAB PO PRN (03:05)
[2020-07-30] MEDS: NITROGLYCERIN OINT 1 INCH/GM PACKET TOPICAL SCH (05:43)
[2020-07-30] MEDS ORDERED: LEVOTHYROXINE 137 MCG TAB PO SCH (06:30)
[2020-07-30 07:39] LABS: Glucose,Whole Blood 165 mg/dL (75-99)
[2020-07-30 07:54] VITALS: BP 170/66; PULSE 62; RESP 16; TEMP 97.7
[2020-07-30] MEDS ORDERED: ASPIRIN 325 MG TAB PO SCH (09:00)
[2020-07-30] MEDS ORDERED: FUROSEMIDE 80 MG TAB PO SCH (09:00)
[2020-07-30] MEDS ORDERED: valACYclovir 500 MG TAB PO SCH (09:00)
[2020-07-30] MEDS ORDERED: LOSARTAN 50 MG TAB PO SCH (09:00)
[2020-07-30] MEDS ORDERED: ESCITALOPRAM 20 MG TAB PO SCH (09:00)
[2020-07-30] MEDS ORDERED: ASPIRIN 81 MG PO SCH (09:00)
[2020-07-30] MEDS ORDERED: allopurinoL 100 MG TAB PO SCH (09:00)
[2020-07-30] MEDS: INSULIN ASPART (NovoLOG) 100 UNIT/ML VIAL SQ SCH ×2 (09:01→13:01)
[2020-07-30] MEDS ORDERED: CAFFEINE CITRATE 60 MG/3 ML VIAL IV PRN (09:03)
[2020-07-30] MEDS ORDERED: AMINOPHYLLINE 500 MG/20 ML VIAL IV PRN (09:03)
[2020-07-30] MEDS ORDERED: REGADENOSON 0.4 MG/5 ML SYRINGE IV PRN (09:03)
[2020-07-30 09:41] LABS: African American GFR (CKD) 33.2 (60.0-200.0); Anion Gap 8.7 mmol/L (4.00-12.00); BUN/Creat Ratio 26.67 Ratio (12.00-20.00); Calcium 9.4 mg/dL (8.7-10.3); Carbon Dioxide 29.3 mmol/L (21.6-31.8); LDL Cholesterol,Calculated 101.2 mg/dL (0.0-131.0); Non-African American GFR(CKD) 28.6 (60.0-200.0); Potassium 4.2 mmol/L (3.5-5.5); VLDL Calculation 16.8 mg/dL (5.00-40.00)
--- NOTE | 2020-07-30 09:58 | P.CRDCN ---
History of Present Illness Consult date: 07/30/20 History of present illness: HISTORY OF PRESENT ILLNESS: This is a 65-year-old female with a past medical history significant for diabetes mellitus, hypertension, hyperlipidemia, congestive heart failure, and chronic kidney disease. Patient follows in the office with Dr. Blanca. We have been asked to see the patient in consultation for chest pain. Patient examined at the bedside. Patient states she has been experiencing intermittent dizziness for the last 2 months. She states she has been evaluated for this on an outpatient basis by her primary care physician and also her dean. She was at her primary care physician's office yesterday when she had an episode of lightheadedness. She states when she has this episode she also had some left sided chest pain. She describes this as a pressure that lasted for about 10 seconds. She states when she has these episodes of dizziness she usually does not have chest pain with it. However over the past week she has had chest pain with her dizziness twice. EKG reveals sinus mechanism with no signs of acute ischemia. Chest xray mild vascular prominence, more evident on the right. Laboratory data: WBC 8.5, Hemoglobin 12.4, Platelet count 246, Sodium 142, Potassium 4.2, BUN 48, Creatinine 1.8, Troponin 3 Current home cardiac medications include Cozaar 100 mg daily, Lasix 80 mg daily, Coreg 3.125 mg twice a day, Lipitor 20 mg daily, aspirin 162 mg daily. Most recent echocardiogram obtained in May 2019 reveals ejection fraction 55-60%. Patient underwent Lexiscan stress test in July 2018 which did not reveal evidence of stress-induced ischemia REVIEW OF SYSTEMS: At the time of my exam: CONSTITUTIONAL: Denies fever or chills. HEENT: Denies blurred vision, vision changes, or eye pain. Denies hemoptysis CARDIOVASCULAR: Denies chest pain. Denies orthopnea. Denies PND. Denies palpitations RESPIRATORY: Denies shortness of breath. GASTROINTESTINAL: Denies abdominal pain. Denies nausea or vomiting. HEMATOLOGIC: Denies bleeding disorders. GENITOURINARY: Denies any blood in urine. SKIN: Denies pruitis. Denies rash. PHYSICAL EXAM: VITAL SIGNS: Reviewed. GENERAL: Well-developed in no acute distress. HEENT: Head is normocephalic. Pupils are equal, round. Sclerae anicteric. Mucous membranes of the mouth are moist. Neck supple. No JVD or thyromegaly LUNGS: Respirations even and unlabored. Lungs essentially clear to auscultation bilaterally. HEART: Regular rate and rhythm. S1 and S2 heard. ABDOMEN: Soft. Nondistended. Nontender. EXTREMITIES: Normal range of motion. No clubbing or cyanosis. Peripheral pu lses intact. Trace bilateral extremity edema NEUROLOGIC: Awake and alert. Oriented x 3. ASSESSMENT: Chest pain Dizziness 2 months Hypertension Hyperlipidemia Diabetes mellitus Chronic diastolic congestive heart failure, currently euvolemic Chronic kidney disease Morbid obesity: BMI 51.3 PLAN: An acute coronary event has been ruled out Resume home cardiac medications Obtain 2-D echo to assess cardiac structure and function Patient to undergo Lexiscan stress test today to assess for stress-induced ischemia Further recommendations pending patient's course Nurse practitioner note has been reviewed by physician. Signing provider agrees with the documented findings, assessment, and plan of care. Past Medical History Past Medical History: Coronary Artery Disease (CAD), Heart Failure, Diabetes Mellitus, GERD/Reflux, Renal Disease, Thyroid Disorder Additional Past Medical History / Comment(s): Stage 3 kidney disease, CHF, recently fell and hit head went to ER and got checked out, everything ok. History of Any Multi-Drug Resistant Organisms: MRSA Date of last positivie culture/infection: approx 1996 or 1997 MDRO Source:: stomach area Past Surgical History: Cardiac Ablation, Cholecystectomy, Joint Replacement, Orthopedic Surgery Additional Past Surgical History / Comment(s): ORIF rt wrist-hardware later removed, mult procedures to betsy legs for wounds/cellulitis, betsy knee replacement, bunionectomy, carpal tunnel, Loop removal, pain clinic procedure. Past Anesthesia/Blood Transfusion Reactions: Previous Problems w/ Anesthesia Additional Past Anesthesia/Blood Transfusion Reaction / Comment(s): Nightmares during anesthesia, no complications with prior blood transfusion. Type of Cardiac Device: Loop Device Placement Date:: 2011 Past Psychological History: Anxiety, Bipolar, Depression Smoking Status: Never smoker Past Alcohol Use History: None Reported Past Drug Use History: None Reported - Past Family History Mother Family Medical History: No Reported History Father Family Medical History: No Reported History Sister(s) Family Medical History: No Reported History Additional Family Medical History / Comment(s): niece had non-hodgkin's lymphoma. Medications and Allergies Home Medications Medication Instructions Recorded Confirmed Type Atorvastatin Calcium [Lipitor] 20 mg PO HS 06/15/16 07/29/20 History Carvedilol [Coreg] 3.125 mg PO BID 06/15/16 07/29/20 History lamoTRIgine [LaMICtal] 200 mg PO DAILY 06/15/16 07/29/20 History Insulin Glargine [Lantus] 23 units SQ HS 06/21/17 07/29/20 History allopurinoL [Zyloprim] 200 mg PO DAILY 06/21/17 07/29/20 History glipiZIDE [Glucotrol] 10 mg PO AC-BID 06/21/17 07/29/20 History paricalcitoL [Paricalcitol] 2 mcg PO DAILY 06/21/17 07/29/20 History Ergocalciferol (Vitamin D2) 50,000 unit PO TH 08/22/17 07/29/20 History [Vitamin D2] Aspirin EC [Ecotrin Low Dose] 162 mg PO DAILY 07/09/18 07/29/20 History Escitalopram [Lexapro] 20 mg PO DAILY 04/03/19 07/29/20 History Furosemide [Lasix] 80 mg PO DAILY 04/03/19 07/29/20 History Pramipexole [Mirapex] 1 mg PO HS 04/03/19 07/29/20 History Albuterol Inhaler [Ventolin Hfa 2 puff INHALATION RT-Q4H PRN 04/06/20 07/29/20 History Inhaler] Levothyroxine Sodium [Synthroid] 137 mcg PO DAILY 04/06/20 07/29/20 History Losartan Potassium [Cozaar] 100 mg PO DAILY 04/06/20 07/29/20 History Ondansetron [Zofran ODT] 4 mg PO Q8HR PRN #10 tab 04/06/20 07/29/20 Rx Fluticasone Nasal [place] [Flonase 1 spray EA NOSTRIL DAILY PRN 07/29/20 07/29/20 History Nasal [place]] Loratadine [Claritin] 10 mg PO DAILY PRN 07/29/20 07/29/20 History Nitroglycerin 0.1MG/Hr Patch 1 patch TRANSDERM DAILY 07/29/20 07/29/20 History [Nitro-Dur 0.1MG/Hr Patch] Vitamin C/Biotin [Hair, Skin and 2 tab PO DAILY 07/29/20 07/29/20 History Nails] Allergies Allergy/AdvReac Type Severity Reaction Status Date / Time ibuprofen [From Motrin] Allergy Swelling Verified 07/29/20 17:00 lisinopril Allergy Rash/Hives, Verified 07/29/20 17:00 swelling verapamil [From [place]] Allergy Rash/Hives, Verified 07/29/20 17:00 swelling metformin AdvReac Nausea & Verified 07/29/20 17:00 Vomiting & Diarrhea Physical Exam Vitals: Vital Signs Temp Pulse Pulse Resp BP BP Pulse Ox 07/30/20 07:00 97.7 F 62 16 170/66 97 07/30/20 02:00 59 L 18 184/64 98 07/29/20 20:00 97.9 F 80 16 177/67 97 07/29/20 18:18 97.5 F L 79 16 163/68 99 07/29/20 17:32 97.7 F 80 16 177/67 97 07/29/20 17:18 90 18 167/80 100 07/29/20 15:14 99.3 F 81 18 187/84 96 Intake and Output 07/29/20 07/30/20 07/30/20 22:59 06:59 14:59 Other: Voiding Method Toilet Toilet # Voids 1 1 Weight 135.624 kg Results 07/29/20 15:44 07/30/20 06:03 Cardiac Enzymes 07/29/20 07/29/20 07/29/20 Range/Units 15:44 15:44 19:34 AST 33 (14-36) U/L Troponin I <0.012 <0.012 (0.000-0.034) ng/mL 07/29/20 Range/Units 21:42 AST (14-36) U/L Troponin I <0.012 (0.000-0.034) ng/mL Coagulation 07/29/20 Range/Units 15:44 PT 9.7 (9.0-12.0) sec APTT 20.7 L (22.0-30.0) sec Lipids 07/30/20 Range/Units 06:03 Triglycerides 84.0 (0.0-149.0) mg/dL Cholesterol 177 (0-200) mg/dL HDL Cholesterol 59.0 (40.0-60.0) mg/dL Cholesterol/HDL Ratio 3.00 CBC 07/29/20 Range/Units 15:44 WBC 8.5 (3.8-10.6) k/uL RBC 4.16 (3.80-5.40) m/uL Hgb 12.4 (11.4-16.0) gm/dL Hct 38.6 (34.0-46.0) % Plt Count 246 (150-450) k/uL Comprehensive Metabolic Panel 07/29/20 07/30/20 Range/Units 15:44 06:03 Sodium 138 142 (137-145) mmol/L Potassium 4.1 4.2 (3.5-5.1) mmol/L Chloride 101 104 (98-107) mmol/L Carbon Dioxide 26 29.3 (22-30) mmol/L BUN 56 H 48.0 H (7-17) mg/dL Creatinine 1.84 H 1.8 H (0.52-1.04) mg/dL Glucose 124 H 201 H (74-99) mg/dL Calcium 9.7 9.4 (8.4-10.2) mg/dL AST 33 (14-36) U/L ALT 29 (4-34) U/L Alkaline Phosphatase 117 (38-126) U/L Total Protein 6.7 (6.3-8.2) g/dL Albumin 4.1 (3.5-5.0) g/dL Current Medications Generic Name Dose Route Start Last Admin Trade Name Freq PRN Reason Stop Dose Admin Acetaminophen 650 mg 07/30/20 03:05 07/30/20 03:18 Acetaminophen Tab 325 Mg Tab PO 650 mg Q6HR PRN Administration Fever and/ or Pain Albuterol Sulfate 2.5 mg 07/29/20 20:36 Albuterol Nebulized 2.5 Mg/3 Ml INHALATION RT-Q4H PRN Shortness Of Breath Allopurinol 200 mg 07/30/20 09:00 07/30/20 08:53 Allopurinol 100 Mg Tab PO 200 mg DAILY YANELI Administration Aminophylline 100 mg 07/30/20 09:03 Aminophylline 500 Mg/20 Ml Vial IV 07/30/20 13:04 ONCE PRN Patient Response Aspirin 81 mg 07/30/20 09:00 07/30/20 08:53 Aspirin 81 Mg PO 81 mg DAILY YANELI Administration Atorvastatin Calcium 20 mg 07/29/20 21:00 07/29/20 21:13 Atorvastatin 20 Mg Tab PO 20 mg HS YANELI Administration Caffeine Citrate 60 mg 07/30/20 09:03 Caffeine Citrate 60 Mg/3 Ml Vial IV 07/30/20 13:04 ONCE PRN Patient Response Carvedilol 3.125 mg 07/29/20 21:00 07/29/20 21:13 Carvedilol 3.125 Mg Tab PO 3.125 mg AC-BID YANELI Administration Escitalopram Oxalate 20 mg 07/30/20 09:00 07/30/20 08:53 Escitalopram 20 Mg Tab PO 20 mg DAILY YANELI Administration Furosemide 80 mg 07/30/20 09:00 07/30/20 08:53 Furosemide 80 Mg Tab PO 80 mg DAILY YANELI Administration Heparin Sodium (Porcine) 5,000 unit 07/30/20 00:00 07/30/20 08:57 Heparin Sodium,Porcine 5,000 Unit/Ml 1 Ml Vial SQ Not Given Q8HR [facility] Insulin Aspart 0 unit 07/29/20 21:00 07/30/20 09:01 Insulin Aspart (Novolog) 100 Unit/Ml Vial SQ Not Given ACHS [facility] Protocol Insulin Detemir 20 unit 07/29/20 21:00 07/29/20 21:14 Insulin Detemir (Levemir) 100 Unit/Ml Syr SQ 20 unit HS YANELI Administration Levothyroxine Sodium 137 mcg 07/30/20 06:30 07/30/20 05:43 Levothyroxine 137 Mcg Tab PO 137 mcg DAILY@0630 YANELI Administration Losartan Potassium 100 mg 07/30/20 09:00 07/30/20 08:53 Losartan 50 Mg Tab PO 100 mg DAILY YANELI Administration Nitroglycerin 0.4 mg 07/29/20 16:44 Nitroglycerin Sl Tabs 0.4 Mg Tab SUBLINGUAL Q5M PRN Chest Pain Pramipexole Dihydrochloride 1 mg 07/29/20 23:30 07/29/20 23:46 Pramipexole 1 Mg Tab PO 1 mg HS YANELI Administration Regadenoson 0.4 mg 07/30/20 09:03 Regadenoson 0.4 Mg/5 Ml Syringe IV 07/30/20 13:04 ONCE PRN Per Protocol Valacyclovir HCl 500 mg 07/30/20 09:00 07/30/20 08:53 Valacyclovir 500 Mg Tab PO 08/01/20 21:01 500 mg BID YANELI Administration Intake and Output 07/29/20 07/30/20 07/30/20 22:59 06:59 14:59 Other: Voiding Method Toilet Toilet # Voids 1 1 Weight 135.624 kg 07/29/20 15:44 07/30/20 06:03
--- NOTE | 2020-07-30 10:02 | ECHOF ---
Referral Reason:near syncope, chest pain MEASUREMENTS -------- HEIGHT: 162.6 cm WEIGHT: 135.6 kg BP: 184/64 RVIDd: 3.1 cm (< 3.3) IVSd: 1.7 cm (0.6 - 1.1) LVIDd: 4.1 cm (3.9 - 5.3) LVPWd: 1.7 cm (0.6 - 1.1) IVSs: 2.3 cm LVIDs: 2.4 cm LVPWs: 1.8 cm LAESV Index (A-L): 53.15 ml/m Ao Diam: 3.3 cm (2.0 - 3.7) AV Cusp: 2.1 cm (1.5 - 2.6) MV EXCURSION: 17.332 mm (> 18.000) MV EF SLOPE: 41 mm/s (70 - 150) EPSS: 0.6 cm MV E Rolando: 1.40 m/s MV DecT: 181 ms MV A Rolando: 1.59 m/s MV E/A Ratio: 0.88 RAP: 5.00 mmHg RVSP: 33.46 mmHg FINDINGS -------- Sinus rhythm. This was a technically adequate study. The left ventricular size is normal. There is severe concentric left ventricular hypertrophy. Ove rall left ventricular systolic function is normal with, an EF between 55 - 60 %. The right ventricle is normal in size. LA is severely dilated >40 ml/m2 The right atrial size is normal. Interatrial and interventricular septum intact. There is no evidence of aortic regurgitation. There is no evidence of aortic stenosis. Moderate mitral annular calcification present. Mild mitral regurgitation is present. Mild tricuspid regurgitation present. There is mild pulmonary hypertension. The right ventricular systolic pressure, as measured by Doppler, is 33.46mmHg. There is no pulmonic regurgitation present. The aortic root size is normal. Normal inferior vena cava with normal inspiratory collapse consistent with estimated right atrial pre ssure of 5 mmHg. There is no pericardial effusion. CONCLUSIONS -------- 1. The left ventricular size is normal. 2. There is severe concentric left ventricular hypertrophy. 3. Overall left ventricular systolic function is normal with, an EF between 55 - 60 %. 4. LA is severely dilated >40 ml/m2 5. Moderate mitral annular calcification present. 6. Mild mitral regurgitation is present. 7. Mild tricuspid regurgitation present. 8. There is mild pulmonary hypertension. 9. The right ventricular systolic pressure, as measured by Doppler, is 33.46mmHg. 10. Normal inferior vena cava with normal inspiratory collapse consistent with estimated right atrial pressure of 5 mmHg. PERSONAL COMPUTER SPECIALIST: Amarilis Liang RDCS
[2020-07-30 12:12] LABS: Glucose,Whole Blood 160 mg/dL (75-99)
--- NOTE | 2020-07-30 12:55 | NM ---
EXAMINATION TYPE: NM stress lexiscan cardiolite DATE OF EXAM: 07/30/2020 COMPARISON: NONE HISTORY: 65-year-old female with chest pain TECHNIQUE: After the intravenous administration of 10.0 mCi Tc 99m Sestamibi - Cardiolite resting SP ECT images acquired 45 minutes post injection. The patient received 0.4mg Lexiscan, 24.2 mCi Tc 99m Sestamibi - Stress images obtained [address] injection FINDINGS: Review of stress and rest SPECT images demonstrates no distinct perfusion abnormality. Gated analysi s shows normal wall motion with an estimated left ventricular ejection fraction of 60 %. TID is calc ulated at 0.98, within normal limits. IMPRESSION: No scintigraphic evidence for reversible ischemia.
[2020-07-30] MEDS: carvediloL 3.125 MG TAB PO SCH (13:02)
--- NOTE | 2020-07-30 15:37 | EST ---
EXERCISE STRESS DATE OF SERVICE: 07/30/2020 AGE: 65 SEX: Female HT: 5'4" WT: 298 lbs. PROTOCOL: Lexiscan Cardiolite STAGE: N/A DURATION OF EXERCISE: N/A HEART RATE REST: 69 BLOOD PRESSURE REST: 150/76 MAXIMUM HEART RATE ACHIEVED: 77 MAXIMUM BLOOD PRESSURE: 169/69 85% MPHR: 153 100% MPHR: 130 METS: N/A INDICATIONS: Chest pain CLINICAL INFORMATION: STRESS DATA: Pre-testing physical examination showed a heart rate of 69, pressure is 150/76 mmHg. Baseline EKG showed sinus mechanism. A 0.4 mg of Lexiscan given over 15 seconds per protocol. Max heart rate was 77 beats per minute and maximum pressure was 169/69 mmHg. Clinically, the patient did not have any symptoms and the EKG did not show any significant ST or T-wave abnormalities concerning for ischemia. CONCLUSION: 1. Nondiagnostic electrocardiogram stress testing in response to Lexiscan. 2. Please follow up on the Cardiolite portion on a separate report from Radiology Department. MMODL / IJN: [id number] /
--- NOTE | 2020-07-30 15:47 | P.DS ---
Providers Date of admission: 07/29/20 16:45 Expected date of discharge: 07/30/20 Attending physician: Krys Orozco DO Consults: 07/29/20 16:45 Consult Physician Urgent Consulting Provider: [facility] Consult Reason/Comments: Chest pain Do you want consulting provider notified?: Yes Primary care physician: John Rodriguez Hospital Course: Discharge Diagnosis: Dizziness with exercise intolerance and chest pain Impacted left lower molar, suspect infection Diabetes mellitus type 2 Chronic kidney disease stage III Diastolic congestive heart failure Hypertension Hypothyroidism Dyslipidemia Hospital Course: Patient is a 65-year-old female with a history of type 2 diabetes mellitus, hypertension, dyslipidemia, and obesity who presented to the hospital her primary care physician's office secondary to a near syncopal episode. She's been having dizziness, decreased exercise tolerance the last 2 months. She then has developed some chest pain last 2 weeks. In the ER she underwent an extensive evaluation. She was slightly hypertensive with blood pressure 187/84 on arrival to the emergency department. Initial laboratory analysis was baseline her patient. Troponin was negative. EKG was nonischemic. Covert testing was negative. She was admitted for chest pain. She had no ab normalities on telemetry. Troponin remained negative. She underwent a nuclear stress test which showed no signs of reversible ischemia. She was noted to have a hemoglobin A1c of 9. She also complained of some tooth pain and it appears that she likely has a dental caries with infection. She already has a dental appointment in the process. She was given a prescription for 7 days of Augmentin. She'll follow up with Dr. Rodriguez for further evaluation of her dizziness and decreased exercise tolerance, possible need for ulnar function testing. She'll follow-up with Dr. Blanca on 08/13/20 possible need for outpatient Holter monitor. Patient seen and examined at bedside. Denies any chest pain, shortness breath, nausea, vomiting, or dizziness at this point in time. Reports some left-sided low jaw and neck pain associated with broken teeth. Has been trying to get into the dentist. Vital signs reviewed and stable. General: non toxic, no distress, appears at stated age, obese Derm: warm, dry Head: atraumatic, normocephalic, symmetric Left low jaw with some pain to palpation of the anterior nontoxic, no difficulty with tongue extrusion, no swelling around the base of the tooth. Patient reports repeated infections in the past. Eyes: EOMI, no lid lag, anicteric sclera Mouth: no lip lesion, mucus membranes moist Cardiovascular: S1S2 reg, no murmur, positive posterior tibial pulse bilateral, Lungs: CTA bilateral, no rhonchi, no rales , no accessory muscle use Abdominal: soft, nontender to palpation, no guarding, no appreciable organomegaly Ext: no gross muscle atrophy, no edema, no contractures Neuro: CN II-XI grossly intact, no focal neuro deficits Psych: Alert, oriented, appropriate affect A total of 25 minutes of time were spent preparing this complex discharge cadence sinclair . Patient Condition at Discharge: Stable Plan - Discharge Summary Discharge Rx Participant: No New Discharge Prescriptions: New Amoxic-Pot Clav 875-125Mg [Augmentin 875-125] 1 tab PO Q12HR 7 Days #14 tab Continue lamoTRIgine [LaMICtal] 200 mg PO DAILY Carvedilol [Coreg] 3.125 mg PO BID Atorvastatin Calcium [Lipitor] 20 mg PO HS glipiZIDE [Glucotrol] 10 mg PO AC-BID allopurinoL [Zyloprim] 200 mg PO DAILY paricalcitoL [Paricalcitol] 2 mcg PO DAILY Insulin Glargine [Lantus] 23 units SQ HS Ergocalciferol (Vitamin D2) [Vitamin D2] 50,000 unit PO TH Aspirin EC [Ecotrin Low Dose] 162 mg PO DAILY Pramipexole [Mirapex] 1 mg PO HS Escitalopram [Lexapro] 20 mg PO DAILY Furosemide [Lasix] 80 mg PO DAILY Albuterol Inhaler [Ventolin Hfa Inhaler] 2 puff INHALATION RT-Q4H PRN PRN Reason: Shortness Of Breath Levothyroxine Sodium [Synthroid] 137 mcg PO DAILY Losartan Potassium [Cozaar] 100 mg PO DAILY Ondansetron [Zofran ODT] 4 mg PO Q8HR PRN #10 tab PRN Reason: Nausea Nitroglycerin 0.1MG/Hr Patch [Nitro-Dur 0.1MG/Hr Patch] 1 patch TRANSDERM DAILY Vitamin C/Biotin [Hair, Skin and Nails] 2 tab PO DAILY Loratadine [Claritin] 10 mg PO DAILY PRN PRN Reason: Allergy Symptoms Fluticasone Nasal [place] [Flonase Nasal [place]] 1 spray EA NOSTRIL DAILY PRN PRN Reason: Allergy Symptoms Discharge Medication List Atorvastatin Calcium [Lipitor] 20 mg PO HS 06/15/16 [History] Carvedilol [Coreg] 3.125 mg PO BID 06/15/16 [History] lamoTRIgine [LaMICtal] 200 mg PO DAILY 06/15/16 [History] Insulin Glargine [Lantus] 23 units SQ HS 06/21/17 [History] allopurinoL [Zyloprim] 200 mg PO DAILY 06/21/17 [History] glipiZIDE [Glucotrol] 10 mg PO AC-BID 06/21/17 [History] paricalcitoL [Paricalcitol] 2 mcg PO DAILY 06/21/17 [History] Ergocalciferol (Vitamin D2) [Vitamin D2] 50,000 unit PO TH 08/22/17 [History] Aspirin EC [Ecotrin Low Dose] 162 mg PO DAILY 07/09/18 [History] Escitalopram [Lexapro] 20 mg PO DAILY 04/03/19 [History] Furosemide [Lasix] 80 mg PO DAILY 04/03/19 [History] Pramipexole [Mirapex] 1 mg PO HS 04/03/19 [History] Albuterol Inhaler [Ventolin Hfa Inhaler] 2 puff INHALATION RT-Q4H PRN 04/06/20 [History] Levothyroxine Sodium [Synthroid] 137 mcg PO DAILY 04/06/20 [History] Losartan Potassium [Cozaar] 100 mg PO DAILY 04/06/20 [History] Ondansetron [Zofran ODT] 4 mg PO Q8HR PRN #10 tab 04/06/20 [Rx] Fluticasone Nasal [place] [Flonase Nasal [place]] 1 spray EA NOSTRIL DAILY PRN 07/29/20 [History] Loratadine [Claritin] 10 mg PO DAILY PRN 07/29/20 [History] Nitroglycerin 0.1MG/Hr Patch [Nitro-Dur 0.1MG/Hr Patch] 1 patch TRANSDERM DAILY 07/29/20 [History] Vitamin C/Biotin [Hair, Skin and Nails] 2 tab PO DAILY 07/29/20 [History] Amoxic-Pot Clav 875-125Mg [Augmentin 875-125] 1 tab PO Q12HR 7 Days #14 tab 07/30/20 [Rx] Follow up Appointment(s)/Referral(s): John Rodriguez [Primary Care Provider] - 1-2 days Patient Instructions/Handouts: Chest Pain (DC) Activity/Diet/Wound Care/Special Instructions: Activity: as tolerated Diet: heart healthy Discharge Disposition: HOME SELF-CARE
== END 2020-07-30 15:40 | disposition home or self-care (01) ==
LOC: EC 15:11 → 6NMEDSUR 16:45
PROVIDERS: ADMIT Internal Medicine; ATTEND Internal Medicine
DX: R07.9 Chest pain, unspecified (principal); R42 Dizziness and giddiness; E11.22 Type 2 diabetes mellitus with diabetic chronic kidney disease; N18.30 Chronic kidney disease, stage 3 unspecified; I50.32 Chronic diastolic (congestive) heart failure; I13.0 Hypertensive heart and chronic kidney disease with heart failure and stage 1 through stage 4 chronic kidney disease, or unspecified chronic kidney disease; E03.9 Hypothyroidism, unspecified; E78.5 Hyperlipidemia, unspecified; E66.01 Morbid (severe) obesity due to excess calories; F41.9 Anxiety disorder, unspecified; Z79.4 Long term (current) use of insulin; F31.9 Bipolar disorder, unspecified; I25.10 Atherosclerotic heart disease of native coronary artery without angina pectoris; K02.9 Dental caries, unspecified; Z68.43 Body mass index [BMI] 50.0-59.9, adult; Z79.899 Other long term (current) drug therapy; Z86.14 Personal history of Methicillin resistant Staphylococcus aureus infection; Z79.890 Hormone replacement therapy; Z79.82 Long term (current) use of aspirin; Z96.653 Presence of artificial knee joint, bilateral; Z20.822 Contact with and (suspected) exposure to COVID-19
CPT/HCPCS: 93005 ×2; 99285; 36415; 93017; 93306; 80061; 80053; 80048; 83735 ×2; 84484; 85025; 85610; 85730; 83036; 87635; 71046; 78452; G0378 ×2; A9500; J2785

== ENCOUNTER → 2020-09-01 | Outpatient (CLI) | payer MEDICARE, OTHER ==
--- NOTE | 2020-09-01 14:23 | US ---
EXAMINATION TYPE: US kidneys/renal and bladder DATE OF EXAM: 09/01/2020 COMPARISON: NONE CLINICAL HISTORY: N18.4 Chronic kidney disease stage 4. EXAM MEASUREMENTS: Right Kidney: 10.2 x 4.1 x 4.4 cm Left Kidney: 10.8 x 4.7 x 4.3 cm Large body habitus. Right Kidney: cortical thinning, probable cyst measuring 1.2 x 1.0 x 1.1cm Left Kidney: cortical thinning Bladder: wnl IMPRESSION: 1. Cortical right renal cyst
== END | disposition home or self-care (01) ==
LOC: RADUSWWP 12:27
PROVIDERS: ATTEND Internal Medicine Nephrology
DX: N28.1 Cyst of kidney, acquired (principal); N18.4 Chronic kidney disease, stage 4 (severe)
CPT/HCPCS: 76770

== ENCOUNTER → 2020-09-22 | Outpatient (CLI) | payer MEDICARE, OTHER ==
--- NOTE | 2020-09-22 13:33 | XR ---
EXAMINATION TYPE: XR thoracic spine 2V DATE OF EXAM: 09/22/2020 CLINICAL HISTORY: pain TECHNIQUE: Frontal, lateral, and swimmer's view of thoracic spine are obtained. COMPARISON: None. FINDINGS: Thoracic spine show satisfactory alignment without evidence of acute fracture or dislocatio n. Vertebral body heights are preserved. Moderate to severe multilevel degenerative disc space narro wing. Visualized ribs are unremarkable. IMPRESSION: No acute fracture or dislocation is seen in the thoracic spine. ICD 10 NO FRACTURE, INIT IAL EVALUATION
--- NOTE | 2020-09-22 13:35 | XR ---
EXAMINATION TYPE: XR lumbar spine 2 or 3V DATE OF EXAM: 09/22/2020 CLINICAL HISTORY: pain TECHNIQUE: Three views of the lumbar spine are submitted. COMPARISON: None. FINDINGS: There are 5 lumbar type vertebral bodies identified. The lumbar spine shows satisfactory alignment w ithout evidence of acute fracture or dislocation. Vertebral body heights are within normal limits. Severe degenerative disc space narrowing and spondylosis greatest at L5-S1. Severe facet joint arthro teagan. Ventral spondylosis. The overlying soft tissue appears unremarkable. IMPRESSION: No acute fracture or dislocation is seen in the lumbar spine. ICD 10 NO FRACTURE, INITIAL EVALUATION
[2020-09-22 18:31] LABS: Basophils # (A) 0.04 X 10*3/uL (0.00-0.10); Basophils % (A) 0.5 %; Eosinophils # (A) 0.21 X 10*3/uL (0.04-0.35); Eosinophils % (A) 2.8 %; HCT 40.8 % (37.2-46.3); HGB 12.6 g/dL (12.0-15.0); Lymphocytes # (A) 2.08 X 10*3/uL (0.90-5.00); Lymphocytes % (A) 28.2 %; MCH 30.1 pg (27.0-32.0); MCHC 30.9 g/dL (32.0-37.0); MCV 97.6 fL (80.0-97.0); Mean Platelet Volume 10.8 fL (9.5-12.2); Monocytes # (A) 0.44 X 10*3/uL (0.20-1.00); Neutrophils # (A) 4.56 X 10*3/uL (1.80-7.70); Platelet Count 227 X 10*3/uL (140-440); RBC 4.18 X 10*6/uL (4.10-5.20); RDW 13.1 % (11.5-14.5); WBC 7.37 X 10*3/uL (4.50-10.00)
== END | disposition home or self-care (01) ==
LOC: LABWHC1 11:32
PROVIDERS: ATTEND Family Medicine
DX: M25.552 Pain in left hip (principal); M54.2 Cervicalgia; M54.9 Dorsalgia, unspecified; R53.83 Other fatigue; R68.89 Other general symptoms and signs; W19.XXXA Unspecified fall, initial encounter
CPT/HCPCS: 36415; 72070; 72100; 84443; 85025

== ENCOUNTER → 2020-10-12 | Outpatient (CLI) | payer MEDICARE, OTHER ==
[2020-10-12 09:00] VITALS: BP 128/45; PULSE 64; RESP 18; TEMP 97.6
--- NOTE | 2020-10-12 09:15 | P.PAINPG ---
Subjective Progress Note Date: 10/12/20 This is a 65 years old female with a chronic history of severe low back pain,she was seen previously at [facility] pain clinic, in 2018 and we did lumbar epidural steroid injections x3 , she gets excellent pain relief and she did very well until a few months ago when she started having severe low back pain with radiation to the lower extremity, the pain is constant and increases with any activity interference with the quality of life, pain increased and even walking she uses a cane to ambulate, she feels some weakness in her lower extremity bilaterally, she had a recent fall 4 weeks ago, she denies any fever or night sweats Y she denies any change in the bowel movement or urination Objective - Vital Signs Vital signs: Vital Signs Temp 97.6 F 10/12/20 08:56 Pulse 64 10/12/20 08:56 Resp 18 10/12/20 08:56 BP 128/45 10/12/20 08:56 Pulse Ox 96 10/12/20 08:56 - Exam Physical Examinations : -Constitutiona : Cooperative , not in acute distress . -HEENT : nech : supple , no Lymphadenopathy , normal thyroid size . : eyes : no ptosis , no icterus, no kings tophobia . - neurologic : Cranial nerve II to XII intact , no focal neurological deffecit . -psychatric : alert , oriented X 3 , appropriate affect , intact judgment and insight . -Lymphatic : no Lymphadenopathy . - musculoskeltal : Lumber spine moter stegnth lower extremities ,thigh and legs 5/5 Right side , 5/5 Left side deep tendon reflexes : normal Knee Jerk , normal ankle Jerk lumber facet Loading Test =positive Right , positive Left Range of motion of the lumbar spine Flexion 30 degrees, extension 10 degrees strait leg raising test = positive at 30degree Fabere test= positive Right , and positive LT . Sever tenderness over the Sacroiliac joint on the Right , and Left sides Gaenslen test= positive right ,and positive left . Seated flexion test= positive right ,and positive Left . Distraction test= positive bilaterally MRI of the lumbar spine= multilevel lumbar degenerative disc disease, lumbar facet arthropathy Assessment and Plan Plan: Assessment and plan=1-lumbar degenerative disc disease. 2-lumbar spondylosis with lumbar facet arthropathy. 3-bilateral sacroiliitis. She'll benefit from lumbar epidural steroid injection at L5-S1 Time with Patient: Greater than 30 PQRS Measure Charge Sheet Measure #130: Documentation of Current Meds in Medical Chart: Patient's medications documented in chart Measure #226: Tobacco Use: Screen & Cessation Intervention: Pt not a tobacco user Measure #111: Pneumonia Vaccination: Pneumococcal vaccine administered or previously received Measure #47: Advance Care Plan: Advance care planning discussed & documented, pt chose/unable to give Measure #412: Opioid Treatment Agreement: No documentation of signed opioid treatment agreement Measure #408: Opioid Therapy Follow-up Evaluation: Patient had NO f/u eval minimum every 3 months during opioid therapy Measure #317: Preventitive Care & Scrn High Bld Press & F/U: Normal blood pressure, f/u not required Measure #128: Body Mass Index (BMI) Screening & Follow-up: BMI documented ABOVE normal parameters - f/u documented Measure #131: Pain Assessment & Follow-up: Pain positive & plan documented, Follow-up scheduled Measure #431: Unhealthy Alcohol Use Preventative Care & Scrn: Patient not identified as an unhealthy alcohol user PQRS Narrative: Smoking Status Former smoker Blood Pressure 128/45 Pain Intensity [Lower Back] 5 Scale Used Numeric (1 - 10) Hx Alcohol Use (MH) No Home Medications: Ambulatory Orders Atorvastatin Calcium [Lipitor] 20 mg PO HS 06/15/16 lamoTRIgine [LaMICtal] 200 mg PO DAILY 06/15/16 Insulin Glargine [Lantus] 26 units SQ HS 06/21/17 allopurinoL [Zyloprim] 200 mg PO DAILY 06/21/17 glipiZIDE [Glucotrol] 10 mg PO AC-BID 06/21/17 paricalcitoL [Paricalcitol] 2 mcg PO DAILY 06/21/17 Aspirin EC [Ecotrin Low Dose] 162 mg PO DAILY 07/09/18 Escitalopram [Lexapro] 20 mg PO DAILY 04/03/19 Furosemide [Lasix] 80 mg PO DAILY 04/03/19 Levothyroxine Sodium [Synthroid] 137 mcg PO DAILY 04/06/20 Losartan Potassium [Cozaar] 100 mg PO DAILY 04/06/20 Fluticasone Nasal [place] [Flonase Nasal [place]] 1 spray EA NOSTRIL DAILY PRN 07/29/20 ARIPiprazole [Abilify] 4 mg PO HS 09/30/20 Pramipexole [Mirapex] 1 mg PO HS 09/30/20 Albuterol Inhaler [Ventolin Hfa Inhaler] 1 puff INHALATION DIRECTED PRN 10/06/20 Carvedilol [Coreg] 6.25 mg PO BID 10/06/20 Dulera (Unknown Dose) 2 puff PO BID 10/06/20 Controlled Substance Measures - Controlled Substance Measures Is patient prescribed a controlled substance at discharge?: No
== END ==
LOC: PNWHC3 08:38
PROVIDERS: ATTEND Specialist
DX: M51.36 Other intervertebral disc degeneration, lumbar region (principal); M47.816 Spondylosis without myelopathy or radiculopathy, lumbar region; M46.1 Sacroiliitis, not elsewhere classified; E66.9 Obesity, unspecified; Z68.43 Body mass index [BMI] 50.0-59.9, adult; Z87.891 Personal history of nicotine dependence; Z88.8 Allergy status to other drugs, medicaments and biological substances
CPT/HCPCS: 99211

== ENCOUNTER 2020-10-21 15:13 | Emergency (ER) | payer MEDICARE, OTHER ==
[2020-10-21 15:20] VITALS: BP 144/77; PULSE 58; RESP 18; TEMP 97.7
--- NOTE | 2020-10-21 16:07 | ED ---
General Adult HPI - General Chief complaint: Abdominal Pain Stated complaint: Bowel Incontinence Time Seen by Provider: 10/21/20 15:39 Source: patient, RN notes reviewed Mode of arrival: ambulatory Limitations: no limitations - History of Present Illness Initial comments: 65-year-old female with a past medical history of asthma, CAD, heart failure this, renal disease presents to the emergency room for a chief complaint of bladder and bowel incontinence. She was seen by her primary care provider today and sent to the emergency room. Patient reports she has had bladder or bowel incontinence for over a year now. She reports that over the past week she has had a few more episodes than normal of the bowel incontinence. States it has been like it diarrhea in nature. Patient denies any weakness of the legs. Denies any increase in back pain. Denies any fevers or chills. Denies pain radiating to the legs. She denies any saddle anesthesia. Patient states she was sent here for MRI.Patient has no other complaints at this time including shortness of breath, chest pain, abdominal pain, nausea or vomiting, headache, or visual changes. - Related Data Home Medications Medication Instructions Recorded Confirmed Atorvastatin Calcium [Lipitor] 20 mg PO HS 06/15/16 10/06/20 lamoTRIgine [LaMICtal] 200 mg PO DAILY 06/15/16 10/06/20 Insulin Glargine [Lantus] 26 units SQ HS 06/21/17 10/06/20 allopurinoL [Zyloprim] 200 mg PO DAILY 06/21/17 10/06/20 glipiZIDE [Glucotrol] 10 mg PO AC-BID 06/21/17 10/06/20 paricalcitoL [Paricalcitol] 2 mcg PO DAILY 06/21/17 10/06/20 Aspirin EC [Ecotrin Low Dose] 162 mg PO DAILY 07/09/18 10/06/20 Escitalopram [Lexapro] 20 mg PO DAILY 04/03/19 10/06/20 Furosemide [Lasix] 80 mg PO DAILY 04/03/19 10/06/20 Levothyroxine Sodium [Synthroid] 137 mcg PO DAILY 04/06/20 10/06/20 Losartan Potassium [Cozaar] 100 mg PO DAILY 04/06/20 10/06/20 Fluticasone Nasal [place] [Flonase 1 spray EA NOSTRIL DAILY PRN 07/29/20 10/06/20 Nasal [place]] ARIPiprazole [Abilify] 4 mg PO HS 09/30/20 10/06/20 Pramipexole [Mirapex] 1 mg PO HS 09/30/20 10/06/20 Albuterol Inhaler [Ventolin Hfa 1 puff INHALATION DIRECTED PRN 10/06/20 10/06/20 Inhaler] Carvedilol [Coreg] 6.25 mg PO BID 10/06/20 10/06/20 Dulera (Unknown Dose) 2 puff PO BID 10/06/20 10/06/20 Allergies Allergy/AdvReac Type Severity Reaction Status Date / Time ibuprofen [From Motrin] Allergy Swelling Verified 10/21/20 15:15 lisinopril Allergy Rash/Hives, Verified 10/21/20 15:15 swelling verapamil [From Calan] Allergy Rash/Hives, Verified 10/21/20 15:15 swelling metformin AdvReac Nausea & Verified 10/21/20 15:15 Vomiting & Diarrhea Review of Systems ROS Statement: Those systems with pertinent positive or pertinent negative responses have been documented in the HPI. ROS Other: All systems not noted in ROS Statement are negative. Past Medical History Past Medical History: Asthma, Coronary Artery Disease (CAD), Heart Failure, Diabetes Mellitus, GERD/Reflux, Renal Disease, Thyroid Disorder Additional Past Medical History / Comment(s): Stage 3 kidney disease, CHF, recently fell and hit head went to ER and got checked out, everything ok. History of Any Multi-Drug Resistant Organisms: MRSA Date of last positivie culture/infection: approx 1996 or 1997 MDRO Source:: stomach area Past Surgical History: Cardiac Ablation, Cholecystectomy, Joint Replacement, Orthopedic Surgery Additional Past Surgical History / Comment(s): ORIF rt wrist-hardware later removed, mult procedures to betsy legs for wounds/cellulitis, betsy knee replacement, bunionectomy, carpal tunnel, Loop removal, pain clinic procedure. Past Anesthesia/Blood Transfusion Reactions: Previous Problems w/ Anesthesia Additional Past Anesthesia/Blood Transfusion Reaction / Comment(s): Nightmares during anesthesia, no complications with prior blood transfusion. Type of Cardiac Device: Loop Device Placement Date:: 2011 Past Psychological History: Anxiety, Bipolar, Depression Smoking Status: Former smoker Past Alcohol Use History: None Reported Past Drug Use History: None Reported - Past Family History Mother Family Medical History: No Reported History Father Family Medical History: No Reported History Sister(s) Family Medical History: No Reported History Additional Family Medical History / Comment(s): Niece had non-hodgkin's lymphoma. General Exam Limitations: no limitations General appearance: alert Head exam: Present: atraumatic, normocephalic, normal inspection Eye exam: Present: normal appearance, PERRL, EOMI. Absent: scleral icterus, conjunctival injection, periorbital swelling ENT exam: Present: normal exam, mucous membranes moist Neck exam: Present: normal inspection, full ROM. Absent: tenderness, meningismus, lymphadenopathy Respiratory exam: Present: normal lung sounds bilaterally. Absent: respiratory distress, wheezes, rales, rhonchi, stridor Cardiovascular Exam: Present: regular rate, normal rhythm, normal heart sounds GI/Abdominal exam: Present: soft, normal bowel sounds. Absent: distended, tenderness Rectal exam: Present: normal inspection, normal rectal tone External exam: Present: other (No numbness or loss of sensation of the saddle region) Extremities exam: Present: normal capillary refill (Capillary refill less than 2 seconds, DP pulses 2+ bilateral lower extremities), other (strength 5 out of 5 bilateral lower extremities. Sensation intact.) Neurological exam: Present: normal gait ( and delivery without difficulty) Course Vital Signs 10/21/20 15:15 Temperature 97.7 F Pulse Rate 58 L Respiratory 18 Rate Blood Pressure 144/77 O2 Sat by Pulse 97 Oximetry Medical Decision Making - Medical Decision Making Vitals are stable. Patient is well appearing. Patient presents for bladder and bowel incontinence that has been ongoing for more than one year. Patient has history of chronic back pain since she was 12 and currently sees pain management for this. Today in the ER I did a rectal tone myself, patient does have good intact rectal tone. She has no neurovascular deficits in the lower extremities. Strength 5 out of 5 bilateral lower extremities. Post void bladder scan is 10 mL. Patient was able to urinate in the emergency room without difficulty and did not retain urine. I did attempt to obtain an MRI however there were no openings today. Therefore a CAT scan was ordered. CT lumbar spine shows spondylitic changes in the lower lumbar spine with mild spinal stenosis. She also has a depression of the superior endplate of L4 noted, uncertain age. I did speak with Dr. Portillo about this patient. At this time we are in agreement that symptoms do not seem to be consistent with requiring emergent surgical care as symptoms have been ongoing for over one year. He is agreeable to following up in the office with her. Patient is agreeable to this and prefers to follow up outpatient. Patient was informed of any worsening symptoms that would require her to come to the emergency room. Disposition Clinical Impression: Chronic back pain, Bowel incontinence Disposition: HOME SELF-CARE Condition: Good Instructions (If sedation given, give patient instructions): Lower Back Exercises (ED) Additional Instructions: Please follow up with orthopedics as soon as possible. Call tomorrow for earliest appointment. Return to the emergency room for any worsening symptoms such as worsening bladder or bowel changes, weakness of the legs, numbness in the groin or buttock, or fevers. Is patient prescribed a controlled substance at d/c from ED?: No Referrals: John Rodriguez [Primary Care Provider] - 1-2 days Flory Portillo DO [Doctor of Osteopathic Medicine] - 1-2 days Time of Disposition: 18:17
--- NOTE | 2020-10-21 17:40 | CT ---
EXAMINATION TYPE: CT lumbar spine wo con DATE OF EXAM: 10/21/2020 COMPARISON: None HISTORY: low back pain CT DLP: 1898.4 mGycm Automated exposure control for dose reduction was used. Images obtained from the level of T12-S3 vertebra with no contrast. Lumbar vertebra have normal alignment. There is vacuum disc with disc space narrowing at L4-5 and L5- S1. There is no compression fracture. There is some osteopenia. Posterior elements are intact. There is some hypertrophic facet arthropathy in the lower lumbar spine. There is no lumbar paraspinal mass. There is moderate spinal stenosis at L4-5 due to facet arthropathy and posterior disc bulging. The sacroiliac joints are intact. There is Schmorl node with slight depression of the superior endplate of L4 vertebral body. IMPRESSION: Spondylotic changes in the lower lumbar spine. L4-5 mild spinal stenosis. Depression of the superior endplate of L4 noted. Uncertain age.
== END 2020-10-21 18:44 | disposition home or self-care (01) ==
LOC: EC 15:13
DX: R15.9 Full incontinence of feces (principal); M48.061 Spinal stenosis, lumbar region without neurogenic claudication; M47.816 Spondylosis without myelopathy or radiculopathy, lumbar region; M85.80 Other specified disorders of bone density and structure, unspecified site; E11.22 Type 2 diabetes mellitus with diabetic chronic kidney disease; I50.9 Heart failure, unspecified; N18.30 Chronic kidney disease, stage 3 unspecified; J45.909 Unspecified asthma, uncomplicated; K21.9 Gastro-esophageal reflux disease without esophagitis; F31.9 Bipolar disorder, unspecified; F41.9 Anxiety disorder, unspecified; I25.10 Atherosclerotic heart disease of native coronary artery without angina pectoris; Z79.51 Long term (current) use of inhaled steroids; Z79.82 Long term (current) use of aspirin; Z87.891 Personal history of nicotine dependence; Z88.6 Allergy status to analgesic agent; Z88.8 Allergy status to other drugs, medicaments and biological substances; Z96.653 Presence of artificial knee joint, bilateral
CPT/HCPCS: 72131

== ENCOUNTER 2020-10-29 06:10 | Day surgery (SDC) | payer MEDICARE, OTHER ==
[2020-10-28 12:50] VITALS: BMI 53.1
[~2020-10-29 06:10] MED LIST changes: -DEXAMETHASONE SOD PHOSPHATE 10 MG/ML 1 ML VIAL IV ONE; -HYDROmorphone 0.5 MG/0.5 ML SYRINGE IVP PRN; -MIDAZOLAM 2 MG/2 ML VIAL IV PRN; -ONDANSETRON 4 MG/2 ML VIAL IVP ONE; -ceFAZolin 3 GM in SODIUM CHLORIDE 0.9% 100 ML IVPB ONE
[2020-10-29] MEDS ORDERED: LIDOCAINE 1% (10MG/ML) FOR IV START INTRADERMA ONE (06:48)
[2020-10-29 06:49] VITALS: TEMP 97.7
[2020-10-29 06:50] LABS: Glucose,Whole Blood 121 mg/dL (75-99)
[2020-10-29] MEDS ORDERED: MIDAZOLAM 2 MG/2 ML VIAL ONE (07:00)
[2020-10-29] MEDS ORDERED: IOPAMIDOL M200 10 ML VIAL ONE (07:00)
[2020-10-29] MEDS ORDERED: methylPREDNISolone ACETATE 40 MG/ML 1 ML VIAL ONE (07:00)
[2020-10-29] MEDS ORDERED: fentaNYL (PF) 50 MCG/ML 2 ML AMP ONE (07:00)
[2020-10-29] MEDS ORDERED: IV FLUID CONTINUATION 1,000 ML IV ONE (07:19)
[2020-10-29 07:33] VITALS: BP 114/77; PULSE 57; RESP 16
--- NOTE | 2020-10-29 08:32 | FL ---
Fluoroscopy INDICATION: Pain FINDINGS: Fluoroscopy time: 2 seconds. Images obtained: 2. IMPRESSIONS: 1. Documentation of fluoroscopy.
--- NOTE | 2020-11-02 09:47 | P.PCN ---
Date of Procedure: 10/29/20 Procedure(s) Performed: PREOPERATIVE DIAGNOSIS: 1- Lumbar Degenerative Disc Diseases 2-Lumbar spondylosis with Facet arthropathy without myelopathy.. POSTOPERATIVE DIAGNOSIS: Same as preop diagnosis. PROCEDURE 1. Lumbar epidural steroid injection under fluoroscopic guidance at the L5-S1 level. 2. Lumbar epidurogram. ANESTHESIA: Local with 1% lidocaine 3 ml and , moderate sedation with intravenous Versed 2 mg ,and fentanyle 50 Mcg EBL: Minimal PROCEDURE INDICATION: The patient with low back pain and radiculitis symptoms unresponsive to conservative treatment. Fluoroscopy was used to optimize visualization of the needle placement and to maximize safety. PROCEDURE DESCRIPTION / TECHNIQUE: The patient was seen and identified in the preoperative area. Risks, benefits, complications including but not limited to infections ,bleeding ,allergic reaction to the medications ,nerve damage and not complete pain releife , and alternatives were discussed with the patient. The patient agreed to proceed with the procedure and signed the consent. IV was started, and vital signs were stable. Patient was taken to the OR and time out was completed. The patient was placed in the prone position on procedure table and a pillow was placed under the abdomen to reduce lumbar lordosis. The lumbosacral area was prepped and draped in the usual sterile fashion.ere closely monitored during the procedure. Conscious sedation was used during the procedure to decrease patients anxiety. Vital signs was monitered during the entire procedure. Using anterior-posterior fluoroscopy, the L5-S1 interlaminar space was identified and the skin over this site was marked and then infiltrated with 1% lidocaine subcutaneously. Subsequently, a 18 -gauge 6 inches long ,Tuohy epidural needle was inserted and advanced toward the epidural space using the ``Loss of resistance technique and guided by AP and lateral fluoroscopy. The correct needle position in the epidural space was verified with the injection of 2 mL of the water soluble contrast dye Isovue 200 contrast and observing an excellent epidurogram with the epidural spread of the dye, after negative aspiration for blood and CSF and in the absence of paresthesias. Again after negative aspiration, a 5 ml mixture containing 40 mg Depo-Medrol , and 2 ml of preservative free Normal Saline, and 2 ml of preservative free lidocaine 1% solution was injected and a washout of epidurogram was seen. Needle was withdrawn intact, skin was cleansed, and bandages were applied. COMPLICATIONS: None DISPOSITION / PLANS: The patient was placed in a supine position and transferred to the recovery area in a stable condition for observation. There was no evidence of lower extremity motor or sensory deficit after the procedure. Patient was discharged from the recovery room after meeting discharge criteria. Home discharge instructions were given to the patient by the staff. The patient was reexamined prior to discharge. The patient will schedule a follow up in the clinic in 2-4 weeks.
== END 2020-10-29 07:51 | disposition home or self-care (01) ==
LOC: ORPAIN 06:10
PROVIDERS: ATTEND Specialist
DX: M47.26 Other spondylosis with radiculopathy, lumbar region (principal); M51.16 Intervertebral disc disorders with radiculopathy, lumbar region; E11.9 Type 2 diabetes mellitus without complications; Z78.0 Asymptomatic menopausal state; Z88.6 Allergy status to analgesic agent; Z88.8 Allergy status to other drugs, medicaments and biological substances
CPT/HCPCS: 62323; J2250; J1030; J3010; Q9966

== ENCOUNTER 2020-11-12 06:13 | Day surgery (SDC) | payer MEDICARE, OTHER ==
[2020-11-11 10:50] VITALS: BMI 52.4
[2020-11-12 06:52] VITALS: TEMP 97.1
[2020-11-12 06:57] LABS: Glucose,Whole Blood 132 mg/dL (75-99)
[2020-11-12] MEDS ORDERED: LIDOCAINE 1% (10MG/ML) FOR IV START INTRADERMA ONE (07:00)
[2020-11-12] MEDS ORDERED: TRIAMCINOLONE ACETONIDE 40 MG/ML 1 ML VIAL ONE (07:04)
[2020-11-12] MEDS ORDERED: ROPIVACAINE 5MG/ML 20ML VIAL ONE (07:04)
[2020-11-12] MEDS ORDERED: fentaNYL (PF) 50 MCG/ML 2 ML AMP ONE (07:04)
[2020-11-12] MEDS ORDERED: IOPAMIDOL M200 10 ML VIAL ONE (07:04)
[2020-11-12] MEDS ORDERED: MIDAZOLAM 2 MG/2 ML VIAL ONE (07:04)
[2020-11-12] MEDS ORDERED: IV FLUID CONTINUATION 1,000 ML IV ONE (07:29)
--- NOTE | 2020-11-12 07:29 | P.PCN ---
Date of Procedure: 11/12/20 Surgeon: Jesse Song Pathology: none sent Condition: stable Disposition: PACU Description of Procedure: PREOPERATIVE DIAGNOSIS: 1-Lumbar radiculopathy 2- Lumber Degenerative Disc Diseases. POSTOPERATIVE DIAGNOSIS: 1-Lumbar radiculopathy. 2-Lumbar Degenerative Disc Diseases 3-morbid obesity PROCEDURE 1. Lumbar epidural steroid injection under fluoroscopic guidance at the L5-S1 level in the right paramedian approach. 2. Lumbar epidurogram. ANESTHESIA: Local with 1% lidocaine; and IV moderate conscious sedation with Versed and fentanyl EBL: Minimal PROCEDURE INDICATION: The patient with low back pain and radiculitis symptoms unresponsive to conservative treatment. Fluoroscopy was used to optimize visualization of the needle placement and to maximize safety. PROCEDURE DESCRIPTION / TECHNIQUE: The patient was seen and identified in the preoperative area. Risks, benefits, complications including but not limited to infections ,bleeding ,allergic reaction to the medications ,nerve damage and not complete pain relief , and alternatives were discussed with the patient. The patient agreed to proceed with the procedure and signed the consent. IV was started, and vital signs were stable. Patient was taken to the OR and time out was completed. The patient was placed in the prone position on procedure table and a pillow was placed under the abdomen to reduce lumbar lordosis. The lumbosacral area was prepped and draped in the usual sterile fashion with ChloraPrep.Patient was closely monitored during the procedure. Conscious sedation was used during the procedure to dec rease patients anxiety. Vital signs were monitered during the entire procedure. Using anterior-posterior fluoroscopy, the L5-S1 interlaminar space was identified and the skin over this site was marked and then infiltrated with 1% lidocaine subcutaneously. Subsequently, a 18-gauge 6 inchTuohy epidural needle was inserted and advanced toward the epidural space using the Loss of resistance to air technique and guided by AP and lateral fluoroscopy. The correct needle position in the epidural space was verified with the injection of 1 mL of the water soluble contrast dye Omnipaque 180 contrast and observing an excellent epidurogram with the epidural spread of the dye, after negative aspiration for blood and CSF and in the absence of paresthesias. Again after negative aspiration, a 8 ml mixture containing 40 mg of Kenalog and 5 ml of preservative free Normal Saline, and 2 ml of preservative free ropivacaine 0.5% solution was injected and a washout of epidurogram was seen. Needle was w ithdrawn intact, skin was cleansed, and bandages were applied. patient tolerated procedure well and was transferred to PACU in stable condition.A copy of the needle placement picture was saved to the fluoroscopy machine. COMPLICATIONS: None DISPOSITION / PLANS: The patient was placed in a supine position and transferred to the recovery area in a stable condition for observation. There was no briana dence of lower extremity motor or sensory deficit after the procedure. Patient was discharged from the recovery room after meeting discharge criteria. Home discharge instructions were given to the patient by the staff. The patient was reexamined prior to discharge. The patient will schedule a follow up in the clinic in 2-4 weeks.
[2020-11-12 07:31] VITALS: RESP 16
[2020-11-12 07:41] VITALS: BP 134/76; PULSE 72
--- NOTE | 2020-11-12 08:34 | FL ---
Fluoroscopy HISTORY: Pain 9 seconds fluoroscopy time supplied to the referring clinician. 2 intraoperative C-arm images docume nt the procedure. See dictated report from anesthesia.
== END 2020-11-12 08:02 | disposition home or self-care (01) ==
LOC: ORPAIN 06:13
PROVIDERS: ATTEND Anesthesiology
DX: M51.16 Intervertebral disc disorders with radiculopathy, lumbar region (principal); E66.01 Morbid (severe) obesity due to excess calories
CPT/HCPCS: 62323; J2250; J3301; J3010; Q9966; J2795; 99152

== ENCOUNTER → 2020-12-09 | Outpatient (CLI) | payer MEDICARE, OTHER ==
[2020-12-09 12:44] VITALS: BP 145/58; PULSE 62; RESP 20; TEMP 98
--- NOTE | 2020-12-09 13:05 | P.PN ---
Subjective Progress Note Date: 12/09/20 This is a follow-up visit for this 65 years old male with a chronic history of severe low back pain, is diagnosed with lumbar degenerative disc disease, lumbar spondylosis with lumbar facet arthropathy, recently we have done lumbar epidural steroid injection at L5-S1 x2 , he reported that her radicular symptoms to the lower extremity improved significantly, continued to have severe low back pain mainly on the left side with radiation to the left buttock, denies any numbness or tingling sensation, denies any motor or sensory deficit, the pain is constant and increases with any activities especially moving, changing position, she continued to use a cane to ambulate, Objective - Vital Signs Vital signs: Vital Signs Temp 98.0 F 12/09/20 12:39 Pulse 62 12/09/20 12:39 Resp 20 12/09/20 12:39 BP 145/58 12/09/20 12:39 Pulse Ox 96 12/09/20 12:39 - Exam Physical Examinations : -Constitutiona : Cooperative , not in acute distress . -HEENT : nech : supple , no Lymphadenopathy , normal thyroid size . : eyes : no ptosis , no icterus, no photophobia . - neurologic : Cranial nerve II to XII intact , no focal neurological deffecit . -psychatric : alert , oriented X 3 , appropriate affect , intact judgment and insight . -Lymphatic : no Lymphadenopathy . - musculoskeltal : . Lumber spine moter stegnth lower extremities ,thigh and legs 5/5 Right side , 5/5 Left side deep tendon reflexes : normal Knee Jerk , normal ankle Jerk lumber facet Loading Test = positive Left Range of motion of the lumbar spine Flexion 30 degrees, extension 10 degrees strait leg raising test = positive at 45 degree Fabere test= positive Right , and positive LT . Sever tenderness over the Sacroiliac joint on the Left sides . MRI of the lumbar spine multilevel lumbar degenerative disc disease multilevel lumbar facet arthropathy Assessment and Plan Plan: Assessment and plan= chronic low back pain secondary to lumbar degenerative disc disease , lumbar spondylosis with lumbar facet arthropathy . Patient to be in good candidate to have left-sided diagnostic medial branch block at L3 , L4 , L5 and possible RFA. - PQRS measures = - Patient's medications are documented in the chart. -Tobacco use is negative and counseling.Given. -Patient's has not received pneumococcal vaccine. -Advanced care planning discussed, patient not eligible. -Opiate contract signed. -Pain positive and follow-up visit/procedure is scheduled. -Patient's blood pressure measured [ 145/58 ] , and documented in the record ,and patient will follow up with the primary care. -Patient's weight was measured and body mass index [51 ] above the,normal limits and counseling was done. and patient instructed to follow-up with the primary care physician. -Patient was not identified as an unhealthy alcohol user Time with Patient: Less than 30
== END ==
LOC: PNWHC3 12:32
PROVIDERS: ATTEND Specialist
DX: M47.816 Spondylosis without myelopathy or radiculopathy, lumbar region (principal); M51.36 Other intervertebral disc degeneration, lumbar region; G89.29 Other chronic pain; Z88.6 Allergy status to analgesic agent; Z88.8 Allergy status to other drugs, medicaments and biological substances; Z87.891 Personal history of nicotine dependence
CPT/HCPCS: 99211

== ENCOUNTER → 2020-12-15 | Outpatient (CLI) | payer MEDICARE, OTHER ==
--- NOTE | 2020-12-17 21:32 | MR ---
EXAMINATION TYPE: MR brain wo con DATE OF EXAM: 12/15/2020 COMPARISON: None HISTORY: Abnormal EEG, left temporal epileptiform activity, dizziness, imbalance CONTRAST: Performed utilizing 0 mL intravenous Gadavist gadolinium contrast. TECHNIQUE: Multiplanar, multiecho imaging on a 3.0 Andressa magnet is performed through the brain. Stud y is performed within 24 hours of arrival to the hospital. The craniovertebral junction is normal. The pituitary is normal. Diffusion-weighted imaging is performed. No abnormal hyperintensity is present to suggest an acute i ntracranial infarct or acute ischemic change. There is some mild periventricular white matter hyperintensity, likely on the basis of chronic white matter ischemic changes. Couple of punctate left centrum semiovale white matter changes are also note d. Temporal lobes appear symmetrical and abnormal signal. There is prominence of the left cerebellar pontine angle. Arachnoid cyst is suspected. Cerebellar christiane angelo angles otherwise are normal. Remaining extra-axial spaces are normal. Ventricles and sulci are mildly prominent for the patient age. X line note is made of some right septal deviation. Mild mucosal thickenings within maxillary and eth moid air cells. IMPRESSIONS: 1. Atrophy with chronic appearing periventricular white matter ischemic changes. 2. Left cerebellar pontine angle arachnoid cyst.
== END | disposition home or self-care (01) ==
LOC: RADMRIMAIN 07:59
PROVIDERS: ATTEND Psychiatry & Neurology Neurology
DX: G31.9 Degenerative disease of nervous system, unspecified (principal); I67.82 Cerebral ischemia; G93.0 Cerebral cysts
CPT/HCPCS: 70551

== ENCOUNTER 2020-12-18 08:34 | Day surgery (SDC) | payer MEDICARE, OTHER ==
[2020-12-16 17:59] VITALS: BMI 51.6
[2020-12-18] MEDS ORDERED: LACTATED RINGERS 1,000 ML IV ONE (08:55)
[2020-12-18 09:03] LABS: Glucose,Whole Blood 86 mg/dL (75-99)
[2020-12-18 09:05] VITALS: RESP 16; TEMP 97.6
[2020-12-18] MEDS ORDERED: MIDAZOLAM 2 MG/2 ML VIAL ONE (09:06)
[2020-12-18] MEDS ORDERED: ROPIVACAINE 5MG/ML 20ML VIAL ONE (09:06)
[2020-12-18] MEDS ORDERED: fentaNYL (PF) 50 MCG/ML 2 ML AMP ONE (09:06)
[2020-12-18] MEDS ORDERED: IOPAMIDOL M200 10 ML VIAL ONE (09:06)
--- NOTE | 2020-12-18 09:18 | P.PCN ---
Description of Procedure: PREOPERATIVE DIAGNOSIS : Lumbar spondylosis with Facet Arthropathy without myelopathy POSTOPERATIVE DIAGNOSIS: same PROCEDURE: first Diagnostic lumbar medial branch block with fluoroscopy at L3, L4, L5 left side which covers facets L4-5 and L5-S1 ANESTHESIA: Local anesthetic; moderate IV sedation with anesthesia team Fluoroscopy was used for the procedure and images were saved in the radiology portion of the chart. Surgeon: Ariel Ruiz MD PROCEDURE INDICATION: Lumbar back pain without radiculopathy, not responsive to conservative management. PROCEDURE DESCRIPTION: the patient was seen and identified in the preop holding area , risks and benefits and possible complications of the procedure and alter natives were discussed with the patient, and the patient agreed to proceed with the procedure and signed the consent . IV was started , vital signs were monitored during the procedure and fluoroscopy was used to maximize the benefit and accuracy of the needle placement, and sedation was given to decrease patient anxiety. Patient was taken to the procedure room and placed in prone position. The lumbar region was prepped using chlorhexidineX-2. Under strict sterile technique using AP fluoroscopy the bilateral sacral ala were identified and using ipsilateral oblique fluoroscopy ,the junction of the transverse process and the superior articulating process of the L4, L5 vertebra which corresponds to the fluoroscopy image of the eye of the Brijesh dog for the medial branches were identified. Subsequently, after local infiltration of skin with lidocaine 1% 0.2 mL at each level , a 25-gauge 3.5" Quincke-type needle was placed at the junction of the base of the transverse process and the superior articular process at the appropriate level as well as the sacral ala, and the needle was advanced until the periosteum contacted, needle placement confirmed with AP and oblique fluoroscopy, 0.2 mL of Isovue 200 per level was injected which revealed no vascular uptake and after negative aspiration. I demond up 3 mL of 0.5% ropivacaine and injected 1 mL of this injectate at each level and the needle subsequently removed . A total of [2 levels injected unilaterally] At the end of the procedure and the needles were removed and a bandage applied after the skin was cleaned. The patient was taken to recovery room in stable condition and monitors in the recovery room for 20-30 minutes and discharged home in stable condition after discharge criteria met and patient will follow up in clinic in 2 weeks EBL: Minimal Recommend using 22 G 5" for next procedure COMPLICATION: None.
[2020-12-18] MEDS ORDERED: IV FLUID CONTINUATION 1,000 ML IV ONE (09:23)
--- NOTE | 2020-12-18 09:32 | FL ---
Fluoroscopy INDICATION: Pain FINDINGS: Fluoroscopy time: 13 seconds. Images obtained: 2. IMPRESSIONS: 1. Documentation of fluoroscopy.
[2020-12-18 09:44] VITALS: BP 138/74; PULSE 71
== END 2020-12-18 10:05 | disposition home or self-care (01) ==
LOC: ORPAIN 08:34
PROVIDERS: ATTEND Anesthesiology
DX: M47.816 Spondylosis without myelopathy or radiculopathy, lumbar region (principal); I25.10 Atherosclerotic heart disease of native coronary artery without angina pectoris; I13.0 Hypertensive heart and chronic kidney disease with heart failure and stage 1 through stage 4 chronic kidney disease, or unspecified chronic kidney disease; N18.30 Chronic kidney disease, stage 3 unspecified; I50.9 Heart failure, unspecified; I48.91 Unspecified atrial fibrillation; E11.51 Type 2 diabetes mellitus with diabetic peripheral angiopathy without gangrene; M19.90 Unspecified osteoarthritis, unspecified site; K21.9 Gastro-esophageal reflux disease without esophagitis; Z79.890 Hormone replacement therapy; Z79.899 Other long term (current) drug therapy; Z88.6 Allergy status to analgesic agent; Z88.8 Allergy status to other drugs, medicaments and biological substances
CPT/HCPCS: 64493; 64494; J2250; J3010; Q9966; J2795

== ENCOUNTER → 2021-03-18 | Outpatient (CLI) | payer MEDICARE, OTHER ==
[2021-03-18 13:22] LABS: Urine Creatinine 78.4 mg/dL (28.0-217.0)
[2021-03-18 19:23] LABS: Chol/HDL Ratio 2.57 Ratio; HDL Cholesterol 54.8 mg/dL (40.00-60.00); LDL Cholesterol,Calculated 68.1 mg/dL (0.0-131.0); Triglycerides 90.5 mg/dL (0.00-149.00); VLDL Calculation 18.1 mg/dL (5.00-40.00)
[2021-03-18 19:57] LABS: African American GFR (CKD) 32.9 (60.0-200.0); Albumin/Globulin Ratio 1.82 (1.60-3.17); BUN/Creat Ratio 16.72 Ratio (12.00-20.00); Blood Urea Nitrogen 30.1 mg/dL (9.0-27.0); Globulin 2.2 g/dL (1.6-3.3); Non-African American GFR(CKD) 28.4 (60.0-200.0); Potassium 4.6 mmol/L (3.5-5.5); Total Bilirubin 0.5 mg/dL (0.30-1.20); Total Protein 6.2 g/dL (6.2-8.2)
== END | disposition home or self-care (01) ==
LOC: LABWHC1 08:10
PROVIDERS: ATTEND Internal Medicine Endocrinology, Diabetes & Metabolism
DX: E11.65 Type 2 diabetes mellitus with hyperglycemia (principal)
CPT/HCPCS: 36415; 80053; 80061; 82043; 82570; 83036; 84443

== ENCOUNTER 2021-05-05 10:00 | Emergency (ER) | payer MEDICARE, OTHER ==
[2021-05-05 10:06] VITALS: RESP 18
[2021-05-05] MEDS ORDERED: MORPHINE SULFATE 4 MG/ML SYRINGE IV STA (10:18)
[2021-05-05] MEDS ORDERED: SODIUM CHLORIDE 0.9% 1,000 ML IV STA (10:18)
[2021-05-05 10:53] LABS: Basophils # (A) 0.1 k/uL (0-0.2); Basophils % (A) 1 %; Eosinophils # (A) 0.2 k/uL (0-0.7); Eosinophils % (A) 3 %; HCT 40.5 % (34.0-46.0); HGB 12.6 gm/dL (11.4-16.0); Lymphocytes # (A) 1.8 k/uL (1.0-4.8); Lymphocytes % (A) 26 %; MCH 30.8 pg (25.0-35.0); MCHC 31.2 g/dL (31.0-37.0); MCV 98.5 fL (80.0-100.0); Mean Platelet Volume 8.1; Monocytes # (A) 0.4 k/uL (0-1.0); Monocytes % (A) 6 %; Neutrophils # (A) 4.5 k/uL (1.3-7.7); Neutrophils % (A) 63 %; Platelet Count 218 k/uL (150-450); RBC 4.11 m/uL (3.80-5.40); RDW 13.3 % (11.5-15.5); WBC 7.2 k/uL (3.8-10.6)
[2021-05-05 11:20] LABS: Appearance,Urine Cloudy (Clear); Bacteria,Urine Occasional /hpf; Bilirubin,Urine Negative (Negative); Blood,Urine Negative (Negative); Color,Urine Light Yellow; Glucose,Urine (UA) Negative (Negative); Hyaline Casts,Urine 3 /lpf (0-2); Ketones,Urine Negative (Negative); Leukocyte Esterase,Urine Large (Negative); Mucus,Urine Rare /hpf; Nitrite,Urine Negative (Negative); Protein,Urine Negative (Negative); RBC,Urine 2 /hpf (0-5); Specific Gravity,Urine 1.007 (1.001-1.035); Squamous Epithelial Cell,Urine 1 /hpf (0-4); Urobilinogen,Urine <2.0 mg/dL (<2.0); WBC,Urine 25 /hpf (0-5)
[2021-05-05 11:34] LABS: Albumin 3.3 g/dL (3.5-5.0); Calcium 9.2 mg/dL (8.4-10.2); Total Bilirubin 0.9 mg/dL (0.2-1.3); Total Protein 6.2 g/dL (6.3-8.2)
[2021-05-05 11:36] LABS: Potassium 4.4 mmol/L (3.5-5.1)
--- NOTE | 2021-05-05 12:17 | CT ---
EXAMINATION TYPE: CT abdomen pelvis wo con DATE OF EXAM: 05/05/2021 COMPARISON: None HISTORY: Right sided abdominal pain CT DLP: 1469.2 mGycm Automated exposure control for dose reduction was used. TECHNIQUE: Helical acquisition of images from the lung bases through the pelvis. FINDINGS: Lack of intravenous contrast could compromise sensitivity of the exam. Extensive coronary a rtery calcification is present, metallic density also present along the mitral valve level. Anterior abdominal wall hernia on axial image 28 shows some fat extending from the abdomen into the subcutaneo us fat without inflammatory change, defect measures approximately 2 cm in transverse dimension, there is some extension of vessels into the fat from the abdomen through the defect. LUNG BASES: There are nodular subcentimeter pleural densities, areas of pleural thickening and subcen timeter subpleural nodularity present at the lung bases, subpleural nodularity is noted on axial imag e #7 in the right middle lobe peripherally. AORTA: No significant abnormality is appreciated. LIVER/GB: Patient is post cholecystectomy. No evident liver mass. PANCREAS: Fatty replaced in the head of the pancreas. SPLEEN: No significant abnormality is seen. ADRENALS: No significant abnormality is seen. KIDNEYS: No evident nephrolithiasis, no hydronephrosis or ureteral calculus REPRODUCTIVE ORGANS: No significant abnormality is seen. URINARY BLADDER: No significant abnormality is seen. BOWEL: No significant abnormality is seen. No evident appendicitis FREE AIR: No Free Air is visible. ASCITES: None visible. PELVIC ADENOPATHY: None visualized. RETROPERITONEAL ADENOPATHY: No Retroperitoneal Adenopathy visible. OSSEOUS STRUCTURES: Thoracic spondylosis is present, degenerative disc changes are present within th e lumbar spine with some associated facet arthropathy. IMPRESSION: POSTOP CHANGES. NONCONTRAST EXAM. ANTERIOR ABDOMINAL WALL HERNIA CONTAINS VASCULATURE AND FAT. ADDITI ONAL FINDINGS ABOVE
[2021-05-05] MEDS ORDERED: cefTRIAXone IN SWFI 1,000 MG/10 ML SYRINGE IVP STA (12:18)
--- NOTE | 2021-05-05 12:23 | ED ---
Abdominal Pain HPI - General Chief Complaint: Abdominal Pain Stated Complaint: Abd Pain/Diarrhea Time Seen by Provider: 05/05/21 10:13 Source: patient, RN notes reviewed Mode of arrival: ambulatory Limitations: no limitations - History of Present Illness Initial Comments: Patient is a 66-year-old female that presents to the emergency department complaining of diarrhea and abdominal discomfort since [place]. She notes that it comes and goes. She denied any aggravating factors. Patient does have a past medical history of A. fib asthma coronary artery disease heart failure diabetes hyperlipidemia hypertension and other comorbidities. Patient does have stage III kidney disease. She denied any chest pain shortness of breath headache nausea vomiting constipation fever fatigue chills. - Related Data Home Medications Medication Instructions Recorded Confirmed Atorvastatin Calcium [Lipitor] 20 mg PO HS 06/15/16 12/18/20 lamoTRIgine [LaMICtal] 200 mg PO DAILY 06/15/16 12/18/20 Insulin Glargine [Lantus Vial] 27 units SQ HS 06/21/17 12/18/20 allopurinoL [Zyloprim] 200 mg PO DAILY 06/21/17 12/18/20 glipiZIDE [Glucotrol] 10 mg PO AC-BID 06/21/17 12/18/20 paricalcitoL [Paricalcitol] 2 mcg PO DAILY 06/21/17 12/18/20 Aspirin EC [Ecotrin Low Dose] 162 mg PO DAILY 07/09/18 12/18/20 Escitalopram [Lexapro] 20 mg PO DAILY 04/03/19 12/18/20 Furosemide [Lasix] 80 mg PO DAILY 04/03/19 12/18/20 Levothyroxine Sodium [Synthroid] 137 mcg PO DAILY 04/06/20 12/18/20 Losartan Potassium [Cozaar] 50 mg PO DAILY 04/06/20 12/18/20 Fluticasone Nasal [place] [Flonase 1 spray EA NOSTRIL DAILY PRN 07/29/20 12/18/20 Nasal [place]] ARIPiprazole [Abilify] 4 mg PO HS 09/30/20 12/18/20 Pramipexole [Mirapex] 1 mg PO HS 09/30/20 12/18/20 Albuterol Inhaler [Ventolin Hfa 1 puff INHALATION DIRECTED PRN 10/06/20 12/18/20 Inhaler] Carvedilol [Coreg] 3.125 mg PO BID 10/06/20 12/18/20 Mometasone/Formoterol [Dulera 200 2 puff PO BID 10/28/20 12/18/20 Mcg-5 Mcg Inhaler] Montelukast [Singulair] 10 mg PO DAILY 10/28/20 12/18/20 Loperamide [Imodium] 2 mg PO QID PRN 11/11/20 12/18/20 Previous Rx's Medication Instructions Recorded Cephalexin [Keflex] 500 mg PO Q6HR #40 cap 05/05/21 Allergies Allergy/AdvReac Type Severity Reaction Status Date / Time ibuprofen [From Motrin] Allergy Swelling Verified 05/05/21 10:06 lisinopril Allergy Rash/Hives, Verified 05/05/21 10:06 swelling verapamil [From Calan] Allergy Rash/Hives, Verified 05/05/21 10:06 swelling metformin AdvReac Nausea & Verified 05/05/21 10:06 Vomiting & Diarrhea Review of Systems ROS Statement: Those systems with pertinent positive or pertinent negative responses have been documented in the HPI. ROS Other: All systems not noted in ROS Statement are negative. Past Medical History Past Medical History: Atrial Fibrillation, Asthma, Coronary Artery Disease (CAD), Heart Failure, Diabetes Mellitus, GERD/Reflux, Hyperlipidemia, Hypertension, Musculoskeletal Disorder, Osteoarthritis (OA), Renal Disease, Sl eep Apnea/CPAP/BIPAP, Thyroid Disorder Additional Past Medical History / Comment(s): Stage 3 kidney disease, CHF, chronic back pain, no current cpap, vaccinated for covid History of Any Multi-Drug Resistant Organisms: MRSA Date of last positivie culture/infection: approx 1996 or 1997 MDRO Source:: stomach area Past Surgical History: Cardiac Ablation, Cholecystectomy, Joint Replacement, Orthopedic Surgery Additional Past Surgical History / Comment(s): ORIF rt wrist-hardware later removed, mult procedures to betsy legs for wounds/cellulitis, betsy knee replacement, bunionectomy, bilat CTR, Monitor Loop implant/removal, pain clinic procedure. Past Anesthesia/Blood Transfusion Reactions: Previous Problems w/ Anesthesia Additional Past Anesthesia/Blood Transfusion Reaction / Comment(s): Nightmares during anesthesia, no complications with prior blood transfusion. Type of Cardiac Device: Loop Device Placement Date:: 2011 Past Psychological History: Anxiety, Bipolar, Depression Smoking Status: Former smoker - Past Family History Mother Family Medical History: No Reported History Father Family Medical History: No Reported History Sister(s) Family Medical History: No Reported History Additional Family Medical History / Comment(s): (Niece had non-hodgkin's lymphoma) General Exam Limitations: no limitations General appearance: alert, in no apparent distress, obese Head exam: Present: atraumatic, normocephalic, normal inspection Eye exam: Present: normal appearance, PERRL, EOMI. Absent: scleral icterus, conjunctival injection, periorbital swelling ENT exam: Present: normal exam, mucous membranes moist Neck exam: Present: normal inspection Respiratory exam: Present: normal lung sounds bilaterally. Absent: respiratory distress, wheezes, rales, rhonchi, stridor Cardiovascular Exam: Present: regular rate, normal rhythm, normal heart sounds. Absent: systolic murmur, diastolic murmur, rubs, gallop, clicks GI/Abdominal exam: Present: soft, normal bowel sounds. Absent: distended, tenderness, guarding, rebound, rigid Extremities exam: Present: normal inspection, full ROM, normal capillary refill. Absent: tenderness, pedal edema, joint swelling, calf tenderness Neurological exam: Present: alert, oriented X3 Psychiatric exam: Present: normal affect, normal mood Skin exam: Present: warm, dry, intact, normal color. Absent: rash Course Vital Signs 05/05/21 10:01 Temperature 97.8 F Pulse Rate 65 Respiratory 18 Rate Blood Pressure 138/76 O2 Sat by Pulse 100 Oximetry Medical Decision Making - Medical Decision Making 66-year-old female complaining of diarrhea for the past 3 weeks. Labs, CT of the abdomen and pelvis, 1 L normal saline, 4 mg of Zofran ordered. Patient declined pain medication at this time as she was extremity. Labs: CBC unremarkable, CMP unremarkable urinalysis shows 25 white blood cells occasional bacteria, 1 g Rocephin ordered. Covid negative. Computed tomography scan negative for any acute process. Patient was informed of the results and is agreeable with discharge home. Patient was informed to take antidiarrheal as needed. Increase dietary fiber. Case discussed with Dr. Rodriguez, patient discharge home. - Lab Data Result diagrams: 05/05/21 10:31 05/05/21 11:00 Lab Results 1205/05/21 05/05/21 Range/Units 10:31 10:31 10:31 WBC 7.2 (3.8-10.6) k/uL RBC 4.11 (3.80-5.40) m/uL Hgb 12.6 (11.4-16.0) gm/dL Hct 40.5 (34.0-46.0) % MCV 98.5 (80.0-100.0) fL MCH 30.8 (25.0-35.0) pg MCHC 31.2 (31.0-37.0) g/dL RDW 13.3 (11.5-15.5) % Plt Count 218 (150-450) k/uL MPV 8.1 Neutrophils % 63 % Lymphocytes % 26 % Monocytes % 6 % Eosinophils % 3 % Basophils % 1 % Neutrophils # 4.5 (1.3-7.7) k/uL Lymphocytes # 1.8 (1.0-4.8) k/uL Monocytes # 0.4 (0-1.0) k/uL Eosinophils # 0.2 (0-0.7) k/uL Basophils # 0.1 (0-0.2) k/uL Sodium (137-145) mmol/L Potassium (3.5-5.1) mmol/L Chloride (98-107) mmol/L Carbon Dioxide (22-30) mmol/L Anion Gap mmol/L BUN (7-17) mg/dL Creatinine (0.52-1.04) mg/dL Est GFR (CKD-EPI)AfAm (>60 ml/min/1.73 sqM) Est GFR (CKD-EPI)NonAf (>60 ml/min/1.73 sqM) Glucose (74-99) mg/dL Plasma Lactic Acid Jatin[place] (0.7-2.0) mmol/L Calcium (8.4-10.2) mg/dL Total Bilirubin (0.2-1.3) mg/dL AST (14-36) U/L ALT (4-34) U/L Alkaline Phosphatase (38-126) U/L Total Protein (6.3-8.2) g/dL Albumin (3.5-5.0) g/dL Amylase (30-110) U/L Lipase (23-300) U/L Urine Color Light Yellow Urine Appearance Cloudy H (Clear) Urine pH 7.0 (5.0-8.0) Ur Specific [place] 1.007 (1.001-1.035) Urine Protein Negative (Negative) Urine Glucose (UA) Negative (Negative) Urine Ketones Negative (Negative) Urine Blood Negative (Negative) Urine Nitrite Negative (Negative) Urine Bilirubin Negative (Negative) Urine Urobilinogen <2.0 (<2.0) mg/dL Ur Leukocyte Esterase Large H (Negative) Urine RBC 2 (0-5) /hpf Urine WBC 25 H (0-5) /hpf Ur Squamous Epith Cells 1 (0-4) /hpf Urine Bacteria Occasional H (None) /hpf Hyaline Casts 3 H (0-2) /lpf Urine Mucus Rare H (None) /hpf Coronavirus (PCR) Not Detected (Not Detectd) 05/05/21 05/05/21 Range/Units 11:00 11:00 WBC (3.8-10.6) k/uL RBC (3.80-5.40) m/uL Hgb (11.4-16.0) gm/dL Hct (34.0-46.0) % MCV (80.0-100.0) fL MCH (25.0-35.0) pg MCHC (31.0-37.0) g/dL RDW (11.5-15.5) % Plt Count (150-450) k/uL MPV Neutrophils % % Lymphocytes % % Monocytes % % Eosinophils % % Basophils % % Neutrophils # (1.3-7.7) k/uL Lymphocytes # (1.0-4.8) k/uL Monocytes # (0-1.0) k/uL Eosinophils # (0-0.7) k/uL Basophils # (0-0.2) k/uL Sodium 138 (137-145) mmol/L Potassium 4.4 (3.5-5.1) mmol/L Chloride 105 (98-107) mmol/L Carbon Dioxide 25 (22-30) mmol/L Anion Gap 8 mmol/L BUN 34 H (7-17) mg/dL Creatinine 1.75 H (0.52-1.04) mg/dL Est GFR (CKD-EPI)AfAm 34 (>60 ml/min/1.73 sqM) Est GFR (CKD-EPI)NonAf 29 (>60 ml/min/1.73 sqM) Glucose 179 H (74-99) mg/dL Plasma Lactic Acid Jatinder 1.6 (0.7-2.0) mmol/L Calcium 9.2 (8.4-10.2) mg/dL Total Bilirubin 0.9 (0.2-1.3) mg/dL AST 23 (14-36) U/L ALT 13 (4-34) U/L Alkaline Phosphatase 90 (38-126) U/L Total Protein 6.2 L (6.3-8.2) g/dL Albumin 3.3 L (3.5-5.0) g/dL Amylase 47 (30-110) U/L Lipase 79 (23-300) U/L Urine Color Urine Appearance (Clear) Urine pH (5.0-8.0) Ur Specific [place] (1.001-1.035) Urine Protein (Negative) Urine Glucose (UA) (Negative) Urine Ketones (Negative) Urine Blood (Negative) Urine Nitrite (Negative) Urine Bilirubin (Negative) Urine Urobilinogen (<2.0) mg/dL Ur Leukocyte Esterase (Negative) Urine RBC (0-5) /hpf Urine WBC (0-5) /hpf Ur Squamous Epith Cells (0-4) /hpf Urine Bacteria (None) /hpf Hyaline Casts (0-2) /lpf Urine Mucus (None) /hpf Coronavirus (PCR) (Not Detectd) - Radiology Data Radiology results: report reviewed, image reviewed CT of the abdomen and pelvis: Postop changes noncontrast exam, anterior abdominal wall hernia, contains vasculature and fat. Disposition Clinical Impression: Urinary tract infection Disposition: HOME SELF-CARE Condition: Stable Instructions (If sedation given, give patient instructions): Urinary Tract Infection in Women (ED) Additional Instructions: Please return to the Emergency Department if symptoms worsen or any other concerns. Follow-up with primary care 1-2 days. Increase dietary fiber. Can take [id number] antidiarrheal as needed. Prescriptions: Cephalexin [Keflex] 500 mg PO Q6HR #40 cap Is patient prescribed a controlled substance at d/c from ED?: No Referrals: Alyson Valerio MD [Primary Care Provider] - 1-2 days Time of Disposition: 12:23
[2021-05-05 12:51] VITALS: BP 116/62; PULSE 80; TEMP 97.2
== END 2021-05-05 12:56 | disposition home or self-care (01) ==
LOC: EC 10:00
DX: Z20.822 Contact with and (suspected) exposure to COVID-19 (principal); N39.0 Urinary tract infection, site not specified; E66.9 Obesity, unspecified; E11.22 Type 2 diabetes mellitus with diabetic chronic kidney disease; I13.0 Hypertensive heart and chronic kidney disease with heart failure and stage 1 through stage 4 chronic kidney disease, or unspecified chronic kidney disease; I50.9 Heart failure, unspecified; N18.30 Chronic kidney disease, stage 3 unspecified; I48.91 Unspecified atrial fibrillation; I25.10 Atherosclerotic heart disease of native coronary artery without angina pectoris; E78.5 Hyperlipidemia, unspecified; K21.9 Gastro-esophageal reflux disease without esophagitis; J45.909 Unspecified asthma, uncomplicated; F31.9 Bipolar disorder, unspecified; F41.9 Anxiety disorder, unspecified; Z87.891 Personal history of nicotine dependence; Z79.51 Long term (current) use of inhaled steroids; Z79.890 Hormone replacement therapy; Z79.4 Long term (current) use of insulin; Z79.84 Long term (current) use of oral hypoglycemic drugs; Z79.82 Long term (current) use of aspirin; Z79.899 Other long term (current) drug therapy; Z68.42 Body mass index [BMI] 45.0-49.9, adult
CPT/HCPCS: 36415; 80053; 82150; 83605; 83690; 85025; 81001; 87086; 87635; 74176; 99284; 96374; J0696

== ENCOUNTER → 2021-06-07 | Outpatient (CLI) | payer MEDICARE, OTHER ==
[2021-06-08 02:44] LABS: Basophils # (A) 0.06 X 10*3/uL (0.00-0.10); Basophils % (A) 0.7 %; Eosinophils # (A) 0.18 X 10*3/uL (0.04-0.35); Eosinophils % (A) 2.1 %; HCT 42.1 % (37.2-46.3); HGB 12.9 g/dL (12.0-15.0); Lymphocytes # (A) 1.96 X 10*3/uL (0.90-5.00); Lymphocytes % (A) 23.3 %; MCH 29.7 pg (27.0-32.0); MCHC 30.6 g/dL (32.0-37.0); MCV 96.8 fL (80.0-97.0); Mean Platelet Volume 11.2 fL (9.5-12.2); Monocytes # (A) 0.64 X 10*3/uL (0.20-1.00); Monocytes % (A) 7.6 %; Neutrophils # (A) 5.55 X 10*3/uL (1.80-7.70); Neutrophils % (A) 65.8 %; Platelet Count 247 X 10*3/uL (140-440); RBC 4.35 X 10*6/uL (4.10-5.20); RDW 14.1 % (11.5-14.5); WBC 8.43 X 10*3/uL (4.50-10.00)
== END | disposition home or self-care (01) ==
LOC: LABWHC1 14:52
PROVIDERS: ATTEND Nurse Practitioner
DX: R53.1 Weakness (principal)
CPT/HCPCS: 36415; 85025

== ENCOUNTER → 2021-06-23 | Outpatient (CLI) | payer MEDICARE, OTHER ==
[2021-06-23 14:38] LABS: ALT 10 U/L (8-44); AST 18 U/L (13-35); African American GFR (CKD) 31.5 (60.0-200.0); Albumin 4.2 g/dL (3.8-4.9); Albumin/Globulin Ratio 1.56 (1.60-3.17); Alkaline Phosphatase 115 U/L (41-126); BUN/Creat Ratio 14.76 Ratio (12.00-20.00); Blood Urea Nitrogen 27.6 mg/dL (9.0-27.0); Carbon Dioxide 24.3 mmol/L (20.0-27.5); Chloride 98 mmol/L (96-109); Chol/HDL Ratio 2.34 Ratio; Globulin 2.7 g/dL (1.6-3.3); Glucose 82 mg/dL (70-110); LDL Cholesterol,Calculated 52.6 mg/dL (0.0-131.0); Non-African American GFR(CKD) 27.1 (60.0-200.0); Potassium 3.3 mmol/L (3.5-5.5); Sodium 139 mmol/L (135-145); Total Protein 6.9 g/dL (6.2-8.2); VLDL Calculation 18.96 mg/dL (5.00-40.00)
== END | disposition home or self-care (01) ==
LOC: LABWHC1 10:03
PROVIDERS: ATTEND Internal Medicine Endocrinology, Diabetes & Metabolism
DX: E11.65 Type 2 diabetes mellitus with hyperglycemia (principal)
CPT/HCPCS: 36415; 80053; 80061; 82043; 82570; 83036; 84443

== ENCOUNTER → 2021-12-29 | Outpatient (CLI) | payer MEDICARE ==
--- NOTE | 2021-12-29 08:35 | CT ---
EXAMINATION TYPE: CT brain wo con DATE OF EXAM: 12/29/2021 COMPARISON: None INDICATION: Fall x2 weeks ago. DLP: 1233 mGycm, Automated exposure control for dose reduction was used. CONTRAST: None CT of the brain is performed utilizing 3 mm thick sections through the posterior fossa and 3 mm thick sections through the remaining calvarium. Study is performed within 24 hours of arrival to the hosp [facility]. No abnormal hyperdensity is present to suggest an acute intracranial hemorrhage. There is some hypodensity within the left costophrenic angle likely related to an arachnoid cyst. Mil d displacement of the cerebellum is evident. No midline shift is evident. No quadrigeminal plate and ambient cistern effacement is evident. No acute infarcts are evident. Ventricles and sulci are appropriate for the patient age. Paranasal sinuses and mastoid air cells within the [id number] are clear. IMPRESSIONS: 1. Probable arachnoid cyst left costophrenic angle. 2. No acute intracranial process. Follow-up MRI can be performed as clinically indicated.
--- NOTE | 2022-01-07 06:47 | HM ---
HOLTER MONITOR REPORT This is a 24-hour Holter. INDICATION: Palpitations. Underlying rhythm is sinus with an average heart rate of 70 beats per minute. Heart rate varied from 50 beats per minute to 116 beats per minute. There were short self- limited runs of SVT noted. There were occasional PVCs including bigeminy and occasional PACs are also noted. CONCLUSION: A 24-hour Holter reveals sinus rhythm with an average heart rate of 70 beats per minute. There were short self-limited runs of SVT and PVCs and PACs noted. MMODL / IJN: [id number] /
== END | disposition home or self-care (01) ==
LOC: RADCTMAIN 06:43
PROVIDERS: ATTEND Family Medicine
DX: S09.90XA Unspecified injury of head, initial encounter (principal); W19.XXXA Unspecified fall, initial encounter
CPT/HCPCS: 70450; 93225; 93226

== ENCOUNTER 2022-01-02 11:19 | Emergency (ER) | payer MEDICARE ==
[2022-01-02 11:28] VITALS: TEMP 98
[2022-01-02] MEDS ORDERED: MECLIZINE 25 MG TAB PO STA (11:59)
--- NOTE | 2022-01-02 12:35 | ED ---
General Adult HPI - General Chief complaint: Dizziness Stated complaint: dizzy Time Seen by Provider: 01/02/22 11:25 Source: patient, RN notes reviewed, old records reviewed Mode of arrival: ambulatory Limitations: no limitations - History of Present Illness Initial comments: This is a 66-year-old female who presents to the emergency department stating that 3 weeks ago she fell and hit her head. Patient states she is quite hard. Patient states she did have a CAT scan week and a half later and it was negative. Patient states since that time she had a CAT scan she is started to have a weird sensation in her head it is become very dizzy particularly with head movement. Patient denies any nausea or vomiting. Patient denies any fever chills. Patient denies any numbness or weakness. Patient denies chest pain difficulty breathing shortness of breath. Patient states that she does not feel like she is going to pass out it feels like she might fall over particularly with moving her head. - Related Data Home Medications Medication Instructions Recorded Confirmed Atorvastatin Calcium [Lipitor] 20 mg PO HS 06/15/16 12/18/20 lamoTRIgine [LaMICtal] 200 mg PO DAILY 06/15/16 12/18/20 Insulin Glargine [Lantus Vial] 27 units SQ HS 06/21/17 12/18/20 allopurinoL [Zyloprim] 200 mg PO DAILY 06/21/17 12/18/20 glipiZIDE [Glucotrol] 10 mg PO AC-BID 06/21/17 12/18/20 paricalcitoL [Paricalcitol] 2 mcg PO DAILY 06/21/17 12/18/20 Aspirin EC [Ecotrin Low Dose] 162 mg PO DAILY 07/09/18 12/18/20 Escitalopram [Lexapro] 20 mg PO DAILY 04/03/19 12/18/20 Furosemide [Lasix] 80 mg PO DAILY 04/03/19 12/18/20 Levothyroxine Sodium [Synthroid] 137 mcg PO DAILY 04/06/20 12/18/20 Losartan Potassium [Cozaar] 50 mg PO DAILY 04/06/20 12/18/20 Fluticasone Nasal [place] [Flonase 1 spray EA NOSTRIL DAILY PRN 07/29/20 12/18/20 Nasal [place]] ARIPiprazole [Abilify] 4 mg PO HS 09/30/20 12/18/20 Pramipexole [Mirapex] 1 mg PO HS 09/30/20 12/18/20 Albuterol Inhaler [Ventolin Hfa 1 puff INHALATION DIRECTED PRN 10/06/20 12/18/20 Inhaler] carvediloL [Coreg] 3.125 mg PO BID 10/06/20 12/18/20 Mometasone/Formoterol [Dulera 200 2 puff PO BID 10/28/20 12/18/20 Mcg-5 Mcg Inhaler] Montelukast [Singulair] 10 mg PO DAILY 10/28/20 12/18/20 Loperamide [Imodium] 2 mg PO QID PRN 11/11/20 12/18/20 Previous Rx's Medication Instructions Recorded Cephalexin [Keflex] 500 mg PO Q6HR #40 cap 05/05/21 Meclizine [Antivert] 25 mg PO TID #20 tab 01/02/22 Allergies Allergy/AdvReac Type Severity Reaction Status Date / Time ibuprofen [From Motrin] Allergy Swelling Verified 01/02/22 11:28 lisinopril Allergy Rash/Hives, Verified 01/02/22 11:28 swelling verapamil [From [place]] Allergy Rash/Hives, Verified 01/02/22 11:28 swelling metformin AdvReac Nausea & Verified 01/02/22 11:28 Vomiting & Diarrhea Review of Systems ROS Statement: Those systems with pertinent positive or pertinent negative responses have been documented in the HPI. ROS Other: All systems not noted in ROS Statement are negative. Past Medical History Past Medical History: Atrial Fibrillation, Asthma, Coronary Artery Disease (CAD), Heart Failure, Diabetes Mellitus, GERD/Reflux, Hyperlipidemia, Hypertension, Musculoskeletal Disorder, Osteoarthritis (OA), Renal Disease, Sleep Apnea/CPAP/BIPAP, Thyroid Disorder Additional Past Medical History / Comment(s): Stage 3 kidney disease, CHF, chronic back pain, no current cpap, vaccinated for covid History of Any Multi-Drug Resistant Organisms: MRSA Date of last positivie culture/infection: approx 1996 or 1997 MDRO Source:: stomach area Past Surgical History: Cardiac Ablation, Cholecystectomy, Joint Replacement, Orthopedic Surgery Additional Past Surgical History / Comment(s): ORIF rt wrist-hardware later removed, mult procedures to betsy legs for wounds/cellulitis, betsy knee replacement, bunionectomy, bilat CTR, Monitor Loop implant/removal, pain clinic procedure. Past Anesthesia/Blood Transfusion Reactions: Previous Problems w/ Anesthesia Additional Past Anesthesia/Blood Transfusion Reaction / Comment(s): Nightmares during anesthesia, no complications with prior blood transfusion. Type of Cardiac Device: Loop Device Placement Date:: 2011 Past Psychological History: Anxiety, Bipolar, Depression Smoking Status: Former smoker Past Alcohol Use History: None Reported Past Drug Use History: None Reported - Past Family History Mother Family Medical History: No Reported History Father Family Medical History: No Reported History Sister(s) Family Medical History: No Reported History Additional Family Medical History / Comment(s): (Niece had non-hodgkin's lymphoma) General Exam - General Exam Comments Initial Comments: GENERAL: Patient is well-developed and well-nourished. Patient is nontoxic and well- hydrated and is in no acute distress. ENT: Neck is soft and supple. No significant lymphadenopathy is noted. Oropharynx is clear. Moist mucous membranes. Neck has full range of motion without eliciting any pain. EYES: The sclera were anicteric and conjunctiva were pink and moist. Extraocular movements were intact and pupils were equal round and reactive to light. Eyelids were unremarkable. PULMONARY: Unlabored respirations. Good breath sounds bilaterally. No audible rales rhonchi or wheezing was noted. CARDIOVASCULAR: There is a regular rate and rhythm without any murmurs gallops or rubs. Femoral pulses are equal bilaterally ABDOMEN: Soft and nontender with normal bowel sounds. SKIN: Skin is clear with no lesions or rashes and otherwise unremarkable. NEUROLOGIC: Patient is alert and oriented x3. Cranial nerves II through XII are grossly intact. Motor and sensory are also intact. Normal speech, volume and content. Symmetrical smile. Cerebellar exam grossly intact. Movement of the head makes the patient more dizzy. MUSCULOSKELETAL: Normal extremities with adequate strength and full range of motion. No lower extremity swelling or edema. No calf tenderness. LYMPHATICS: No significant lymphadenopathy is noted PSYCHIATRIC: Normal psychiatric evaluation. Limitations: no limitations Course Vital Signs 01/02/22 01/02/22 11:24 12:37 Temperature 98 F Pulse Rate 71 67 Respiratory 16 18 Rate Blood Pressure 175/86 150/67 O2 Sat by Pulse 96 97 Oximetry Medical Decision Making - Medical Decision Making EKG shows sinus rhythm at 72 bpm MA interval 156 QRS is 94 QT interval 383 QTC is 408. Patient's EKG shows no ST segment elevation or depression. CT of the brain shows no acute abnormality. Patient states that the Antivert seems to helped her dizziness. - Lab Data Result diagrams: 01/02/22 12:34 01/02/22 12:34 Lab Results 01/02/22 01/02/22 01/02/22 Range/Units 12:34 12:34 13:27 WBC 6.2 (3.8-10.6) k/uL RBC 4.10 (3.80-5.40) m/uL Hgb 12.4 (11.4-16.0) gm/dL Hct 39.1 (34.0-46.0) % MCV 95.3 (80.0-100.0) fL MCH 30.2 (25.0-35.0) pg MCHC 31.7 (31.0-37.0) g/dL RDW 13.4 (11.5-15.5) % Plt Count 215 (150-450) k/uL MPV 7.8 Neutrophils % 62 % Lymphocytes % 29 % Monocytes % 5 % Eosinophils % 2 % Basophils % 0 % Neutrophils # 3.9 (1.3-7.7) k/uL Lymphocytes # 1.8 (1.0-4.8) k/uL Monocytes # 0.3 (0-1.0) k/uL Eosinophils # 0.1 (0-0.7) k/uL Basophils # 0.0 (0-0.2) k/uL Sodium 138 (137-145) mmol/L Potassium 5.0 (3.5-5.1) mmol/L Chloride 105 (98-107) mmol/L Carbon Dioxide 28 (22-30) mmol/L Anion Gap 5 mmol/L BUN 34 H (7-17) mg/dL Creatinine 1.38 H (0.52-1.04) mg/dL Est GFR (CKD-EPI)AfAm 45 (>60 ml/min/1.73 sqM) Est GFR (CKD-EPI)NonAf 39 (>60 ml/min/1.73 sqM) Glucose 194 H (74-99) mg/dL Calcium 8.8 (8.4-10.2) mg/dL Magnesium 1.7 (1.6-2.3) mg/dL Total Bilirubin 1.4 H (0.2-1.3) mg/dL AST 39 H (14-36) U/L ALT 15 (4-34) U/L Alkaline Phosphatase 79 (38-126) U/L Total Protein 6.3 (6.3-8.2) g/dL Albumin 3.6 (3.5-5.0) g/dL Urine Color Colorless Urine Appearance Clear (Clear) Urine pH 5.5 (5.0-8.0) Ur Specific [place] 1.005 (1.001-1.035) Urine Protein Negative (Negative) Urine Glucose (UA) 1+ H (Negative) Urine Ketones Negative (Negative) Urine Blood Negative (Negative) Urine Nitrite Negative (Negative) Urine Bilirubin Negative (Negative) Urine Urobilinogen <2.0 (<2.0) mg/dL Ur Leukocyte Esterase Trace H (Negative) Urine WBC 1 (0-5) /hpf Urine Mucus Rare H (None) /hpf Disposition Clinical Impression: Vertigo Disposition: HOME SELF-CARE Condition: Good Instructions (If sedation given, give patient instructions): Vertigo (ED) Prescriptions: Meclizine [Antivert] 25 mg PO TID #20 tab Is patient prescribed a controlled substance at d/c from ED?: No Referrals: John Rodriguez [Primary Care Provider] - 1-2 days Time of Disposition: 14:00
[2022-01-02 12:38] VITALS: RESP 18
[2022-01-02 12:48] LABS: Basophils % (A) 0 %; Eosinophils # (A) 0.1 k/uL (0-0.7); Eosinophils % (A) 2 %; HCT 39.1 % (34.0-46.0); HGB 12.4 gm/dL (11.4-16.0); Lymphocytes # (A) 1.8 k/uL (1.0-4.8); Lymphocytes % (A) 29 %; MCH 30.2 pg (25.0-35.0); MCHC 31.7 g/dL (31.0-37.0); MCV 95.3 fL (80.0-100.0); Mean Platelet Volume 7.8; Monocytes # (A) 0.3 k/uL (0-1.0); Monocytes % (A) 5 %; Neutrophils # (A) 3.9 k/uL (1.3-7.7); Neutrophils % (A) 62 %; Platelet Count 215 k/uL (150-450); RDW 13.4 % (11.5-15.5); WBC 6.2 k/uL (3.8-10.6)
[2022-01-02 12:54] LABS: Albumin 3.6 g/dL (3.5-5.0); Calcium 8.8 mg/dL (8.4-10.2); Magnesium 1.7 mg/dL (1.6-2.3); Total Bilirubin 1.4 mg/dL (0.2-1.3); Total Protein 6.3 g/dL (6.3-8.2)
[2022-01-02 13:33] LABS: Appearance,Urine Clear (Clear); Bilirubin,Urine Negative (Negative); Blood,Urine Negative (Negative); Color,Urine Colorless; Glucose,Urine (UA) 1+ (Negative); Ketones,Urine Negative (Negative); Leukocyte Esterase,Urine Trace (Negative); Mucus,Urine Rare /hpf; Nitrite,Urine Negative (Negative); PH, Urine 5.5 (5.0-8.0); Protein,Urine Negative (Negative); Specific Gravity,Urine 1.005 (1.001-1.035); Urobilinogen,Urine <2.0 mg/dL (<2.0); WBC,Urine 1 /hpf (0-5)
--- NOTE | 2022-01-02 13:57 | CT ---
EXAMINATION TYPE: CT brain wo con CT DLP: 1186.2 mGycm, Automated exposure control for dose reduction was used. DATE OF EXAM: 01/02/2022 1:35 PM COMPARISON: 12/29/2021. CLINICAL INDICATION:Female, 66 years old with history of Trauma, Headache has not improved since last visit TECHNIQUE: Brain: Axial CT images of the brain were obtained with coronal and sagittal reformats created and rev iewed. Contrast used: None. Oral contrast used: None. FINDINGS: Brain: Extra-axial spaces: No abnormal extra-axial fluid collections. Ventricular system: Within normal limits Cerebral parenchyma: No acute intraparenchymal hemorrhage or mass effect. The spicer-white junction is well differentiated. Cerebellum: Persistent left probable CSF attenuating arachnoid cyst. Mass effect: No evidence of midline shift. Intracranial vasculature: Atherosclerotic calcifications of the intracranial vessels. Soft tissues: Normal. Calvarium/osseous structures: No depressed skull fracture. Paranasal sinuses and mastoid air cells: Mild scattered paranasal sinus disease. Visualized orbits: Bilateral aphakia IMPRESSION: 1. No acute intracranial process, no significant change from prior. 2. Left posterior cranial fossa probable arachnoid cyst.
[2022-01-02 14:32] VITALS: BP 151/68; PULSE 64
== END 2022-01-02 14:10 | disposition home or self-care (01) ==
LOC: EC 11:19
DX: R42 Dizziness and giddiness (principal); J45.909 Unspecified asthma, uncomplicated; I48.91 Unspecified atrial fibrillation; I25.10 Atherosclerotic heart disease of native coronary artery without angina pectoris; E11.9 Type 2 diabetes mellitus without complications; I50.9 Heart failure, unspecified; K21.9 Gastro-esophageal reflux disease without esophagitis; E78.5 Hyperlipidemia, unspecified; E07.9 Disorder of thyroid, unspecified; Z87.891 Personal history of nicotine dependence; Z88.6 Allergy status to analgesic agent; Z88.8 Allergy status to other drugs, medicaments and biological substances; Z79.899 Other long term (current) drug therapy; Z79.890 Hormone replacement therapy; Z79.82 Long term (current) use of aspirin; Z79.4 Long term (current) use of insulin; Z79.84 Long term (current) use of oral hypoglycemic drugs
CPT/HCPCS: 36415; 70450; 80053; 81001; 83735; 85025; 93005; 99284

== ENCOUNTER → 2022-06-09 | Outpatient (CLI) | payer MEDICARE ==
[2022-06-09 11:46] LABS: Appearance,Urine Cloudy (Clear); Bilirubin,Urine Negative (Negative); Blood,Urine Negative (Negative); Calcium Oxalate Crystals,Urine Many /hpf; Color,Urine Yellow; Glucose,Urine (UA) Negative (Negative); Ketones,Urine Negative (Negative); Leukocyte Esterase,Urine Large (Negative); Mucus,Urine Rare /hpf; Nitrite,Urine Negative (Negative); PH, Urine 5.5 (5.0-8.0); Protein,Urine Trace (Negative); RBC,Urine 4 /hpf (0-5); Specific Gravity,Urine 1.017 (1.001-1.035); Squamous Epithelial Cell,Urine 1 /hpf (0-4); Urobilinogen,Urine <2.0 mg/dL (<2.0); WBC,Urine 47 /hpf (0-5)
[2022-06-09 15:25] LABS: Basophils # (A) 0.07 X 10*3/uL (0.00-0.10); Basophils % (A) 0.9 %; Eosinophils # (A) 0.09 X 10*3/uL (0.04-0.35); Eosinophils % (A) 1.2 %; HCT 41.7 % (37.2-46.3); HGB 12.8 g/dL (12.0-15.0); Immature Grans, Automated 0.5 %; Lymphocytes # (A) 2.78 X 10*3/uL (0.90-5.00); Lymphocytes % (A) 36.4 %; MCH 29.1 pg (27.0-32.0); MCHC 30.7 g/dL (32.0-37.0); MCV 94.8 fL (80.0-97.0); Mean Platelet Volume 10.4 fL (9.5-12.2); Monocytes # (A) 0.67 X 10*3/uL (0.20-1.00); Monocytes % (A) 8.8 %; NRBC Per 100 WBC 0 /100 WBCS (0.0-0.0); Neutrophils # (A) 3.98 X 10*3/uL (1.80-7.70); Neutrophils % (A) 52.2 %; Platelet Count 231 X 10*3/uL (140-440); RDW 13.7 % (11.5-14.5); WBC 7.63 X 10*3/uL (4.50-10.00)
[2022-06-09 16:31] LABS: T4, Free (Free Thyroxine) 1.5 ng/dL (0.800-1.800)
== END | disposition home or self-care (01) ==
LOC: LABWHC1 10:23
PROVIDERS: ATTEND Psychiatry & Neurology Neurology
DX: N39.0 Urinary tract infection, site not specified (principal); G40.911 Epilepsy, unspecified, intractable, with status epilepticus; R41.3 Other amnesia; R53.83 Other fatigue; Z79.899 Other long term (current) drug therapy
CPT/HCPCS: 36415; 81001; 82306; 82607; 84207; 84439; 84443; 85025; 87086

== ENCOUNTER → 2022-06-22 | Outpatient (CLI) | payer MEDICARE ==
[2022-06-22 14:30] LABS: HCT 41.9 % (37.2-46.3); HGB 13.2 g/dL (12.0-15.0); MCH 29.8 pg (27.0-32.0); MCHC 31.5 g/dL (32.0-37.0); MCV 94.6 fL (80.0-97.0); Mean Platelet Volume 10.6 fL (9.5-12.2); NRBC Per 100 WBC 0 /100 WBCS (0.0-0.0); Platelet Count 255 X 10*3/uL (140-440); RBC 4.43 X 10*6/uL (4.10-5.20); RDW 13.4 % (11.5-14.5)
[2022-06-22 14:56] LABS: % Iron Saturation 16.08 (12.00-45.00); ALT 12 U/L (8-44); AST 21 U/L (13-35); African American GFR (CKD) 37.7 (60.0-200.0); Albumin 4.4 g/dL (3.8-4.9); Albumin/Globulin Ratio 1.52 (1.60-3.17); Alkaline Phosphatase 127 U/L (41-126); Blood Urea Nitrogen 32.8 mg/dL (9.0-27.0); Calcium 10.3 mg/dL (8.7-10.3); Carbon Dioxide 28.1 mmol/L (20.0-27.5); Chloride 100 mmol/L (96-109); Globulin 2.9 g/dL (1.6-3.3); Glucose 210 mg/dL (70-110); Iron 55 ug/dL (50-170); Magnesium 1.8 mg/dL (1.5-2.4); Non-African American GFR(CKD) 32.5 (60.0-200.0); Phosphorus 3.4 mg/dL (2.4-5.1); Potassium 4.4 mmol/L (3.5-5.5); Sodium 141 mmol/L (135-145); Total Iron Binding Capacity 340 ug/dL (228-460); Total Protein 7.3 g/dL (6.2-8.2); Uric Acid 4.6 mg/dL (2.9-7.7)
[2022-06-22 15:19] LABS: Chol/HDL Ratio 2.51 Ratio; LDL Cholesterol,Calculated 71.3 mg/dL (0.0-131.0); VLDL Calculation 19.04 mg/dL (5.00-40.00)
[2022-06-22 15:46] LABS: Appearance,Urine Clear (Clear); Bilirubin,Urine Negative (Negative); Blood,Urine Negative (Negative); Color,Urine Yellow (Yellow); Ketones,Urine Negative (Negative); Nitrite,Urine Negative (Negative); PH, Urine 5.5 (5.0-8.0); Specific Gravity,Urine 1.011 (1.001-1.030); Urobilinogen,Urine 0.2 (0.2,1.0)
[2022-06-22 15:59] LABS: Bacteria,Urine None Seen /HPF (None Seen)
== END | disposition home or self-care (01) ==
LOC: LABWHC1 09:24
PROVIDERS: ATTEND Family Medicine
DX: N25.81 Secondary hyperparathyroidism of renal origin (principal); E11.22 Type 2 diabetes mellitus with diabetic chronic kidney disease; E11.65 Type 2 diabetes mellitus with hyperglycemia; D63.1 Anemia in chronic kidney disease; N39.0 Urinary tract infection, site not specified; E55.9 Vitamin D deficiency, unspecified; M10.9 Gout, unspecified; N18.4 Chronic kidney disease, stage 4 (severe)
CPT/HCPCS: 36415; 80053; 80061; 81001; 82043; 82306; 82570; 82728; 83036; 83540; 83550; 83735; 83970; 84100; 84443; 84550; 85027

== ENCOUNTER 2022-08-18 14:21 | Emergency (ER) | payer MEDICARE ==
[2022-08-18 14:42] VITALS: TEMP 97.7
[2022-08-18] MEDS ORDERED: SALINE IVPB STA (15:02)
[2022-08-18] MEDS ORDERED: LEVETIRACETAM IVPB STA (15:02)
[2022-08-18] MEDS ORDERED: SODIUM CHLORIDE 0.9% 500 ML 500 ML IV STA (15:02)
--- NOTE | 2022-08-18 15:04 | ED ---
General Adult HPI - General Chief complaint: Seizure Stated complaint: seizure Time Seen by Provider: 08/18/22 14:48 Source: patient, family, RN notes reviewed Mode of arrival: wheelchair Limitations: no limitations - History of Present Illness Initial comments: Patient is a pleasant 67-year-old female presenting to the emergency department following reported seizure. Onset was prior to arrival. Episode lasted around 2 minutes. Patient does have history of chronic seizures and gets one approximately every week or 2. Patient admits to having some lightheadedness. No spinning type sensation. Patient does have history of lightheadedness as well and is trying Antivert with only mild improvement. - Related Data Home Medications Medication Instructions Recorded Confirmed Atorvastatin Calcium [Lipitor] 20 mg PO HS 06/15/16 08/18/22 Insulin Glargine [Lantus Vial] 30 units SQ W/SUPPER 06/21/17 08/18/22 allopurinoL [Zyloprim] 200 mg PO DAILY 06/21/17 08/18/22 glipiZIDE [Glucotrol] 10 mg PO AC-BID 06/21/17 08/18/22 paricalcitoL [Paricalcitol] 2 mcg PO DAILY 06/21/17 08/18/22 Aspirin EC [Ecotrin Low Dose] 81 mg PO DAILY 07/09/18 08/18/22 Furosemide [Lasix] 80 mg PO DAILY 04/03/19 08/18/22 Levothyroxine Sodium [Synthroid] 137 mcg PO DAILY 04/06/20 08/18/22 Pramipexole [Mirapex] 1 mg PO HS 09/30/20 08/18/22 Albuterol Inhaler [Ventolin Hfa 2 puff INHALATION RT-QID PRN 10/06/20 08/18/22 Inhaler] carvediloL [Coreg] 6.25 mg PO BID 10/06/20 08/18/22 Montelukast [Singulair] 10 mg PO HS 10/28/20 08/18/22 Budesonide/Glycopyr/Formoterol 2 puff INHALATION RT-BID 08/18/22 08/18/22 [Breztri Aerosphere Inhaler] Dapagliflozin Propanediol [Farxiga] 5 mg PO DAILY 08/18/22 08/18/22 Ferrous Sulfate [Feosol] 325 mg PO TH 08/18/22 08/18/22 Meclizine [Antivert] 25 mg PO TID PRN 08/18/22 08/18/22 Alejandro B-50 1 tab PO WE 08/18/22 08/18/22 levETIRAcetam [Keppra] 750 mg PO BID 08/18/22 08/18/22 Allergies Allergy/AdvReac Type Severity Reaction Status Date / Time ibuprofen [From Motrin] Allergy Swelling Verified 08/18/22 15:11 lisinopril Allergy Rash/Hives, Verified 08/18/22 15:11 swelling verapamil [From Calan] Allergy Rash/Hives, Verified 08/18/22 15:11 swelling metformin AdvReac Nausea & Verified 08/18/22 15:11 Vomiting & Diarrhea Review of Systems ROS Statement: Those systems with pertinent positive or pertinent negative responses have been documented in the HPI. ROS Other: All systems not noted in ROS Statement are negative. Constitutional: Denies: fever Eyes: Denies: eye pain ENT: Denies: ear pain Respiratory: Denies: cough Cardiovascular: Denies: chest pain Endocrine: Denies: fatigue Gastrointestinal: Denies: abdominal pain Genitourinary: Denies: dysuria Musculoskeletal: Denies: back pain Skin: Denies: rash Neurological: Denies: headache, weakness, confusion Past Medical History Past Medical History: Atrial Fibrillation, Asthma, Coronary Artery Disease (CAD), Heart Failure, Diabetes Mellitus, GERD/Reflux, Hyperlipidemia, Hypertension, Musculoskeletal Disorder, Osteoarthritis (OA), Renal Disease, Sei zure Disorder, Sleep Apnea/CPAP/BIPAP, Thyroid Disorder Additional Past Medical History / Comment(s): Stage 3 kidney disease, CHF, chronic back pain, no current cpap, vaccinated for covid History of Any Multi-Drug Resistant Organisms: MRSA Date of last positivie culture/infection: approx 1996 or 1997 MDRO Source:: stomach area Past Surgical History: Cardiac Ablation, Cholecystectomy, Joint Replacement, Orthopedic Surgery Additional Past Surgical History / Comment(s): ORIF rt wrist-hardware later removed, mult procedures to betsy legs for wounds/cellulitis, betsy knee replacement, bunionectomy, bilat CTR, Monitor Loop implant/removal, pain clinic procedure. Past Anesthesia/Blood Transfusion Reactions: Previous Problems w/ Anesthesia Additional Past Anesthesia/Blood Transfusion Reaction / Comment(s): Nightmares during anesthesia, no complications with prior blood transfusion. Type of Cardiac Device: Loop Device Placement Date:: 2011 Past Psychological History: Anxiety, Bipolar, Depression Smoking Status: Former smoker Past Alcohol Use History: None Reported Past Drug Use History: None Reported - Past Family History Mother Family Medical History: No Reported History Father Family Medical History: No Reported History Sister(s) Family Medical History: No Reported History Additional Family Medical History / Comment(s): (Niece had non-hodgkin's lymphoma) General Exam Limitations: no limitations General appearance: alert, in no apparent distress Head exam: Present: atraumatic Eye exam: Present: normal appearance, PERRL, EOMI ENT exam: Present: normal oropharynx Neck exam: Present: normal inspection. Absent: tenderness Respiratory exam: Present: normal lung sounds bilaterally Cardiovascular Exam: Present: regular rate, normal rhythm GI/Abdominal exam: Present: soft. Absent: tenderness Extremities exam: Present: normal inspection Neurological exam: Present: alert, CN II-XII intact. Absent: motor sensory deficit Expanded Neurological exam: Present: protecting the airway Speech: Present: fluid speech Cranial nerves: EOM's Intact: Normal Motor strength exam: RUE: 5, LUE: 5, RLE: 5, LLE: 5 Eye Response: (4) open spontaneously Motor Response: (6) obeys commands Verbal Response: (5) oriented Psychiatric exam: Present: normal affect, normal mood Skin exam: Present: normal color Course Vital Signs 08/18/22 14:39 Temperature 97.7 F Pulse Rate 59 L Respiratory 16 Rate Blood Pressure 159/61 O2 Sat by Pulse 98 Oximetry Medical Decision Making - Medical Decision Making Was pt. sent in by a medical professional or institution (, PA, GRAIN OILSEED OR PASTURE FARM WORKER, urgent care, hospital, or group home...) When possible be specific @ -No Did you speak to anyone other than the patient for history (EMS, parent, family, police, friend...)? What history was obtained from this source @ -Friend is present to help provide history Did you review nursing and triage notes (agree or disagree)? Why? @ -I reviewed and agree with nursing and triage notes Were old charts reviewed (outside hosp., previous admission, EMS record, old EKG, old radiological studies, urgent care reports/EKG's, group home records)? Report findings @ -No old charts were reviewed Differential Diagnosis (chest pain, altered mental status, abdominal pain women, abdominal pain men, vaginal bleeding, weakness, fever, dyspnea, syncope, headache, dizziness, GI bleed, back pain, seizure, CVA, palpatations, mental health)? @ -Differential Seizure: Recurrent seizure disorder, febrile seizure, alcohol withdrawal, stimulants, meningitis, encephalitis, intercranial hemorrhage, intracranial tumor, stroke, e clampsia, thyrotoxicosis, hypocalcemia, hyponatremia, hypernatremia, hypomagnesemia, psychogenic, this is not meant to be an all-inclusive list. EKG interpreted by me (3pts min.). @ -As above X-rays interpreted by me (1pt min.). @ -None done CT interpreted by me (1pt min.). @ -None done U/S interpreted by me (1pt. min.). @ -None done What testing was considered but not performed or refused? (CT, X-rays, U/S, labs)? Why? @ -None What meds were considered but not given or refused? Why? @ -None Did you discuss the management of the patient with other professionals (professionals i.e. , PA, GRAIN OILSEED OR PASTURE FARM WORKER, lab, RT, psych nurse, social work therapist, [employer] police coxswain, teacher, police commanding officer, director of casework)? Give summary @ -No Was smoking cessation discussed for >3mins.? @ -No Was critical care preformed (if so, how long)? @ -No Were there social determinants of health that impacted care today? How? (Homelessness, low income, unemployed, alcoholism, drug addiction, transportation, low edu. Level, literacy, decrease access to med. care, m[facility], rehab)? @ -No Was there de-escalation of care discussed even if they declined (Discuss DNR or withdrawal of care, Hospice)? DNR status @ -No What co-morbidities impacted this encounter? (DM, HTN, Smoking, COPD, CAD, Cancer, CVA, ARF, Chemo, Hep., AIDS, mental health diagnosis, sleep apnea, morbid obesity)? @ -None Was patient admitted / discharged? Hospital course, mention meds given and route, prescriptions, significant lab abnormalities, going to OR and other pertinent info. @ -Patient reevaluated and resting comfortably in bed without complaint. Patient updated on results and plan. Renal function similar to previous. Patient was given additional dose of Keppra and recommended close follow-up with her doctor to obtain level from today as well as follow-up Undiagnosed new problem with uncertain prognosis? @ -No Drug Therapy requiring intensive monitoring for toxicity (Heparin, Nitro, Insulin, Cardizem)? @ -No Were any procedures done? @ -No Diagnosis/symptom? @ -Seizure Acute, or Chronic, or Acute on Chronic? @ -Acute on chronic Uncomplicated (without systemic symptoms) or Complicated (systemic symptoms)? @ -default Side effects of treatment? @ -No Exacerbation, Progression, or Severe Exacerbation? @ -No Poses a threat to life or bodily function? How? (Chest pain, [place], [place], pneumonia, PE, COPD, DKA, ARF, appy, cholecystitis, CVA, Diverticulitis, Homicidal, Suicidal, threat to staff... and all critical care pts) @ -No - Lab Data Result diagrams: 08/18/22 15:15 08/18/22 15:15 Lab Results 08/18/22 08/18/22 Range/Units 15:15 15:15 WBC 6.7 (3.8-10.6) k/uL RBC 4.87 (3.80-5.40) m/uL Hgb 14.7 (11.4-16.0) gm/dL Hct 45.1 (34.0-46.0) % MCV 92.7 (80.0-100.0) fL MCH 30.2 (25.0-35.0) pg MCHC 32.6 (31.0-37.0) g/dL RDW 13.6 (11.5-15.5) % Plt Count 242 (150-450) k/uL MPV 7.5 Neutrophils % 48 % Lymphocytes % 41 % Monocytes % 6 % Eosinophils % 2 % Basophils % 1 % Neutrophils # 3.2 (1.3-7.7) k/uL Lymphocytes # 2.8 (1.0-4.8) k/uL Monocytes # 0.4 (0-1.0) k/uL Eosinophils # 0.1 (0-0.7) k/uL Basophils # 0.1 (0-0.2) k/uL Sodium 140 (137-145) mmol/L Potassium 3.9 (3.5-5.1) mmol/L Chloride 103 (98-107) mmol/L Carbon Dioxide 30 (22-30) mmol/L Anion Gap 7 mmol/L BUN 41 H (7-17) mg/dL Creatinine 1.47 H (0.52-1.04) mg/dL Est GFR (CKD-EPI)AfAm 42 (>60 ml/min/1.73 sqM) Est GFR (CKD-EPI)NonAf 36 (>60 ml/min/1.73 sqM) Glucose 117 H (74-99) mg/dL Calcium 9.5 (8.4-10.2) mg/dL Magnesium 2.1 (1.6-2.3) mg/dL Total Bilirubin 0.6 (0.2-1.3) mg/dL AST 33 (14-36) U/L ALT 27 (4-34) U/L Alkaline Phosphatase 108 (38-126) U/L Total Protein 6.9 (6.3-8.2) g/dL Albumin 4.1 (3.5-5.0) g/dL Disposition Clinical Impression: Generalized seizure Disposition: HOME SELF-CARE Condition: Stable Instructions (If sedation given, give patient instructions): Seizure/Epilepsy Discharge Instructions & Follow-Up, Recurrent Seizures in Adults (ED) Additional Instructions: Please do follow-up with primary care physician in the next couple days for recheck. Have primary care physician recheck Keppra level drawn today. Return for increased seizures, weakness, fevers, worsening or change in symptoms or other concerns. Is patient prescribed a controlled substance at d/c from ED?: No Referrals: Kvng Tanner MD [Primary Care Provider] - 1-2 days Time of Disposition: 16:26
[2022-08-18] MEDS ORDERED: levETIRAcetam IV 750 MG in SODIUM CHLORIDE 0.9% 100 ML IVPB STA (15:05)
[2022-08-18 15:47] LABS: Basophils # (A) 0.1 k/uL (0-0.2); Basophils % (A) 1 %; Eosinophils # (A) 0.1 k/uL (0-0.7); Eosinophils % (A) 2 %; HCT 45.1 % (34.0-46.0); HGB 14.7 gm/dL (11.4-16.0); Lymphocytes # (A) 2.8 k/uL (1.0-4.8); Lymphocytes % (A) 41 %; MCH 30.2 pg (25.0-35.0); MCHC 32.6 g/dL (31.0-37.0); MCV 92.7 fL (80.0-100.0); Mean Platelet Volume 7.5; Monocytes # (A) 0.4 k/uL (0-1.0); Monocytes % (A) 6 %; Neutrophils # (A) 3.2 k/uL (1.3-7.7); Neutrophils % (A) 48 %; Platelet Count 242 k/uL (150-450); RBC 4.87 m/uL (3.80-5.40); RDW 13.6 % (11.5-15.5); WBC 6.7 k/uL (3.8-10.6)
[2022-08-18 16:00] LABS: Albumin 4.1 g/dL (3.5-5.0); Calcium 9.5 mg/dL (8.4-10.2); Magnesium 2.1 mg/dL (1.6-2.3); Potassium 3.9 mmol/L (3.5-5.1); Total Bilirubin 0.6 mg/dL (0.2-1.3); Total Protein 6.9 g/dL (6.3-8.2)
[2022-08-18 16:41] VITALS: BP 154/60; PULSE 64; RESP 18
== END 2022-08-18 17:17 | disposition home or self-care (01) ==
LOC: EC 14:21
DX: G40.909 Epilepsy, unspecified, not intractable, without status epilepticus (principal); I48.91 Unspecified atrial fibrillation; J45.909 Unspecified asthma, uncomplicated; I25.10 Atherosclerotic heart disease of native coronary artery without angina pectoris; I13.0 Hypertensive heart and chronic kidney disease with heart failure and stage 1 through stage 4 chronic kidney disease, or unspecified chronic kidney disease; I50.9 Heart failure, unspecified; N18.30 Chronic kidney disease, stage 3 unspecified; K21.9 Gastro-esophageal reflux disease without esophagitis; M19.90 Unspecified osteoarthritis, unspecified site; E78.5 Hyperlipidemia, unspecified; E07.9 Disorder of thyroid, unspecified; E11.22 Type 2 diabetes mellitus with diabetic chronic kidney disease; F41.9 Anxiety disorder, unspecified; F31.9 Bipolar disorder, unspecified; Z87.891 Personal history of nicotine dependence; Z88.6 Allergy status to analgesic agent; Z88.8 Allergy status to other drugs, medicaments and biological substances; Z79.4 Long term (current) use of insulin; Z79.82 Long term (current) use of aspirin; Z79.890 Hormone replacement therapy; Z79.51 Long term (current) use of inhaled steroids; Z79.899 Other long term (current) drug therapy
CPT/HCPCS: 99284 ×2; 96365 ×2; 96366 ×2; 36415; 80053; 80177; 83735; 85025; J1953

== ENCOUNTER → 2022-09-01 | Outpatient (CLI) | payer MEDICARE ==
[2022-09-01 15:57] LABS: HGB 13.4 g/dL (12.0-15.0); MCH 29.8 pg (27.0-32.0); MCHC 31.9 g/dL (32.0-37.0); MCV 93.5 fL (80.0-97.0); Mean Platelet Volume 10.7 fL (9.5-12.2); NRBC Per 100 WBC 0 /100 WBCS (0.0-0.0); Platelet Count 238 X 10*3/uL (140-440); RBC 4.49 X 10*6/uL (4.10-5.20); RDW 13.3 % (11.5-14.5); WBC 8.68 X 10*3/uL (4.50-10.00)
[2022-09-01 16:52] LABS: Appearance,Urine Clear (Clear); Bilirubin,Urine Negative (Negative); Blood,Urine Negative (Negative); Color,Urine Yellow (Yellow); Ketones,Urine Negative (Negative); Nitrite,Urine Negative (Negative); PH, Urine 5.5 (5.0-8.0); Urobilinogen,Urine 0.2 (0.2,1.0)
[2022-09-01 17:00] LABS: Bacteria,Urine None Seen /HPF (None Seen)
[2022-09-01 18:13] LABS: % Iron Saturation 13.25 (12.00-45.00); Magnesium 2.3 mg/dL (1.5-2.4); Phosphorus 3.7 mg/dL (2.4-5.1); Uric Acid 4.8 mg/dL (2.9-7.7)
[2022-09-01 18:16] LABS: African American GFR (CKD) 32.3 (60.0-200.0); Albumin 4.3 g/dL (3.8-4.9); Albumin/Globulin Ratio 1.69 (1.60-3.17); Anion Gap 15.5 mmol/L (10.00-18.00); BUN/Creat Ratio 23.46 Ratio (12.00-20.00); Blood Urea Nitrogen 42.7 mg/dL (9.0-27.0); Calcium 9.7 mg/dL (8.7-10.3); Carbon Dioxide 26.1 mmol/L (20.0-27.5); Globulin 2.5 g/dL (1.6-3.3); Non-African American GFR(CKD) 27.9 (60.0-200.0); Potassium 3.8 mmol/L (3.5-5.5); Total Bilirubin 0.4 mg/dL (0.30-1.20); Total Protein 6.8 g/dL (6.2-8.2)
[2022-09-01 18:39] LABS: Urine Creatinine 47.1 mg/dL (28.0-217.0)
== END | disposition home or self-care (01) ==
LOC: LABWHC1 08:57
PROVIDERS: ATTEND Nurse Practitioner Family
DX: D64.9 Anemia, unspecified (principal); N18.4 Chronic kidney disease, stage 4 (severe); N39.0 Urinary tract infection, site not specified; N25.81 Secondary hyperparathyroidism of renal origin; E55.9 Vitamin D deficiency, unspecified; M10.9 Gout, unspecified
CPT/HCPCS: 36415; 80053; 81001; 82043; 82306; 82570; 82728; 83540; 83550; 83735; 83970; 84100; 84550; 85027

== ENCOUNTER → 2022-10-11 | Outpatient (CLI) | payer MEDICARE ==
[2022-10-12 02:09] LABS: African American GFR (CKD) 47.2 (60.0-200.0); Anion Gap 12.5 mmol/L (10.00-18.00); BUN/Creat Ratio 26.32 Ratio (12.00-20.00); Calcium 9.9 mg/dL (8.7-10.3); Carbon Dioxide 22.1 mmol/L (20.0-27.5); Non-African American GFR(CKD) 40.7 (60.0-200.0); Potassium 4.6 mmol/L (3.5-5.5)
== END | disposition home or self-care (01) ==
LOC: LABWHC1 15:38
PROVIDERS: ATTEND Internal Medicine Interventional Cardiology
DX: I10 Essential (primary) hypertension (principal)
CPT/HCPCS: 36415; 80048

== ENCOUNTER → 2022-10-18 | Outpatient (CLI) | payer MEDICARE ==
--- NOTE | 2022-10-18 15:32 | NM ---
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 TECHNIQUE: Intravenous administration 23.9 mCi Tc 99m MDP followed by multiple scintigraphic images o f the appendicular and axial skeleton. Images acquired 3 hours post injection. FINDINGS: No abnormal uptake is identified within the appendicular or axial skeleton to suggest metastatic dise ase. There is abnormal uptake within the spine at the level of L4 near the pedicles. There is increased uptake within the bilateral shoulder, sternoclavicular, and sacroiliac joints and the tibial plateaus bilaterally left greater than right along the medial aspect. The mid foot bilater ally also demonstrates radiotracer uptake. These findings are compatible with degenerative changes. No other photopenic areas or areas of increased activity are identified. Physiologic radiotracer activity is demonstrated in the kidneys and bladder. IMPRESSION: 1. Uptake within the level of the L4 vertebrae bilaterally near the pedicles, correlate for spondylo lysis. 2. Scattered degeneration changes including the feet, knees and shoulders.
== END | disposition home or self-care (01) ==
LOC: RADNMMAIN 09:35
PROVIDERS: ATTEND Physical Medicine & Rehabilitation
DX: M47.816 Spondylosis without myelopathy or radiculopathy, lumbar region (principal); M17.0 Bilateral primary osteoarthritis of knee; M19.011 Primary osteoarthritis, right shoulder; M19.012 Primary osteoarthritis, left shoulder; M19.071 Primary osteoarthritis, right ankle and foot; M19.072 Primary osteoarthritis, left ankle and foot
CPT/HCPCS: 78306; A9503

== ENCOUNTER 2024-11-14 14:30 | Inpatient (IN) | payer MEDICARE ==
--- NOTE | 2024-11-14 14:59 | ED ---
General Adult HPI - General Chief complaint: Syncope Stated complaint: Syncope-Fall Hit Head Time Seen by Provider: 11/14/24 14:42 Source: patient, EMS, RN notes reviewed Mode of arrival: EMS Limitations: no limitations - History of Present Illness Initial comments: Patient is a 69-year-old female present to the emergency department syncopal episode. Episode occurred just prior to arrival. Patient states she only has discomfort posterior scalp. Patient was starting to boil hot dogs when she passed out. Patient believes she struck her head on the counter. No chest pain or dyspnea. No confusion or weakness. Patient states her eyes feel weird and that has been occurring for months. - Related Data Home Medications Medication Instructions Recorded Confirmed Atorvastatin Calcium [Lipitor] 20 mg PO HS 06/15/16 11/14/24 Insulin Glargine (Lantus) [Lantus 30 units SQ HS 06/21/17 11/14/24 Vial] allopurinoL [Zyloprim] 100 mg PO DAILY 06/21/17 11/14/24 paricalcitoL [Paricalcitol] 2 mcg PO DAILY 06/21/17 11/14/24 Pramipexole [Mirapex] 1 mg PO HS 09/30/20 11/14/24 carvediloL [Coreg] 6.25 mg PO DAILY 10/06/20 11/14/24 Cholecalciferol (Vitamin D3) 50 mcg PO DAILY 11/14/24 11/14/24 [Vitamin D3 (50 Mcg = 2000 Iu)] Dapagliflozin Propanediol [Farxiga] 10 mg PO DAILY 11/14/24 11/14/24 Furosemide [Lasix] 80 mg PO DAILY 11/14/24 11/14/24 Insulin Aspart [NovoLOG Flexpen] See Protocol SQ AC-TID 11/14/24 11/14/24 Lacosamide 100 mg PO BID 11/14/24 11/14/24 Levothyroxine Sodium [Synthroid] 200 mcg PO AC-BRKFST 11/14/24 11/14/24 Magnesium Oxide [Mag-Ox] 400 mg PO HS 11/14/24 11/14/24 OXcarbazepine [Trileptal] 600 mg PO BID 11/14/24 11/14/24 Potassium Chloride 10 meq PO DAILY 11/14/24 11/14/24 Sertraline [Zoloft] 50 mg PO DAILY 11/14/24 11/14/24 Tirzepatide [Mounjaro] 5 mg SQ TH 11/14/24 11/14/24 carvediloL [Coreg] 12.5 mg PO HS 11/14/24 11/14/24 hydrALAZINE HCL [Apresoline] 25 mg PO DAILY 11/14/24 11/14/24 levETIRAcetam [Keppra] 1,000 mg PO BID 11/14/24 11/14/24 traMADol HCL 50 mg PO DAILY PRN 11/14/24 11/14/24 Allergies Allergy/AdvReac Type Severity Reaction Status Date / Time ibuprofen [From Motrin] Allergy Swelling Verified 11/14/24 15:32 lisinopril Allergy Rash/Hives, Verified 11/14/24 15:32 swelling verapamil [From Calan] Allergy Rash/Hives, Verified 11/14/24 15:32 swelling metformin AdvReac Nausea & Verified 11/14/24 15:32 Vomiting & Diarrhea Review of Systems ROS Statement: Those systems with pertinent positive or pertinent negative responses have been documented in the HPI. ROS Other: All systems not noted in ROS Statement are negative. Constitutional: Denies: fever Eyes: Reports: as per HPI. Denies: eye pain, eye discharge ENT: Denies: ear pain Respiratory: Denies: dyspnea Cardiovascular: Denies: chest pain Endocrine: Denies: fatigue Gastrointestinal: Denies: abdominal pain Genitourinary: Denies: dysuria Musculoskeletal: Denies: back pain Neurological: Denies: vertigo Past Medical History Past Medical History: Atrial Fibrillation, Asthma, Coronary Artery Disease (CAD), Heart Failure, Diabetes Mellitus, GERD/Reflux, Hyperlipidemia, Hypertension, Musculoskeletal Disorder, Osteoarthritis (OA), Renal Disease, Seizure Disorder, Sleep Apnea/CPAP/BIPAP, Thyroid Disorder Additional Past Medical History / Comment(s): Stage 3 kidney disease, CHF, chronic back pain, no current cpap, vaccinated for covid History of Any Multi-Drug Resistant Organisms: MRSA Date of last positivie culture/infection: approx 1996 or 1997 MDRO Source:: stomach area Past Surgical History: Cardiac Ablation, Cholecystectomy, Joint Replacement, Orthopedic Surgery Additional Past Surgical History / Comment(s): ORIF rt wrist-hardware later removed, mult procedures to betsy legs for wounds/cellulitis, betsy knee replacement, bunionectomy, bilat CTR, Monitor Loop implant/removal, pain clinic procedure. Past Anesthesia/Blood Transfusion Reactions: Previous Problems w/ Anesthesia Additional Past Anesthesia/Blood Transfusion Reaction / Comment(s): Nightmares during anesthesia, no complications with prior blood transfusion. Type of Cardiac Device: Loop Device Placement Date:: 2011 Past Psychological History: Anxiety, Bipolar, Depression Smoking Status: Former smoker Past Alcohol Use History: None Reported Past Drug Use History: None Reported - Past Family History Mother Family Medical History: No Reported History Father Family Medical History: No Reported History Sister(s) Family Medical History: No Reported History Additional Family Medical History / Comment(s): (Niece had non-hodgkin's lymphoma) General Exam Limitations: no limitations General appearance: alert, in no apparent distress Head exam: Present: other (Soft tissue swelling right posterior parietal) Eye exam: Present: normal appearance, PERRL, EOMI, nystagmus, other (With superior gaze left eye deviates laterally) Neck exam: Present: normal inspection. Absent: tenderness Respiratory exam: Present: normal lung sounds bilaterally Cardiovascular Exam: Present: regular rate, normal rhythm GI/Abdominal exam: Present: soft. Absent: tenderness Extremities exam: Present: normal inspection. Absent: pedal edema, calf tender ness Neurological exam: Present: alert Psychiatric exam: Present: normal affect, normal mood Skin exam: Present: normal color Course Vital Signs 11/14/24 14:36 Temperature 98.2 F Pulse Rate 75 Respiratory 20 Rate Blood Pressure 182/80 O2 Sat by Pulse 99 Oximetry EKG Findings - EKG Results: EKG: interpreted by ERMD (Left axis.), sinus rhythm, normal QRS, normal ST/T Medical Decision Making - Medical Decision Making Was pt. sent in by a medical professional or institution (, PA, CALCULUS PROFESSOR, urgent care, hospital, or alf...) When possible be specific @ -No Did you speak to anyone other than the patient for history (EMS, parent, family, police, friend...)? What history was obtained from this source @ -No Did you review nursing and triage notes (agree or disagree)? Why? @ -I reviewed and agree with nursing and triage notes Were old charts reviewed (outside hosp., previous admission, EMS record, old EKG, old radiological studies, urgent care reports/EKG's, alf records)? Report findings @ -No old charts were reviewed Differential Diagnosis (chest pain, altered mental status, abdominal pain women, abdominal pain men, vaginal bleeding, weakness, fever, dyspnea, syncope, headache, dizziness, GI bleed, back pain, seizure, CVA, palpatations, mental health, musculoskeletal)? @ -Differential Syncope: Valvular disease, hypertrophic cardiomyopathy, pulmonary embolism, tamponade, tachycardia, bradycardia, NC, hypovolemia, hemorrhage, dissection, anemia, intracranial hemorrhage, seizure, hypoglycemia, carbon monoxide poisoning, this is not meant to be an all-inclusive list. EKG interpreted by me (3pts min.). @ -As above X-rays interpreted by me (1pt min.). @ -Chest x-ray shows some mild nonspecific haziness. CT interpreted by me (1pt min.). @ -CT brain shows posterior arachnoid cyst on the left U/S interpreted by me (1pt. min.). @ -None done What testing was considered but not performed or refused? (CT, X-rays, U/S, labs)? Why? @ -Considered CT scan of the brain however patient does have pacem concepcion/defibrillator on chest x-ray What meds were considered but not given or refused? Why? @ -None Did you discuss the management of the patient with other professionals (professionals i.e. , PA, CALCULUS PROFESSOR, lab, RT, psych nurse, clinical social work aide, water filter cleaner, teacher, airplane first officer, case technician)? Give summary @ -Case discussed with practitioner Pacheco who will admit covering Dr. Scott Was smoking cessation discussed for >3mins.? @ -No Was critical care preformed (if so, how long)? @ -No Were there social determinants of health that impacted care today? How? (Homelessness, low income, unemployed, alcoholism, drug addiction, transportation, low edu. Level, literacy, decrease access to med. care, correction, rehab)? @ -No Was there de-escalation of care discussed even if they declined (Discuss DNR or withdrawal of care, Hospice)? DNR status @ -No What co-morbidities impacted this encounter? (DM, HTN, Smoking, COPD, CAD, Cancer, CVA, ARF, Chemo, Hep., AIDS, mental health diagnosis, sleep apnea, morbid obesity)? @ -None Was patient admitted / discharged? Hospital course, mention meds given and route , prescriptions, significant lab abnormalities, going to OR and other pertinent info. @ -Patient presents with syncopal episode. Patient has horizontal nystagmus and some divergent of left eye laterally with upper gaze. Patient will be admitted with neuro consult. Patient reevaluated and updated. Admission orders written. Undiagnosed new problem with uncertain prognosis? @ -No Drug Therapy requiring intensive monitoring for toxicity (Heparin, Nitro, Insulin, Cardizem)? @ -No Were any procedures done? @ -No Diagnosis/symptom? @ -Syncope Acute, or Chronic, or Acute on Chronic? @ -Acute Uncomplicated (without systemic symptoms) or Complicated (systemic symptoms)? @ -Default Side effects of treatment? @ -No Exacerbation, Progression, or Severe Exacerbation? @ -No Poses a threat to life or bodily function? How? (Chest pain, USA, NC, pneumonia, PE, COPD, DKA, ARF, appy, cholecystitis, CVA, Diverticulitis, Homicidal, Suicidal, threat to staff... and all critical care pts) @ -Threat to neurological function - Lab Data Result diagrams: 11/14/24 14:59 11/14/24 14:59 Lab Results 11/14/24 11/14/24 11/14/24 Range/Units 14:59 14:59 14:59 WBC 6.34 (4.50-10.00) 10*3/uL RBC 3.93 L (4.10-5.20) 10*6/uL Hgb 12.2 (12.0-15.0) g/dL Hct 37.3 (37.2-46.3) % MCV 94.9 (80.0-97.0) fL MCH 31.0 (27.0-32.0) pg MCHC 32.7 (32.0-37.0) g/dL Plt Count 204 (140-440) 10*3/uL MPV 9.9 (9.5-12.2) fL Immature Gran % (Auto) 0.9 % Neutrophils % 52.3 % Lymphocytes % 35.6 % Monocytes % 8.5 % Eosinophils % 1.9 % Basophils % 0.8 % Immature Gran # 0.06 H (0.00-0.04) 10*3/uL Neutrophils # 3.31 (1.80-7.70) 10*3/uL Lymphocytes # 2.26 (0.90-5.00) 10*3/uL Monocytes # 0.54 (0.20-1.00) 10*3/uL Eosinophils # 0.12 (0.04-0.35) 10*3/uL Basophils # 0.05 (0.00-0.10) 10*3/uL PT 10.5 (10.0-12.5) sec INR 0.9 (<1.2) APTT 21.9 L (22.0-30.0) sec Sodium 139 (137-145) mmol/L Potassium 4.1 (3.5-5.1) mmol/L Chloride 99 (98-107) mmol/L Carbon Dioxide 29 (22-30) mmol/L Anion Gap 11 mmol/L BUN 45 H (7-17) mg/dL Creatinine 1.63 H (0.52-1.04) mg/dL Est GFR (CKD-EPI)AfAm 36 (>60 ml/min/1.73 sqM) Est GFR (CKD-EPI)NonAf 32 (>60 ml/min/1.73 sqM) Glucose 151 H (74-99) mg/dL Calcium 9.7 (8.4-10.2) mg/dL Magnesium 2.1 (1.6-2.3) mg/dL Total Bilirubin 0.5 (0.2-1.3) mg/dL AST 26 (14-36) U/L ALT 17 (4-34) U/L Alkaline Phosphatase 170 H (38-126) U/L Troponin I (0.000-0.034) ng/mL Total Protein 6.8 (6.3-8.2) g/dL Albumin 4.2 (3.5-5.0) g/dL 11/14/24 Range/Units 14:59 WBC (4.50-10.00) 10*3/uL RBC (4.10-5.20) 10*6/uL Hgb (12.0-15.0) g/dL Hct (37.2-46.3) % MCV (80.0-97.0) fL MCH (27.0-32.0) pg MCHC (32.0-37.0) g/dL Plt Count (140-440) 10*3/uL MPV (9.5-12.2) fL Immature Gran % (Auto) % Neutrophils % % Lymphocytes % % Monocytes % % Eosinophils % % Basophils % % Immature Gran # (0.00-0.04) 10*3/uL Neutrophils # (1.80-7.70) 10*3/uL Lymphocytes # (0.90-5.00) 10*3/uL Monocytes # (0.20-1.00) 10*3/uL Eosinophils # (0.04-0.35) 10*3/uL Basophils # (0.00-0.10) 10*3/uL PT (10.0-12.5) sec INR (<1.2) APTT (22.0-30.0) sec Sodium (137-145) mmol/L Potassium (3.5-5.1) mmol/L Chloride (98-107) mmol/L Carbon Dioxide (22-30) mmol/L Anion Gap mmol/L BUN (7-17) mg/dL Creatinine (0.52-1.04) mg/dL Est GFR (CKD-EPI)AfAm (>60 ml/min/1.73 sqM) Est GFR (CKD-EPI)NonAf (>60 ml/min/1.73 sqM) Glucose (74-99) mg/dL Calcium (8.4-10.2) mg/dL Magnesium (1.6-2.3) mg/dL Total Bilirubin (0.2-1.3) mg/dL AST (14-36) U/L ALT (4-34) U/L Alkaline Phosphatase (38-126) U/L Troponin I <0.012 (0.000-0.034) ng/mL Total Protein (6.3-8.2) g/dL Albumin (3.5-5.0) g/dL Disposition Clinical Impression: Syncope Disposition: ADMITTED IP TO THIS [facility] Is patient prescribed a controlled substance at d/c from ED?: No Referrals: Kvng Tanner MD [Primary Care Provider] - 1-2 days Time of Disposition: 16:38
[2024-11-14 15:18] LABS: HCT 37.3 % (37.2-46.3); HGB 12.2 g/dL (12.0-15.0); MCHC 32.7 g/dL (32.0-37.0); MCV 94.9 fL (80.0-97.0); RBC 3.93 10*6/uL (4.10-5.20); WBC 6.34 10*3/uL (4.50-10.00)
[2024-11-14 15:19] LABS: Basophils # (A) 0.05 10*3/uL (0.00-0.10); Basophils % (A) 0.8 %; Eosinophils # (A) 0.12 10*3/uL (0.04-0.35); Eosinophils % (A) 1.9 %; Lymphocytes # (A) 2.26 10*3/uL (0.90-5.00); Lymphocytes % (A) 35.6 %; Mean Platelet Volume 9.9 fL (9.5-12.2); Monocytes # (A) 0.54 10*3/uL (0.20-1.00); Monocytes % (A) 8.5 %; Neutrophils # (A) 3.31 10*3/uL (1.80-7.70); Neutrophils % (A) 52.3 %; Platelet Count 204 10*3/uL (140-440); RDW 13.3 % (11.5-14.5)
[2024-11-14 15:36] LABS: ALT 17 U/L (4-34); AST 26 U/L (14-36); African American GFR (CKD) 36 (>60 ml/min/1.73 sqM); Albumin 4.2 g/dL (3.5-5.0); Alkaline Phosphatase 170 U/L (38-126); Anion Gap 11 mmol/L; Blood Urea Nitrogen 45 mg/dL (7-17); Calcium 9.7 mg/dL (8.4-10.2); Carbon Dioxide 29 mmol/L (22-30); Chloride 99 mmol/L (98-107); Glucose 151 mg/dL (74-99); Magnesium 2.1 mg/dL (1.6-2.3); Non-African American GFR(CKD) 32 (>60 ml/min/1.73 sqM); Potassium 4.1 mmol/L (3.5-5.1); Sodium 139 mmol/L (137-145); Total Bilirubin 0.5 mg/dL (0.2-1.3); Total Protein 6.8 g/dL (6.3-8.2)
[2024-11-14 15:37] LABS: INR 0.9 (<1.2); Prothrombin Time 10.5 sec (10.0-12.5)
--- NOTE | 2024-11-14 15:38 | XR ---
EXAMINATION TYPE: XR chest 2V DATE OF EXAM: 11/14/2024 3:20 PM COMPARISON: Chest radiographs from 07/29/2020. CLINICAL INDICATION: Female, 69 years old with history of syncope; [facility] TECHNIQUE: XR chest 2V Frontal and lateral views of the chest. FINDINGS: Lungs/Pleura: There is no evidence of pleural effusion, focal consolidation, or pneumothorax. Pulmonary vascularity: Pulmonary vascular congestion. Heart/mediastinum: Cardiomediastinal silhouette is enlarged. Musculoskeletal: No acute osseous pathology. Other findings: None IMPRESSION: Cardiomegaly and mild pulmonary vascular congestion. Correlate with BNP for congestive heart failure. [facility], , 11/14/2024 3:36 PM
[2024-11-14 15:43] LABS: Partial Thromboplastin Time 21.9 sec (22.0-30.0)
--- NOTE | 2024-11-14 16:09 | CT ---
EXAMINATION TYPE: CT brain cspine wo con DATE OF EXAM: 11/14/2024 COMPARISON: CT brain dated 01/02/2022 CLINICAL INDICATION: Female, 69 years old with history of syncope; [facility], syncopeal fall, hit back of h ead TECHNIQUE: CT scan of the head and cervical spine are performed without contrast. CT DLP: 1446.[address] CTDI: mGy Automated exposure control for dose reduction was used. Findings: Head CT: Ventricles, basal cisterns and sulci over convexities are mildly to moderately enlarged consistent wi th mild to moderate atrophy. There is no mass effect or shift in midline structures. No abnormal density is seen throughout the brain parenchyma and there is no acute intra or extra-axia l hemorrhage. There is prominent CSF density along the left aspect of the cerebellum consistent with arachnoid cyst . It is unchanged compared to the prior study. The intraorbital contents appear normal and symmetric. There is fluid within the right sphenoid sinus . CT cervical spine: Craniovertebral junction relationships and prevertebral soft tissues are normal. There is a 3 to 4 mm anterolisthesis of C3 on C4. There is cervical kyphosis. There is severe disc space narrowing and spondylosis is seen at C3-4,, C4-5, C5-6 and C6-7 levels ind icating severe multilevel degenerative disc disease. The bony cervical canal is widely patent. There is moderate facet arthropathy at the C2-3 and C3-4 le vels on the right. There is mild to moderate bony neural foraminal encroachment at the C3-4 level on the left. The paraspinal soft tissues unremarkable. IMPRESSION: 1. Head CT: No acute bleed or mass effect. Stable posterior fossa arachnoid cyst in the left 2. CT cervical spine: No acute trauma. Severe multilevel degenerative disease resulting in cervical k yphosis. [facility], , 11/14/2024 4:07 PM
[2024-11-14] MEDS ORDERED: NALOXONE 0.4 MG/ML 1 ML VIAL IV PRN (16:39)
[2024-11-14] MEDS ORDERED: ACETAMINOPHEN TAB 325 MG TAB PO PRN (16:39)
[2024-11-14] MEDS ORDERED: DEXTROSE 50% SYRINGE 50 ML IVP PRN ×2 (17:13)
--- NOTE | 2024-11-14 17:18 | P.HPIM ---
History of Present Illness H&P Date: 11/14/24 Patient is a 77-year-old female with medical history of type II DM, CHF, CKD 3B, hyperlipidemia, hypothyroidism, hypertension, seizure disorder on Keppra, lymphedema, history of paroxysmal SVT, pacemaker in place Who presented to the ER for syncopal episode that happened when she was boiling hot dogs. She denies any precipitating events, no chest pain, dyspnea, hot fluses, dizziness lightheadedness. She probably struck her head on the counter. She believes that she was out for less than a minute. She denies any sensation changes, numbness, tingling. She says that her vision has been blurred, cannot describe better, denied vision field loss, blurred vision, double vision. She lives with her roommate and the dog. On arrival afebrile, heart rate in 70s, BP elevated 182/80, SpO2 98% on room air. Blood work revealed normal WBC count, hemoglobin, Count, INR 0.9, normal sodium, potassium, bicarb, creatinine 1.63 appears to be at baseline. EKG showed sinus rhythm with premature ventricular complexes, no ST elevation, QTc 429. Chest x-ray showed cardiomegaly and mild pulmonary vascular congestion. CT head cervical spine showed no acute bleed or mass, stable posterior fossa arachnoid cyst in the left, severe multilevel degenerative disease resulting in cervical kyphosis. Pertinent positives and negatives as discussed in HPI, a complete review of systems was performed and all other systems are negative. Patient seen and examined at bedside. [] Vital signs reviewed General: nontoxic, no distress, appears at stated age, obese Derm: warm, dry Head: atraumatic, normocephalic, symmetric Eyes: EOMI, no lid lag, anicteric sclera, pupils equal round reactive to light ENT: Nose and ears atraumatic Neck: No thyromegaly, supple Mouth: no lip lesion, mucus membranes moist Cardiovascular: S1S2 reg, no murmur, chronic lymphedema with chronic venous stasis changes, left-sided pacemaker in place Lungs: clear to auscultation bilateral, no rhonchi, no rales, no wheeze, no ac cessory muscle use Abdominal: soft, nontender to palpation, no guarding, no appreciable organomegaly Ext: no gross muscle atrophy, muscle strength muscle strength 5 out of 5 in all 4 extremities, no contractures, Neuro: CN II-XII grossly intact, horizontal nystagmus, normal finger-nose Psych: Alert, oriented, appropriate affect Assessment/Plan: Syncopal episode Fall secondary to above -Neurology consulted, appreciate recommendations -Consult cardiology -Interrogate pacemaker Continue telemetry- -check TSH, B12, folate, A1c, lipid panel, prolactin -Ordered EEG -Keppra levels, lacosamide levels -Orthostatic vitals, fall precautions History of seizure: Continue Keppra 1000 twice daily, continue lacosamide 100 mg p.o. daily Depression, continue Zoloft 50 mg p.o. daily Hyperparathyroidism: Continue home paricalcitol 2 mcg p.o. daily Diastolic CHF, not in acute exacerbation Hypertension History of paroxysmal SVT pacemaker in place - Resume home hydralazine 25 daily, Lasix 80 mg p.o. daily, Coreg 6.25 daily Hyperlipidemia: Continue home Lipitor 20 daily Hypothyroidism: Continue home levothyroxine 200 mcg Vitamin D deficiency: Continue home vitamin D 2000 IU daily Type II DM on insulin: Continue home Farxiga 10 mg daily, hold Mounjaro injections, takes 30 units of Lantus nightly, will proceed with 15 units of Lantus along with 5 mealtime, SSI, hypoglycemia precautions, Accu-Cheks CKD 3B: Kidney function at baseline, will monitor BMP The patient is admitted with an anticipated greater than 2 midnight stay as inpatient status for evaluation of syncope, neurological symptoms. CODE STATUS: Full code DVT prophylaxis: Heparin Anticipated discharge date: TBD Anticipated discharge place: [facility] A total of 40 minutes was spent on the care of this complex patient more than 50% of the time was spent in counseling and care coordination. Past Medical History Past Medical History: Atrial Fibrillation, Asthma, Coronary Artery Disease (CAD), Heart Failure, Diabetes Mellitus, GERD/Reflux, Hyperlipidemia, Hypertension, Musculoskeletal Disorder, Osteoarthritis (OA), Renal Disease, Seizure Disorder, Sleep Apnea/CPAP/BIPAP, Thyroid Disorder Additional Past Medical History / Comment(s): Stage 3 kidney disease, CHF, chronic back pain, no current cpap, vaccinated for covid History of Any Multi-Drug Resistant Organisms: MRSA Date of last positivie culture/infection: approx 1996 or 1997 MDRO Source:: stomach area Past Surgical History: Cardiac Ablation, Cholecystectomy, Joint Replacement, Orthopedic Surgery Additional Past Surgical History / Comment(s): ORIF rt wrist-hardware later removed, mult procedures to betsy legs for wounds/cellulitis, betsy knee replacement, bunionectomy, bilat CTR, Monitor Loop implant/removal, pain clinic procedure. Past Anesthesia/Blood Transfusion Reactions: Previous Problems w/ Anesthesia Additional Past Anesthesia/Blood Transfusion Reaction / Comment(s): Nightmares during anesthesia, no complications with prior blood transfusion. Type of Cardiac Device: Loop Device Placement Date:: 2011 Past Psychological History: Anxiety, Bipolar, Depression Smoking Status: Former smoker Past Alcohol Use History: None Reported Past Drug Use History: None Reported - Past Family History Mother Family Medical History: No Reported History Father Family Medical History: No Reported History Sister(s) Family Medical History: No Reported History Additional Family Medical History / Comment(s): (Niece had non-hodgkin's lymphoma) Medications and Allergies Home Medications Medication Instructions Recorded Confirmed Type Atorvastatin Calcium [Lipitor] 20 mg PO HS 06/15/16 11/14/24 History Insulin Glargine (Lantus) [Lantus 30 units SQ HS 06/21/17 11/14/24 History Vial] allopurinoL [Zyloprim] 100 mg PO DAILY 06/21/17 11/14/24 History paricalcitoL [Paricalcitol] 2 mcg PO DAILY 06/21/17 11/14/24 History Pramipexole [Mirapex] 1 mg PO HS 09/30/20 11/14/24 History carvediloL [Coreg] 6.25 mg PO DAILY 10/06/20 11/14/24 History Cholecalciferol (Vitamin D3) 50 mcg PO DAILY 11/14/24 11/14/24 History [Vitamin D3 (50 Mcg = 2000 Iu)] Dapagliflozin Propanediol [Farxiga] 10 mg PO DAILY 11/14/24 11/14/24 History Furosemide [Lasix] 80 mg PO DAILY 11/14/24 11/14/24 History Insulin Aspart [NovoLOG Flexpen] See Protocol SQ AC-TID 11/14/24 11/14/24 History Lacosamide 100 mg PO BID 11/14/24 11/14/24 History Levothyroxine Sodium [Synthroid] 200 mcg PO AC-BRKFST 11/14/24 11/14/24 History Magnesium Oxide [Mag-Ox] 400 mg PO HS 11/14/24 11/14/24 History OXcarbazepine [Trileptal] 600 mg PO BID 11/14/24 11/14/24 History Potassium Chloride 10 meq PO DAILY 11/14/24 11/14/24 History Sertraline [Zoloft] 50 mg PO DAILY 11/14/24 11/14/24 History Tirzepatide [Mounjaro] 5 mg SQ TH 11/14/24 11/14/24 History carvediloL [Coreg] 12.5 mg PO HS 11/14/24 11/14/24 History hydrALAZINE HCL [Apresoline] 25 mg PO DAILY 11/14/24 11/14/24 History levETIRAcetam [Keppra] 1,000 mg PO BID 11/14/24 11/14/24 History traMADol HCL 50 mg PO DAILY PRN 11/14/24 11/14/24 History Allergies Allergy/AdvReac Type Severity Reaction Status Date / Time ibuprofen [From Motrin] Allergy Swelling Verified 11/14/24 15:32 lisinopril Allergy Rash/Hives, Verified 11/14/24 15:32 swelling verapamil [From Calan] Allergy Rash/Hives, Verified 11/14/24 15:32 swelling metformin AdvReac Nausea & Verified 11/14/24 15:32 Vomiting & Diarrhea Physical Exam Vitals: Vital Signs Temp Pulse Resp BP Pulse Ox 11/14/24 14:36 98.2 F 75 20 182/80 99 Intake and Output 11/14/24 11/14/24 11/14/24 06:59 14:59 22:59 Other: Weight 127.913 kg Results CBC & Chem 7: 11/14/24 14:59 11/14/24 14:59 Labs: Abnormal Lab Results - Last 24 Hours (Table) 11/14/24 11/14/24 11/14/24 Range/Units 14:59 14:59 14:59 RBC 3.93 L (4.10-5.20) 10*6/uL Immature Gran # 0.06 H (0.00-0.04) 10*3/uL APTT 21.9 L (22.0-30.0) sec BUN 45 H (7-17) mg/dL Creatinine 1.63 H (0.52-1.04) mg/dL Glucose 151 H (74-99) mg/dL Alkaline Phosphatase 170 H (38-126) U/L
[2024-11-14] MEDS: INSULIN LISPRO (HumaLOG) 100 UNIT/ML 10 mL VL SQ SCH ×2 (18:24)
[2024-11-14 19:39] LABS: T4, Free (Free Thyroxine) 1.81 ng/dL (0.78-2.19)
[2024-11-14 19:55] LABS: Glucose,Whole Blood 211 mg/dL (70-110)
[2024-11-14] MEDS: INSULIN GLARGINE (LANTUS) 100 UNIT/ML SYR SQ SCH (20:53)
[2024-11-14] MEDS: PRAMIPEXOLE 1 MG TAB PO SCH (20:54)
[2024-11-14] MEDS: levETIRAcetam 500 MG TAB PO SCH (20:54)
[2024-11-14] MEDS: LACOSAMIDE 50 MG TABLET PO SCH (20:54)
[2024-11-14] MEDS: ATORVASTATIN 20 MG TAB PO SCH (20:54)
[2024-11-14] MEDS: MAGNESIUM OXIDE 400 MG TAB PO SCH (20:54)
[2024-11-14] MEDS: OXcarbazepine 300 MG TAB PO SCH (20:54)
[2024-11-15] MEDS: HEPARIN SODIUM,PORCINE 5,000 UNIT/ML 1 ML VIAL SQ SCH
[2024-11-15] MEDS: carvediloL 12.5 MG TAB PO SCH
[2024-11-15 02:50] LABS: Chol/HDL Ratio 3.22 Ratio; LDL Cholesterol,Calculated 99.6 mg/dL (0.0-131.0)
[2024-11-15 06:17] LABS: Glucose,Whole Blood 111 mg/dL (70-110)
[2024-11-15] MEDS: LEVOTHYROXINE 100 MCG TAB PO SCH (06:45)
[2024-11-15 08:49] LABS: Basophils # (A) 0.03 X 10*3/uL (0.00-0.10); Basophils % (A) 0.6 %; Eosinophils # (A) 0.05 X 10*3/uL (0.04-0.35); Eosinophils % (A) 0.9 %; HCT 34.5 % (37.2-46.3); Lymphocytes # (A) 1.66 X 10*3/uL (0.90-5.00); Lymphocytes % (A) 31.5 %; MCH 30.9 pg (27.0-32.0); MCHC 31.9 g/dL (32.0-37.0); MCV 96.9 FL (80.0-97.0); Mean Platelet Volume 10.5 FL (9.5-12.2); Monocytes # (A) 0.37 X 10*3/uL (0.20-1.00); NRBC Per 100 WBC 0 X 10*3/uL (0.00-0.01); Neutrophils # (A) 3.13 X 10*3/uL (1.80-7.70); Neutrophils % (A) 59.4 %; Platelet Count 196 X 10*3/uL (140-440); RBC 3.56 X 10*6/uL (4.10-5.20); RDW 13.7 % (11.5-14.5); WBC 5.27 X 10*3/uL (4.50-10.00)
--- NOTE | 2024-11-15 09:36 | P.CRDCN ---
History of Present Illness History of present illness: HISTORY OF PRESENT ILLNESS: This is a 69-year-old female with a past medical history significant for congestive heart failure, chronic kidney disease, hyperlipidemia, hypertension, seizure disorder, and pacemaker implantation. Patient follows in the office with Dr. Blanca. We have been asked to see the patient in consultation for syncope. Patient examined at the bedside. Patient states yesterday she was in the kitchen and was about to make hotdogs when maxing she knows she passed out on the floor. She denied having any warning signs. She does report loss of consciousness. Her roommate states that she was not out for very long but her eyes did roll back in the back of her head. She also reports that she passed out in August. Patient currently denies having any chest pain or pressure. She denies any shortness of breath. She does state that she does not drink any water whatsoever. Additionally, the patient has significant lymphedema. Compression stockings were recommended. Patient states that she has been trying to obtain a pair of compression stockings on an outpatient basis. DIAGNOSTICS: - EKG reveals sinus mechanism with no signs of acute ischemia. - Chest xray cardiomegaly mild pulmonary vascular congestion. - Laboratory data: WBC 6.34. Hemoglobin 12.2. Platelet count 204. Sodium 139. Potassium 4.1. BUN 45. Creatinine 1.63. Troponin negative x 1. - Current home cardiac medications include hydralazine 25 mg daily, carvedilol 6.25 mg in the morning and 12.5 mg at night, Lasix 80 mg daily, Farxiga 10 mg daily, Lipitor 20 mg at night. - Most recent echocardiogram obtained in July 2020 revealed ejection fraction 55 to 60%, mild MR, mild TR, mild pulmonary pretension - Patient underwent Lexiscan stress test in July 2020 which was negative for reversible ischemia REVIEW OF SYSTEMS: At the time of my exam: CONSTITUTIONAL: Denies fever or chills. HEENT: Denies blurred vision, vision changes, or eye pain. Denies hemoptysis CARDIOVASCULAR: Denies chest pain. Denies orthopnea. Denies PND. Denies palpitations RESPIRATORY: Denies shortness of breath. GASTROINTESTINAL: Denies abdominal pain. Denies nausea or vomiting. HEMATOLOGIC: Denies bleeding disorders. GENITOURINARY: Denies any blood in urine. SKIN: Denies pruitis. Denies rash. PHYSICAL EXAM: VITAL SIGNS: Reviewed. GENERAL: Well-developed in no acute distress. HEENT: Head is normocephalic. Pupils are equal, round. Sclerae anicteric. Mucous membranes of the mouth are moist. Neck supple. No JVD or thyromegaly LUNGS: Respirations even and unlabored. Lungs essentially clear to auscultation bilaterally. HEART: Regular rate and rhythm. S1 and S2 heard. ABDOMEN: Soft. Nondistended. Nontender. EXTREMITIES: Normal range of motion. No clubbing or cyanosis. Peripheral pulses intact. Significant lymphedema noted NEUROLOGIC: Awake and alert. Oriented x 3. ASSESSMENT: Syncope Chronic kidney disease Hypertension Hyperlipidemia Chronic congestive heart failure with preserved EF, currently not in acute exacerbation History of seizure disorder History of pacemaker implantation, [facility], performed at [facility], August 2024 Morbid obesity: BMI 50.0 Diabetes, hemoglobin A1c 7.5. Lymphedema of bilateral lower extremities PLAN: Obtain 2D echo to assess cardiac structure and function Pacemaker interrogated with no acute events noted Check orthostatic blood pressures Patient states that she does not drink any water whatsoever. Educated patient on the importance of drinking water to stay hydrated. Compression stockings recommended. Patient states that she has been trying to obtain a pair of compression stockings on an outpatient basis. Continue telemetry monitoring to assess for any arrhythmias Further recommendations pending patient course Nurse practitioner note has been reviewed by physician. Signing provider agrees with the documented findings, assessment, and plan of care documented by HOME HEALTH CARE PROVIDER as a scribe. Past Medical History Past Medical History: Atrial Fibrillation, Asthma, Coronary Artery Disease (CAD), Heart Failure, Diabetes Mellitus, GERD/Reflux, Hyperlipidemia, Hypertension, Musculoskeletal Disorder, Osteoarthritis (OA), Renal Disease, Seizure Disorder, Sleep Apnea/CPAP/BIPAP, Thyroid Disorder Additional Past Medical History / Comment(s): Stage 3 kidney disease, CHF, chronic back pain, no current cpap, vaccinated for covid History of Any Multi-Drug Resistant Organisms: None Reported, MRSA Date of last positivie culture/infection: approx 1996 or 1997 MDRO Source:: stomach area Past Surgical History: Cardiac Ablation, Cholecystectomy, Joint Replacement, Orthopedic Surgery Additional Past Surgical History / Comment(s): ORIF rt wrist-hardware later removed, mult procedures to betsy legs for wounds/cellulitis, betsy knee replacement, bunionectomy, bilat CTR, Monitor Loop implant/removal, pain clinic procedure. Past Anesthesia/Blood Transfusion Reactions: Previous Problems w/ Anesthesia Additional Past Anesthesia/Blood Transfusion Reaction / Comment(s): Nightmares during anesthesia, no complications with prior blood transfusion. Type of Cardiac Device: Loop Device Placement Date:: 2011 Past Psychological History: Anxiety, Bipolar, Depression Smoking Status: Former smoker Past Alcohol Use History: None Reported Additional Past Alcohol Use History / Comment(s): Smoked for 6 mos, <1 pack per week at age 28. Past Drug Use History: None Reported Additional Drug Use History / Comment(s): used CBD cream x1 - Past Family History Mother Family Medical History: No Reported History Father Family Medical History: No Reported History Sister(s) Family Medical History: No Reported History Additional Family Medical History / Comment(s): (Niece had non-hodgkin's lymphoma) Medications and Allergies Home Medications Medication Instructions Recorded Confirmed Type Atorvastatin Calcium [Lipitor] 20 mg PO HS 06/15/16 11/14/24 History Insulin Glargine (Lantus) [Lantus 30 units SQ HS 06/21/17 11/14/24 History Vial] allopurinoL [Zyloprim] 100 mg PO DAILY 06/21/17 11/14/24 History paricalcitoL [Paricalcitol] 2 mcg PO DAILY 06/21/17 11/14/24 History Pramipexole [Mirapex] 1 mg PO HS 09/30/20 11/14/24 History carvediloL [Coreg] 6.25 mg PO DAILY 10/06/20 11/14/24 History Cholecalciferol (Vitamin D3) 50 mcg PO DAILY 11/14/24 11/14/24 History [Vitamin D3 (50 Mcg = 2000 Iu)] Dapagliflozin Propanediol [Farxiga] 10 mg PO DAILY 11/14/24 11/14/24 History Furosemide [Lasix] 80 mg PO DAILY 11/14/24 11/14/24 History Insulin Aspart [NovoLOG Flexpen] See Protocol SQ AC-TID 11/14/24 11/14/24 History Lacosamide 100 mg PO BID 11/14/24 11/14/24 History Levothyroxine Sodium [Synthroid] 200 mcg PO AC-BRKFST 11/14/24 11/14/24 History Magnesium Oxide [Mag-Ox] 400 mg PO HS 11/14/24 11/14/24 History OXcarbazepine [Trileptal] 600 mg PO BID 11/14/24 11/14/24 History Potassium Chloride 10 meq PO DAILY 11/14/24 11/14/24 History Sertraline [Zoloft] 50 mg PO DAILY 11/14/24 11/14/24 History Tirzepatide [Mounjaro] 5 mg SQ TH 11/14/24 11/14/24 History carvediloL [Coreg] 12.5 mg PO HS 11/14/24 11/14/24 History hydrALAZINE HCL [Apresoline] 25 mg PO DAILY 11/14/24 11/14/24 History levETIRAcetam [Keppra] 1,000 mg PO BID 11/14/24 11/14/24 History traMADol HCL 50 mg PO DAILY PRN 11/14/24 11/14/24 History Allergies Allergy/AdvReac Type Severity Reaction Status Date / Time ibuprofen [From Motrin] Allergy Swelling Verified 11/14/24 15:32 lisinopril Allergy Rash/Hives, Verified 11/14/24 15:32 swelling verapamil [From Calan] Allergy Rash/Hives, Verified 11/14/24 15:32 swelling metformin AdvReac Nausea & Verified 11/14/24 15:32 Vomiting & Diarrhea Physical Exam Vitals: Vital Signs Temp Pulse Pulse Resp BP BP Pulse Ox 11/15/24 07:00 97.9 F 69 18 122/72 95 11/15/24 02:00 98.6 F 66 119/66 96 11/14/24 20:00 18 11/14/24 19:50 98.2 F 79 16 144/79 97 11/14/24 18:35 71 19 146/67 97 11/14/24 17:45 60 14 126/56 94 L 11/14/24 14:36 98.2 F 75 20 182/80 99 Intake and Output 11/14/24 11/15/24 11/15/24 22:59 06:59 14:59 Other: Voiding Method Bedside Commode Bedpan # Voids 1 2 Weight 127.913 kg Results 11/15/24 05:54 11/14/24 14:59 Cardiac Enzymes 11/14/24 11/14/24 Range/Units 14:59 14:59 AST 26 (14-36) U/L Troponin I <0.012 (0.000-0.034) ng/mL Coagulation 11/14/24 Range/Units 14:59 PT 10.5 (10.0-12.5) sec APTT 21.9 L (22.0-30.0) sec Lipids 11/14/24 Range/Units 18:08 Triglycerides 119.00 (0.00-149.00) mg/dL Cholesterol 179.00 (0.00-200.00) mg/dL HDL Cholesterol 55.60 (40.00-60.00) mg/dL Cholesterol/HDL Ratio 3.22 Ratio CBC 11/14/24 Range/Units 14:59 WBC 6.34 (4.50-10.00) 10*3/uL RBC 3.93 L (4.10-5.20) 10*6/uL Hgb 12.2 (12.0-15.0) g/dL Hct 37.3 (37.2-46.3) % Plt Count 204 (140-440) 10*3/uL Comprehensive Metabolic Panel 11/14/24 Range/Units 14:59 Sodium 139 (137-145) mmol/L Potassium 4.1 (3.5-5.1) mmol/L Chloride 99 (98-107) mmol/L Carbon Dioxide 29 (22-30) mmol/L BUN 45 H (7-17) mg/dL Creatinine 1.63 H (0.52-1.04) mg/dL Glucose 151 H (74-99) mg/dL Calcium 9.7 (8.4-10.2) mg/dL AST 26 (14-36) U/L ALT 17 (4-34) U/L Alkaline Phosphatase 170 H (38-126) U/L Total Protein 6.8 (6.3-8.2) g/dL Albumin 4.2 (3.5-5.0) g/dL Current Medications Generic Name Dose Route Start Last Admin Trade Name Freq PRN Reason Stop Dose Admin Acetaminophen 650 mg 11/14/24 16:39 Acetaminophen Tab 325 Mg Tab PO Q6HR PRN Mild Pain or Fever > 100.5 Allopurinol 100 mg 11/15/24 09:00 Allopurinol 100 Mg Tab PO DAILY YANELI Atorvastatin Calcium 20 mg 11/14/24 21:00 11/14/24 20:54 Atorvastatin 20 Mg Tab PO 20 mg HS YANELI Administration Carvedilol 6.25 mg 11/16/24 07:30 Carvedilol 6.25 Mg Tab PO AC-BRKFST [facility] Carvedilol 12.5 mg 11/14/24 22:58 11/15/24 00:00 Carvedilol 12.5 Mg Tab PO 12.5 mg HS YANELI Administration Cholecalciferol 50 mcg 11/15/24 09:00 Cholecalciferol 25 Mcg (1000 Iu) Tablet PO DAILY [facility] Dapagliflozin 10 mg 11/15/24 09:00 Dapagliflozin Propanediol 10 Mg Tablet PO DAILY [facility] Dextrose/Water 25 ml 11/14/24 17:13 Dextrose 50% Syringe 50 Ml IVP PER PROTOCOL PRN Hypoglycemia Protocol Dextrose/Water 50 ml 11/14/24 17:13 Dextrose 50% Syringe 50 Ml IVP PER PROTOCOL PRN Hypoglycemia Protocol Furosemide 80 mg 11/16/24 09:00 Furosemide 80 Mg Tab PO DAILY [facility] Heparin Sodium (Porcine) 5,000 unit 11/15/24 00:00 11/15/24 00:00 Heparin Sodium,Porcine 5,000 Unit/Ml 1 Ml Vial SQ 5,000 unit Q8HR YANELI Administration Hydralazine HCl 25 mg 11/16/24 09:00 Hydralazine Hcl 25 Mg Tab PO DAILY [facility] Insulin Glargine 15 unit 11/14/24 21:00 11/14/24 20:53 Insulin Glargine (Lantus) 100 Unit/Ml Syr SQ 15 unit HS [facility] Administration Insulin Human Lispro 5 unit 11/14/24 17:30 11/15/24 06:43 Insulin Lispro (Humalog) 100 Unit/Ml 10 Ml Vl SQ Not Given AC-TID YANELI Insulin Human Lispro 0 unit 11/14/24 17:30 11/15/24 06:43 Insulin Lispro (Humalog) 100 Unit/Ml 10 Ml Vl SQ Not Given ACHS [facility] Protocol Lacosamide 100 mg 11/14/24 21:00 11/14/24 20:54 Lacosamide 50 Mg Tablet PO 100 mg BID YANELI Administration Levetiracetam 1,000 mg 11/14/24 21:00 11/14/24 20:54 Levetiracetam 500 Mg Tab PO 1,000 mg BID YANELI Administration Levothyroxine Sodium 200 mcg 11/15/24 07:30 11/15/24 06:45 Levothyroxine 100 Mcg Tab PO 200 mcg AC-BRKFST YANELI Administration Magnesium Oxide 400 mg 11/14/24 21:00 11/14/24 20:54 Magnesium Oxide 400 Mg Tab PO 400 mg HS YANELI Administration Naloxone HCl 0.2 mg 11/14/24 16:39 Naloxone 0.4 Mg/Ml 1 Ml Vial IV Q2M PRN Opioid Reversal Oxcarbazepine 600 mg 11/14/24 21:00 11/14/24 20:54 Oxcarbazepine 300 Mg Tab PO 600 mg BID YANELI Administration Potassium Chloride 10 meq 11/16/24 09:00 Potassium Chloride Er 10 Meq Tab.Er.Prt PO DAILY YANELI Pramipexole Dihydrochloride 1 mg 11/14/24 21:00 11/14/24 20:54 Pramipexole 1 Mg Tab PO 1 mg HS YANELI Administration Sertraline HCl 50 mg 11/15/24 09:00 Sertraline 50 Mg Tab PO DAILY YANELI Intake and Output 11/14/24 11/15/24 11/15/24 22:59 06:59 14:59 Other: Voiding Method Bedside Commode Bedpan # Voids 1 2 Weight 127.913 kg 11/14/24 14:59 11/14/24 14:59
[2024-11-15] MEDS: allopurinoL 100 MG TAB PO SCH (09:46)
[2024-11-15] MEDS: CHOLECALCIFEROL 25 MCG (1000 IU) TABLET PO SCH (09:47)
[2024-11-15] MEDS: SERTRALINE 50 MG TAB PO SCH (09:47)
[2024-11-15] MEDS: DAPAGLIFLOZIN PROPANEDIOL 10 MG TABLET PO SCH (09:47)
[2024-11-15 10:50] LABS: BUN/Creat Ratio 24.12 Ratio (12.00-20.00); Calcium 8.8 mg/dL (8.7-10.3); Carbon Dioxide 25.7 mmol/L (21.6-31.8); Chloride 103 mmol/L (96-109); Glucose 108 mg/dL (70-110); Potassium 3.9 mmol/L (3.5-5.5); Sodium 142 mmol/L (135-145)
[2024-11-15 12:35] LABS: Glucose,Whole Blood 117 mg/dL (70-110)
--- NOTE | 2024-11-15 13:00 | P.PN ---
Subjective Progress Note Date: 11/15/24 Hospital Course: Patient is a 77-year-old female with medical history of type II DM, CHF, CKD 3B, hyperlipidemia, hypothyroidism, hypertension, seizure disorder on Keppra, lymphedema, history of paroxysmal SVT, pacemaker in place Who presented to the ER for syncopal episode that happened when she was boiling hot dogs. She denies any precipitating events, no chest pain, dyspnea, hot fluses, dizziness lightheadedness. She probably struck her head on the counter. She believes that she was out for less than a minute. She denies any sensation changes, numbness, tingling. She says that her vision has been blurred, cannot describe better, denied vision field loss, blurred vision, double vision. She lives with her roommate and the dog. On arrival afebrile, heart rate in 70s, BP elevated 182/80, SpO2 98% on room air. Blood work revealed normal WBC count, hemoglobin, Count, INR 0.9, normal sodium, potassium, bicarb, creatinine 1.63 appears to be at baseline. EKG showed sinus rhythm with premature ventricular complexes, no ST elevation, QTc 429. Chest x-ray showed cardiomegaly and mild pulmonary vascular congestion. 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 She denies any precipitating events, no chest pain, dyspnea, hot fluses, dizziness lightheadedness. She probably struck her head on the counter. She believes that she was out for less than a minute. She denies any sensation changes, numbness, tingling. She says that her vision has been blurred, cannot describe better, denied vision field loss, blurred vision, double vision. She lives with her roommate and the dog. On arrival afebrile, heart rate in 70s, BP elevated 182/80, SpO2 98% on room air. Blood work revealed normal WBC count, hemoglobin, Count, INR 0.9, normal sodium, potassium, bicarb, creatinine 1.63 appears to be at baseline. EKG showed sinus rhythm with premature ventricular complexes, no ST elevation, QTc 429. Chest x-ray showed cardiomegaly and mild pulmonary vascular congestion. CT head cervical spine showed no acute bleed or mass, stable posterior fossa arachnoid cyst in the left, severe multilevel degenerative disease resulting in cervical kyphosis. For further management of syncopal episode with cardiology and neurology on consult. 11/15: Seen and examined at bedside, no acute events overnight. Patient dizziness when her eyes are open, gets worse when she moves around, turns her head, improves when she sits still. Will try meclizine 25 4 times daily. Discussed with RN, neurology Dr. Craft. Patient cannot have brain MRI due to pacemaker. V itals are stable including blood pressure, heart rate, WBC, normal, hemoglobin 11.0, likely hemodilution, creatinine up to 1.7, still around baseline, blood glucose controlled, TSH 0.31 Free T41.8, prolactin 3.1, LDL 99, A1c 7.5, improving. Cardiology following, pacemaker interrogated with no events. TTE ordered and pending. Orthostatic vitals pending, as recommended for patient to use compression stocking. Pertinent positives and negatives as discussed above, a complete review of systems was performed and all other systems are negative. Vitals Signs Reviewed. General: nontoxic, no distress, appears at stated age, obese Derm: warm, dry Head: atraumatic, normocephalic, symmetric Eyes: EOMI, no lid lag, anicteric sclera, pupils equal round reactive to light ENT: Nose and ears atraumatic Neck: No thyromegaly, supple Mouth: no lip lesion, mucus membranes moist Cardiovascular: S1S2 reg, no murmur, chronic lymphedema with chronic venous stasis changes, left-sided pacemaker in place Lungs: clear to auscultation bilateral, no rhonchi, no rales, no wheeze, no accessory muscle use Abdominal: soft, nontender to palpation, no guarding, no appreciable organomegaly Ext: no gross muscle atrophy, muscle strength muscle strength 5 out of 5 in all 4 extremities, no contractures, Neuro: CN II-XII grossly intact, horizontal nystagmus, normal finger-nose Psych: Alert, oriented, appropriate affect Syncopal episode Fall secondary to above Vertigo -Neurology consulted, appreciate recommendations -Consult cardiology, TTE ordered and pending -Interrogate pacemaker no events- Continue telemetry- -TSH, A1c, lipid panel, prolactin as above -Ordered EEG -Keppra levels, lacosamide levels -Orthostatic vitals, fall precautions -Patient dizziness when her eyes are open, gets worse when she moves around, turns her head, improves when she sits still. Will try meclizine 25 4 times daily. Discussed with RN, neurology Dr. Craft. Patient cannot have brain MRI due to pacemaker. History of seizure: Continue Keppra 1000 twice daily, continue lacosamide 100 mg p.o. daily Depression, continue Zoloft 50 mg p.o. daily Hyperparathyroidism: Continue home paricalcitol 2 mcg p.o. daily Diastolic CHF, not in acute exacerbation Hypertension History of paroxysmal SVT pacemaker in place - Resume home hydralazine 25 daily, Lasix 80 mg p.o. daily, Coreg 6.25 daily Hyperlipidemia: Continue home Lipitor 20 daily Hypothyroidism: Continue home levothyroxine 200 mcg Vitamin D deficiency: Continue home vitamin D 2000 IU daily Type II DM on insulin: Continue home Farxiga 10 mg daily, hold Mounjaro injections, takes 30 units of Lantus nightly, will proceed with 15 units of Lantus along with 5 mealtime, SSI, hypoglycemia precautions, Accu-Cheks CKD 3B: Kidney function at baseline, will monitor BMP CODE STATUS: Full code DVT prophylaxis: Heparin Anticipated discharge date: TBD Anticipated discharge place: [facility] Objective - Vital Signs Vital signs: Vital Signs Temp 97.9 F 11/15/24 07:00 Pulse 69 11/15/24 07:00 Resp 18 11/15/24 07:00 BP 122/72 11/15/24 07:00 Pulse Ox 95 11/15/24 07:00 FiO2 Intake & Output 11/14/24 11/15/24 11/15/24 18:59 06:59 18:59 Weight 127.913 kg Other: Voiding Method Bedside Commode Bedpan # Voids 2 - Labs CBC & Chem 7: 11/15/24 05:54 11/15/24 05:54 Labs: Abnormal Lab Results - Last 24 Hours (Table) 11/14/24 11/14/24 11/14/24 Range/Units 14:59 14:59 14:59 RBC 3.93 L (4.10-5.20) 10*6/uL Hgb (12.0-15.0) g/dL Hct (37.2-46.3) % MCHC (32.0-37.0) g/dL Immature Gran # 0.06 H (0.00-0.04) 10*3/uL APTT 21.9 L (22.0-30.0) sec Anion Gap (4.00-12.00) mmol/L BUN 45 H (7-17) mg/dL Creatinine 1.63 H (0.52-1.04) mg/dL Est GFR (CKD-EPI) (>=60) BUN/Creatinine Ratio (12.00-20.00) Ratio Glucose 151 H (74-99) mg/dL POC Glucose (mg/dL) (70-110) mg/dL Hemoglobin A1c (<=6.0) % Alkaline Phosphatase 170 H (38-126) U/L TSH (0.465-4.680) mIU/L 11/14/24 11/14/24 11/14/24 Range/Units 18:08 18:08 19:52 RBC (4.10-5.20) 10*6/uL Hgb (12.0-15.0) g/dL Hct (37.2-46.3) % MCHC (32.0-37.0) g/dL Immature Gran # (0.00-0.04) 10*3/uL APTT (22.0-30.0) sec Anion Gap (4.00-12.00) mmol/L BUN (7-17) mg/dL Creatinine (0.52-1.04) mg/dL Est GFR (CKD-EPI) (>=60) BUN/Creatinine Ratio (12.00-20.00) Ratio Glucose (74-99) mg/dL POC Glucose (mg/dL) 211 H (70-110) mg/dL Hemoglobin A1c 7.5 H (<=6.0) % Alkaline Phosphatase (38-126) U/L TSH 0.307 L (0.465-4.680) mIU/L 11/15/24 11/15/24 11/15/24 Range/Units 05:54 05:54 06:15 RBC 3.56 L (4.10-5.20) 10*6/uL Hgb 11.0 L (12.0-15.0) g/dL Hct 34.5 L (37.2-46.3) % MCHC 31.9 L (32.0-37.0) g/dL Immature Gran # (0.00-0.04) 10*3/uL APTT (22.0-30.0) sec Anion Gap 13.30 H (4.00-12.00) mmol/L BUN 41.0 H (7-17) mg/dL Creatinine 1.7 H (0.52-1.04) mg/dL Est GFR (CKD-EPI) 32 L (>=60) BUN/Creatinine Ratio 24.12 H (12.00-20.00) Ratio Glucose (74-99) mg/dL POC Glucose (mg/dL) 111 H (70-110) mg/dL Hemoglobin A1c (<=6.0) % Alkaline Phosphatase (38-126) U/L TSH (0.465-4.680) mIU/L
[2024-11-15] MEDS: MECLIZINE 25 MG TAB PO SCH (13:58)
--- NOTE | 2024-11-15 14:45 | P.CNNES ---
History of Present Illness Consult date: 11/15/24 Requesting physician: Jay Mcintyre Reason for Consult: syncope with nystagmus History of Present Illness: This is a 69-year-old woman who presents the emergency department because of syncopal episode. She stated that she was at home and she had a syncopal episode. It seems that she was boiling hot dogs and she passed out. She stated that she fell backward her back of the head at the floor and she stated the episode was very short. She denies any urinary or bowel incontinence or tongue bite. According to medical record it seems that she struck her head on the counter. She stated that her episode was witnessed by her friend and there is no jerking of any extremities. She stated that she does have underlying history of seizures and has not had seizures for years. She denies any focal deficit, numbness, visual disturbance, speech difficulty. It seems that the patient had prior syncopal episode and she had a pacemaker on 09/20/2024. Regarding her seizures she could not remember what medication she is on but she stated she is compliant taking the medication and she follows up with Dr. Tse her neurolo gist as an outpatient. Seems that the patient is on Keppra 1000 mg twice daily, lacosamide 100 mg twice daily, Trileptal 600 mg twice daily. Seems that the patient is on multiple medications overall. Patient has underlying history of atrial fibrillation, coronary artery disease, heart failure, diabetes, hypertension, renal disease, sleep apnea. She had a cardiac ablation in the past. Some of the workup during this hospital visit consisted of: Hemoglobin A1c is 7.5 TSH is 0.307 and free T4 is 1.81 AST and ALT is within normal limits Sodium is within normal limits this Creatinine is 1.63 BUN is 45, initial serum glucose is 151 Calcium 9.7 Magnesium is 2.[address] of the head is reported as no acute bleed or mass effect. Stable posterior fossa arachnoid cyst in the left. I personally reviewed the CT of the head and I agree there is no acute or subacute ischemic stroke. CT cervical spine is reported as no acute trauma.. 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 Review of Systems As per HPI. Past Medical History Past Medical History: Atrial Fibrillation, Asthma, Coronary Artery Disease (CAD), Heart Failure, Diabetes Mellitus, GERD/Reflux, Hyperlipidemia, Hypertension, Musculoskeletal Disorder, Osteoarthritis (OA), Renal Disease, Seizure Disorder, Sleep Apnea/CPAP/BIPAP, Thyroid Disorder Additional Past Medical History / Comment(s): Stage 3 kidney disease, CHF, chronic back pain, no current cpap, vaccinated for covid History of Any Multi-Drug Resistant Organisms: None Reported, MRSA Date of last positivie culture/infection: approx 1996 or 1997 MDRO Source:: stomach area Past Surgical History: Cardiac Ablation, Cholecystectomy, Joint Replacement, Orthopedic Surgery Additional Past Surgical History / Comment(s): ORIF rt wrist-hardware later removed, mult procedures to betsy legs for wounds/cellulitis, betsy knee replacement, bunionectomy, bilat CTR, Monitor Loop implant/removal, pain clinic procedure. Past Anesthesia/Blood Transfusion Reactions: Previous Problems w/ Anesthesia Additional Past Anesthesia/Blood Transfusion Reaction / Comment(s): Nightmares d uring anesthesia, no complications with prior blood transfusion. Type of Cardiac Device: Loop Device Placement Date:: 2011 Past Psychological History: Anxiety, Bipolar, Depression Smoking Status: Former smoker Past Alcohol Use History: None Reported Additional Past Alcohol Use History / Comment(s): Smoked for 6 mos, <1 pack per week at age 28. Past Drug Use History: None Reported Additional Drug Use History / Comment(s): used CBD cream x1 - Past Family History Mother Family Medical History: No Reported History Father Family Medical History: No Reported History Sister(s) Family Medical History: No Reported History Additional Family Medical History / Comment(s): (Niece had non-hodgkin's lymphoma) Medications and Allergies Home Medications Medication Instructions Recorded Confirmed Type Atorvastatin Calcium [Lipitor] 20 mg PO HS 06/15/16 11/14/24 History Insulin Glargine (Lantus) [Lantus 30 units SQ HS 06/21/17 11/14/24 History Vial] allopurinoL [Zyloprim] 100 mg PO DAILY 06/21/17 11/14/24 History paricalcitoL [Paricalcitol] 2 mcg PO DAILY 06/21/17 11/14/24 History Pramipexole [Mirapex] 1 mg PO HS 09/30/20 11/14/24 History carvediloL [Coreg] 6.25 mg PO DAILY 10/06/20 11/14/24 History Cholecalciferol (Vitamin D3) 50 mcg PO DAILY 11/14/24 11/14/24 History [Vitamin D3 (50 Mcg = 2000 Iu)] Dapagliflozin Propanediol [Farxiga] 10 mg PO DAILY 11/14/24 11/14/24 History Furosemide [Lasix] 80 mg PO DAILY 11/14/24 11/14/24 History Insulin Aspart [NovoLOG Flexpen] See Protocol SQ AC-TID 11/14/24 11/14/24 History Lacosamide 100 mg PO BID 11/14/24 11/14/24 History Levothyroxine Sodium [Synthroid] 200 mcg PO AC-BRKFST 11/14/24 11/14/24 History Magnesium Oxide [Mag-Ox] 400 mg PO HS 11/14/24 11/14/24 History OXcarbazepine [Trileptal] 600 mg PO BID 11/14/24 11/14/24 History Potassium Chloride 10 meq PO DAILY 11/14/24 11/14/24 History Sertraline [Zoloft] 50 mg PO DAILY 11/14/24 11/14/24 History Tirzepatide [Mounjaro] 5 mg SQ TH 11/14/24 11/14/24 History carvediloL [Coreg] 12.5 mg PO HS 11/14/24 11/14/24 History hydrALAZINE HCL [Apresoline] 25 mg PO DAILY 11/14/24 11/14/24 History levETIRAcetam [Keppra] 1,000 mg PO BID 11/14/24 11/14/24 History traMADol HCL 50 mg PO DAILY PRN 11/14/24 11/14/24 History Allergies Allergy/AdvReac Type Severity Reaction Status Date / Time ibuprofen [From Motrin] Allergy Swelling Verified 11/14/24 15:32 lisinopril Allergy Rash/Hives, Verified 11/14/24 15:32 swelling verapamil [From Calan] Allergy Rash/Hives, Verified 11/14/24 15:32 swelling metformin AdvReac Nausea & Verified 11/14/24 15:32 Vomiting & Diarrhea Physical Examination - Vital Signs Vital Signs: Vital Signs Temp Pulse Pulse Resp BP BP Pulse Ox 11/15/24 07:00 97.9 F 69 18 122/72 95 11/15/24 02:00 98.6 F 66 119/66 96 11/14/24 20:00 18 11/14/24 19:50 98.2 F 79 16 144/79 97 11/14/24 18:35 71 19 146/67 97 11/14/24 17:45 60 14 126/56 94 L 11/14/24 14:36 98.2 F 75 20 182/80 99 Intake and Output 11/14/24 11/15/24 11/15/24 22:59 06:59 14:59 Other: Voiding Method Bedside Commode Bedpan # Voids 1 2 Weight 127.913 kg GENERAL: The patient is sitting in a recliner chair and is not in acute distress. NEUROLOGICAL: Higher mental function: The patient is awake, alert, oriented to self, place and time. Patient is following commands. No aphasia and no neglect. Cranial nerves: The pupils are round, equal and reactive to light and accommodation. Visual prakash are full to confrontation throughout. Extraocular movement is intact no nystagmus is noted. Facial sensation is normal to touch throughout. The facial strength is normal throughout. Hearing is mildly decre ased bilaterally to hand rub. Tongue is midline and moved [id number] without any difficulty. No dysarthria is noted. Shoulder shrug is normal bilaterally. Motor: The strength is 5 over 5 throughout uppers and in lowers somewhat limited but was able to lift bilateral lowers above gravity equally. Has erythema on the lowers. Normal tone and bulk. Cerebellum: Normal finger to nose bilaterally. Sensation: Sensation is normal to touch throughout. Reflexes (right/left): 2+ throughout. Plantars are mute bilaterally. Results - Laboratory Findings CBC and BMP: 11/15/24 05:54 11/15/24 05:54 Abnormal Lab Findings: Abnormal Labs 11/14/24 11/14/24 11/14/24 14:59 14:59 14:59 RBC 3.93 L Hgb Hct MCHC Immature Gran # 0.06 H APTT 21.9 L Anion Gap BUN 45 H Creatinine 1.63 H Est GFR (CKD-EPI) BUN/Creatinine Ratio Glucose 151 H POC Glucose (mg/dL) Hemoglobin A1c Alkaline Phosphatase 170 H TSH 11/14/24 11/14/24 11/14/24 18:08 18:08 19:52 RBC Hgb Hct MCHC Immature Gran # APTT Anion Gap BUN Creatinine Est GFR (CKD-EPI) BUN/Creatinine Ratio Glucose POC Glucose (mg/dL) 211 H Hemoglobin A1c 7.5 H Alkaline Phosphatase TSH 0.307 L 11/15/24 11/15/24 11/15/24 05:54 05:54 06:15 RBC 3.56 L Hgb 11.0 L Hct 34.5 L MCHC 31.9 L Immature Gran # APTT Anion Gap 13.30 H BUN 41.0 H Creatinine 1.7 H Est GFR (CKD-EPI) 32 L BUN/Creatinine Ratio 24.12 H Glucose POC Glucose (mg/dL) 111 H Hemoglobin A1c Alkaline Phosphatase TSH 11/15/24 12:32 RBC Hgb Hct MCHC Immature Gran # APTT Anion Gap BUN Creatinine Est GFR (CKD-EPI) BUN/Creatinine Ratio Glucose POC Glucose (mg/dL) 117 H Hemoglobin A1c Alkaline Phosphatase TSH Assessment and Plan Assessment: This is a 69-year-old woman who presents emergency department because of syncopal spell. Patient has a history of seizure and she is on 3 antiseizure medication and states she has not had seizure for a while. She has also significant cardiac issues and had a pacemaker placed towards the end of August 2024. Syncopal spell unknown exact etiology. Cardiac etiology especially with her significant cardiac issuesFrom the clinical presentation it does not appear like a seizure since it was brief no urinary or bowel incontinence or any tongue bite or any jerking of any extremity. Prolactin level was normal. History of syncopal spell and the patient has a pacemaker towards the end of August 2024 and that was placed at [facility] Severe degenerative disease over the cervical spine on CT Lymphedema of lower extremity and patient has erythema of the lowers rule out any cellulitis History of seizure and the patient is on Keppra, lacosamide and Trileptal History of syncopal spells Of atrial fibrillation History of coronary artery disease History of heart failure Diabetes mellitus hemoglobin A1c 7.5 Hypertension Hyperlipidemia Chronic kidney disease History of sleep apnea Polypharmacy Plan: EEG is ordered and is pending Seizure precautions seizure pads Of unknown cause of her syncopal spell and the EEG is unremarkable then recommend a prolonged EEG as an outpatient. Patient is resumed on her home medication of Vimpat 100 mg twice daily, Keppra 1000 mg twice daily, Trileptal 600 mg twice daily. Pending levels I ordered orthostatic vitals Consider orthopedic surgery team for her severe spinal stenosis if patient stay will be prolonged Cardiology is consulted [facility] because of seizure or syncopal spells no driving for 6 months until no further episodes, avoid heights, avoid swimming assisted or using heavy machinery. Defer the rest of the medical management the primary and other specialist Upon discharge recommend the patient to follow-up with her outpatient neurologist Dr. Tse within 2 to 3 weeks Thank you for the consultation. Time with Patient: Greater than 30
--- NOTE | 2024-11-15 16:42 | EEG ---
ELECTROENCEPHALOGRAM REPORT CLINICAL HISTORY: This is a 69-year-old woman with history of seizure, syncopal episode, who presents to the emergency department because of syncopal spell. The video EEG is obtained to evaluate for seizure epileptiform activity. RELEVANT MEDICATIONS: Keppra, Trileptal, Vimpat. EEG TYPE: This is a routine 21-channel EEG with video using the 10/20 electrode system. DESCRIPTION: Wakefulness and drowsiness are obtained. During awake state, the posterior-dominant rhythm consists of [id number] voltage of 8.5 to 9 hertz activity that is well modulated, well sustained. There is no physiological stage 2 sleep architecture. There is no focal slowing. Interictal and ictal is none. ACTIVATION PROCEDURE: Photic stimulation did not evoke a posterior driving response. There is no abnormality during the photic stimulation. Hyperventilation was not performed. CLINICAL INTERPRETATION: This is a normal routine EEG during awake and drowsy state. There is no focal slowing, epileptiform discharge, or seizure on the EEG. A normal routine EEG does not rule out underlying epilepsy. Clinical correlation is recommended. MMODL / IJN: [id number] /
[2024-11-15 18:01] LABS: Glucose,Whole Blood 123 mg/dL (70-110)
[2024-11-15 19:23] LABS: Glucose,Whole Blood 111 mg/dL (70-110)
[2024-11-15] MEDS: NYSTATIN 100,000 UNIT/GM POWD 15 GM TOPICAL SCH (20:34)
[2024-11-15] MEDS ORDERED: carvediloL 12.5 MG TAB PO SCH (21:00)
[2024-11-16 06:30] LABS: Glucose,Whole Blood 150 mg/dL (70-110)
[2024-11-16] MEDS: carvediloL 6.25 MG TAB PO SCH (06:39)
[2024-11-16] MEDS: POTASSIUM CHLORIDE ER 10 MEQ TAB.ER.PRT PO SCH (08:50)
[2024-11-16] MEDS: hydrALAZINE HCL 25 MG TAB PO SCH (08:50)
[2024-11-16] MEDS: FUROSEMIDE 80 MG TAB PO SCH (08:51)
--- NOTE | 2024-11-16 10:34 | P.CNOR ---
History of Present Illness - [facility] Consult date: 11/16/24 Consult reason: other (Abnormal cervical spine CT result) History of present illness: Patient is a 69-year-old female who has been admitted to [facility] and followed by multiple medical specialties at this time due to a syncopal episode. Patient has a history of syncopal episodes, more recently in August 2024, she was actually evaluated at [facility] and had a pacemaker placed. Patient is being followed by our cardiology department at this time, she is also being followed by internal medicine and neurology. Patient does have a history of seizures and other medical comorbidities. Cervical spine and head CT scan without contrast was ordered, due to the reports from radiology orthopedic team was consulted. Patient was evaluated at bedside today, she is resting comfortably with her husb and. She is sitting up in the bed appears to be. Patient denies any neck pain at this time or pain that radiates into the bilateral upper extremities. Patient has a known history of low back problems, she does see a [facility] and has had epidural shots in the past which have helped her quite a bit. Patient has a known history of lymphedema in the bilateral lower extremities. Patient normally utilizes a walker for ambulation. Patient states since this most recent fall she has noticed no worsening pain to the lower back. She denies any headaches at this time. She has been dealing with vertigo type symptoms since the fall. She denies any loss of bowel or bladder function at this time, she denies any new onset paresthesias to the bilateral upper or lower extremities. She denies any randell weakness to the bilateral upper or lower extremities at this time. Review of Systems Constitutional: Reports as per HPI Past Medical History Past Medical History: Atrial Fibrillation, Asthma, Coronary Artery Disease (CAD), Heart Failure, Diabetes Mellitus, GERD/Reflux, Hyperlipidemia, Hy pertension, Musculoskeletal Disorder, Osteoarthritis (OA), Renal Disease, Seizure Disorder, Sleep Apnea/CPAP/BIPAP, Thyroid Disorder Additional Past Medical History / Comment(s): Stage 3 kidney disease, CHF, chronic back pain, no current cpap, vaccinated for covid History of Any Multi-Drug Resistant Organisms: None Reported, MRSA Year Discovered:: approx 1996 or 1997 MDRO Source:: stomach area Past Surgical History: Cardiac Ablation, Cholecystectomy, Joint Replacement, O rthopedic Surgery Additional Past Surgical History / Comment(s): ORIF rt wrist-hardware later removed, mult procedures to betsy legs for wounds/cellulitis, betsy knee replacement, bunionectomy, bilat CTR, Monitor Loop implant/removal, pain clinic procedure. Past Anesthesia/Blood Transfusion Reactions: Previous Problems w/ Anesthesia Additional Past Anesthesia/Blood Transfusion Reaction / Comm: Nightmares during anesthesia, no complications with prior blood transfusion. Type of Cardiac Device: Loop Device Placement Date:: 2011 Past Psychological History: Anxiety, Bipolar, Depression Smoking Status: Former smoker Past Alcohol Use History: None Reported Additional Past Alcohol Use History / Comment(s): Smoked for 6 mos, <1 pack per week at age 28. Past Drug Use History: None Reported Additional Drug Use History / Comment(s): used CBD cream x1 - Past Family History Mother Family Medical History: No Reported History Father Family Medical History: No Reported History Sister(s) Family Medical History: No Reported History Additional Family Medical History / Comment(s): (Niece had non-hodgkin's lymphoma) Medications and Allergies Home Medications Medication Instructions Recorded Confirmed Type Atorvastatin Calcium [Lipitor] 20 mg PO HS 06/15/16 11/14/24 History Insulin Glargine (Lantus) [Lantus 30 units SQ HS 06/21/17 11/14/24 History Vial] allopurinoL [Zyloprim] 100 mg PO DAILY 06/21/17 11/14/24 History paricalcitoL [Paricalcitol] 2 mcg PO DAILY 06/21/17 11/14/24 History Pramipexole [Mirapex] 1 mg PO HS 09/30/20 11/14/24 History carvediloL [Coreg] 6.25 mg PO DAILY 10/06/20 11/14/24 History Cholecalciferol (Vitamin D3) 50 mcg PO DAILY 11/14/24 11/14/24 History [Vitamin D3 (50 Mcg = 2000 Iu)] Dapagliflozin Propanediol [Farxiga] 10 mg PO DAILY 11/14/24 11/14/24 History Furosemide [Lasix] 80 mg PO DAILY 11/14/24 11/14/24 History Insulin Aspart [NovoLOG Flexpen] See Protocol SQ AC-TID 11/14/24 11/14/24 History Lacosamide 100 mg PO BID 11/14/24 11/14/24 History Levothyroxine Sodium [Synthroid] 200 mcg PO AC-BRKFST 11/14/24 11/14/24 History Magnesium Oxide [Mag-Ox] 400 mg PO HS 11/14/24 11/14/24 History OXcarbazepine [Trileptal] 600 mg PO BID 11/14/24 11/14/24 History Potassium Chloride 10 meq PO DAILY 11/14/24 11/14/24 History Sertraline [Zoloft] 50 mg PO DAILY 11/14/24 11/14/24 History Tirzepatide [Mounjaro] 5 mg SQ TH 11/14/24 11/14/24 History carvediloL [Coreg] 12.5 mg PO HS 11/14/24 11/14/24 History hydrALAZINE HCL [Apresoline] 25 mg PO DAILY 11/14/24 11/14/24 History levETIRAcetam [Keppra] 1,000 mg PO BID 11/14/24 11/14/24 History traMADol HCL 50 mg PO DAILY PRN 11/14/24 11/14/24 History Allergies Allergy/AdvReac Type Severity Reaction Status Date / Time ibuprofen [From Motrin] Allergy Swelling Verified 11/14/24 15:32 lisinopril Allergy Rash/Hives, Verified 11/14/24 15:32 swelling verapamil [From Calan] Allergy Rash/Hives, Verified 11/14/24 15:32 swelling metformin AdvReac Nausea & Verified 11/14/24 15:32 Vomiting & Diarrhea Physical Examination Gen: AOx3, NAD VSS stable at this time Integument: No open lesions or sores visualized throughout the cervical, thoracic or lumbar spine Palpation: Patient has mild tenderness with palpation of the lower lumbar spine, she is nontender throughout the thoracic or cervical region ROM: Patient demonstrates full range of motion of the bilateral upper and lower extremities, no focal deficits appreciated Sensory Exam: Senory exam to light touch is intact C5-T1 Senosry exam to light touch is intact L2-S1 Motor: 4+/5 strength appreciated to the bilateral upper extremities with shoulder elevation, shoulder abduction, elbow extension, elbow flexion, wrist extension, 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 , 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 4/5 strength appreciated to the bilateral lower extremities with hip flexion, knee extension, knee flexion, plantarflexion, dorsiflexion, EHL, FHL Reflexes: 2/4 in all UE and LE Negative Senthil's bilaterally Negative clonus bilaterally Results - Labs Labs: Abnormal Lab Results - Last 24 Hours (Table) 11/15/24 11/15/24 11/15/24 Range/Units 05:54 12:32 17:58 Anion Gap 13.30 H (4.00-12.00) mmol/L BUN 41.0 H (9.0-27.0) mg/dL Creatinine 1.7 H (0.6-1.5) mg/dL Est GFR (CKD-EPI) 32 L (>=60) BUN/Creatinine Ratio 24.12 H (12.00-20.00) Ratio POC Glucose (mg/dL) 117 H 123 H (70-110) mg/dL 11/15/24 11/16/24 Range/Units 19:21 06:28 Anion Gap (4.00-12.00) mmol/L BUN (9.0-27.0) mg/dL Creatinine (0.6-1.5) mg/dL Est GFR (CKD-EPI) (>=60) BUN/Creatinine Ratio (12.00-20.00) Ratio POC Glucose (mg/dL) 111 H 150 H (70-110) mg/dL H & H 11/14/24 11/15/24 Range/Units 14:59 05:54 Hgb 12.2 11.0 L (12.0-15.0) g/dL Hct 37.3 34.5 L (37.2-46.3) % Coagulation 11/14/24 Range/Units 14:59 INR 0.9 (<1.2) Result Diagrams: 11/15/24 05:54 11/15/24 05:54 - Diagnostic results CT scan - cervical: report reviewed, image reviewed (Reports and images reviewed of the cervical spine CT. Severe spondylitic changes are present throughout cervical spine. There is some varying degrees of spondylolisthesis noted mainly in the C3-C4 region.) Assessment and Plan Assessment: Chronic low back pain Severe multilevel cervical spondylosis Syncopal episode resulting in fall Previous syncopal episodes with falls Multiple medical comorbidities Plan: I was able to discuss the case, this included physical exam findings and imaging studies with my attending surgeon. No emergent orthopedic spine surgery recommended at this time Patient is relatively asymptomatic with regards to her cervical spine, taken in consideration her overall range of motion and strength in those upper extremities. Patient's bilateral lower extremity seem stable at this time with regards to her chronic low back pain Conservative measures, recommend weight-bear as tolerated with walker. Could consider PT/OT evaluation GI DVT prophylaxis per primary medical service Other medical specialty recommendations appreciated Orthopedically patient remained stable, please contact her service with any further questions. Our follow-up information will be placed in chart for outpatient follow-up as needed Time with Patient: Less than 30
[2024-11-16 12:20] LABS: Glucose,Whole Blood 206 mg/dL (70-110)
--- NOTE | 2024-11-16 12:25 | P.PN ---
Subjective Progress Note Date: 11/16/24 I am following up with the patient and she does not have any further syncopal spells. Objective - Vital Signs Vital signs: Vital Signs Temp 98.0 F 11/16/24 07:40 Pulse 68 11/16/24 07:40 Resp 17 11/16/24 07:40 BP 128/65 11/16/24 07:40 Pulse Ox 98 11/16/24 07:40 FiO2 Intake & Output 11/15/24 11/16/24 11/16/24 18:59 06:59 18:59 Intake Total 660 Balance 660 Intake: Oral 660 Other: # Voids 2 1 # Bowel Movements 1 - Exam GENERAL: The patient is lying in bed and is not in acute distress. NEUROLOGICAL: Higher mental function: The patient is awake, alert, oriented to self, place and time. Patient is following commands. No aphasia and no neglect. Cranial nerves: The pupils are round, equal and reactive to light and accommodation. Visual prakash are full to confrontation throughout. Extraocular movement is intact no nystagmus is noted. Facial sensation is normal to touch throughout. The facial strength is normal throughout. Hearing is mildly decreased bilaterally to hand rub. Tongue is midline and moved [id number] wi thout any difficulty. No dysarthria is noted. Shoulder shrug is normal bilaterally. Motor: The strength is 5 over 5 throughout uppers and in lowers somewhat limited but was able to lift bilateral lowers above gravity equally. Has erythema on the lowers. Normal tone and bulk. Cerebellum: Normal finger to nose bilaterally. Sensation: Sensation is normal to touch throughout. Reflexes (right/left): 2+ throughout. Plantars are mute bilaterally. Some of the workup during this hospital visit consisted of: Hemoglobin A1c is 7.5 TSH is 0.307 and free T4 is 1.81 AST and ALT is within normal limits Sodium is within normal limits this Creatinine is 1.63 BUN is 45, initial serum glucose is 151 Calcium 9.7 Magnesium is 2.[address] of the head is reported as no acute bleed or mass effect. Stable posterior fossa arachnoid cyst in the left. I personally reviewed the CT of the head and I agree there is no acute or subacute ischemic stroke. CT cervical spine is reported as no acute trauma.. 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 Routine EEG: Normal. - Labs CBC & Chem 7: 11/15/24 05:54 11/15/24 05:54 Labs: Abnormal Lab Results - Last 24 Hours (Table) 11/15/24 11/15/24 11/15/24 Range/Units 12:32 17:58 19:21 POC Glucose (mg/dL) 117 H 123 H 111 H (70-110) mg/dL 11/16/24 11/16/24 Range/Units 06:28 12:18 POC Glucose (mg/dL) 150 H 206 H (70-110) mg/dL Assessment and Plan Assessment: This is a 69-year-old woman who presents emergency department because of syncopal spell. Patient has a history of seizure and she is on 3 antiseizure medication and states she has not had seizure for a while. She has also significant cardiac issues and had a pacemaker placed towards the end of August 2024. Syncopal spell unknown exact etiology. Rule out cardiac etiology especially with her significant cardiac issues. Also rule out ?autonomic dysfunction due to her history of diabetes. From the clinical presentation it does not appear like a seizure since it was brief and no urinary or bowel incontinence or any tongue bite or any jerking of any extremity. Prolactin level was normal. Routine EEG is normal. History of syncopal spell and the patient has a pacemaker towards the end of August 2024 and that was placed at [facility] Severe degenerative disease over the cervical spine on CT Lymphedema of lower extremity and patient has erythema of the lowers rule out any cellulitis History of seizure and the patient is on Keppra, lacosamide and Trileptal History of syncopal spells Of atrial fibrillation History of coronary artery disease History of heart failure Diabetes mellitus hemoglobin A1c 7.5 Hypertension Hyperlipidemia Chronic kidney disease History of sleep apnea Polypharmacy Plan: Seizure precautions seizure pads Of unknown cause of her syncopal spell and the EEG is unremarkable then recommend a prolonged EEG as an outpatient. Patient is resumed on her home medication of Vimpat 100 mg twice daily, Keppra 1000 mg twice daily, Trileptal 600 mg twice daily. Pending levels Pending orthostatic vitals Orthopedic surgery team is consulted for her severe spinal stenosis if patient stay will be prolonged Cardiology is consulted [place] [facility] because of seizure or syncopal spells no driving for 6 months until no further episodes, avoid heights, avoid swimming assisted or using heavy machinery. Defer the rest of the medical management the primary and other specialist Upon discharge recommend the patient to follow-up with her outpatient neurologist Dr. Tse within [address] Sanchez will resume neurology service this Monday A.M. Time with Patient: Less than 30
--- NOTE | 2024-11-16 14:11 | CA ---
Transthoracic Echo Report Name: Nicolle Payton Age: 69 Gender: F : 1955 Exam Date: 11/16/2024 12:51 Exam Location: [place] [facility] Ht (in): 63 Wt (lb): 285 Ordering Physician: Ruby Alamo Attending/Referring Phys: [id number], [employer] Alysa Daniels RDCS Procedure CPT: Indications: Syncope Cardiac Hx: Pacemkaer Technical Quality: Poor, Technically difficult study Contrast 1: Definity Total Dose (mL): 2 Contrast 2: Total Dose (mL): MEASUREMENTS (Male / Female) Normal Values 2D ECHO LV Diastolic Diameter PLAX 4.5 cm 4.2 - 5.9 / 3.9 - 5.3 cm LV Systolic Diameter PLAX 3.4 cm IVS Diastolic Thickness 1.2 cm 0.6 - 1.0 / 0.6 - 0.9 cm LVPW Diastolic Thickness 1.4 cm 0.6 - 1.0 / 0.6 - 0.9 cm LV Relative Wall Thickness 0.6 RV Internal Dim ED PLAX 2.2 cm LVOT Diameter 2.0 cm LA Systolic Diameter LX 3.7 cm 3.0 - 4.0 / 2.7 - 3.8 cm M-MODE Aortic Root Diameter MM 2.7 cm LA Systolic Diameter MM 4.0 cm LA Ao Ratio MM 1.5 AV Cusp Separation MM 1.1 cm DOPPLER AV Peak Velocity 220.6 cm/s AV Peak Gradient 19.5 mmHg AV Mean Velocity 144.5 cm/s AV Mean Gradient 9.6 mmHg AV Velocity Time Integral 48.1 cm LVOT Peak Velocity 121.9 cm/s LVOT Peak Gradient 5.9 mmHg LVOT Velocity Time Integral 29.9 cm LVOT Stroke Volume 93.2 cm??? LVOT Stroke Volume Index 41.5 ml/m??? LVOT Cardiac Index 3346.2 cm???/min???m??? AV Area Cont Eq vti 1.9 cm??? AV Area Cont Eq pk 1.7 cm??? MV Peak Velocity 130.0 cm/s MV Peak Gradient 6.8 mmHg MV Mean Velocity 91.7 cm/s MV Mean Gradient 3.6 mmHg MV Velocity Time Integral 45.7 cm MV Area PHT 2.7 cm??? Mitral E Point Velocity 130.8 cm/s Mitral A Point Velocity 132.5 cm/s Mitral E to A Ratio 1.0 MV Deceleration Time 276.8 ms TR Peak Velocity 328.1 cm/s TR Peak Gradient 43.0 mmHg Right Ventricular Systolic Press 47.3 mmHg FINDINGS Left Ventricle Left ventricular ejection fraction is estimated at 50-55 %. Mildly increased septal wall thickness. Moderately increased posterior wall thickness. Left ventricular cavity size normal. Mildly reduced global left ventricular systolic function. Right Ventricle Mild right ventricular dilatation. Mild pulmonary hypertension. Right Atrium Moderate right atrial dilatation. Catheter/pacemaker wire in the right atrial cavity. Left Atrium Moderate left atrial dilatation. Mitral Valve Mitral valve thickened. Moderate mitral annular calcification. Trace to mild mitral regurgitation. No mitral stenosis. Aortic Valve Mild aortic stenosis with a peak gradient of 19mmHg and a mean gradient of 10mmHg. Trace aortic regurgitation. Tricuspid Valve Structurally normal tricuspid valve. Mild to moderate tricuspid regurgitation. No tricuspid stenosis. Pulmonic Valve Structurally normal pulmonic valve. Trace pulmonic regurgitation. No pulmonic stenosis. Pericardium No pericardial or pleural effusion. Echo free space anterior to the right ventricle likely represents a fat pad. Aorta Normal size aortic root and proximal ascending aorta. CONCLUSIONS LVEF 50 to 55% Mild concentric LVH No obvious regional wall motion abnormality appreciated Moderate biatrial dilatation. Mild RV dilatation. Normal RV systolic function. Mild pulmonary hypertension with RVSP 47 mmHg PPM wire noticed in RA and RV Polyvalvular calcification with mitral calcification and aortic valve sclerosis Mild aortic stenosis mean gradient 10 mmHg Moderate tricuspid regurgitation Previewed by: Dr Dave Pham (Electronically Signed) Final Date: 16 November 2024 14:10
--- NOTE | 2024-11-16 15:14 | P.PN ---
Subjective Progress Note Date: 11/16/24 Hospital Course: Patient is a 77-year-old female with medical history of type II DM, CHF, CKD 3B, hyperlipidemia, hypothyroidism, hypertension, seizure disorder on Keppra, lymphedema, history of paroxysmal SVT, pacemaker in place Who presented to the ER for syncopal episode that happened when she was boiling hot dogs. She denies any precipitating events, no chest pain, dyspnea, hot fluses, dizziness lightheadedness. She probably struck her head on the counter. She believes that she was out for less than a minute. She denies any sensation changes, numbness, tingling. She says that her vision has been blurred, cannot describe better, denied vision field loss, blurred vision, double vision. She lives with her roommate and the dog. On arrival afebrile, heart rate in 70s, BP elevated 182/80, SpO2 98% on room air. Blood work revealed normal WBC count, hemoglobin, Count, INR 0.9, normal sodium, potassium, bicarb, creatinine 1.63 appears to be at baseline. EKG showed sinus rhythm with premature ventricular complexes, no ST elevation, QTc 429. Chest x-ray showed cardiomegaly and mild pulmonary vascular congestion. CT head cervical spine showed no acute bleed or mass, stable post erior fossa arachnoid cyst in the left, severe multilevel degenerative disease resulting in cervical kyphosis. Patient was admitted for further management of syncope, dizziness, cardiology, neurology consulted, TSH 0.31 Free T41.8, prolactin 3.1, LDL 99, A1c 7.5, improving. Cardiology following, pacemaker interrogated with no events. EEG was ordered and showed normal findings. TTE showed EF of 50 to 55%, no obvious regional wall motion abnormalities, RVSP 47. Orthopedic surgery consulted due to severe degenerative disc disease in the neck, no emergent surgery recommended. Per neurology, patient cannot drive for 6-month because of seizure or syncopal spells. Patient to follow-up with her outpatient specialist within 2 to 3 weeks. 11/16: Seen and examined at bedside, no acute events overnight. Patient dizziness when her eyes are open, gets worse when she moves around, turns her head, i mproves when she sits still. No significant improvement with meclizine 25 4 times daily. Discussed with neurology Dr. Craft. Orthostatic vitals pending, as recommended for patient to use compression stocking. Pertinent positives and negatives as discussed above, a complete review of systems was performed and all other systems are negative. Vitals Signs Reviewed. General: nontoxic, no distress, appears at stated age, obese Derm: warm, dry Head: atraumatic, normocephalic, symmetric Eyes: EOMI, no lid lag, anicteric sclera, pupils equal round reactive to light ENT: Nose and ears atraumatic Neck: No thyromegaly, supple Mouth: no lip lesion, mucus membranes moist Cardiovascular: S1S2 reg, no murmur, chronic lymphedema with chronic venous stasis changes, left-sided pacemaker in place Lungs: clear to auscultation bilateral, no rhonchi, no rales, no wheeze, no accessory muscle use Abdominal: soft, nontender to palpation, no guarding, no appreciable organomegaly Ext: no gross muscle atrophy, muscle strength muscle strength 5 out of 5 in all 4 extremities, no contractures, Neuro: CN II-XII grossly intact, horizontal nystagmus, normal finger-nose Psych: Alert, oriented, appropriate affect Syncopal episode Fall secondary to above Vertigo -Neurology consulted, appreciate recommendations -Consult cardiology, TTE as above -Interrogate pacemaker no events- Continue telemetry- -TSH, A1c, lipid panel, prolactin as above - EEG normal -Keppra levels, lacosamide levels -Orthostatic vitals, fall precautions -Patient dizziness when her eyes are open, gets worse when she moves around, turns her head, improves when she sits still. continue meclizine 25 4 times daily. Discussed with neurology Dr. Craft. Patient cannot have brain MRI due to pacemaker. History of seizure: Continue Keppra 1000 twice daily, continue lacosamide 100 mg p.o. daily Depression, continue Zoloft 50 mg p.o. daily Hyperparathyroidism: Continue home paricalcitol 2 mcg p.o. daily Diastolic CHF, not in acute exacerbation Hypertension History of paroxysmal SVT pacemaker in place - Resume home hydralazine 25 daily, Lasix 80 mg p.o. daily, Coreg 6.25 daily Hyperlipidemia: Continue home Lipitor 20 daily Hypothyroidism: Continue home levothyroxine 200 mcg Vitamin D deficiency: Continue home vitamin D 2000 IU daily Type II DM on insulin: Continue home Farxiga 10 mg daily, hold Mounjaro injections, takes 30 units of Lantus nightly, will proceed with 15 units of Lantus along with 5 mealtime, SSI, hypoglycemia precautions, Accu-Cheks CKD 3B: Kidney function at baseline, will monitor BMP CODE STATUS: Full code DVT prophylaxis: Heparin Anticipated discharge date: TBD Anticipated discharge place: [facility] Objective - Vital Signs Vital signs: Vital Signs Temp 98.1 F 11/16/24 14:00 Pulse 67 11/16/24 14:00 Resp 18 11/16/24 14:00 BP 115/65 11/16/24 14:00 Pulse Ox 95 11/16/24 14:00 FiO2 Intake & Output 11/15/24 11/16/24 11/16/24 18:59 06:59 18:59 Intake Total 660 Balance 660 Intake: Oral 660 Other: # Voids 2 1 # Bowel Movements 1 - Labs CBC & Chem 7: 11/15/24 05:54 11/15/24 05:54 Labs: Abnormal Lab Results - Last 24 Hours (Table) 11/15/24 11/15/24 11/16/24 Range/Units 17:58 19:21 06:28 POC Glucose (mg/dL) 123 H 111 H 150 H (70-110) mg/dL 11/16/24 Range/Units 12:18 POC Glucose (mg/dL) 206 H (70-110) mg/dL
[2024-11-16 17:28] LABS: Glucose,Whole Blood 120 mg/dL (70-110)
[2024-11-16 20:25] LABS: Glucose,Whole Blood 129 mg/dL (70-110)
--- NOTE | 2024-11-16 21:11 | P.PN ---
Subjective Progress Note Date: 11/16/24 HISTORY OF PRESENT ILLNESS: This is a 69-year-old female with a past medical history significant for co ngestive heart failure, chronic kidney disease, hyperlipidemia, hypertension, seizure disorder, and pacemaker implantation. Patient follows in the office with Dr. Blanca. We have been asked to see the patient in consultation for syncope. Patient examined at the bedside. Patient states yesterday she was in the kitchen and was about to make hotdogs when maxing she knows she passed out on the floor. She denied having any warning signs. She does report loss of consciousness. Her roommate states that she was not out for very long but her eyes did roll back in the back of her head. She also reports that she passed out in August. Patient currently denies having any chest pain or pressure. She denies any shortness of breath. She does state that she does not drink any water whatsoever. Additionally, the patient has significant lymphedema. Compression stockings were recommended. Patient states that she has been trying to obtain a pair of compression stockings on an outpatient basis. DIAGNOSTICS: - EKG reveals sinus mechanism with no signs of acute ischemia. - Chest xray cardiomegaly mild pulmonary vascular congestion. - Laboratory data: WBC 6.34. Hemoglobin 12.2. Platelet count 204. Sodium 139. Potassium 4.1. BUN 45. Creatinine 1.63. Troponin negative x 1. - Current home cardiac medications include hydralazine 25 mg daily, carvedilol 6.25 mg in the morning and 12.5 mg at night, Lasix 80 mg daily, Farxiga 10 mg daily, Lipitor 20 mg at night. - Most recent echocardiogram obtained in July 2020 revealed ejection fraction 55 to 60%, mild MR, mild TR, mild pulmonary pretension - Patient underwent Lexiscan stress test in July 2020 which was negative for reversible ischemia Progress note 11/16/2024 BP 121/78, heart rate 73 Echo showed EF of 50 to 55%, mild concentric LVH, moderate biatrial dilatation, RVSP of 47 mmHg, Polyvalvular calcification with mild aortic stenosis of mean gradient 10 mmHg PHYSICAL EXAM: VITAL SIGNS: Reviewed. GENERAL: Well-developed in no acute distress. HEENT: Head is normocephalic. Pupils are equal, round. Sclerae anicteric. Mucous membranes of the mouth are moist. Neck supple. No JVD or thyromegaly LUNGS: Respirations even and unlabored. Lungs essentially clear to auscultation bilaterally. HEART: Regular rate and rhythm. S1 and S2 heard. ABDOMEN: Soft. Nondistended. Nontender. EXTREMITIES: Normal range of motion. No clubbing or cyanosis. Peripheral pulses intact. Significant lymphedema noted NEUROLOGIC: Awake and alert. Oriented x 3. ASSESSMENT: Mild aortic stenosis Syncope, likely vasovagal Chronic kidney disease Hypertension Hyperlipidemia Chronic congestive heart failure with preserved EF, currently not in acute exacerbation History of seizure disorder History of pacemaker implantation, [facility], performed at [facility], August 2024 Morbid obesity: BMI 50.0 Diabetes, hemoglobin A1c 7.5. Lymphedema of bilateral lower extremities PLAN: Encourage p.o. water intake Continue home medication without any changes Patient is cleared from cardiovascular standpoint Recommend outpatient follow-up with cardiology Objective - Vital Signs Vital signs: Vital Signs Temp 97.9 F 11/16/24 19:40 Pulse 76 11/16/24 19:40 Resp 17 11/16/24 19:40 BP 121/78 11/16/24 19:40 Pulse Ox 95 11/16/24 19:40 FiO2 Intake & Output 11/16/24 11/16/24 11/17/24 06:59 18:59 06:59 Intake Total 1080 Balance 1080 Intake: Oral 1080 Other: # Voids 1 5 # Bowel Movements 1 - Labs CBC & Chem 7: 11/15/24 05:54 11/15/24 05:54 Labs: Abnormal Lab Results - Last 24 Hours (Table) 11/16/24 11/16/24 11/16/24 Range/Units 06:28 12:18 17:26 POC Glucose (mg/dL) 150 H 206 H 120 H (70-110) mg/dL 11/16/24 Range/Units 20:23 POC Glucose (mg/dL) 129 H (70-110) mg/dL
[2024-11-17 06:17] LABS: Glucose,Whole Blood 122 mg/dL (70-110)
[2024-11-17 08:11] LABS: Levetiracetam (Keppra) 52.9 ug/mL (3.0-60.0)
[2024-11-17 09:04] LABS: African American GFR (CKD) 43 (>60 ml/min/1.73 sqM); Anion Gap 11 mmol/L; Blood Urea Nitrogen 39 mg/dL (7-17); Calcium 8.7 mg/dL (8.4-10.2); Carbon Dioxide 26 mmol/L (22-30); Chloride 101 mmol/L (98-107); Glucose 129 mg/dL (74-99); Non-African American GFR(CKD) 38 (>60 ml/min/1.73 sqM); Potassium 3.6 mmol/L (3.5-5.1); Sodium 138 mmol/L (137-145)
--- NOTE | 2024-11-17 11:42 | P.PN ---
Subjective Progress Note Date: 11/17/24 Hospital Course: Patient is a 77-year-old female with medical history of type II DM, CHF, CKD 3B, hyperlipidemia, hypothyroidism, hypertension, seizure disorder on Keppra, lymphedema, history of paroxysmal SVT, pacemaker in place Who presented to the ER for syncopal episode that happened when she was boiling hot dogs. She denies any precipitating events, no chest pain, dyspnea, hot fluses, dizziness lightheadedness. She probably struck her head on the counter. She believes that she was out for less than a minute. She denies any sensation changes, numbness, tingling. She says that her vision has been blurred, cannot describe better, denied vision field loss, blurred vision, double vision. She lives with her roommate and the dog. On arrival afebrile, heart rate in 70s, BP elevated 182/80, SpO2 98% on room air. Blood work revealed normal WBC count, hemoglobin, Count, INR 0.9, normal sodium, potassium, bicarb, creatinine 1.63 appears to be at baseline. EKG showed sinus rhythm with premature ventricular complexes, no ST elevation, QTc 429. Chest x-ray showed cardiomegaly and mild pulmonary vascular congestion. CT head cervical spine showed no acute bleed or mass, stable post erior fossa arachnoid cyst in the left, severe multilevel degenerative disease resulting in cervical kyphosis. Patient was admitted for further management of syncope, dizziness, cardiology, neurology consulted, TSH 0.31 Free T41.8, prolactin 3.1, LDL 99, A1c 7.5, improving. Cardiology following, pacemaker interrogated with no events. EEG was ordered and showed normal findings. TTE showed EF of 50 to 55%, no obvious regional wall motion abnormalities, RVSP 47. Orthopedic surgery consulted due to severe degenerative disc disease in the neck, no emergent surgery recommended. Per neurology, patient cannot drive for 6-month because of seizure or syncopal spells. Patient to follow-up with her outpatient specialist within 2 to 3 weeks. Patient is now cleared for discharge from cardiology standpoint with follow-up with primary cardiology. 11/17 Seen and examined at bedside, no acute events overnight. She states that she has bilateral lower extremity cellulitis. No dizziness today. On exam chronic lymphedema findings with chronic venous status, bilateral erythema. Patient is afebrile. She did not have any leukocytosis, those findings were present on admission and unchanged. It was explained to the patient that she is unlikely to have bilateral lower extremity cellulitis, advised to follow-up with lymphedema clinic/lymphedema specialist. Morning BMP showed improving creatinin e 1.41, normal sodium, potassium, control blood glucose. PT OT recommends home versus home care versus subacute rehabilitation with 24/7 supervision, patient will stay overnight for repeat PT OT evaluation and possible placement. She is medically stable for discharge Pertinent positives and negatives as discussed above, a complete review of systems was performed and all other systems are negative. Vitals Signs Reviewed. General: nontoxic, no distress, appears at stated age, obese Derm: warm, dry Head: atraumatic, normocephalic, symmetric Eyes: EOMI, no lid lag, anicteric sclera, pupils equal round reactive to light ENT: Nose and ears atraumatic Neck: No thyromegaly, supple Mouth: no lip lesion, mucus membranes moist Cardiovascular: S1S2 reg, no murmur, chronic lymphedema with chronic venous stasis changes, left-sided pacemaker in place Lungs: clear to auscultation bilateral, no rhonchi, no rales, no wheeze, no accessory muscle use Abdominal: soft, nontender to palpation, no guarding, no appreciable organomegaly Ext: no gross muscle atrophy, muscle strength muscle strength 5 out of 5 in all 4 extremities, no contractures, Neuro: CN II-XII grossly intact, horizontal nystagmus, normal finger-nose Psych: Alert, oriented, appropriate affect Syncopal episode Fall secondary to above Vertigo, resolved -Neurology consulted, appreciate recommendations -Consult cardiology, TTE as above -Interrogate pacemaker no events- Continue telemetry- -TSH, A1c, lipid panel, prolactin as above - EEG normal -Keppra levels therapeutic, lacosamide levels pending -Orthostatic vitals, fall precautions -Patient dizziness when her eyes are open, gets worse when she moves around, turns her head, improves when she sits still. continue meclizine 25 4 times daily. . Patient cannot have brain MRI due to pacemaker. No driving for 6 months History of seizure: Continue Keppra 1000 twice daily, continue lacosamide 100 mg p.o. daily Depression, continue Zoloft 50 mg p.o. daily Hyperparathyroidism: Continue home paricalcitol 2 mcg p.o. daily Diastolic CHF, not in acute exacerbation Hypertension History of paroxysmal SVT pacemaker in place - Resume home hydralazine 25 daily, Lasix 80 mg p.o. daily, Coreg 6.25 daily Hyperlipidemia: Continue home Lipitor 20 daily Hypothyroidism: Continue home levothyroxine 200 mcg Vitamin D deficiency: Continue home vitamin D 2000 IU daily Type II DM on insulin: Continue home Farxiga 10 mg daily, hold Mounjaro injections, takes 30 units of Lantus nightly, will proceed with 15 units of Lantus along with 5 mealtime, SSI, hypoglycemia precautions, Accu-Cheks CKD 3B: Kidney function at baseline, CODE STATUS: Full code DVT prophylaxis: Heparin Anticipated discharge date: TBD Anticipated discharge place: [facility] Objective - Vital Signs Vital signs: Vital Signs Temp 97.8 F 11/17/24 07:52 Pulse 65 11/17/24 07:52 Resp 16 11/17/24 07:52 BP 99/50 11/17/24 07:52 Pulse Ox 93 L 11/17/24 07:52 FiO2 Intake & Output 11/16/24 11/17/24 11/17/24 18:59 06:59 18:59 Intake Total 1080 180 Balance 1080 180 Intake: Oral 1080 180 Other: Voiding Method Bedside Commode # Voids 5 2 - Labs CBC & Chem 7: 11/15/24 05:54 11/17/24 07:34 Labs: Abnormal Lab Results - Last 24 Hours (Table) 11/16/24 11/16/24 11/16/24 Range/Units 12:18 17:26 20:23 BUN (7-17) mg/dL Creatinine (0.52-1.04) mg/dL Glucose (74-99) mg/dL POC Glucose (mg/dL) 206 H 120 H 129 H (70-110) mg/dL 11/17/24 11/17/24 Range/Units 06:16 07:34 BUN 39 H (7-17) mg/dL Creatinine 1.41 H (0.52-1.04) mg/dL Glucose 129 H (74-99) mg/dL POC Glucose (mg/dL) 122 H (70-110) mg/dL
[2024-11-17 12:17] LABS: Glucose,Whole Blood 172 mg/dL (70-110)
[2024-11-17 17:20] LABS: Glucose,Whole Blood 189 mg/dL (70-110)
[2024-11-17 20:25] LABS: Glucose,Whole Blood 172 mg/dL (70-110)
[2024-11-18 05:56] LABS: Glucose,Whole Blood 148 mg/dL (70-110)
--- NOTE | 2024-11-18 12:12 | P.PN ---
Subjective HISTORY OF PRESENT ILLNESS: This is a 69-year-old female with a past medical history significant for congestive heart failure, chronic kidney disease, hyperlipidemia, hypertension, seizure disorder, and pacemaker implantation. Patient follows in the office with Dr. Blanca. We have been asked to see the patient in consultation for syncope. Patient examined at the bedside. Patient states yesterday she was in the kitchen and was about to make hotdogs when maxing she knows she passed out on the floor. She denied having any warning signs. She does report loss of consciousness. Her roommate states that she was not out for very long but her eyes did roll back in the back of her head. She also reports that she passed out in August. Patient currently denies having any chest pain or pressure. She denies any shortness of breath. She does state that she does not drink any water whatsoever. Additionally, the patient has significant lymphedema. Compression stockings were recommended. Patient states that she has been trying to obtain a pair of compression stockings on an outpatient basis. DIAGNOSTICS: - EKG reveals sinus mechanism with no signs of acute ischemia. - Chest xray cardiomegaly mild pulmonary vascular congestion. - Laboratory data: WBC 6.34. Hemoglobin 12.2. Platelet count 204. Sodium 139. Potassium 4.1. BUN 45. Creatinine 1.63. Troponin negative x 1. - Current home cardiac medications include hydralazine 25 mg daily, carvedilol 6.25 mg in the morning and 12.5 mg at night, Lasix 80 mg daily, Farxiga 10 mg d aily, Lipitor 20 mg at night. - Most recent echocardiogram obtained in July 2020 revealed ejection fraction 55 to 60%, mild MR, mild TR, mild pulmonary pretension - Patient underwent Lexiscan stress test in July 2020 which was negative for reversible ischemia Progress note 11/16/2024 BP 121/78, heart rate 73 Echo showed EF of 50 to 55%, mild concentric LVH, moderate biatrial dilatation, RVSP of 47 mmHg, Polyvalvular calcification with mild aortic stenosis of mean gradient 10 mmHg 11/18/2024 Patient seen and examined sitting up in the chair in no acute distress. Blood pressure 124/83 heart rate 64 afebrile maintaining oxygen saturation on room air. Orthostatic vital signs unremarkable. PHYSICAL EXAM: VITAL SIGNS: Reviewed. GENERAL: Well-developed in no acute distress. HEENT: Head is normocephalic. Pupils are equal, round. Sclerae anicteric. Mucous membranes of the mouth are moist. Neck supple. No JVD or thyromegaly LUNGS: Respirations even and unlabored. Lungs essentially clear to auscultation bilaterally. HEART: Regular rate and rhythm. S1 and S2 heard. ABDOMEN: Soft. Nondistended. Nontender. EXTREMITIES: Normal range of motion. No clubbing or cyanosis. Peripheral pulses intact. Significant lymphedema noted NEUROLOGIC: Awake and alert. Oriented x 3. ASSESSMENT: Mild aortic stenosis Syncope, likely vasovagal Chronic kidney disease Hypertension Hyperlipidemia Chronic congestive heart failure with preserved EF, currently not in acute exacerbation History of seizure disorder History of pacemaker implantation, [facility], performed at [facility], August 2024 Morbid obesity: BMI 50.0 Diabetes, hemoglobin A1c 7.5. Lymphedema of bilateral lower extremities PLAN: Stable from a cardiac perspective, we will follow as needed. Follow-up in the office with Dr. Shore upon discharge. Nurse Practitioner note has been reviewed, I agree with a documented findings and plan of care. Patient was seen and examined. Objective - Vital Signs Vital signs: Vital Signs Temp 97.8 F 11/18/24 05:52 Pulse 64 11/18/24 05:52 Resp 16 11/18/24 05:52 BP 124/83 11/18/24 05:52 Pulse Ox 94 L 11/18/24 05:52 FiO2 Intake & Output 11/17/24 11/18/24 11/18/24 18:59 06:59 18:59 Intake Total 478 Balance 478 Intake: Oral 478 Other: Voiding Method Bedside Commode Bedside Commode # Voids 3 2 1 # Bowel Movements 2 - Labs CBC & Chem 7: 11/15/24 05:54 11/17/24 07:34 Labs: Abnormal Lab Results - Last 24 Hours (Table) 11/17/24 11/17/24 11/17/24 Range/Units 12:15 17:16 20:24 POC Glucose (mg/dL) 172 H 189 H 172 H (70-110) mg/dL 11/18/24 Range/Units 05:55 POC Glucose (mg/dL) 148 H (70-110) mg/dL
[2024-11-18 13:05] LABS: Glucose,Whole Blood 242 mg/dL (70-110)
--- NOTE | 2024-11-18 13:47 | P.PN ---
Subjective Progress Note Date: 11/18/24 Patient initially seen by Dr. Shon Craft. Please refer to his note for details. Patient is a 69-year-old female with syncopal spell versus seizure. Patient has history of seizure and is on Keppra, Trileptal and Vimpat. Cardiology is also on board. Patient was seen for follow-up. Patient is sitting comfortably on the side of the bed. She just has had BM on the bedside commode. Patient offers no complaints. Some of the workup during this hospital visit consisted of: Hemoglobin A1c is 7.5 TSH is 0.307 and free T4 is 1.81 AST and ALT is within normal limits Sodium is within normal limits this Creatinine is 1.63 BUN is 45, initial serum glucose is 151 Calcium 9.7 Magnesium is 2.[address] of the head is reported as no acute bleed or mass effect. Stable posterior fossa arachnoid cyst in the left. I personally reviewed the CT of the head and I agree there is no acute or subacute ischemic stroke. CT cervical spine is reported as no acute trauma.. 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 Routine EEG: Normal. Objective - Vital Signs Vital signs: Vital Signs Temp 97.9 F 11/18/24 12:52 Pulse 59 L 11/18/24 12:52 Resp 20 11/18/24 12:52 BP 143/68 11/18/24 12:52 Pulse Ox 95 11/18/24 12:52 FiO2 Intake & Output 11/17/24 11/18/24 11/18/24 18:59 06:59 18:59 Intake Total 478 Balance 478 Intake: Oral 478 Other: Voiding Method Bedside Commode Bedside Commode # Voids 3 2 1 # Bowel Movements 2 - Exam GENERAL: The patient is sitting on the side of the bed and is not in acute distress. NEUROLOGICAL: Higher mental function: The patient is awake, alert, oriented to self, place and time. Patient knows it is October and the year is and that she is in [facility]. Patient is following commands. No aphasia and no neglect. She has slightly slow mentation and delayed response. Cranial nerves: The pupils are round, equal and reactive to light and accommodation. Visual prakash are full to confrontation throughout. No neglect on double simultaneous stimulation. Extraocular movement is intact no nystagmus is noted. Facial sensation is normal to touch throughout. The facial strength is normal throughout. Hearing is mildly decreased bilaterally to hand rub. Tongue is midline and moved bodl-og-nime without any difficulty. No dysarthria is noted. Shoulder shrug is normal bilaterally. Motor: The strength is 5 over 5 throughout uppers and in lowers, except hip flexion which is about 3+ bilaterally. Has erythema on the lowers. Normal tone and bulk. Cerebellum: Normal finger to nose bilaterally. Sensation: Sensation is normal to touch throughout. - Labs CBC & Chem 7: 11/15/24 05:54 11/17/24 07:34 Labs: Abnormal Lab Results - Last 24 Hours (Table) 11/17/24 11/17/24 11/18/24 Range/Units 17:16 20:24 05:55 POC Glucose (mg/dL) 189 H 172 H 148 H (70-110) mg/dL 11/18/24 Range/Units 13:04 POC Glucose (mg/dL) 242 H (70-110) mg/dL Assessment and Plan Assessment: This is a 69-year-old woman who presents emergency department because of syncopal spell. Patient has a history of seizure and she is on 3 antiseizure medication and states she has not had seizure for a while. She has also significant cardiac issues and had a pacemaker placed towards the end of August 2024. Syncopal spell unknown exact etiology. Rule out cardiac etiology especially with her significant cardiac issues. Also rule out ?autonomic dysfunction due to her history of diabetes. From the clinical presentation it does not appear like a seizure since it was brief and no urinary or bowel incontinence or any tongue bite or any jerking of any extremity. Prolactin level was normal. Routine EEG is normal. History of syncopal spell and the patient has a pacemaker towards the end of August 2024 and that was placed at [facility] [place] Severe degenerative disease over the cervical spine on CT Lymphedema of lower extremity and patient has erythema of the lowers rule out any cellulitis History of seizure and the patient is on Keppra, lacosamide and Trileptal History of syncopal spells Of atrial fibrillation History of coronary artery disease History of heart failure Diabetes mellitus hemoglobin A1c 7.5 Hypertension Hyperlipidemia Chronic kidney disease History of sleep apnea Polypharmacy Plan: Plan: Seizure precautions seizure pads EEG 11/15/2024 was normal awake and drowsy pattern. No focal slowing or epileptiform discharges were seen. Patient is resumed on her home medication of Vimpat 100 mg twice daily, Keppra 1000 mg twice daily, Trileptal 600 mg twice daily. Keppra level 52.9 (3-60). Vimpat and Trileptal level pending. Orthostatics were checked, and is essentially negative. Supine blood pressure 120/83, sitting 115/67, and standing 109/60. Orthopedic surgery team is consulted for her severe spinal stenosis if patient stay will be prolonged Cardiology is consulted [place] DMV because of seizure or syncopal spells no driving for 6 months until no further episodes, avoid heights, avoid swimming assisted or using heavy machinery. Defer the rest of the medical management the primary and other specialist Upon discharge recommend the patient to follow-up with her outpatient neurologist Dr. Tse within 2 to 3 weeks Neurologically clear for discharge.
--- NOTE | 2024-11-18 16:13 | P.PN ---
Subjective Progress Note Date: 11/18/24 Patient was seen and examined. Feeling weak and tired. No other complaints. General: non toxic, no distress, appears at stated age Derm: warm, dry Head: atraumatic, normocephalic, symmetric Eyes: EOMI, no lid lag, anicteric sclera Mouth: no lip lesion, mucus membranes moist Cardiovascular: S1S2 reg, no murmur Lungs: Decreased BS bilateral, no rhonchi, no rales , no accessory muscle use Ext: no gross muscle atrophy, no edema, no contractures Neuro: no focal neuro deficits Psych: Alert, oriented, appropriate affect Based on my assessment of this patient, this patient meets a high complexity level of care. Syncopal episode: No events on interrogated pacemaker. Echo 50-55% with increased LV thickness. Orthostats mildly positive. Cardiology has cleared the patient for discharge. Vertigo: Keppra level 52.9. CT head no acute process. EEG unrevealing. Unable to MRI due to pacemaker. Continue Meclizine 25 mg PO QID. Neurology recommending outpatient Neurology follow up with Dr. Tse, cleared for discharge. History of seizure: Continue Keppra 1000 mg PO BID, Lacosamide 100 mg PO QD. Trilepta 600 mg PO BID. Depression: Continue Zoloft 50 mg PO QD. Hyperparathyroidism: Continue Paricalcitol 2 mcg PO QD. Diastolic CHF not in acute exacerbation Hypertension: Hydralazine 25 mg PO QD. Lasix 80 mg PO QD. Coreg 12.5 mg PO QHS + 6.25 mg PO QD. History of paroxysmal SVT with pacemaker in place Hyperlipidemia: Lipitor 20 mg PO QD. Hypothyroidism: Levothyroxine 200 mcg PO QD. Vitamin D deficiency: Continue Vitamin D 50 mcg PO QD. Gout: Allopurinol 100 mg PO QD. Type II DM on insulin: Continue home Farxiga 10 mg PO QD. Lantus 15 units QHS + Lispro 5 units TID AC. ISS + Accuchecks ACHS along with hypoglycemia precautions. CKD 3B at baseline. Plans for SNF on discharge. Case management on board. Medically stable. CODE STATUS: FULL CODE DVT Prophylaxis: Heparin SQ. GI Prophylaxis: Designated medical POA if patient is not able to make medical decisions for themselves: I have reviewed the following legal nurse consultant notes: Neurology, Cardio I have reviewed the results of the following tests: I have ordered the following tests: I have discussed the care of this patient with the following independent historian: MICK. I have independently interpreted the following test below: I have discussed the management of this patient with the following physician: Objective - Vital Signs Vital signs: Vital Signs Temp 97.9 F 11/18/24 12:52 Pulse 59 L 11/18/24 12:52 Resp 20 11/18/24 12:52 BP 143/68 11/18/24 12:52 Pulse Ox 95 11/18/24 12:52 FiO2 Intake & Output 11/17/24 11/18/24 11/18/24 18:59 06:59 18:59 Intake Total 478 Balance 478 Intake: Oral 478 Other: Voiding Method Bedside Commode Bedside Commode # Voids 3 2 1 # Bowel Movements 2 - Labs CBC & Chem 7: 11/15/24 05:54 11/17/24 07:34 Labs: Abnormal Lab Results - Last 24 Hours (Table) 11/17/24 11/17/24 11/18/24 Range/Units 17:16 20:24 05:55 POC Glucose (mg/dL) 189 H 172 H 148 H (70-110) mg/dL 11/18/24 Range/Units 13:04 POC Glucose (mg/dL) 242 H (70-110) mg/dL
[2024-11-18 17:51] LABS: Glucose,Whole Blood 206 mg/dL (70-110)
[2024-11-18 19:44] LABS: Glucose,Whole Blood 161 mg/dL (70-110)
[2024-11-19 06:05] LABS: Glucose,Whole Blood 175 mg/dL (70-110)
[2024-11-19 07:39] VITALS: BP 120/61; PULSE 59; RESP 18; TEMP 98
[2024-11-19 11:33] LABS: Glucose,Whole Blood 239 mg/dL (70-110)
--- NOTE | 2024-11-19 11:57 | P.DS ---
Providers Date of admission: 11/14/24 16:34 Expected date of discharge: 11/19/24 Attending physician: Tamar Carpio MD Consults: 11/14/24 16:39 Consult Physician Urgent Consulting Provider: Shon Craft Consult Reason/Comments: syncope w nystagmus Do you want consulting provider notified?: Yes 11/14/24 17:12 Consult Physician Routine Consulting Provider: Rg Mcadams Consult Reason/Comments: syncopy, pacemaker in place Do you want consulting provider notified?: Yes 11/15/24 14:36 Consult Physician Routine Consulting Provider: James Zhu Consult Reason/Comments: severe cervical DDD Do you want consulting provider notified?: Yes Primary care physician: Kvng Tanner MD Hospital Course: 69-year-old female with medical history of type II DM, CHF, CKD 3B, hyper lipidemia, hypothyroidism, hypertension, seizure disorder on Keppra, lymphedema, history of paroxysmal SVT with pacemaker in place. Who presented to the ER for syncopal episode that happened when she was boiling hot dogs. She denies any precipitating events, no chest pain, dyspnea, hot fluses, dizziness lightheadedness. She probably struck her head on the counter. She believes that she was out for less than a minute. She denies any sensation changes, numbness, tingling. Reports blurry vision. In the ED she underwent extensive evaluation. Vitals: BP 182/80, HR 75, T 98.2F, RR 20, 99% on RA. Labs significant for RBC 3.93, APTT 21.9, BUN 45, Cr 1.63, glu 151, alk phos 170, Trop < 0.012. B12 575. Folate 431. TSH 0.307, FT4 1.81. EKG NSR with PVCs. CXR with cardiomegaly and mild pulmonary vascular congestion. CT head cervical spine showed no acute bleed or mass, stable posterior fossa arachnoid cyst in the left, severe multilevel degenerative disease resulting in cervical kyphosis. Patient was admitted for further management of syncope. Cardiology and neurology consulted. Cardiology following, pacemaker interrogated with no events. EEG was ordered and showed normal findings. TTE showed EF of 50 to 55%, no obvious regional wall motion abnormalities, RVSP 47. Unable to MRI brain due to pacemaker. Orthopedic surgery consulted due to severe degenerative disc disease in the neck, no emergent surgery recommended. PT and OT evaluated the patient and recommended SNF. 11/19 Patient was seen and examined. Plans for SNF today. No new labs done today. Discharge Plan: Follow up with PCP within 1-2 days of discharge. Follow up with Cardiology and Neurology within 2 weeks of discharge. Per [place] DMV because of seizure or syncopal spells, no driving for 6 months until no further episodes, avoid heights, avoid swimming assisted or using heavy machinery. General: non toxic, no distress, appears at stated age Derm: warm, dry Head: atraumatic, normocephalic, symmetric Eyes: EOMI, no lid lag, anicteric sclera Mouth: no lip lesion, mucus membranes moist Cardiovascular: S1S2 reg, no murmur Lungs: Decreased BS bilateral, no rhonchi, no rales , no accessory muscle use Ext: no gross muscle atrophy, no edema, no contractures Neuro: no focal neuro deficits Psych: Alert, oriented, appropriate affect Discharge Diagnosis Syncopal episode Vertigo History of seizure Depression Hyperparathyroidism Diastolic CHF not in acute exacerbation Hypertension History of paroxysmal SVT with pacemaker in place Hyperlipidemia Hypothyroidism Vitamin D deficiency Gout Type II DM on insulin CKD 3B at baseline This complex discharge took 35 minutes to complete. Patient Condition at Discharge: Stable Plan - Discharge Summary Discharge Rx Participant: No New Discharge Prescriptions: New Insulin Glargine (Lantus) [Lantus Vial] 15 unit SQ HS each Acetaminophen Tab [Tylenol] 650 mg PO Q6HR PRN tab PRN Reason: Mild Pain Or Fever > 100.5 Meclizine [Antivert] 25 mg PO QID PRN tab PRN Reason: Vertigo Continue Atorvastatin Calcium [Lipitor] 20 mg PO HS allopurinoL [Zyloprim] 100 mg PO DAILY paricalcitoL [Paricalcitol] 2 mcg PO DAILY carvediloL [Coreg] 6.25 mg PO DAILY carvediloL [Coreg] 12.5 mg PO HS Magnesium Oxide [Mag-Ox] 400 mg PO HS Levothyroxine Sodium [Synthroid] 200 mcg PO AC-BRKFST Sertraline [Zoloft] 50 mg PO DAILY OXcarbazepine [Trileptal] 600 mg PO BID Dapagliflozin Propanediol [Farxiga] 10 mg PO DAILY Insulin Aspart [NovoLOG Flexpen] See Protocol SQ AC-TID traMADol HCL 50 mg PO DAILY PRN #3 tab PRN Reason: Pain Pramipexole [Mirapex] 1 mg PO HS Tirzepatide [Mounjaro] 5 mg SQ TH Potassium Chloride 10 meq PO DAILY levETIRAcetam [Keppra] 1,000 mg PO BID Lacosamide 100 mg PO BID hydrALAZINE HCL [Apresoline] 25 mg PO DAILY Furosemide [Lasix] 80 mg PO DAILY Cholecalciferol (Vitamin D3) [Vitamin D3 (50 Mcg = 2000 Iu)] 50 mcg PO DAILY Discontinued Insulin Glargine (Lantus) [Lantus Vial] 30 units SQ HS Discharge Medication List Atorvastatin Calcium [Lipitor] 20 mg PO HS 06/15/16 [History] allopurinoL [Zyloprim] 100 mg PO DAILY 06/21/17 [History] paricalcitoL [Paricalcitol] 2 mcg PO DAILY 06/21/17 [History] Pramipexole [Mirapex] 1 mg PO HS 09/30/20 [History] carvediloL [Coreg] 6.25 mg PO DAILY 10/06/20 [History] Cholecalciferol (Vitamin D3) [Vitamin D3 (50 Mcg = 2000 Iu)] 50 mcg PO DAILY 11/14/24 [History] Dapagliflozin Propanediol [Farxiga] 10 mg PO DAILY 11/14/24 [History] Furosemide [Lasix] 80 mg PO DAILY 11/14/24 [History] Insulin Aspart [NovoLOG Flexpen] See Protocol SQ AC-TID 11/14/24 [History] Lacosamide 100 mg PO BID 11/14/24 [History] Levothyroxine Sodium [Synthroid] 200 mcg PO AC-BRKFST 11/14/24 [History] Magnesium Oxide [Mag-Ox] 400 mg PO HS 11/14/24 [History] OXcarbazepine [Trileptal] 600 mg PO BID 11/14/24 [History] Potassium Chloride 10 meq PO DAILY 11/14/24 [History] Sertraline [Zoloft] 50 mg PO DAILY 11/14/24 [History] Tirzepatide [Mounjaro] 5 mg SQ TH 11/14/24 [History] carvediloL [Coreg] 12.5 mg PO HS 11/14/24 [History] hydrALAZINE HCL [Apresoline] 25 mg PO DAILY 11/14/24 [History] levETIRAcetam [Keppra] 1,000 mg PO BID 11/14/24 [History] Acetaminophen Tab [Tylenol] 650 mg PO Q6HR PRN tab 11/19/24 [Rx] Insulin Glargine (Lantus) [Lantus Vial] 15 unit SQ HS each 11/19/24 [Rx] Meclizine [Antivert] 25 mg PO QID PRN tab 11/19/24 [Rx] traMADol HCL 50 mg PO DAILY PRN #3 tab 11/19/24 [Rx] Follow up Appointment(s)/Referral(s): Dave Pham MD [Medical Doctor] - 2 Weeks Kvng Tanner MD [Primary Care Provider] - 1-2 days [facility], [NON-STAFF] - 1-2 Days James Zhu DO [Doctor of Osteopathic Medicine] - As Needed Hudson Tse DO [STAFF PHYSICIAN] - 2 Weeks Activity/Diet/Wound Care/Special Instructions: [place] DMV because of seizure or syncopal spells no driving for 6 months until no further episodes, avoid heights, avoid swimming assisted or using heavy machinery. Discharge Disposition: TRANSFER TO SNF/ECF
== END 2024-11-19 14:20 | DRG 312 ==
LOC: EC 14:30 → 6NMEDSUR 16:34
PROVIDERS: ADMIT Student in an Organized Health Care Education/Training Program; ATTEND Student in an Organized Health Care Education/Training Program
PROC: 4A10X4Z Monitoring of Central Nervous Electrical Activity, External Approach (ICD-10-PCS; principal; 2024-11-15)
DX: R55 Syncope and collapse (principal); L03.115 Cellulitis of right lower limb; I13.0 Hypertensive heart and chronic kidney disease with heart failure and stage 1 through stage 4 chronic kidney disease, or unspecified chronic kidney disease; I50.32 Chronic diastolic (congestive) heart failure; Z68.43 Body mass index [BMI] 50.0-59.9, adult; G40.909 Epilepsy, unspecified, not intractable, without status epilepticus; I48.91 Unspecified atrial fibrillation; E11.22 Type 2 diabetes mellitus with diabetic chronic kidney disease; F31.9 Bipolar disorder, unspecified; N18.32 Chronic kidney disease, stage 3b; J45.909 Unspecified asthma, uncomplicated; G93.0 Cerebral cysts; I35.0 Nonrheumatic aortic (valve) stenosis; L03.116 Cellulitis of left lower limb; E66.01 Morbid (severe) obesity due to excess calories; Z79.4 Long term (current) use of insulin; Z79.890 Hormone replacement therapy; R42 Dizziness and giddiness; G47.30 Sleep apnea, unspecified; K21.9 Gastro-esophageal reflux disease without esophagitis; G89.29 Other chronic pain; E21.3 Hyperparathyroidism, unspecified; E55.9 Vitamin D deficiency, unspecified; E78.5 Hyperlipidemia, unspecified; F41.9 Anxiety disorder, unspecified; H55.09 Other forms of nystagmus; I25.10 Atherosclerotic heart disease of native coronary artery without angina pectoris; I89.0 Lymphedema, not elsewhere classified; Z79.84 Long term (current) use of oral hypoglycemic drugs; Z95.0 Presence of cardiac pacemaker; M19.90 Unspecified osteoarthritis, unspecified site; Z87.891 Personal history of nicotine dependence; M47.812 Spondylosis without myelopathy or radiculopathy, cervical region; I49.3 Ventricular premature depolarization; M10.9 Gout, unspecified; M40.292 Other kyphosis, cervical region; M40.202 Unspecified kyphosis, cervical region; M50.30 Other cervical disc degeneration, unspecified cervical region; W19.XXXA Unspecified fall, initial encounter; Z79.899 Other long term (current) drug therapy; Z96.653 Presence of artificial knee joint, bilateral; Z90.49 Acquired absence of other specified parts of digestive tract; Z88.6 Allergy status to analgesic agent
CPT/HCPCS: 36415; 70450; 71046; 72125; 80048; 80053; 80061; 80177; 80235; 82607; 82747; 83036; 83735; 84146; 84439; 84443; 84484; 85025; 85610; 85730; 93005; 93306; 95816; 99285